=== PATIENT | female | born 1950 | race Caucasian/White ===

== ENCOUNTER 2021-02-11 20:03 | Inpatient (IN) | payer MEDICARE, SELFPAY ==
[2021-02-11] VITALS (9 sets, daily range): BP systolic 127–166; BP diastolic 57–92; PULSE 68–99; RESP 14–21; TEMP 35.8; O2SAT 91–100
--- NOTE | ~2021-02-11 | XR_ITS ---
EXAMINATION: XR chest 2V DATE: 02/11/2021 20:44 INDICATION: Shortness of breath TECHNIQUE: AP and lateral views of the chest are obtained. COMPARISON: 03/12/2010 FINDINGS: The lungs are free of acute opacities. There is no pleural effusion or pneumothorax. Cardio megaly is noted. There is mild thoracic spondylosis. There has been interval insertion of a triple le ad pacemaker/defibrillator which ends with its leads in expected position. IMPRESSION: 1. Cardiomegaly. Reviewed, dictated and finalized at location A. IMPRESSION: 1. Cardiomegaly.
--- NOTE | ~2021-02-11 | US_ITS ---
EXAMINATION:US venous doppler LE BI INDICATION:Deep venous thrombosis. Leg swelling. TECHNIQUE: Multiple grayscale, color flow and Doppler images of the right and left lower extremity de ep venous systems were obtained and reviewed. COMPARISON:Ultrasound dated 04/03/2019 FINDINGS: The common femoral, superficial femoral and popliteal veins demonstrate normal respiratory variation, augmentation and compressibility. Color flow is also seen within the posterior tibial, pe roneal, greater saphenous and profunda veins. IMPRESSION: 1: No lower extremity deep venous thrombosis. Reviewed, dictated and finalized at location A.
--- NOTE | 2021-02-11 20:16 | PC.NURSE ---
pt arrived with ems from [place]. called to home for increased sob. pt is a smoker. no home o2. see triage note for further interventions by ems. on arrival, pt on 6L O2 per nc. awaiting further instructions.
[2021-02-11 20:31] LABS: Basophils Absolute Auto 0.1 K/mm3 (0.0-0.1); Basophils Percent Auto 0.4 % (0.2-1.2); Eosinophils Absolute Auto 0.2 K/mm3 (0-0.3); Eosinophils Percent Auto 1.8 % (0-4.4); Hematocrit 47.7 % (37.0-47.0); Immature Granulocyte Absolute 0.03 K/mm3 (0.00-0.031); Immature Granulocyte Percent A 0.3 % (0-0.5); Lymphocytes Absolute Auto 1.67 K/mm3 (0.9-3.2); Lymphocytes Percent Auto 14.2 % (18.3-44.2); Mean Corpuscular HGB Conc 33.5 g/dl (32-36); Mean Corpuscular Hemoglobin 33.5 pg (26-34); Mean Corpuscular Volume 99.8 fl (80-100); Mean Platelet Volume 9.1 fl (7.4-10.4); Monocytes Absolute Auto 0.9 K/mm3 (0.1-0.6); Monocytes Percent Auto 7.8 % (2.6-8.5); Neutrophils Absolute Auto 8.9 K/mm3 (1.3-6.7); Neutrophils Percent Auto 75.5 % (45.5-73.1); Platelet Count Result 240 k/mm3 (150-375); Red Blood Count 4.78 M/mm3 (4.2-5.4); Red Cell Distribution Width 11.3 % (11.5-14.5); White Blood Count 11.7 K/mm3 (4.5-10.0)
[2021-02-11 20:40] LABS: INR 0.9; Prothrombin Time 11.9 Seconds (11.1-14.7)
[2021-02-11 20:41] LABS: Partial Thromboplastin Time 26.5 SECONDS (22.3-36.8)
[2021-02-11 20:44] LABS: Anion Gap 9 mmol/L (8-16); Blood Urea Nitrogen 7 mg/dL (7-17); Calcium 8.9 mg/dL (8.4-10.2); Carbon Dioxide 27 mmol/L (22-30); Chloride 91 mmol/L (98-107); Estimated CRCL calculation 117 ml/min; Estimated Glomerular Filt Rate > 60; Glucose 158 mg/dL (65-110); Potassium 4.5 mmol/L (3.4-5.0); Sodium 127 mmol/L (137-145)
[2021-02-11 20:59] LABS: NT Pro B Type Natriuretic Pept 108 pg/mL (5-100); Troponin I < 0.012 ng/mL (0.000-0.034)
[2021-02-11] MEDS: ALBUTEROL SULFATE NEB 2.5 MG/0.5 ML INH 15 MG INHALATION (21:27)
[2021-02-11] MEDS: IPRATROPIUM BR 0.02% INH SOLN 0.5 MG/2.5 ML VIAL 1.5 MG INHALATION (21:27)
--- NOTE | 2021-02-11 22:28 | ED.GENADULT ---
HPI - General Adult General Chief complaint: Shortness of Breath/Dyspnea Stated complaint: SOB Time Seen by Provider: 02/11/21 20:04 History of Present Illness HPI narrative: Patient is a 70-year-old female who presents ER with shortness of breath. Worsening throughout the day. Hypoxic for EMS upon arrival. Satting around 86%. Patient diminished and tight. She received IV magnesium sulfate as well as IV steroids and nebulizer treatment prior to arrival. Patient had some mild improvement in her shortness of breath but is still requiring oxygen. Reports chest tightness with shortness of breath. No orthopnea. No new lower extremity swelling. She does have history of CAD and COPD. Patient reports cough for the last couple days. No fevers or chills or sweats. Related Data Home Medications Medication Instructions Recorded Confirmed atorvastatin 20 mg PO DAILY 04/03/19 02/12/21 carvedilol 37.5 mg PO BID 04/03/19 02/12/21 sacubitril-valsartan [Entresto] 1 tablet PO BID 04/03/19 02/12/21 sotalol 80 mg PO BID 04/03/19 02/12/21 furosemide 20 mg PO BID 02/12/21 02/12/21 Allergies Allergy/AdvReac Type Severity Reaction Status Date / Time No Known Allergies Allergy Verified 02/11/21 20:15 Review of Systems Review of Systems: All systems reviewed & are unremarkable except as noted in HPI and below Constitutional: Constitutional: Denies chills, Denies fever(s) and Denies weakness ENT: Denies nasal congestion and Denies sore throat Cardiovascular: Cardiovascular: Denies chest pain and Denies radiating jaw, neck or arm pain Respiratory: Respiratory: Reports cough, Reports dyspnea and Reports wheezing Gastrointestinal: Gastrointestinal: Denies abdominal pain, Denies nausea and Denies vomiting Musculoskeletal: Musculoskeletal: Denies back pain and Denies muscle cramps [facility] Past Medical History Medical History (Updated 02/12/21 @ 06:59 by Romaine Gamble MD) Arthritis CHF (congestive heart failure) COPD (chronic obstructive pulmonary disease) H/O cardiac pacemaker Hyperlipidemia Hypertension Surgical History Surgical History (Updated 04/03/19 @ 14:24 by Evie Foley) No history of previous surgery Social History Social History Smoking packs per day: 0.5 Smoking cigarettes per day: 10.0 Years smoked: 50 Smoking pack-years: 25.00 Smoking status: Current every day smoker Tobacco type: cigarettes Alcohol intake: current Drinks per week: 28 Substance use: never Gender identity (if verbalized by the patient): Female Spiritual care concerns: No Exam Narrative: GENERAL: Ill-appearing, well-nourished, and in no acute distress. HEAD: Normocephalic, atraumatic. ENT: Mucous membranes moist. CHEST: Diminished throughout with poor air movement and faint wheezing. Moderate respiratory distress. HEART: Regular rate and rhythm. Murmur present most prominent left lower sternal border. Normal peripheral pulses. ABDOMEN: Soft, nontender, nondistended. EXTREMITIES: Normal range of motion. No edema. SKIN: Warm, dry, no rash. NEURO: Alert and oriented x3. PSYCH: Normal mood and affect. Course Course Emergency Course: Patient improving with nebulizer treatments. Admit to hospitalist service for further treatment. Vital Signs Vital signs: Vital Signs Temperature 96.5 F L 02/11/21 20:09 Pulse Rate 93 02/11/21 20:09 Respiratory Rate 19 02/11/21 20:09 Blood Pressure 166/82 H 02/11/21 20:09 Pulse Oximetry 100 02/11/21 20:09 Temperature 100.6 F H 02/12/21 06:21 Pulse Rate 83 02/12/21 05:31 Respiratory Rate 20 02/12/21 05:31 Blood Pressure 123/66 02/12/21 05:31 Pulse Oximetry 91 02/12/21 05:31 Medical Decision Making Vital Signs Vital Signs: Vital Signs Temperature 96.5 F L 02/11/21 20:09 Pulse Rate 93 02/11/21 20:09 Respiratory Rate 19 02/11/21 20:09 Blood Pressure 166/82 H 02/11/21 20:09 Pulse Oximetry 100 02/11/21 20:09
--- NOTE | 2021-02-11 23:30 | PM.IMHP ---
H&P: HPI History of Present Illness Date/Time: 02/11/21 23:30 Chief Complaint: Shortness of breath Narrative: This is a 70-year-old female with past medical history significant for dyslipidemia, COPD/emphysema, congestive heart failure, pacemaker insitu, tobacco dependence, patient states that she is down to 6 cigarettes a day from 1 pack of cigarettes a day for over 50 years. She comes in today to the emergency room due to shortness of breath states that she just recently was diagnosed with COPD and she is not on any home and in his medications. She has been having progressively worsening shortness of breath for the last 2 days or so with wheezing, cough productive of scanty white phlegm but no changes in sputum quality or quantity ,no fevers no rigors, no chills, no nausea, no vomiting, no abdominal pain, no diarrhea, no constipation, no chest pain, no PND no orthopnea she has had right lower extremity swelling but no pain. Patient presented via EMS according to EMS records upon arrival she was saturating at 86 % on room air she received various treatments on route to the hospital in emergency room her saturation has remained between 94-96% with supplemental oxygen 3 L by nasal cannula. Preliminary workup has been pretty much unrevealing a chest x-ray show cardiomegaly and pacemaker defibrillator implanted. Review of Systems Review of Systems: Worsening shortness of breath, cough productive of scanty white phlegm, wheezing. Constitutional: Constitutional: Denies chills, Denies fever(s), Denies malaise and Denies night sweats Eyes: Eyes: Denies change in vision ENT: Denies dysphagia, Denies nasal congestion, Denies nasal discharge, Denies nasal obstruction and Denies odynophagia Cardiovascular: Cardiovascular: Denies irregular heart rhythm, Denies claudication, Denies lightheadedness, Denies radiating jaw, neck or arm pain, Denies palpitations, Denies dyspnea on exertion and Denies orthopnea Comments: Right leg swelling Respiratory: Respiratory: Denies change in phlegm color, Reports cough, Denies excessive phlegm production, Denies pain on inspiration, Denies pain with cough, Reports dyspnea, Reports dyspnea on exertion and Reports wheezing Gastrointestinal: Gastrointestinal: Denies abdominal pain, Denies dyspepsia, Denies heartburn, Denies diarrhea, Denies nausea and Denies vomiting Genitourinary: Genitourinary: Reports no additional female genitourinary complaints Musculoskeletal: Musculoskeletal: Reports no additional musculoskeletal complaints Integumentary/Breasts: Skin/Breast: Reports system reviewed and no additional complaints, except as docu Neurologic: Reports system reviewed and no additional complaints, except as documented Psychiatric: Psychiatric: Reports no additional psychiatric complaints Endocrine: Endocrine: Reports no additional endocrine complaints Hematologic/Lymphatic: Hematologic/Lymphatic: Reports no additional hematologic/lymphatic complaints Allergic/Immunologic: Allergic/Immunologic: Reports no additional allergic/immunologic complaints [facility] Past Medical History Medical History (Updated 02/12/21 @ 01:51 by Asim Amezcua MD) Arthritis CHF (congestive heart failure) COPD (chronic obstructive pulmonary disease) H/O cardiac pacemaker Hyperlipidemia Hypertension Surgical History Surgical History (Updated 04/03/19 @ 14:24 by Evie Foley) No history of previous surgery Social History Social History Gender identity (if verbalized by the patient): Female Meds Home Medications and Allergies Home Medications Medication Instructions Recorded Confirmed Type atorvastatin 20 mg PO DAILY 04/03/19 History carvedilol 12.5 mg PO BID 04/03/19 History sacubitril-valsartan [Entresto] tablet 04/03/19 History sotalol 80 mg PO BID 04/03/19 History Allergies Allergy/AdvReac Type Severity Reaction Status Date / Time No Known Allergies Allergy Verified 02/11/21 20:15 Vital S
[2021-02-12] VITALS (19 sets, daily range): BP systolic 123–156; BP diastolic 66–85; PULSE 77–94; RESP 12–20; TEMP 36.2–38.2; O2SAT 91–96; BMI 36.7; BMI 35.7
[2021-02-12] MEDS: methylPREDNISolone SOD SUCC 125 MG VIAL 60 MG IV PUSH ×4 (00:09→17:42)
[2021-02-12] MEDS: ALBUTEROL SULFATE NEB 2.5 MG/0.5 ML INH 5 MG INHALATION ×4 (01:32→22:07)
[2021-02-12] MEDS: IPRATROPIUM BR 0.02% INH SOLN 0.5 MG/2.5 ML VIAL INHALATION ×4 (01:32→22:07)
--- NOTE | 2021-02-12 02:08 | ADMGEN ---
This patient, Stephanie He, was admitted to 3 [facility] Surg Room 319-01. Patient/family oriented to hospital policies and general routines including ID bracelet, bed and alarms, visiting hours, pain management, procedures, bathroom and other care routines, personal items, smoking policy, room service/diet, and visiting hours. Information on how to activate the Rapid Response Team has been discussed. Patient/Family are encouraged to report perceived risks to care and to ask questions if they do not understand what they are told or what they should do.
[2021-02-12] MEDS: ACETAMINOPHEN 325 MG TABLET 650 MG PO (06:21)
--- NOTE | 2021-02-12 07:26 | PM.IMPN ---
Progress Note: A&P Additional Plan START OF DOCTOR MONTY?S PROGRESS NOTE Subjective: The patient indicates that her respiratory status has improved compared to how she felt upon admission. She currently rates her respiratory status as a 5 out 10. Although there is a documented elevated temperature, the patient denies fever, rigors, nausea, vomiting, cough, wheeze, abdominal pain, chest pain, or any other constitutional complaints. Have explained to the patient her current medical condition plan of care and answered all questions Objective: General: -Alert -No acute distress -No dyspnea -No tachypnea -obese Heart: -Regular rate -Regular rhythm -No murmurs -No gallops -No rubs Lungs: -scant left-sided wheeze. Decreased breath sounds on left side -No rhonchi -No rales Abdomen: -Normal bowel sounds in all four quadrants -No rebound -No guarding -No tenderness Extremities: -2/4 pulse in all four extremities -No clubbing -No cyanosis -No edema Additional Details / Additional Findings / Exceptions / Miscellaneous: Pertinent Laboratory Results / Pertinent Radiology Results / Pertinent Diagnostic Results / Pertinent Vital Signs: P temperature 100.6?, patient saturating 91% on 3 L Assessment / Plan: COPD, not O2 dependent home. Albuterol 2.5 mg nebulized q.6 hours plus ipratropium 0.5 mg nebulized q.6 hours +6 mg IV q.6 hours plus doxycycline 100 mg p.o. b.i.d. paragraph hyperlipidemia paragraph CHF paragraph status post pacemaker placement. Patient gets this was placed following myocardial infarction. She denies a history of atrial fibrillation although she does take sotalol at home. Telemetry monitoring Smoker. Patient will be counseled regarding smoking cessation Arthritis Hypertension Hyponatremia. Monitor sodium levels intermittently. IV normal saline 50 mL/hour while closely monitoring her respiratory status as she has a known history of CHF Coronary artery disease, status post [place] Obesity. Patient counseled regarding lifestyle modification GI prophylaxis. Protonix 40 mg p.o. daily DVT prophylaxis. Lovenox 40 mg subcutaneously daily Disposition: Anticipate discharge in 24-48 hours if were able to wean the patient off of supplemental oxygen END OF DOCTOR MONTY?S PROGRESS NOTE Subjective Date/time seen: 02/12/21 07:26 Objective Data Vital Signs Vital Signs: Vital Signs - 24 hr 02/11/21 20:09 02/11/21 20:14 02/11/21 20:36 Temperature 96.5 F L Pulse Rate 93 99 Respiratory Rate 19 Blood Pressure 166/82 H Pulse Oximetry 100 100 02/11/21 20:58 02/11/21 21:28 02/11/21 22:00 Temperature Pulse Rate 76 71 71 Respiratory Rate 16 18 14 Blood Pressure 127/57 L 159/76 H Pulse Oximetry 100 100 02/11/21 22:19 02/11/21 22:49 02/11/21 23:41 Temperature Pulse Rate 77 68 70 Respiratory Rate 18 21 H 18 Blood Pressure 146/92 H 133/62 Pulse Oximetry 91 98 02/12/21 01:18 02/12/21 01:30 02/12/21 01:35 Temperature 97.1 F L 98.0 F Pulse Rate 86 77 82 Respiratory Rate 18 20 20 Blood Pressure 154/82 H 156/85 H Pulse Oximetry 96 94 02/12/21 01:39 02/12/21 01:44 02/12/21 05:31 Temperature 100.7 F H Pulse Rate 82 84 83 Respiratory Rate 20 18 20 Blood Pressure 123/66 Pulse Oximetry 94 91 02/12/21 06:21 Temperature 100.6 F H Pulse Rate Respiratory Rate Blood Pressure Pulse Oximetry Meds/Results Medications: Active Medications Generic Name Dose Route Start Last Admin Trade Name Angelitoq PRN Reason Stop Dose Admin Acetaminophen 650 mg 02/11/21 23:12 02/12/21 06:21 Acetaminophen 325 Mg Tablet PO 650 mg Q4H PRN Administration Mild Pain (1-3) or Fever Hydrocodone Bitart/Acetaminophen 1 tab 02/11/21 23:12 Hydrocodone/Acetaminophen (*Crx) 5-325 Mg Tablet PO Q4H PRN Pain Rated 4-6 Albuterol 5 mg 02/12/21 02:00 02/12/21 01:32 Albuterol Sulfate Neb 2.5 Mg/0.5 Ml Inh INHALA
[2021-02-12] MEDS: SODIUM CHLORIDE 0.9% IV 1,000 ML 50 ML IV CONT (08:49)
[2021-02-12] MEDS: ENOXAPARIN 40 MG/0.4 ML SYRINGE SUB-Q (08:50)
[2021-02-12 09:44] LABS: Add Urine Microscopic? YES; Appearance Urine Cloudy (Clear); Bacteria Urine Trace /hpf; Bilirubin Urine Negative (Negative); Blood Urine Negative (Negative); Color Urine Yellow (Yellow); Glucose Urine UA Negative (Negative); Ketones Urine Trace mg/dL (Negative); Leukocyte Esterase Ur Negative LEU/UL (NEGATIVE); Mucus Urine Rare /lpf; Nitrate Urine Negative (Negative); Protein Urine 1+ mg/dL (Negative); RBC Urine 0-2 /hpf (0-2); Specific Grav Ur 1.011 (1.001-1.035); Squamous Epithelial Cell Urine Many /hpf (Few)
[2021-02-12] MEDS: PANTOPRAZOLE 40 MG TABLET PO (12:18)
[2021-02-12] MEDS: DOXYCYCLINE HYCLATE 100 MG TABLET PO ×2 (12:18→21:56)
[2021-02-13] VITALS (16 sets, daily range): BP systolic 118–153; BP diastolic 62–85; PULSE 72–100; RESP 18; TEMP 36.4–37; O2SAT 90–94
[2021-02-13] MEDS: methylPREDNISolone SOD SUCC 125 MG VIAL 60 MG IV PUSH ×3 (01:14→13:25)
[2021-02-13] MEDS: ALBUTEROL SULFATE NEB 2.5 MG/0.5 ML INH 5 MG INHALATION ×3 (02:59→14:35)
[2021-02-13] MEDS: IPRATROPIUM BR 0.02% INH SOLN 0.5 MG/2.5 ML VIAL INHALATION ×3 (03:00→14:36)
[2021-02-13 06:45] LABS: Basophils Percent Auto 0.1 % (0.2-1.2); Hematocrit 41.2 % (37.0-47.0); Hemoglobin 14.1 g/dL (12.0-15.0); Immature Granulocyte Absolute 0.11 K/mm3 (0.00-0.031); Immature Granulocyte Percent A 0.7 % (0-0.5); Lymphocytes Absolute Auto 0.54 K/mm3 (0.9-3.2); Lymphocytes Percent Auto 3.5 % (18.3-44.2); Mean Corpuscular HGB Conc 34.2 g/dl (32-36); Mean Corpuscular Hemoglobin 33.5 pg (26-34); Mean Corpuscular Volume 97.9 fl (80-100); Mean Platelet Volume 9.2 fl (7.4-10.4); Monocytes Absolute Auto 0.5 K/mm3 (0.1-0.6); Monocytes Percent Auto 3.1 % (2.6-8.5); Neutrophils Absolute Auto 14.1 K/mm3 (1.3-6.7); Neutrophils Percent Auto 92.6 % (45.5-73.1); Platelet Count Result 216 k/mm3 (150-375); Red Blood Count 4.21 M/mm3 (4.2-5.4); Red Cell Distribution Width 11.1 % (11.5-14.5); White Blood Count 15.3 K/mm3 (4.5-10.0)
--- NOTE | 2021-02-13 07:00 | PM.IMPN ---
Progress Note: A&P Additional Plan START OF DOCTOR [facility]ONT[facility]?S PROGRESS NOTE Subjective: The patient indicates that her respiratory status has completely improved compared to my encounter with her on February 12, 2021. She currently rates her respiratory status is 6/10 her baseline. Overnight, she denies fever, rigors, nausea, vomiting, cough, wheeze, abdominal pain, chest pain, or any other concerns or complaints. I have explained to the patient her current medical condition and plan of care and answered all her questions Objective: General: -Alert -No acute distress -No dyspnea -No tachypnea -obese Heart: -Regular rate -Regular rhythm -No murmurs -No gallops -No rubs Lungs: -no wheeze -No rhonchi -No rales -distant breath sounds bilaterally Abdomen: -Normal bowel sounds in all four quadrants -No rebound -No guarding -No tenderness Extremities: -2/4 pulse in all four extremities -No clubbing -No cyanosis -No edema Additional Details / Additional Findings / Exceptions / Miscellaneous: Pertinent Laboratory Results / Pertinent Radiology Results / Pertinent Diagnostic Results / Pertinent Vital Signs: Patient saturating 94% 2 L, otherwise vital signs stable. Morning labs pending Assessment / Plan: COPD, not O2 dependent home. Albuterol 2.5 mg nebulized q.6 hours plus ipratropium 0.5 mg nebulized q.6 hours +6 mg IV q.6 hours plus doxycycline 100 mg p.o. b.i.d. hyperlipidemia CHF status post pacemaker placement. Patient gets this was placed following myocardial infarction. She denies a history of atrial fibrillation although she does take sotalol at home. Telemetry monitoring Smoker. Patient will be counseled regarding smoking cessation Arthritis Hypertension Hyponatremia. Monitor sodium levels intermittently. IV normal saline 50 mL/hour while closely monitoring her respiratory status as she has a known history of CHF Coronary artery disease, status post [place] Obesity. Patient counseled regarding lifestyle modification GI prophylaxis. Protonix 40 mg p.o. daily DVT prophylaxis. Lovenox 40 mg subcutaneously daily Disposition: Patient may potentially be a candidate for discharge on this day of February 13, 2021 depending on her supplemental oxygen needs END OF DOCTOR MONTY?S PROGRESS NOTE Subjective Date/time seen: 02/13/21 07:00 Objective Data Vital Signs Vital Signs: Vital Signs - 24 hr 02/12/21 08:00 02/12/21 09:34 02/12/21 09:44 Temperature Pulse Rate 85 87 85 Respiratory Rate 18 18 18 Blood Pressure Pulse Oximetry 91 91 91 02/12/21 12:00 02/12/21 14:52 02/12/21 14:54 Temperature 98.0 F Pulse Rate 82 83 87 Respiratory Rate 16 12 Blood Pressure 148/75 H Pulse Oximetry 92 02/12/21 15:03 02/12/21 16:00 02/12/21 20:00 Temperature Pulse Rate 83 81 90 Respiratory Rate 18 Blood Pressure Pulse Oximetry 02/12/21 22:00 02/12/21 22:10 02/12/21 22:17 Temperature 97.3 F L Pulse Rate 94 91 89 Respiratory Rate 18 Blood Pressure 153/78 H Pulse Oximetry 94 94 02/13/21 00:00 02/13/21 03:00 02/13/21 03:06 Temperature Pulse Rate 95 86 84 Respiratory Rate Blood Pressure Pulse Oximetry 02/13/21 04:00 Temperature Pulse Rate 92 Respiratory Rate Blood Pressure Pulse Oximetry Intake/Output Intake/Output: Intake & Output 02/10/21 02/11/21 02/12/21 02/13/21 23:59 23:59 23:59 23:59 Intake Total 1920 Balance 1920 Meds/Results Medications: Active Medications Generic Name Dose Route Start Last Admin Trade Name Angelitoq PRN Reason Stop Dose Admin Acetaminophen 650 mg 02/11/21 23:12 02/12/21 06:21 Acetaminophen 325 Mg Tablet PO 650 mg Q4H PRN Administration Mild Pain (1-3) or Fever Hydrocodone Bitart/Acetaminophen 1 tab 02/11/21 23:12 Hydrocodone/Acetaminophen (*Crx) 5-325 Mg Tablet PO Q4H PRN Pain Rated 4-6 Albuterol 5 mg 02/12/21 0
[2021-02-13 07:05] LABS: Anion Gap 5 mmol/L (8-16); Blood Urea Nitrogen 11 mg/dL (7-17); Calcium 9.1 mg/dL (8.4-10.2); Carbon Dioxide 30 mmol/L (22-30); Chloride 95 mmol/L (98-107); Estimated CRCL calculation 117 ml/min; Estimated Glomerular Filt Rate > 60; Glucose 193 mg/dL (65-110); Potassium 4.4 mmol/L (3.4-5.0); Sodium 130 mmol/L (137-145)
[2021-02-13] MEDS: PANTOPRAZOLE 40 MG TABLET PO (08:29)
[2021-02-13] MEDS: ENOXAPARIN 40 MG/0.4 ML SYRINGE SUB-Q (08:29)
[2021-02-13] MEDS: DOXYCYCLINE HYCLATE 100 MG TABLET PO (08:29)
--- NOTE | 2021-02-13 10:08 | PCAUD ---
Informed MD Welch pt concerned about restarting b/p medication. Pt was admitted 02/12/21, to review medication at this time.
--- NOTE | 2021-02-13 10:10 | PCAUD ---
Called daughter and updated on pt status.
[2021-02-13] MEDS: SODIUM CHLORIDE 0.9% IV 1,000 ML 50 ML IV CONT (13:34)
--- NOTE | 2021-02-13 15:37 | HOMEO2EVAL ---
Evaluation was performed at [facility] Home Oxygen Evaluation RC: Home Oxygen (O2) Evaluation Start: 02/13/21 15:10 Freq: ONCE Status: Active Protocol: RPE Activity Type Activity Date Activity User E-Sign Co-Sign Detail Recorded Client Recorded Date Recorded By Document 02/13/21 15:30 KRM [id number] 02/13/21 15:37 KRM Document 02/13/21 15:31 KRM [id number] 02/13/21 15:37 KRM Document 02/13/21 15:32 KRM [id number] 02/13/21 15:37 KRM 02/13/21 02/13/21 02/13/21 15:30 15:31 15:32 Home O2 Evaluation Test Phase Resting Exercise Exercise Oxygen Delivery Room Air Room Air [place]opap Pulse Oximetry (90-100 %) 91 90 90 Pulse Rate (60-100 beats/min) 93 90 90 Activity Tolerance Good Good Ambulation Distance (feet) 100 Home Oxygen Evaluation Comments NO HOME O2 REQUIRED. Treatment Charges O2 Evaluation - Inpatient
--- NOTE | 2021-02-13 15:44 | PM.DS ---
DS: Admitting Diagnosis Discharge Date 3:46 p.m. on February 13, 2021 Admitting Diagnosis COPD exacerbation DS: Summary Hospital Course Hospital Course: See discharge summary below Time Spent with Patient Time attestation: Total time spent providing and/or coordinating discharge services: START OF DOCTOR ARMIJOS DISCHARGE SUMMARY Date of Admission: February 11, 2021 Date of Discharge: 3:44 p.m. on February 13, 2021 Primary Diagnosis: COPD, not O2 dependent, exacerbation Secondary Diagnosis: Hyperlipidemia CHF Status post pacemaker placement. The patient indicates this was placed following myocardial infarction although she denies a history of atrial fibrillation although she takes sotalol at home which is suggestive of this Smoker Arthritis Hypertension Hyponatremia, likely secondary to Lasix use prior to this hospitalization Coronary artery disease, status post [place] Obesity Consultations: None Disposition: The patient will be advised follow-up with her primary care physician 7-10 days post discharge for post hospitalization evaluation The patient will require check a BMP 5 days post discharge for diagnosis hyponatremia Discharge Medications: Lipitor 20 mg p.o. q.h.s. Coreg 37.5 mg p.o. b.i.d. Sotalol 80 mg p.o. b.i.d. Entresto 97/103 m tab p.o. b.i.d. Prednisone 10 mg PO: 4 tabs daily x3 days then 3 tabs daily x3 days then 2 tabs daily x3 days then 1 tab daily x3 days. Quantity sufficient. 0 refills Doxycycline 100 mg p.o. b.i.d.. Quantity 10. 0 refills Proventil HFA: 90 mg per spray: 2 puffs q.4 hours p.r.n. shortness of breath/wheeze Protonix 40 mg p.o. daily. Quantity 15. 0 refills. This is being prescribed for GI prophylaxis while she was on prednisone and is not for dyspepsia/GERD END OF DOCTOR MONTY?S DISCHARGE SUMMARY DS: Data Data Completed and Pending Labs on day of discharge: Labs from last 24 hours 02/13/21 02/13/21 06:30 06:30 WBC 15.3 H RBC 4.21 Hgb 14.1 Hct 41.2 MCV 97.9 MCH 33.5 MCHC 34.2 RDW 11.1 L Plt Count 216 MPV 9.2 Immature Gran % (Auto) 0.7 H Neut % (Auto) 92.6 H Lymph % (Auto) 3.5 L [place] % (Auto) 3.1 Eos % (Auto) 0.0 Baso % (Auto) 0.1 L Lymph # (Auto) 0.54 L [place] # (Auto) 0.5 Eos # (Auto) 0.0 Baso # (Auto) 0.0 Abs Immat Gran (auto) 0.11 H Absolute Neuts (auto) 14.1 H Absolute Nucleated RBC 0.0 Nucleated RBC % 0.0 Sodium 130 L Potassium 4.4 Chloride 95 L Carbon Dioxide 30 Anion Gap 5 L BUN 11 Creatinine 0.40 L Estim Creat Clear Calc 117 Estimated GFR > 60 Glucose 193 H Calcium 9.1 Discharge Plan Discharge Consulting providers: Cheng Jackson Discharging Clinician: Dr. Welch Patient Disposition: Home, Self-Care Activity: as tolerated Diet: heart healthy, low cholesterol and low fat Discharge Instructions: The patient is advised follow-up with primary care physician in 7-10 days post discharge for post hospitalization evaluation The patient required check a BMP 5 days post discharge for diagnosis hyponatremia Patient Instructions: Antibiotic Form Stand Alone Forms: General Discharge Information Follow-up/Referrals: Bree Welch DO [Physician] - Discharge Medications: New pantoprazole 40 mg Tablet,Delayed Release (Dr/Ec) 40 mg PO QAM Qty: 15 RF: 0 doxycycline hyclate 100 mg Tablet 100 mg PO Q12HR Qty: 10 RF: 0 albuterol sulfate [Proventil HFA] 90 mcg/actuation HFA aerosol inhaler 2 puff inhalation Q4H PRN (Reason: shortness of breath or wheezing) Qty: 8.5 RF: 0 prednisone 10 mg tablet 10 mg PO DAILY Qty: 1 RF: 0 Continued atorvastatin 20 mg tablet 20 mg PO DAILY RF: 0 carvedilol 25 mg tablet 37.5 mg PO BID RF: 0 sotalol 80 mg tablet 80 mg PO BID RF: 0 Entresto 97-103 mg tablet 1 tablet PO BID RF: 0 Discontinued furosemide 2
== END 2021-02-13 17:20 | disposition home or self-care (01) | DRG 191 ==
LOC: ANHED 02-12 00:04 → ANH3MEDSUR 02-12 00:29
PROVIDERS: Admitting Provider Internal Medicine; Emergency Provider Emergency Medicine; Visit Provider Internal Medicine
DX: J43.9 Emphysema, unspecified (principal); E87.1 Hypo-osmolality and hyponatremia; F17.210 Nicotine dependence, cigarettes, uncomplicated; I25.10 Atherosclerotic heart disease of native coronary artery without angina pectoris; I11.0 Hypertensive heart disease with heart failure; I50.9 Heart failure, unspecified; E78.5 Hyperlipidemia, unspecified; M19.90 Unspecified osteoarthritis, unspecified site; E66.9 Obesity, unspecified; Z68.35 Body mass index [BMI] 35.0-35.9, adult; I25.2 Old myocardial infarction; Z79.899 Other long term (current) drug therapy; Z95.0 Presence of cardiac pacemaker
CPT/HCPCS: 36415; 71046; 80048; 81001; 83880; 84484; 85025; 85610; 85730; 93970; 94618; 94640; 96372; 96374; 96376; 99285; A9270; G0378; J1650; J2930; J7030

== ENCOUNTER 2022-02-16 21:34 | Inpatient (IN) | payer MEDICARE, SELFPAY ==
--- NOTE | ~2022-02-16 | XR_ITS ---
XR chest 2V 02/16/2022 22:07 Indication: Shortness of breath Procedure: AP and lateral views the chest Comparison: Comparison to multiple prior studies sequentially, with oldest reviewed study dated 06/2020. Findings: Cardiomegaly. Pacemaker leads are stable. No focal air space disease, pulmonary edema, pleu ral effusion or suspected pneumothorax. No acute osseous abnormality. Impression: 1: No acute cardiopulmonary disease. 2: Cardiomegaly. Reviewed, dictated and finalized at location A. Impression: 1: No acute cardiopulmonary disease. 2: Cardiomegaly.
[2022-02-16 21:33] VITALS: BP 146/86; PULSE 93; RESP 24; TEMP 36.1; O2SAT 96
--- NOTE | 2022-02-16 21:39 | ECG_ITS ---
Measurements Intervals [place] Rate: 91 P: 70 GA: 172 QRS: 140 QRSD: 146 T: 60 QT: 388 QTc: 478 Interpretive Statements SINUS RHYTHM WITH ATRIAL SENSING AND ELECTRONIC VENTRICULAR PACEMAKER ABNORMAL RHYTHM ECG NO PREVIOUS ECG AVAILABLE FOR COMPARISON Electronically Signed On 02-17-2022 7:54:25 CDT by Florentin Rabago M.D.
[2022-02-16 22:56] LABS: Basophils Absolute Auto 0.1 K/mm3 (0.0-0.1); Basophils Percent Auto 0.4 % (0.2-1.2); Eosinophils Absolute Auto 0.1 K/mm3 (0-0.3); Eosinophils Percent Auto 0.7 % (0-4.4); Hematocrit 48.1 % (37.0-47.0); Hemoglobin 16.1 g/dL (12.0-15.0); Immature Granulocyte Absolute 0.05 K/mm3 (0.00-0.031); Immature Granulocyte Percent A 0.4 % (0-0.5); Lymphocytes Absolute Auto 0.92 K/mm3 (0.9-3.2); Lymphocytes Percent Auto 6.8 % (18.3-44.2); Mean Corpuscular HGB Conc 33.5 g/dl (32-36); Mean Corpuscular Hemoglobin 33.8 pg (26-34); Mean Corpuscular Volume 100.8 fl (80-100); Mean Platelet Volume 9.1 fl (7.4-10.4); Monocytes Absolute Auto 0.5 K/mm3 (0.1-0.6); Monocytes Percent Auto 3.3 % (2.6-8.5); Neutrophils Percent Auto 88.4 % (45.5-73.1); Platelet Count Result 223 k/mm3 (150-375); Red Blood Count 4.77 M/mm3 (4.2-5.4); Red Cell Distribution Width 11.7 % (11.5-14.5); White Blood Count 13.5 K/mm3 (4.5-10.0)
[2022-02-16 23:13] LABS: Alanine Aminotransferase 20 U/L (6-35); Albumin Level 4.7 g/dL (3.5-5.1); Alkaline Phosphatase 90 U/L (38-126); Anion Gap 11 mmol/L (8-16); Aspartate Amino Transferase 30 U/L (14-36); Bilirubin,Total 0.7 mg/dL (0.2-1.3); Blood Urea Nitrogen 10 mg/dL (7-17); Calcium 9.6 mg/dL (8.4-10.2); Carbon Dioxide 31 mmol/L (22-30); Chloride 92 mmol/L (98-107); Estimated CRCL calculation 87 ml/min; Estimated Glomerular Filt Rate > 60; Glucose 153 mg/dL (65-110); Potassium 4.7 mmol/L (3.4-5.0); Sodium 134 mmol/L (137-145)
[2022-02-16 23:25] VITALS: PULSE 100; RESP 17
[2022-02-16] MEDS: IPRATROPIUM BR 0.02% INH SOLN 0.5 MG/2.5 ML VIAL INHALATION (23:26)
[2022-02-16] MEDS: ALBUTEROL SULFATE NEB 2.5 MG/3 ML INH 5 MG INHALATION (23:26)
[2022-02-16 23:29] VITALS: PULSE 84; RESP 18
[2022-02-16 23:37] VITALS: PULSE 98; RESP 16
--- NOTE | 2022-02-16 23:44 | ED.SOB ---
HPI - SOB/Dyspnea General Chief Complaint: Shortness of Breath/Dyspnea Stated Complaint: SOB Time Seen by Provider: 02/16/22 21:49 Source: patient Mode of arrival: EMS Limitations: no limitations History of Present Illness HPI Narrative: 71-year-old with a history of hypertension, COPD but not on any home oxygen here with complaints of shortness of breath for past few days however since this morning she states that she has been using her inhalers with minimal relief. This evening she states that she could not catch her breath and her neb treatments were not helping. She states that she has occasional cough which is nonproductive. She denies any chest pain however she feels her chest is tight because of her breathing no history of fever or chills. MD elicited complaint: shortness of breath and cough Pertinent past history: COPD Onset (ago): day(s) (2) Timing: constant Severity: moderate Exacerbating factors: nothing Relieving factors: oxygen, bronchodilators and upright position Known history of: COPD Associated symptoms: denies other symptoms Related Data Home oxygen amount: none Home Medications Medication Instructions Recorded Confirmed atorvastatin 20 mg tablet 20 mg PO DAILY 04/03/19 02/12/21 carvedilol 25 mg tablet 37.5 mg PO BID 04/03/19 02/12/21 sacubitril 97 mg-valsartan 103 mg 1 tablet PO BID 04/03/19 02/12/21 tablet (Entresto) sotalol 80 mg tablet 80 mg PO BID 04/03/19 02/12/21 Allergies Allergy/AdvReac Type Severity Reaction Status Date / Time No Known Allergies Allergy Verified 02/11/21 20:15 Review of Systems Review of Systems: All systems reviewed & are unremarkable except as noted in HPI and below Constitutional: Constitutional: Reports no additional constitutional complaints Eyes: Eyes: Reports no additional eye complaints ENT: Reports system reviewed and no additional complaints, except as documented Cardiovascular: Cardiovascular: Reports no additional cardiovascular complaints Respiratory: Respiratory: Reports as per HPI Gastrointestinal: Gastrointestinal: Reports no additional gastrointestinal complaints Musculoskeletal: Musculoskeletal: Reports no additional musculoskeletal complaints [facility] Past Medical History Medical History Arthritis CHF (congestive heart failure) COPD (chronic obstructive pulmonary disease) H/O cardiac pacemaker Hyperlipidemia Hypertension Surgical History Surgical History No history of previous surgery Social History Social History Smoking packs per day: 0.5 Smoking cigarettes per day: 10.0 Years smoked: 50 Smoking pack-years: 25.00 Smoking status: Current every day smoker Tobacco type: cigarettes Alcohol intake: current Drinks per week: 28 Substance use: never Gender identity (if verbalized by the patient): Female Spiritual care concerns: No Exam Narrative: GENERAL: Well-appearing, well-nourished, and in no acute distress. HEAD: Normocephalic, atraumatic. EYES: PERRLA and EOMI. NECK: Supple. CHEST: Decreased air entry , bilateral wheeze on auscultation HEART: Regular rate and rhythm. No murmur heard. Normal peripheral pulses. ABDOMEN: Soft, nontender, nondistended, normal active bowel sounds. EXTREMITIES: Normal range of motion. No edema. SKIN: Warm, dry, no rash. NEURO: No focal deficits. Alert and oriented x3. PSYCH: Normal mood and affect. Course Course Emergency Course: 71-year-old with a history of COPD did receive Solu-Medrol on route to the hospital on auscultation she still has poor air entry will repeat another neb treatment. Do a chest x-ray and lab work. Patient feeling much better after nebulizer treatment informed her about her lab work and chest x-ray. And agreeable for admission. Vital Signs Vital signs: Vital Signs Temperature 36.1
[2022-02-17] VITALS (23 sets, daily range): BP systolic 122–171; BP diastolic 59–102; PULSE 77–96; RESP 14–18; TEMP 36.6–36.8; O2SAT 90–96; BMI 35.4
--- NOTE | 2022-02-17 01:12 | ADMGEN ---
This patient, Stephanie He, was admitted to Medical Room 349-01. Patient/family oriented to hospital policies and general routines including ID bracelet, bed and alarms, visiting hours, pain management, procedures, bathroom and other care routines, personal items, smoking policy, room service/diet, and visiting hours. Information on how to activate the Rapid Response Team has been discussed. Patient/Family are encouraged to report perceived risks to care and to ask questions if they do not understand what they are told or what they should do.
[2022-02-17] MEDS: methylPREDNISolone SOD SUCC 125 MG VIAL 60 MG IV PUSH ×2 (05:22→13:15)
--- NOTE | 2022-02-17 05:29 | PM.IMHP ---
H&P: HPI History of Present Illness Date/Time: 02/17/22 05:29 Chief Complaint: shortness of breath Narrative: 71-year-old female with past medical history significant for COPD, congestive heart failure, tobacco dependence, Pacemaker in place. Patient presents to the emergency room due to worsening shortness of breath at the time of my visit patient is on supplemental oxygen by nasal cannula states that has had a shortness of breath that has progressively getting worse her inhalers are not helping, has not noticed any change in her sputum quality, no fevers, no rigors, no chills. patient is a current everyday smoker she is trying to quit. Review of Systems Review of Systems: Shortness of breath, wheezing Constitutional: Constitutional: Denies chills, Denies fever(s), Denies malaise and Denies night sweats Eyes: Eyes: Denies change in vision ENT: Denies dysphagia, Denies vertigo, Denies dizziness and Denies odynophagia Cardiovascular: Cardiovascular: Denies chest pain, Denies syncope, Denies irregular heart rhythm, Denies lightheadedness and Denies palpitations Respiratory: Respiratory: Denies chest congestion, Denies cough, Denies pain on inspiration, Reports dyspnea, Denies dyspnea on exertion and Reports wheezing Gastrointestinal: Gastrointestinal: Denies abdominal pain, Denies dyspepsia, Denies heartburn, Denies diarrhea, Denies nausea and Denies vomiting Genitourinary: Genitourinary: Denies dysuria Musculoskeletal: Musculoskeletal: Denies myalgias, Denies joint swelling and Denies muscle weakness Integumentary/Breasts: Skin/Breast: Denies rash Neurologic: Denies vertigo, Denies dizziness, Denies focal weakness and Denies Sensory deficit (Neuro) Psychiatric: Psychiatric: Reports no additional psychiatric complaints and Reports as per HPI Endocrine: Endocrine: Denies cold intolerance, Denies flushing, Denies heat intolerance, Denies polyphagia, Denies polydipsia and Denies palpitations Hematologic/Lymphatic: Hematologic/Lymphatic: Reports no additional hematologic/lymphatic complaints and Reports as per HPI Allergic/Immunologic: Allergic/Immunologic: Reports no additional allergic/immunologic complaints and Reports as per HPI PMFSH Past Medical History Medical History (Updated 02/17/22 @ 13:34 by ZORAIDA MccannN-C) Arthritis CHF (congestive heart failure) COPD (chronic obstructive pulmonary disease) H/O cardiac pacemaker Hyperlipidemia Hypertension Surgical History Surgical History No history of previous surgery Social History Social History Smoking packs per day: 0.5 Smoking cigarettes per day: 10.0 Years smoked: 50 Smoking pack-years: 25.00 Smoking status: Current every day smoker Alcohol intake: current Drinks per week: 15 Substance use: never Substance use type: does not use Gender identity (if verbalized by the patient): Female Spiritual care concerns: No Meds Home Medications and Allergies Home Medications Medication Instructions Recorded Confirmed Type atorvastatin 20 mg tablet (Lipitor) 20 mg PO DAILY 04/03/19 02/17/22 History carvedilol 25 mg tablet 37.5 mg PO BID 04/03/19 02/17/22 History sacubitril 97 mg-valsartan 103 mg 1 tablet PO BID 04/03/19 02/17/22 History tablet (Entresto) sotalol 80 mg tablet 80 mg PO BID 04/03/19 02/17/22 History albuterol sulfate 90 mcg/actuation 2 puff inhalation Q4H PRN 02/18/22 Rx aerosol inhaler (Proventil HFA) shortness of breath or wheezing #8.5 grams cefdinir 300 mg capsule 300 mg PO Q12H #14 caps 02/18/22 Rx prednisone 20 mg tablet 40 mg PO DAILY@0800 #6 tabs 02/18/22 Rx Allergies Allergy/AdvReac Type Severity Reaction Status Date / Time No Known Allergies Allergy Verified 02/17/22 00:29 Vital Signs Vital Signs - 24 hr 02/16/22 21:33 02/16/22 23:29 02/17/22 00:29 Temperature 97.
[2022-02-17 05:42] LABS: Basophils Percent Auto 0.2 % (0.2-1.2); Hematocrit 44.8 % (37.0-47.0); Hemoglobin 15.2 g/dL (12.0-15.0); Immature Granulocyte Absolute 0.05 K/mm3 (0.00-0.031); Immature Granulocyte Percent A 0.5 % (0-0.5); Lymphocytes Absolute Auto 0.58 K/mm3 (0.9-3.2); Lymphocytes Percent Auto 6.2 % (18.3-44.2); Mean Corpuscular HGB Conc 33.9 g/dl (32-36); Mean Corpuscular Hemoglobin 33.9 pg (26-34); Mean Corpuscular Volume 99.8 fl (80-100); Monocytes Absolute Auto 0.1 K/mm3 (0.1-0.6); Monocytes Percent Auto 0.8 % (2.6-8.5); Neutrophils Absolute Auto 8.6 K/mm3 (1.3-6.7); Neutrophils Percent Auto 92.3 % (45.5-73.1); Platelet Count Result 190 k/mm3 (150-375); Red Blood Count 4.49 M/mm3 (4.2-5.4); Red Cell Distribution Width 11.6 % (11.5-14.5); White Blood Count 9.3 K/mm3 (4.5-10.0)
[2022-02-17 05:54] LABS: Anion Gap 9 mmol/L (8-16); Blood Urea Nitrogen 8 mg/dL (7-17); Calcium 9.3 mg/dL (8.4-10.2); Carbon Dioxide 31 mmol/L (22-30); Chloride 91 mmol/L (98-107); Estimated CRCL calculation 119 ml/min; Estimated Glomerular Filt Rate > 60; Glucose 196 mg/dL (65-110); Sodium 131 mmol/L (137-145)
[2022-02-17] MEDS: IPRATROPIUM BR 0.02% INH SOLN 0.5 MG/2.5 ML VIAL INHALATION ×3 (08:12→21:39)
[2022-02-17] MEDS: ALBUTEROL SULFATE NEB 2.5 MG/3 ML INH 5 MG INHALATION ×3 (08:13→21:39)
[2022-02-17] MEDS: SOTALOL HCL 80 MG TABLET PO ×2 (08:22→20:46)
[2022-02-17] MEDS: carvediloL 12.5 MG TABLET 37.5 MG PO ×2 (08:23→17:13)
[2022-02-17] MEDS: ATORVASTATIN 20 MG TABLET PO (08:23)
[2022-02-17] MEDS: SACUBITRIL/VALSARTAN 97-103 MG TABLET 1 TAB PO ×2 (08:24→20:46)
--- NOTE | 2022-02-17 10:45 | PM.IMPN ---
Progress Note: A&P Assessment and Plan (1) COPD exacerbation: Code(s): J44.1 - Chronic obstructive pulmonary disease with (acute) exacerbation Status: Acute Assessment and Plan: Chest xray showed no acute cardiopulmonary process Supplemental oxygen required at 3L Seems to be in an acute exacerbation Trend SPO2 Breathing treatments Continue azithromycin and ceftriaxone for now Solumedrol 60mg IV Q6H, titrate to 40mg PO daily Prednisone Wean supplemental oxygen to maintain saturation of >90% Sputum culture (2) Tobacco dependence: Code(s): F17.200 - Nicotine dependence, unspecified, uncomplicated Status: Acute Assessment and Plan: Patch and gum available Education and cessation given for 8 mins (3) Acute respiratory failure with hypoxia: Code(s): J96.01 - Acute respiratory failure with hypoxia Status: Acute Assessment and Plan: Requiring 3-4L of oxygen saturation currently at 90% Wean to maintain saturation >90% Unable to speak complete sentences, tripoding, unable to lay flat Trend SPO2 (4) CHF (congestive heart failure): Code(s): I50.9 - Heart failure, unspecified Status: Acute Assessment and Plan: Appears to have a history of Heart failure BNP 108 Not in acute exacerbations With the entresto, wonder if she has a combined chronic systolic and diastolic heart failure Appear euvolemic at this time Time Spent With Patient Time with patient: Greater than 35 minutes Subjective Date/time seen: 02/17/225 Interval history: 02/17/22 104 Patient was lying in bed still on oxygen. Patient stated that her shortness of breath gets worse with activity however it does seem to be worse just lying there. She was having hard time being able to hold a conversation as she would get very short of breath. She did state that she has a little bit of cough but no production at this time. She also states that she walks a little way but not very far. She denies any increasing wheezes and she does wear home O2. She also states that she ran out of her albuterol inhaler which is helped her whole lot. However patient does not have a primary care provider at this time. She denies chest pain, nausea, vomiting, diarrhea, constipation. 02/17/22? 05:29 ?71-year-old female with past medical history significant for COPD, congestive heart failure, tobacco dependence, ? Pacemaker in place.? Patient presents to the emergency room due to worsening shortness of breath at the time of my visit patient is on? supplemental oxygen by nasal cannula? states that has had a shortness of breath that? has progressively getting worse her inhalers are not helping, has not noticed any change in her sputum quality, no fevers, no rigors, no chills. patient is a current everyday smoker she is trying to quit Review of Systems Review of Systems: All systems reviewed & are unremarkable except as noted in HPI and below Exam Const: General: cooperative, well developed, alert, awake, in distress mild and respiratory, uncomfortable and well nourished Nutritional Appearance: well nourished Orientation/consciousness: patient oriented x3 Limitations: no limitations HENMT: Head: normal to inspection Ears: hearing grossly normal bilaterally Face/Nose/Sinus: Normal external nose present Mouth: Yes Normal oral and palatal mucosa present, Yes lip normal and Yes tongue normal Teeth and gingiva: abnormal tooth and associated gingiva and poor dentition Eyes: General: appearance normal, both eyes and all related structures Neck: Neck: normal visual inspection, full ROM, trachea midline and supple Chest: Chest palpation & inspection: normal inspection of the chest Resp: Effort & Inspection: normal respiratory effort and not able to speak in complete sentences Auscultation: diminished lung sounds bilateral in the lower lung davis Cardio: Jugular v
[2022-02-17] MEDS: ENOXAPARIN 40 MG/0.4 ML SYRINGE SUB-Q (14:20)
[2022-02-18] VITALS (9 sets, daily range): BP systolic 126; BP diastolic 62; PULSE 73–88; RESP 12–18; TEMP 36.6; O2SAT 92
[2022-02-18 06:44] LABS: Basophils Percent Auto 0.1 % (0.2-1.2); Hematocrit 42.4 % (37.0-47.0); Hemoglobin 14.4 g/dL (12.0-15.0); Immature Granulocyte Absolute 0.15 K/mm3 (0.00-0.031); Immature Granulocyte Percent A 0.9 % (0-0.5); Lymphocytes Absolute Auto 0.95 K/mm3 (0.9-3.2); Lymphocytes Percent Auto 5.9 % (18.3-44.2); Mean Corpuscular Volume 97.2 fl (80-100); Mean Platelet Volume 9.2 fl (7.4-10.4); Monocytes Percent Auto 6.4 % (2.6-8.5); Neutrophils Absolute Auto 14.1 K/mm3 (1.3-6.7); Neutrophils Percent Auto 86.7 % (45.5-73.1); Platelet Count Result 224 k/mm3 (150-375); Red Blood Count 4.36 M/mm3 (4.2-5.4); Red Cell Distribution Width 11.4 % (11.5-14.5); White Blood Count 16.2 K/mm3 (4.5-10.0)
[2022-02-18 06:58] LABS: Alanine Aminotransferase 19 U/L (6-35); Albumin Level 4.5 g/dL (3.5-5.1); Alkaline Phosphatase 85 U/L (38-126); Anion Gap 11 mmol/L (8-16); Aspartate Amino Transferase 25 U/L (14-36); Bilirubin,Total 0.6 mg/dL (0.2-1.3); Blood Urea Nitrogen 9 mg/dL (7-17); Calcium 9.4 mg/dL (8.4-10.2); Carbon Dioxide 30 mmol/L (22-30); Chloride 92 mmol/L (98-107); Estimated CRCL calculation 119 ml/min; Estimated Glomerular Filt Rate > 60; Glucose 172 mg/dL (65-110); Magnesium 1.8 mg/dL (1.6-2.3); Sodium 133 mmol/L (137-145)
[2022-02-18 07:01] LABS: NT Pro B Type Natriuretic Pept 290 pg/mL (5-100)
[2022-02-18] MEDS: ALBUTEROL SULFATE NEB 2.5 MG/3 ML INH 5 MG INHALATION ×2 (08:15→13:05)
[2022-02-18] MEDS: IPRATROPIUM BR 0.02% INH SOLN 0.5 MG/2.5 ML VIAL INHALATION ×2 (08:15→13:05)
[2022-02-18] MEDS: carvediloL 12.5 MG TABLET 37.5 MG PO (09:01)
[2022-02-18] MEDS: ATORVASTATIN 20 MG TABLET PO (09:02)
[2022-02-18] MEDS: predniSONE 20 MG TABLET 40 MG PO (09:03)
[2022-02-18] MEDS: SOTALOL HCL 80 MG TABLET PO (09:03)
[2022-02-18] MEDS: SACUBITRIL/VALSARTAN 97-103 MG TABLET 1 TAB PO (09:03)
--- NOTE | 2022-02-18 12:45 | PM.DS ---
DS: Admitting Diagnosis Discharge Date 02/18/22 1245 Admitting Diagnosis COPD exacerbation DS: Discharge Diagnosis Discharge Diagnosis (1) COPD exacerbation: Code(s): J44.1 - Chronic obstructive pulmonary disease with (acute) exacerbation Status: Acute Assessment and Plan: Chest xray showed no acute cardiopulmonary process Supplemental oxygen required at 3L Seems to be in an acute exacerbation Trend SPO2 Breathing treatments Continue azithromycin and ceftriaxone for now Solumedrol 60mg IV Q6H, titrate to 40mg PO daily Prednisone Wean supplemental oxygen to maintain saturation of >90% Sputum culture (2) Tobacco dependence: Code(s): F17.200 - Nicotine dependence, unspecified, uncomplicated Status: Acute Assessment and Plan: Patch and gum available Education and cessation given for 8 mins (3) Acute respiratory failure with hypoxia: Code(s): J96.01 - Acute respiratory failure with hypoxia Status: Acute Assessment and Plan: Requiring 3-4L of oxygen saturation currently at 90% Wean to maintain saturation >90% Unable to speak complete sentences, tripoding, unable to lay flat Trend SPO2 (4) CHF (congestive heart failure): Code(s): I50.9 - Heart failure, unspecified Status: Acute Assessment and Plan: Appears to have a history of Heart failure BNP 108 Not in acute exacerbations With the entresto, wonder if she has a combined chronic systolic and diastolic heart failure Appear euvolemic at this time DS: Summary Hospital Course Hospital Course: Patient is 71-year-old female with past medical history of CHF, COPD, hyperlipidemia, hypertension who presented to the ED with complaints of shortness of breath. Upon arrival it was noted that her SpO2 was 82% on room air and patient was placed on supplemental oxygen giving a breathing treatment. Chest x-ray indicated a little cardiomegaly and no acute cardiac pulmonary process. Patient was started on azithromycin and ceftriaxone which was continued. Sputum culture was ordered and is currently pending. Prednisone was also started and will be continued for total 5 days. Supplemental oxygen has been weaned off and patient has been on room air overnight and into the morning. Tobacco education was also given. Potassium was also noted to be low upon arrival in potassium has been on trend and has been given per supplementation as indicated. BNP was performed in was 108. Blood pressure has been controlled. Currently patient is exhibiting leukocytosis however it seems highly related to the steroid use. Currently patient feels great and she would like to go home. She denies any chest pain, nausea, vomiting, diarrhea, constipation, weakness or fatigue. Patient did state that she still has a little shortness of breath however it is something that she is used to. She is very concerned about getting albuterol inhaler as she stated that she had ran out of it at home. Currently patient is independent the room with a walker. She also denies any kind of a cough. Patient stable for discharge per labs and vital signs. Time spent discussing smoking cessation with patient: more than 10 minutes Status at Discharge Functional status at discharge: uses cane/walker Overall status at discharge: patient is progressing back to baseline Time Spent with Patient Time attestation: Total time spent providing and/or coordinating discharge services: 35 minutes Time spent: Greater than 30 minutes Specific discharge activities: Diagnostic testing, chart review, developing a treatment plan, education, care coordination documentation, physical exam, result review Exam Const: General: cooperative, comfortable, no acute distress, well developed, alert, awake and well nourished Nutritional Appearance: well nourished Orientation/consciousness: patient oriented x3 Limitations: no limitations [facility]
== END 2022-02-18 16:37 | disposition home or self-care (01) | DRG 190 ==
LOC: ANHED 23:52 → ANH3MED 02-17 00:16
PROVIDERS: Admitting Provider Internal Medicine; Emergency Provider Family Medicine; Visit Provider Nurse Practitioner
DX: J44.1 Chronic obstructive pulmonary disease with (acute) exacerbation (principal); J96.01 Acute respiratory failure with hypoxia; I50.42 Chronic combined systolic (congestive) and diastolic (congestive) heart failure; I11.0 Hypertensive heart disease with heart failure; E78.5 Hyperlipidemia, unspecified; F17.210 Nicotine dependence, cigarettes, uncomplicated; M19.90 Unspecified osteoarthritis, unspecified site; Z95.0 Presence of cardiac pacemaker
CPT/HCPCS: 36415; 71046; 80048; 80053; 83735; 83880; 85025; 87040; 87070; 87205; 93005; 94640; 99285; A9270; J0456; J0696; J1650; J2930; J7512

== ENCOUNTER 2022-09-13 19:36 | Inpatient (IN) | payer MEDICARE, SELFPAY ==
[2022-09-13] VITALS (32 sets, daily range): BP systolic 112–162; BP diastolic 78–109; PULSE 66–86; RESP 16–24; TEMP 36.6; O2SAT 99–100
--- NOTE | ~2022-09-13 | XR_ITS ---
EXAMINATION: XR chest 1V portable Exam Date/Time: 09/13/2022 19:50 CDT HISTORY: cough, sob Comparison: None available. RESULT: Lines, tubes, and devices: Left chest pacer/fibrillator with intact leads. Lungs and pleura: Senescent change. Chronic bilateral lower lung scar. No focal consolidation. Cardiomediastinal silhouette: Stable. Other: No acute osseous or upper abdominal finding. IMPRESSION: No acute cardiopulmonary process. Reviewed, dictated and finalized at location K.
--- NOTE | 2022-09-13 19:39 | ECG_ITS ---
Measurements Intervals [place] Rate: 84 P: 74 MN: 222 QRS: 140 QRSD: 105 T: 29 QT: 363 QTc: 429 Interpretive Statements ATRIAL SENSE- ELECTRONIC VENTRICULAR PACEMAKER VENTRICULAR PREMATURE COMPLEX POSSIBLE LEFT ATRIAL ENLARGEMENT BASELINE ARTIFACT- I, III, AVR, AVL, AVF, V1 BORDERLINE ECG COMPARED TO ECG 02/16/2022 21:40:39 NO SIGNIFICANT CHANGES Electronically Signed On 09-14-2022 6:42:38 CDT by Dominic Avila D.O.
--- NOTE | 2022-09-13 19:42 | ED.SOB ---
HPI - SOB/Dyspnea General Chief Complaint: Shortness of Breath/Dyspnea Stated Complaint: sob Time Seen by Provider: 09/13/22 19:39 History of Present Illness HPI Narrative: Patient is a 72-year-old female with a history of CHF, COPD, hyperlipidemia, hypertension presenting with shortness of breath. Patient is coming from a nursing facility. Patient has become increasingly short of breath today. States that she tried to use her inhaler without relief. EMS arrived and found the patient tachypneic and hypoxic so she was placed on CPAP. Patient states that she has never required CPAP before. She denies prior intubations. She denies any chest pain. No recent fevers, cough, abdominal pain, nausea or vomiting. No leg swelling. Related Data Home Medications Medication Instructions Recorded Confirmed atorvastatin 20 mg tablet (Lipitor) 20 mg PO DAILY 04/03/19 09/14/22 carvedilol 25 mg tablet 37.5 mg PO BID 04/03/19 09/14/22 sacubitril 97 mg-valsartan 103 mg 1 tablet PO BID 04/03/19 09/14/22 tablet (Entresto) sotalol 80 mg tablet 80 mg PO BID 04/03/19 09/14/22 furosemide 20 mg tablet 20 mg PO BID PRN Edema 09/14/22 09/14/22 Allergies Allergy/AdvReac Type Severity Reaction Status Date / Time No Known Allergies Allergy Verified 09/13/22 20:04 Review of Systems Review of Systems: All systems reviewed & are unremarkable except as noted in HPI and below PMFSH Past Medical History Medical History Arthritis CHF (congestive heart failure) COPD (chronic obstructive pulmonary disease) H/O cardiac pacemaker Hyperlipidemia Hypertension Surgical History Surgical History No history of previous surgery Family History Family History (Updated 09/14/22 @ 02:12 by Estrellita Gomez RN) Father Heart disease Mother Alzheimer disease Social History Social History Smoking packs per day: 0.5 Smoking cigarettes per day: 10.0 Years smoked: 50 Smoking pack-years: 25.00 Smoking status: Current every day smoker Alcohol intake: current Drinks per week: 15 Substance use: never Substance use type: does not use Lack of Transportation: No Lack of Food: Never True Current Housing: I Have Housing Concerned About Future Housing: No Difficulty Paying Gas/Electric Bills: No Difficulty Paying for Meds: No Currently Unemployed: No Education: Don't Know Difficulty w/ Childcare or Family Care: No Gender identity (if verbalized by the patient): Female Spiritual care concerns: No Exam Narrative: GENERAL: Moderate respiratory distress, on CPAP, alert and responding appropriately HEAD: Normocephalic, atraumatic. EYES: PERRLA and EOMI. ENT: Nares clear, no rhinorrhea or epistaxis. NECK: Supple. CHEST: Very diminished bilaterally with scattered wheezing, on CPAP saturating 100% HEART: Regular rate and rhythm. Normal peripheral pulses. ABDOMEN: Soft, nontender, nondistended EXTREMITIES: Normal range of motion. No edema. SKIN: Warm, dry, no rash. NEURO: No focal deficits. Alert and oriented x3. PSYCH: Normal mood and affect. Course Vital Signs Vital signs: Vital Signs Pulse Rate 86 09/13/22 19:37 Respiratory Rate 21 H 09/13/22 19:37 Blood Pressure 144/82 H 09/13/22 19:37 Pulse Oximetry 100 09/13/22 19:37 Oxygen Delivery CPAP 09/13/22 19:37 Temperature 98.2 F 09/15/22 04:16 Pulse Rate 65 09/15/22 08:43 Respiratory Rate 21 H 09/15/22 04:16 Blood Pressure 129/56 L 09/15/22 04:16 Pulse Oximetry 90 09/15/22 04:16 Oxygen Delivery Nasal Cannula 09/14/22 20:17 Oxygen Flow Rate 2 09/14/22 20:17 Fraction of Inspired Oxygen 30 09/14/22 20:00 MDM - SOB/Dyspnea MDM Narrative Medical decision making narrative: Patient is a 72-year-old female presenting with respiratory distress
[2022-09-13 19:54] LABS: Alveolar/Arterial O2 Gradient 208.3 mmHg; Base Excess ABG 1.8 mEq/l (+/-2.0); Fractional Inspired Oxygen 100 %; HCO3 ABG 30.9 mEq/l (22.0-26.0); Oxygen Content ABG 22.7 %vol (16.0-22.0); Oxygen Saturation ABG 99.8 % (95.0-100.0); Oxyhemoglobin 94.9 % THb (90.0-100.0); PO2 ABG 436.6 mmHg (80.0-100.0); PO2 FiO2 Ratio Arterial Blood 4.37 %; Total Hemoglobin 16.2 g/dL (12.0-18.0)
[2022-09-13 19:56] LABS: Device NON-INVASIVE VENT; Modified Allen's Test Pass; PCO2 ABG 68.1 mmHg (35.0-45.0); Site Drawn RIGHT RADIAL; pH ABG 7.275 (7.350-7.450)
[2022-09-13 19:57] LABS: Basophils Absolute Auto 0.1 K/mm3 (0.0-0.1); Basophils Percent Auto 0.6 % (0.2-1.2); Eosinophils Absolute Auto 0.2 K/mm3 (0-0.3); Eosinophils Percent Auto 1.9 % (0-4.4); Hemoglobin 15.7 g/dL (12.0-15.0); Immature Granulocyte Absolute 0.06 K/mm3 (0.00-0.031); Immature Granulocyte Percent A 0.5 % (0-0.5); Lymphocytes Percent Auto 17.3 % (18.3-44.2); Mean Corpuscular HGB Conc 32.7 g/dl (32-36); Mean Corpuscular Hemoglobin 33.1 pg (26-34); Mean Corpuscular Volume 101.3 fl (80-100); Mean Platelet Volume 9.3 fl (7.4-10.4); Monocytes Absolute Auto 0.8 K/mm3 (0.1-0.6); Monocytes Percent Auto 6.3 % (2.6-8.5); Neutrophils Absolute Auto 8.9 K/mm3 (1.3-6.7); Neutrophils Percent Auto 73.4 % (45.5-73.1); Non-Invasive Expiratory Pressure 6 CMH2O; Non-Invasive Inspiratory Pressure 12 CMH2O; Non-Invasive Vent Rate 16 /MIN; Platelet Count Result 201 k/mm3 (150-375); Red Blood Count 4.74 M/mm3 (4.2-5.4); Red Cell Distribution Width 11.6 % (11.5-14.5); White Blood Count 12.2 K/mm3 (4.5-10.0)
[2022-09-13] MEDS: methylPREDNISolone SOD SUCC 125 MG VIAL IV PUSH (20:01)
[2022-09-13] MEDS: IPRATROPIUM BR 0.02% INH SOLN 0.5 MG/2.5 ML VIAL INHALATION (20:01)
[2022-09-13] MEDS: LEVALBUTEROL NEB 1.25 MG/3 ML 2.5 MG INHALATION (20:01)
[2022-09-13 20:09] LABS: Alanine Aminotransferase 21 U/L (6-35); Albumin Level 4.5 g/dL (3.5-5.1); Alkaline Phosphatase 97 U/L (38-126); Anion Gap 3 mmol/L (8-16); Aspartate Amino Transferase 23 U/L (14-36); Bilirubin,Total 0.7 mg/dL (0.2-1.3); Blood Urea Nitrogen 11 mg/dL (7-17); Calcium 8.8 mg/dL (8.4-10.2); Carbon Dioxide 35 mmol/L (22-30); Chloride 94 mmol/L (98-107); Estimated CRCL calculation 98 ml/min; Estimated Glomerular Filt Rate > 60; Glucose 190 mg/dL (65-110); Magnesium 1.7 mg/dL (1.6-2.3); Potassium 4.3 mmol/L (3.4-5.0); Sodium 132 mmol/L (137-145)
[2022-09-13 20:10] LABS: Lactic Acid Reflex 1.4 mmol/L (0.7-2.0)
[2022-09-13 20:12] LABS: Prothrombin Time 13.7 Seconds (11.1-14.7)
[2022-09-13 20:13] LABS: Partial Thromboplastin Time 25.2 SECONDS (22.3-36.8)
[2022-09-13 20:17] LABS: NT Pro B Type Natriuretic Pept 114 pg/mL (19.9-100)
[2022-09-13 20:21] LABS: Troponin I < 0.012 ng/mL (0.000-0.034)
[2022-09-13 20:46] LABS: Influenza A QL RT-PCR Negative (Negative); Influenza B QL RT-PCR Negative (Negative); SARS-CoV-2 RNA PCR Negative (Negative)
[2022-09-13] MEDS: LEVALBUTEROL NEB 1.25 MG/3 ML INHALATION (22:05)
[2022-09-13 22:16] LABS: Alveolar/Arterial O2 Gradient 108.1 mmHg; Base Excess ABG 2.5 mEq/l (+/-2.0); Fractional Inspired Oxygen 40 %; HCO3 ABG 30.8 mEq/l (22.0-26.0); Oxygen Content ABG 20.8 %vol (16.0-22.0); Oxygen Saturation ABG 97.2 % (95.0-100.0); Oxyhemoglobin 93.7 % THb (90.0-100.0); PO2 ABG 104.8 mmHg (80.0-100.0); PO2 FiO2 Ratio Arterial Blood 2.62 %; Total Hemoglobin 15.7 g/dL (12.0-18.0); pH ABG 7.308 (7.350-7.450)
[2022-09-13 22:17] LABS: PCO2 ABG 62.9 mmHg (35.0-45.0)
[2022-09-13 22:18] LABS: Device NON-INVASIVE VENT; Modified Allen's Test Pass; Non-Invasive Expiratory Pressure 8 CMH2O; Non-Invasive Inspiratory Pressure 14 CMH2O; Non-Invasive Vent Rate 20 /MIN; Site Drawn LEFT RADIAL
--- NOTE | 2022-09-13 22:43 | PM.IMHP ---
H&P: HPI History of Present Illness Date/Time: 09/13/22 22:43 Chief Complaint: Shortness of breath Narrative: This is a 72-year-old female with past medical history significant for congestive heart failure, COPD/emphysema, patient presented to emergency room due to shortness of breath. History taking is limited at the time of my visit patient is on BiPAP machine. Most of the history has been obtained upon reviewing medical records and discussion with emergency room physician. Patient arrived via EMS from senior living upon arrival she was hypoxic and tachypneic. Preliminary workup revealed ABG with a pCO2 in the 60s, a pH of 7.30, a chest x-ray was reported as; EXAMINATION:? XR chest 1V portable Exam Date/Time:? 09/13/2022 19:50 CDT HISTORY: cough, sob ? Comparison:? None available. RESULT: Lines, tubes, and devices:? Left chest pacer/fibrillator with intact leads. Lungs and pleura:? Senescent change. Chronic bilateral lower lung scar. No focal consolidation. Cardiomediastinal silhouette:? Stable. Other:? No acute osseous or upper abdominal finding. ? IMPRESSION: No acute cardiopulmonary process. Review of Systems Review of Systems: ROS unobtainable: Yes unobtainable due to medical condition (Respiratory failure on BiPAP) COUNTS INCLUDE 234 BEDS AT THE [facility] Past Medical History Medical History Arthritis CHF (congestive heart failure) COPD (chronic obstructive pulmonary disease) H/O cardiac pacemaker Hyperlipidemia Hypertension Surgical History Surgical History No history of previous surgery Family History Family History (Updated 09/14/22 @ 02:12 by Estrellita Gomez RN) Father Heart disease Mother Alzheimer disease Social History Social History Smoking packs per day: 0.5 Smoking cigarettes per day: 10.0 Years smoked: 50 Smoking pack-years: 25.00 Smoking status: Current every day smoker Alcohol intake: current Drinks per week: 15 Substance use: never Substance use type: does not use Lack of Transportation: No Lack of Food: Never True Current Housing: I Have Housing Concerned About Future Housing: No Difficulty Paying Gas/Electric Bills: No Difficulty Paying for Meds: No Currently Unemployed: No Education: Don't Know Difficulty w/ Childcare or Family Care: No Gender identity (if verbalized by the patient): Female Spiritual care concerns: No Meds Home Medications and Allergies Home Medications Medication Instructions Recorded Confirmed Type atorvastatin 20 mg tablet (Lipitor) 20 mg PO DAILY 04/03/19 09/14/22 History carvedilol 25 mg tablet 37.5 mg PO BID 04/03/19 09/14/22 History sacubitril 97 mg-valsartan 103 mg 1 tablet PO BID 04/03/19 09/14/22 History tablet (Entresto) sotalol 80 mg tablet 80 mg PO BID 04/03/19 09/14/22 History albuterol sulfate 90 mcg/actuation 2 puff inhalation Q4H PRN 02/18/22 09/14/22 Rx aerosol inhaler (Proventil HFA) shortness of breath or wheezing #8.5 grams furosemide 20 mg tablet 20 mg PO BID PRN Edema 09/14/22 09/14/22 History Allergies Allergy/AdvReac Type Severity Reaction Status Date / Time No Known Allergies Allergy Verified 09/13/22 20:04 Vital Signs Vital Signs - 24 hr 09/13/22 19:37 09/13/22 19:52 09/13/22 19:57 Temperature 97.8 F Pulse Rate 86 77 Respiratory Rate 21 H 17 Blood Pressure 144/82 H 144/82 H Pulse Oximetry 100 100 100 Oxygen Delivery CPAP CPAP 09/13/22 20:31 09/13/22 19:56 09/13/22 20:00 Temperature Pulse Rate 81 78 Respiratory Rate 17 18 Blood Pressure Pulse Oximetry 100 100 100 Oxygen Delivery CPAP 09/13/22 20:02 09/13/22 20:18 09/13/22 20:30 Temperature Pulse Rate 76 75 72 Respiratory Rate 18 21 H 20 Blood Pressure 162/91 H Pulse Oximetry 100 100 100 Oxygen Delivery
[2022-09-14] VITALS (37 sets, daily range): BP systolic 107–154; BP diastolic 49–73; PULSE 63–96; RESP 14–27; TEMP 35.8–36.8; O2SAT 91–100; BMI 36.7
[2022-09-14 00:01] LABS: Troponin I 0.022 ng/mL (0.000-0.034)
[2022-09-14] MEDS: LEVALBUTEROL NEB 1.25 MG/3 ML 0.63 MG INHALATION ×4 (01:45→20:15)
[2022-09-14] MEDS: IPRATROPIUM BR 0.02% INH SOLN 0.5 MG/2.5 ML VIAL INHALATION ×4 (01:46→20:15)
--- NOTE | 2022-09-14 01:54 | ADMGEN ---
This patient, Stephanie He, was admitted to IMU Room 203-01 at 0155. Patient/family oriented to hospital policies and general routines including ID bracelet, bed and alarms, visiting hours, pain management, procedures, bathroom and other care routines, personal items, smoking policy, room service/diet, and visiting hours. Information on how to activate the Rapid Response Team has been discussed. Patient/Family are encouraged to report perceived risks to care and to ask questions if they do not understand what they are told or what they should do.
[2022-09-14] MEDS: methylPREDNISolone SOD SUCC 125 MG VIAL 60 MG IV PUSH ×4 (02:18→20:23)
[2022-09-14 04:54] LABS: Troponin I < 0.012 ng/mL (0.000-0.034)
[2022-09-14] MEDS: DOXYCYCLINE 100 MG/NS 100 ML 100 MG/100 ML BAG IVPB ×2 (06:06→18:18)
[2022-09-14] MEDS: cefTRIAXone 2 GM/NS 100 ML 2 GM/100 ML BAG IVPB ×2 (06:07→17:20)
[2022-09-14 08:29] LABS: Alveolar/Arterial O2 Gradient 93.1 mmHg; Base Excess ABG 1.1 mEq/l (+/-2.0); Carboxyhemoglobin 1.6 % THb (0-2.0); Fractional Inspired Oxygen 30 %; HCO3 ABG 26.4 mEq/l (22.0-26.0); Methemoglobin ABG 0.1 %THb (0-1.5); Oxygen Content ABG 20.2 %vol (16.0-22.0); Oxygen Saturation ABG 93.7 % (95.0-100.0); Oxyhemoglobin 91.8 % THb (90.0-100.0); PCO2 ABG 44.2 mmHg (35.0-45.0); PO2 ABG 68.9 mmHg (80.0-100.0); Reduced Hemoglobin 6.5 %THb (0-5.0); Total Hemoglobin 15.7 g/dL (12.0-18.0); pH ABG 7.394 (7.350-7.450)
[2022-09-14 08:30] LABS: Device NON-INVASIVE VENT; Modified Allen's Test Pass; Site Drawn RIGHT RADIAL
[2022-09-14 08:31] LABS: Non-Invasive Expiratory Pressure 8 CMH2O; Non-Invasive Inspiratory Pressure 14 CMH2O; Non-Invasive Vent Rate 20 /MIN
[2022-09-14] MEDS: ENOXAPARIN 40 MG/0.4 ML SYRINGE SUB-Q (09:26)
[2022-09-14] MEDS: carvediloL 12.5 MG TABLET 37.5 MG PO ×2 (09:27→17:31)
[2022-09-14] MEDS: ATORVASTATIN 20 MG TABLET PO (09:28)
[2022-09-14] MEDS: SACUBITRIL/VALSARTAN 97-103 MG TABLET 1 TAB PO ×2 (09:28→20:23)
[2022-09-14] MEDS: SOTALOL HCL 80 MG TABLET PO ×2 (09:28→20:24)
[2022-09-14] MEDS: guaiFENesin 600 MG/DEXTROMETHORPHAN 30 MG SR TAB 12 HR 1 TAB PO ×2 (10:30→20:24)
--- NOTE | 2022-09-14 11:30 | PM.IMPN ---
Progress Note: A&P Assessment and Plan (1) Acute respiratory failure with hypoxia and hypercapnia: Code(s): J96.01 - Acute respiratory failure with hypoxia; J96.02 - Acute respiratory failure with hypercapnia Status: Acute Assessment and Plan: Admit to IMU Continues BiPAP Scheduled breathing treatments Continue to monitor ABG reviewed Continuous pulse ox Continuous telemetry (2) COPD exacerbation: Code(s): J44.1 - Chronic obstructive pulmonary disease with (acute) exacerbation Status: Acute Assessment and Plan: Scheduled breathing treatment Started on Rocephin and doxycycline To avoid QTC prolongation due to concomitant use of levofloxacin on sotalol (3) CHF (congestive heart failure): Code(s): I50.9 - Heart failure, unspecified Status: Acute Assessment and Plan: Patient appears euvolemic Brain natriuretic peptide 114 (4) Tobacco dependence: Code(s): F17.200 - Nicotine dependence, unspecified, uncomplicated Status: Acute Assessment and Plan: Nicotine patch as needed Subjective Date/time seen: 09/14/22 11:30 Interval history: No new complaints. Breathing better Exam Narrative: Patient is laying in bed BiPAP on Const: General: comfortable, well developed, alert, awake, in distress respiratory and other (On BiPAP), ill appearing, average body habitus and overweight Nutritional Appearance: average body habitus and overweight Orientation/consciousness: patient oriented x3 HENMT: Head: normal to inspection, normocephalic and atraumatic Ears: hearing grossly normal bilaterally Face/Nose/Sinus: normal facial exam Face and sinus: normal facial exam Eyes: General: appearance normal, both eyes and all related structures Pupils: Equal, round and reactive pupils present EOM: EOMs intact bilaterally Neck: Neck: full ROM, no lymphadenopathy and no JVD Thyroid: thyroid normal Lymphatic: no lymphadenopathy noted Resp: Effort & Inspection: normal respiratory effort and able to speak in complete sentences Auscultation: clear to auscultation bilaterally and diminished lung sounds Cardio: Jugular venous distension: no JVD Rate: regular rate Rhythm: regular rhythm Heart sounds: S1 normal heart sound present and S2 normal heart sound present : General: Yes deferred Skin: Rashes: no rashes Wounds: no wounds Neuro: General: patient oriented x3, CN's II-XI intact bilaterally and Unable to assess gait Cranial nerves: Yes CN's II-XII intact bilaterally and Yes Equal, round and reactive pupils present Cognition (Neuro): normal cognition Speech: normal speech Gait exam (Neuro): Unable to assess gait Motor exam (neuro): 5/5 motor strength present throughout Extrem: General: normal to inspection, full ROM, no joint enlargement and no pedal edema Objective Data Vital Signs Vital Signs: Vital Signs - 24 hr 09/13/22 19:37 09/13/22 19:52 09/13/22 19:57 Temperature 97.8 F Pulse Rate 86 77 Respiratory Rate 21 H 17 Blood Pressure 144/82 H 144/82 H Pulse Oximetry 100 100 100 Oxygen Delivery CPAP CPAP Oxygen Flow Rate Fraction of Inspired Oxygen 09/13/22 20:31 09/13/22 19:56 09/13/22 20:00 Temperature Pulse Rate 81 78 Respiratory Rate 17 18 Blood Pressure Pulse Oximetry 100 100 100 Oxygen Delivery CPAP Oxygen Flow Rate Fraction of Inspired Oxygen 09/13/22 20:02 09/13/22 20:18 09/13/22 20:30 Temperature Pulse Rate 76 75 72 Respiratory Rate 18 21 H 20 Blood Pressure 162/91 H Pulse Oximetry 100 100 100 Oxygen Delivery Oxygen Flow Rate Fraction of Inspired Oxygen 09/13/22 20:32 09/13/22 20:45 09/13/22 21:00 Temperature Pulse Rate 70 76 72 Respiratory Rate 18 20 16 Blood Pressure 149/97 H Pulse Oximetry 100 100 99 Oxygen Delivery Oxygen Flow Rate Fraction of Inspired Oxygen 09/13/22 21:02 09/13/22 19:50 09/13/22 20:05 Temperature Pulse Rate 69 72 72
--- NOTE | 2022-09-14 21:50 | PC.NURSE ---
This patient, Stephanie He, was received from [IMU 203] on 09/14/22 at 2222. Patient/family oriented to unit policies and routines. Patient valuables given back to patient. Home meds located in med room drawer.
--- NOTE | 2022-09-14 21:55 | PC.NURSE ---
This patient, Stephanie He, was transferred to [2100 ] on 09/14/22 at 2156. Personal belongings sent with patient. Report given to [[employer] [employer] ]. Appropriate documentation sent with patient.
--- NOTE | 2022-09-14 23:47 | PCRCNOTE ---
Pt refused to wear BIPAP while sleeping. RN notified.
[2022-09-15] MEDS: methylPREDNISolone SOD SUCC 125 MG VIAL 60 MG IV PUSH ×2 (02:33→08:08)
[2022-09-15 04:16] VITALS: BP 129/56; PULSE 82; RESP 21; TEMP 36.8; O2SAT 90
[2022-09-15] MEDS: cefTRIAXone 2 GM/NS 100 ML 2 GM/100 ML BAG IVPB (06:16)
[2022-09-15] MEDS: DOXYCYCLINE 100 MG/NS 100 ML 100 MG/100 ML BAG IVPB (06:16)
[2022-09-15 08:08] VITALS: PULSE 65
[2022-09-15] MEDS: guaiFENesin 600 MG/DEXTROMETHORPHAN 30 MG SR TAB 12 HR 1 TAB PO (08:08)
[2022-09-15] MEDS: ATORVASTATIN 20 MG TABLET PO (08:08)
[2022-09-15] MEDS: ENOXAPARIN 40 MG/0.4 ML SYRINGE SUB-Q (08:08)
[2022-09-15] MEDS: carvediloL 12.5 MG TABLET 37.5 MG PO (08:08)
[2022-09-15 08:43] VITALS: PULSE 65
[2022-09-15] MEDS: SACUBITRIL/VALSARTAN 97-103 MG TABLET 1 TAB PO (08:43)
[2022-09-15] MEDS: SOTALOL HCL 80 MG TABLET PO (08:43)
--- NOTE | 2022-09-15 11:47 | PM.DS ---
DS: Admitting Diagnosis Discharge Date September 15, 2022 Admitting Diagnosis COPD DS: Discharge Diagnosis Discharge Diagnosis (1) Acute respiratory failure with hypoxia and hypercapnia: Code(s): J96.01 - Acute respiratory failure with hypoxia; J96.02 - Acute respiratory failure with hypercapnia Status: Acute Assessment and Plan: Admit to IMU Continues BiPAP Scheduled breathing treatments Continue to monitor ABG reviewed Continuous pulse ox Continuous telemetry (2) COPD exacerbation: Code(s): J44.1 - Chronic obstructive pulmonary disease with (acute) exacerbation Status: Acute Assessment and Plan: Scheduled breathing treatment Started on Rocephin and doxycycline To avoid QTC prolongation due to concomitant use of levofloxacin on sotalol (3) CHF (congestive heart failure): Code(s): I50.9 - Heart failure, unspecified Status: Acute Assessment and Plan: Patient appears euvolemic Brain natriuretic peptide 114 (4) Tobacco dependence: Code(s): F17.200 - Nicotine dependence, unspecified, uncomplicated Status: Acute Assessment and Plan: Nicotine patch as needed DS: Summary Hospital Course Hospital Course: Admitted for COPD exacerbation and respiratory failure. Patient was started on antibiotics steroids and has done well. Have home O2 eval prior to discharge but patient can be discharged on antibiotics and prednisone to complete course. Time Spent with Patient Time attestation: Total time spent providing and/or coordinating discharge services: Exam Narrative: Patient is laying in bed BiPAP on Const: General: comfortable, well developed, alert, awake, in distress respiratory and other (On BiPAP), ill appearing, average body habitus and overweight Nutritional Appearance: average body habitus and overweight Orientation/consciousness: patient oriented x3 HENMT: Head: normal to inspection, normocephalic and atraumatic Ears: hearing grossly normal bilaterally Face/Nose/Sinus: normal facial exam Face and sinus: normal facial exam Eyes: General: appearance normal, both eyes and all related structures Pupils: Equal, round and reactive pupils present EOM: EOMs intact bilaterally Neck: Neck: full ROM, no lymphadenopathy and no JVD Thyroid: thyroid normal Lymphatic: no lymphadenopathy noted Resp: Effort & Inspection: normal respiratory effort and able to speak in complete sentences Auscultation: clear to auscultation bilaterally and diminished lung sounds Cardio: Jugular venous distension: no JVD Rate: regular rate Rhythm: regular rhythm Heart sounds: S1 normal heart sound present and S2 normal heart sound present : General: Yes deferred Skin: Rashes: no rashes Wounds: no wounds Neuro: General: patient oriented x3, CN's II-XI intact bilaterally and Unable to assess gait Cranial nerves: Yes CN's II-XII intact bilaterally and Yes Equal, round and reactive pupils present Cognition (Neuro): normal cognition Speech: normal speech Gait exam (Neuro): Unable to assess gait Motor exam (neuro): 5/5 motor strength present throughout Extrem: General: normal to inspection, full ROM, no joint enlargement and no pedal edema Discharge Plan Discharge Attending physician on discharge: Florentin Penaloza Discharging Clinician: Florentin Penaloza Patient Disposition: Home, Self-Care Activity: no preference Diet: as tolerated Patient Instructions: Antibiotic Form Stand Alone Forms: General Discharge Information Follow-up/Referrals: PHYSICIAN,GUIDE CHANGER [Primary Care Provider] - Discharge Medications: New cefdinir 300 mg capsule 300 mg PO Q12H Qty: 10 0RF prednisone 20 mg tablet 20 mg PO DAILY Qty: 4 0RF Continued albuterol sulfate [Proventil HFA] 90 mcg/actuation HFA aerosol inhaler 2 puff inhalation Q4H PRN (Reason: shortness of breath or wheezing) Qty: 8.5 3RF atorvastatin [Lipitor] 20 mg tablet 20 mg P
--- NOTE | 2022-09-15 14:44 | PC.NURSE ---
[employer] spoke with Dr Penaloza to confirm it was okay to renew Albuterol Sulfate PRN and prescription was sent transmitted to [facility] [place]
== END 2022-09-15 14:45 | disposition home or self-care (01) | DRG 189 ==
LOC: ANHED 20:26 → ANHIMU 09-14 14:09 → ANH3MED 09-15 11:47 → ANHIMU 09-17 11:16
PROVIDERS: Admitting Provider Internal Medicine; Emergency Provider Emergency Medicine; Visit Provider Chiropractor
DX: J96.01 Acute respiratory failure with hypoxia (principal); J44.1 Chronic obstructive pulmonary disease with (acute) exacerbation; J96.02 Acute respiratory failure with hypercapnia; I11.0 Hypertensive heart disease with heart failure; I50.9 Heart failure, unspecified; E78.5 Hyperlipidemia, unspecified; M19.90 Unspecified osteoarthritis, unspecified site; F17.210 Nicotine dependence, cigarettes, uncomplicated; Z20.822 Contact with and (suspected) exposure to COVID-19; Z95.0 Presence of cardiac pacemaker
CPT/HCPCS: 36415; 36600; 71045; 80053; 82375; 82805; 83050; 83605; 83735; 83880; 84484; 85025; 85610; 85730; 87636; 93005; 94002; 94640; 96374; 99285; A9270; J0696; J1650; J2930

== ENCOUNTER 2023-02-15 20:35 | Inpatient (IN) | payer MEDICARE, SELFPAY ==
[2023-02-15] VITALS (9 sets, daily range): BP systolic 105–162; BP diastolic 48–90; PULSE 68–76; RESP 16–21; TEMP 36.6; O2SAT 92–100
--- NOTE | ~2023-02-15 | XR_ITS ---
EXAMINATION: XR chest 1V portable DATE: 02/18/2023 08:53 INDICATION: Shortness of breath. TECHNIQUE: A single frontal view of the chest was obtained. COMPARISON: Chest 2 views 02/15/2023 FINDINGS: There is no pneumonia, pleural effusion, or pneumothorax. Cardiomegaly is noted. There are prominent paracardial fat pads. There is a left chest pacer/defibrillator with leads in right atrium, right ventricle, and coronary sinus. IMPRESSION: 1. Cardiomegaly. Reviewed, dictated and finalized at location A. IMPRESSION: 1. Cardiomegaly.
--- NOTE | ~2023-02-15 | XR_ITS ---
EXAMINATION: XR chest 2V DATE: 02/15/2023 21:19 INDICATION: Shortness of breath. TECHNIQUE: Frontal and lateral views of the chest were obtained. COMPARISON: Chest single view 09/13/22 FINDINGS: There is mild atelectasis in lingula. No pleural effusion or pneumothorax. Cardiomegaly is noted. There is a left chest pacer/defibrillator with leads in right atrium, right ventricle, and cor onary sinus. IMPRESSION: 1. Mild atelectasis in lingula. 2. Cardiomegaly. Reviewed, dictated and finalized at location E.
--- NOTE | 2023-02-15 20:40 | ECG_ITS ---
Measurements Intervals Parker Rate: 75 P: -49 WI: 163 QRS: 126 QRSD: 114 T: 1 QT: 376 QTc: 422 Interpretive Statements ELECTRONIC VENTRICULAR PACEMAKER ATYPICAL ECG COMPARED TO ECG 09/13/2022 19:45:29 NO SIGNIFICANT CHANGES Electronically Signed On 02-16-2023 8:30:45 CDT by Kavon Sanders M.D.
--- NOTE | 2023-02-15 20:59 | ED.GENADULT ---
HPI - General Adult General Chief complaint: Shortness of Breath/Dyspnea Stated complaint: SOB Time Seen by Provider: 02/15/23 20:46 History of Present Illness HPI narrative: 72-year-old female presented the ED for evaluation of worsening shortness of breath. Patient does have a history of COPD and does continue to smoke. Patient is not on oxygen at baseline. Patient states over the course of the last few hours she did have increasing shortness of breath. Patient did call EMS and in route she was treated with albuterol and mag sulfate. Patient was placed on 5 L of oxygen by nasal cannula and did feel improved. Upon arrival to the ED patient still has significant wheezing and is now having significant air. Patient does appear short of breath but denies any associated chest pain nausea vomiting or diarrhea. Patient denies any recent illnesses coughs colds or fevers. Related Data Home Medications Medication Instructions Recorded Confirmed atorvastatin 20 mg tablet (Lipitor) 20 mg PO DAILY 04/03/19 02/16/23 carvedilol 25 mg tablet 37.5 mg PO BID 04/03/19 02/16/23 sacubitril 97 mg-valsartan 103 mg 1 tablet PO BID 04/03/19 02/16/23 tablet (Entresto) sotalol 80 mg tablet 80 mg PO BID 04/03/19 02/16/23 furosemide 20 mg tablet 20 mg PO BID PRN Edema 09/14/22 02/16/23 Allergies Allergy/AdvReac Type Severity Reaction Status Date / Time No Known Allergies Allergy Verified 09/13/22 20:04 Review of Systems Review of Systems: All systems reviewed & are unremarkable except as noted in HPI and below PMFSH Past Medical History Medical History Arthritis CHF (congestive heart failure) COPD (chronic obstructive pulmonary disease) H/O cardiac pacemaker Hyperlipidemia Hypertension Surgical History Surgical History No history of previous surgery Family History Family History (Updated 09/14/22 @ 02:12 by Estrellita Gomez RN) Father Heart disease Mother Alzheimer disease Social History Social History Smoking packs per day: 0.5 Smoking cigarettes per day: 10.0 Years smoked: 50 Smoking pack-years: 25.00 Smoking status: Current every day smoker Alcohol intake: current Drinks per week: 15 Substance use: never Substance use type: does not use Lack of Transportation: No Lack of Food: Never True Current Housing: I Have Housing Concerned About Future Housing: No Difficulty Paying Gas/Electric Bills: No Difficulty Paying for Meds: No Currently Unemployed: No Education: Don't Know Difficulty w/ Childcare or Family Care: No Gender identity (if verbalized by the patient): Female Spiritual care concerns: No Exam Narrative: APPEARANCE: Distress secondary to breathing HEAD: normocephalic, atraumatic. EYES: PERRLA/EOMI, conjunctivae clear. NOSE: Normal no drainage EARS:TMS clear with good light reflex. THROAT: Pharynx clear, no exudate. NECK: Supple. No adenopathy, no masses. RESPIRATORY: Expiratory wheeze with minimal air movement CARDIOVASCULAR: Regular rate and rhythm without murmurs rubs or gallops. ABDOMINAL: Soft, nontender, nondistended, normal bowel sounds MUSCULOSKELETAL: Moves all extremities. Strength/ROM intact, No edema, No calf tenderness. NEURO: Alert. Cranial nerves II through XII intact. Course Course Emergency Course: 72-year-old female presented to ED for evaluation of shortness of breath. Patient was treated with additional albuterol due to a suspected COPD exacerbation. Patient's initial potassium was low at 2.8 this was repleted with both IV and p.o. patient was treated with Solu-Medrol. On reevaluation after the breathing treatments patient does feel improved. Patient's oxygen requirement was decreased. Patient is afebrile but does have a leukocytosis of 10.5 with a stable hemoglobin
[2023-02-15 21:03] LABS: Basophils Percent Auto 0.3 % (0.2-1.2); Eosinophils Absolute Auto 0.1 K/mm3 (0-0.3); Eosinophils Percent Auto 1.2 % (0-4.4); Hematocrit 34.7 % (37.0-47.0); Immature Granulocyte Absolute 0.03 K/mm3 (0.00-0.031); Immature Granulocyte Percent A 0.3 % (0-0.5); Lymphocytes Absolute Auto 1.46 K/mm3 (0.9-3.2); Lymphocytes Percent Auto 13.9 % (18.3-44.2); Mean Corpuscular HGB Conc 31.7 g/dl (32-36); Mean Corpuscular Hemoglobin 33.8 pg (26-34); Mean Corpuscular Volume 106.8 fl (80-100); Mean Platelet Volume 9.2 fl (7.4-10.4); Monocytes Absolute Auto 0.9 K/mm3 (0.1-0.6); Monocytes Percent Auto 8.2 % (2.6-8.5); Neutrophils Percent Auto 76.1 % (45.5-73.1); Platelet Count Result 143 k/mm3 (150-375); Red Blood Count 3.25 M/mm3 (4.2-5.4); Red Cell Distribution Width 11.2 % (11.5-14.5); White Blood Count 10.5 K/mm3 (4.5-10.0)
[2023-02-15] MEDS: methylPREDNISolone SOD SUCC 125 MG VIAL IV PUSH (21:10)
[2023-02-15] MEDS: ALBUTEROL SULFATE NEB 2.5 MG/3 ML INH 5 MG INHALATION ×2 (21:19→21:42)
[2023-02-15 21:29] LABS: Alanine Aminotransferase 13 U/L (6-35); Albumin Level 2.5 g/dL (3.5-5.1); Alkaline Phosphatase 71 U/L (38-126); Anion Gap 3 mmol/L (8-16); Aspartate Amino Transferase 16 U/L (14-36); Bilirubin,Total 0.6 mg/dL (0.2-1.3); Blood Urea Nitrogen 5 mg/dL (7-17); Calcium 5.5 mg/dL (8.4-10.2); Carbon Dioxide 24 mmol/L (22-30); Chloride 95 mmol/L (98-107); Estimated CRCL calculation 144 ml/min; Estimated Glomerular Filt Rate > 60; Glucose 112 mg/dL (65-110); NT Pro B Type Natriuretic Pept 117 pg/mL (19.9-100); Potassium 2.8 mmol/L (3.4-5.0); Sodium 122 mmol/L (137-145)
[2023-02-15 21:36] LABS: Platelet Estimate Adequate (Adequate); Schistocytes None Seen (NORMAL)
[2023-02-15 21:37] LABS: Burr Cells 1+ (NORMAL)
[2023-02-15 21:39] LABS: Influenza A QL RT-PCR Negative (Negative); Influenza B QL RT-PCR Negative (Negative); RSV RNA, RT-PCR Negative (Negative); SARS-CoV-2 RNA PCR Negative (Negative)
[2023-02-15] MEDS: KCL 20 MEQ/SW 100 ML 100 ML 50 MEQ IVPB (21:52)
[2023-02-15] MEDS: POTASSIUM CHLORIDE 20 MEQ PACKET (FOR LIQUID) 40 MEQ PO (21:53)
[2023-02-15] MEDS: CALCIUM GLUC 1,000 MG/NS 50 ML 1,000 MG/50 ML BAG 100 MG IVPB (22:15)
--- NOTE | 2023-02-15 23:31 | PM.IMHP ---
H&P: HPI History of Present Illness Date/Time: 02/15/23 23:31 ON LICENSE OF [facility] Past Medical History Medical History Arthritis CHF (congestive heart failure) COPD (chronic obstructive pulmonary disease) H/O cardiac pacemaker Hyperlipidemia Hypertension Surgical History Surgical History No history of previous surgery Family History Family History (Updated 09/14/22 @ 02:12 by Estrellita Gomez RN) Father Heart disease Mother Alzheimer disease Social History Social History Smoking packs per day: 0.5 Smoking cigarettes per day: 10.0 Years smoked: 50 Smoking pack-years: 25.00 Smoking status: Current every day smoker Alcohol intake: current Drinks per week: 15 Substance use: never Substance use type: does not use Lack of Transportation: No Lack of Food: Never True Current Housing: I Have Housing Concerned About Future Housing: No Difficulty Paying Gas/Electric Bills: No Difficulty Paying for Meds: No Currently Unemployed: No Education: Don't Know Difficulty w/ Childcare or Family Care: No Gender identity (if verbalized by the patient): Female Spiritual care concerns: No Meds Home Medications and Allergies Home Medications Medication Instructions Recorded Confirmed Type atorvastatin 20 mg tablet (Lipitor) 20 mg PO DAILY 04/03/19 09/14/22 History carvedilol 25 mg tablet 37.5 mg PO BID 04/03/19 09/14/22 History sacubitril 97 mg-valsartan 103 mg 1 tablet PO BID 04/03/19 09/14/22 History tablet (Entresto) sotalol 80 mg tablet 80 mg PO BID 04/03/19 09/14/22 History furosemide 20 mg tablet 20 mg PO BID PRN Edema 09/14/22 09/14/22 History albuterol sulfate 90 mcg/actuation 2 puff inhalation Q4H PRN 09/15/22 Rx aerosol inhaler (Proventil HFA) shortness of breath or wheezing #8.5 grams cefdinir 300 mg capsule 300 mg PO Q12H #10 caps 09/15/22 Rx prednisone 20 mg tablet 20 mg PO DAILY #4 tabs 09/15/22 Rx Allergies Allergy/AdvReac Type Severity Reaction Status Date / Time No Known Allergies Allergy Verified 09/13/22 20:04 Vital Signs Vital Signs - 24 hr 02/15/23 20:35 02/15/23 21:21 02/15/23 21:35 Temperature 36.6 C Pulse Rate 76 68 Respiratory Rate 21 H 17 Blood Pressure 162/90 H Pulse Oximetry 92 95 Oxygen Delivery Nasal Cannula Nasal Cannula Oxygen Flow Rate 5 4 02/15/23 21:44 02/15/23 22:00 02/15/23 21:35 Temperature Pulse Rate 69 71 70 Respiratory Rate 20 20 20 Blood Pressure Pulse Oximetry Oxygen Delivery Oxygen Flow Rate 02/15/23 22:45 02/15/23 22:15 02/15/23 21:47 Temperature Pulse Rate 71 74 69 Respiratory Rate 16 16 19 Blood Pressure 105/80 130/48 L 118/48 L Pulse Oximetry 94 100 100 Oxygen Delivery Oxygen Flow Rate 02/15/23 20:45 Temperature Pulse Rate 74 Respiratory Rate 21 H Blood Pressure 140/55 L Pulse Oximetry 95 Oxygen Delivery Oxygen Flow Rate H&P: Results Labs Labs: Short CBC 02/15/23 Range/Units 20:56 WBC 10.5 H (4.5-10.0) K/mm3 Hgb 11.0 L D (12.0-15.0) g/dL Hct 34.7 L (37.0-47.0) % Plt Count 143 L (150-375) k/mm3 BMP 02/15/23 20:56 Sodium 122 L Potassium 2.8 L* Chloride 95 L Carbon Dioxide 24 BUN 5 L D Creatinine 0.30 L Glucose 112 H Calcium 5.5 L Liver Function 02/15/23 Range/Units 20:56 Total Bilirubin 0.6 (0.2-1.3) mg/dL AST 16 (14-36) U/L ALT 13 (6-35) U/L Alkaline Phosphatase 71 (38-126) U/L Albumin 2.5 L (3.5-5.1) g/dL
--- NOTE | 2023-02-15 23:32 | PM.IMHP ---
H&P: HPI History of Present Illness Date/Time: 02/15/23 23:32 Chief Complaint: Patient came to the hospital for evaluation for worsening shortness of breath Narrative: 72 years old female who is a chronic smoker, is complaining of shortness of breath for the last few hours which is now getting worse. She got concerned, came to the ER for evaluation, workup was done which showed hypoxia requiring 5 L of oxygen via nasal cannula. She does not use any oxygen at baseline. After using oxygen via nasal cannula in the ER, her O2 sats improved. She is being place in observation for her medical treatment of COPD exacerbation and close monitoring. Review of Systems Review of Systems: she denies any palpitations, fever rigor chills, nausea vomiting, dizziness, loss of consciousness or any headache All systems reviewed & are unremarkable except as noted in HPI and below PMFSH Past Medical History Medical History Arthritis CHF (congestive heart failure) COPD (chronic obstructive pulmonary disease) H/O cardiac pacemaker Hyperlipidemia Hypertension Surgical History Surgical History No history of previous surgery Family History Family History Father Heart disease Mother Alzheimer disease Social History Social History Smoking packs per day: 0.5 Smoking cigarettes per day: 10.0 Years smoked: 50 Smoking pack-years: 25.00 Smoking status: Current every day smoker Alcohol intake: current Drinks per week: 15 Substance use: never Substance use type: does not use Lack of Transportation: No Lack of Food: Never True Current Housing: I Have Housing Concerned About Future Housing: No Difficulty Paying Gas/Electric Bills: No Difficulty Paying for Meds: No Currently Unemployed: No Education: Don't Know Difficulty w/ Childcare or Family Care: No Gender identity (if verbalized by the patient): Female Spiritual care concerns: No Meds Home Medications and Allergies Home Medications Medication Instructions Recorded Confirmed Type atorvastatin 20 mg tablet (Lipitor) 20 mg PO DAILY 04/03/19 02/16/23 History carvedilol 25 mg tablet 37.5 mg PO BID 04/03/19 02/16/23 History sacubitril 97 mg-valsartan 103 mg 1 tablet PO BID 04/03/19 02/16/23 History tablet (Entresto) sotalol 80 mg tablet 80 mg PO BID 04/03/19 02/16/23 History furosemide 20 mg tablet 20 mg PO BID PRN Edema 09/14/22 02/16/23 History albuterol sulfate 90 mcg/actuation 2 puff inhalation Q4H PRN 09/15/22 02/16/23 Rx aerosol inhaler (Proventil HFA) shortness of breath or wheezing #8.5 grams Allergies Allergy/AdvReac Type Severity Reaction Status Date / Time No Known Allergies Allergy Verified 09/13/22 20:04 Vital Signs Vital Signs - 24 hr 02/15/23 20:35 02/15/23 21:21 02/15/23 21:35 Temperature 36.6 C Pulse Rate 76 68 Respiratory Rate 21 H 17 Blood Pressure 162/90 H Pulse Oximetry 92 95 Oxygen Delivery Nasal Cannula Nasal Cannula Oxygen Flow Rate 5 4 02/15/23 21:44 02/15/23 22:00 02/15/23 21:35 Temperature Pulse Rate 69 71 70 Respiratory Rate 20 20 20 Blood Pressure Pulse Oximetry Oxygen Delivery Oxygen Flow Rate 02/15/23 22:45 02/15/23 22:15 02/15/23 21:47 Temperature Pulse Rate 71 74 69 Respiratory Rate 16 16 19 Blood Pressure 105/80 130/48 L 118/48 L Pulse Oximetry 94 100 100 Oxygen Delivery Oxygen Flow Rate 02/15/23 20:45 Temperature Pulse Rate 74 Respiratory Rate 21 H Blood Pressure 140/55 L Pulse Oximetry 95 Oxygen Delivery Oxygen Flow Rate Exam Narrative: PHYSICAL EXAMINATION: Vital signs: Please see the chart General physical exam: patient lying in bed, feels tired and fatigued Head/eyes: Atraumatic, EOMI, PERRLA ENT: M
[2023-02-16] VITALS (23 sets, daily range): BP systolic 117–150; BP diastolic 61–88; PULSE 64–87; RESP 16–20; TEMP 36.2–36.9; O2SAT 94–99; BMI 37.5
[2023-02-16] MEDS: SODIUM CHLORIDE 0.9% IV 1,000 ML 75 ML IV CONT (02:10)
[2023-02-16] MEDS: ALBUTEROL SULFATE NEB 2.5 MG/3 ML INH INHALATION ×4 (02:45→19:54)
[2023-02-16] MEDS: methylPREDNISolone SOD SUCC 125 MG VIAL 60 MG IV PUSH ×3 (06:35→21:19)
[2023-02-16] MEDS: ATORVASTATIN 20 MG TABLET PO (08:18)
[2023-02-16] MEDS: carvediloL 12.5 MG TABLET 37.5 MG PO ×2 (08:18→21:19)
[2023-02-16] MEDS: SACUBITRIL/VALSARTAN 97-103 MG TABLET 1 TAB PO ×2 (08:19→21:21)
[2023-02-16] MEDS: ENOXAPARIN 40 MG/0.4 ML SYRINGE SUB-Q (08:19)
[2023-02-16] MEDS: NICOTINE (*PBKC) 21 MG PATCH 1 PATCH TRANSDERM (08:19)
[2023-02-16] MEDS: SOTALOL HCL 80 MG TABLET PO ×2 (08:20→21:21)
--- NOTE | 2023-02-16 09:08 | PM.IMPN ---
Progress Note: A&P Assessment and Plan (1) COPD exacerbation: Code(s): J44.1 - Chronic obstructive pulmonary disease with (acute) exacerbation Status: Acute Assessment and Plan: Continue steroids, nebulizer treatment, hold off on antibiotics Wean oxygen as able (2) Acute hyponatremia: Code(s): E87.1 - Hypo-osmolality and hyponatremia Status: Acute Assessment and Plan: Mild, monitor, likely secondary to hypovolemic status (3) Acute hypokalemia: Code(s): E87.6 - Hypokalemia Status: Acute Assessment and Plan: Replete and recheck, likely secondary to nebs (4) Hypocalcemia: Code(s): E83.51 - Hypocalcemia Status: Acute Assessment and Plan: Likely due to dehydration, monitor (5) Nicotine dependence, cigarettes, with other nicotine-induced disorders: Code(s): F17.218 - Nicotine dependence, cigarettes, with other nicotine-induced disorders Status: Acute (6) Tobacco abuse counseling: Code(s): Z71.6 - Tobacco abuse counseling Status: Acute Assessment and Plan: Patient smokes cigarettes on a chronic basis. Strictly advised patient to cut down on or quit smoking. Nicotine patch ordered. ~5 minutes spent on tobacco cessation counseling with the patient. Websites - http://smokefree.gov & http://www.[employer].com Quitlines - 0-504-PBGO-NOW ( ) Smokefree Apps - [employer] Riaz Text Messages - SmokefreeTXT [place] [id number]) Plan DVT prophylaxis with SCDs GI prophylaxis not indicated Code status full code Subjective Date/time seen: 02/16/23 09:08 Interval history: 72-year-old female with history of CHF, COPD, pacemaker is presenting with shortness of breath and hypoxia and is currently being treated for a COPD exacerbation. No overnight events noted. No chest pain or shortness of breath at rest. No nausea, vomiting or diarrhea. No fevers or chills. Patient states she feels much better than when she came in, but still a little dyspnea with exertion. Review of Systems Review of Systems: 12 point review of systems was assessed and was negative except as noted in the HPI Exam Narrative: General: No acute distress, alert and oriented per baseline HEENT: Atraumatic, normocephalic, mucous membranes moist CV: Regular rate and rhythm, S1, S2 Lungs: Scattered wheezes, diminished air entry at bases noted Abdomen: Soft, nontender, nondistended Extremities: Normal to inspection Skin: No rashes noted, no lesions or wounds seen Psych: Euthymic, normal affect Objective Data Vital Signs Vital Signs: Vital Signs - 24 hr 02/15/23 20:35 02/15/23 21:21 02/15/23 21:35 Temperature 97.9 F Pulse Rate 76 68 Respiratory Rate 21 H 17 Blood Pressure 162/90 H Pulse Oximetry 92 95 Oxygen Delivery Nasal Cannula Nasal Cannula Oxygen Flow Rate 5 4 02/15/23 21:44 02/15/23 22:00 02/15/23 21:35 Temperature Pulse Rate 69 71 70 Respiratory Rate 20 20 20 Blood Pressure Pulse Oximetry Oxygen Delivery Oxygen Flow Rate 02/15/23 22:45 02/15/23 22:15 02/15/23 21:47 Temperature Pulse Rate 71 74 69 Respiratory Rate 16 16 19 Blood Pressure 105/80 130/48 L 118/48 L Pulse Oximetry 94 100 100 Oxygen Delivery Oxygen Flow Rate 02/15/23 20:45 02/16/23 00:35 02/16/23 00:07 Temperature 97.7 F Pulse Rate 74 72 Respiratory Rate 21 H 20 Blood Pressure 140/55 L 150/76 H Pulse Oximetry 95 99 99 Oxygen Delivery Nasal Cannula Oxygen Flow Rate 4 02/16/23 02:48 02/16/23 02:49 02/16/23 04:00 Temperature Pulse Rate 68 69 Respiratory Rate 18 Blood Pressure Pulse Oximetry 98 Oxygen Delivery Nasal Cannula Oxygen Flow Rate 4 02/16/23 05:33 02/16/23 08:14 02/16/23 08:18 Temperature 98.4 F Pulse Rate 75 84 84 Respiratory Rate 16 Blood Pressure 135/88 139/82 Pulse Oximetry 94 99 Oxygen Delivery
[2023-02-16] MEDS: IPRATROPIUM BR 0.02% INH SOLN 0.5 MG/2.5 ML VIAL INHALATION ×3 (09:16→19:55)
[2023-02-16 12:33] LABS: Basophils Percent Auto 0.1 % (0.2-1.2); Hematocrit 48.9 % (37.0-47.0); Hemoglobin 16.1 g/dL (12.0-15.0); Immature Granulocyte Absolute 0.03 K/mm3 (0.00-0.031); Immature Granulocyte Percent A 0.4 % (0-0.5); Lymphocytes Absolute Auto 0.42 K/mm3 (0.9-3.2); Lymphocytes Percent Auto 5.8 % (18.3-44.2); Mean Corpuscular HGB Conc 32.9 g/dl (32-36); Mean Corpuscular Hemoglobin 33.4 pg (26-34); Mean Corpuscular Volume 101.5 fl (80-100); Mean Platelet Volume 9.1 fl (7.4-10.4); Monocytes Absolute Auto 0.1 K/mm3 (0.1-0.6); Monocytes Percent Auto 1.2 % (2.6-8.5); Neutrophils Absolute Auto 6.7 K/mm3 (1.3-6.7); Neutrophils Percent Auto 92.5 % (45.5-73.1); Platelet Count Result 161 k/mm3 (150-375); Red Blood Count 4.82 M/mm3 (4.2-5.4); Red Cell Distribution Width 11.2 % (11.5-14.5); White Blood Count 7.2 K/mm3 (4.5-10.0)
[2023-02-16 12:45] LABS: Alanine Aminotransferase 19 U/L (6-35); Albumin Level 4.3 g/dL (3.5-5.1); Alkaline Phosphatase 74 U/L (38-126); Anion Gap 6 mmol/L (8-16); Aspartate Amino Transferase 20 U/L (14-36); Bilirubin,Total 0.8 mg/dL (0.2-1.3); Blood Urea Nitrogen 10 mg/dL (7-17); Calcium 8.9 mg/dL (8.4-10.2); Carbon Dioxide 31 mmol/L (22-30); Chloride 91 mmol/L (98-107); Estimated CRCL calculation 113 ml/min; Estimated Glomerular Filt Rate > 60; Glucose 230 mg/dL (65-110); Potassium 4.4 mmol/L (3.4-5.0); Sodium 128 mmol/L (137-145)
[2023-02-17] VITALS (18 sets, daily range): BP systolic 116–141; BP diastolic 51–82; PULSE 63–86; RESP 16–18; TEMP 36.3–37; O2SAT 94–100
[2023-02-17] MEDS: methylPREDNISolone SOD SUCC 125 MG VIAL 60 MG IV PUSH ×3 (06:07→21:02)
[2023-02-17 07:04] LABS: Basophils Percent Auto 0.1 % (0.2-1.2); Hematocrit 45.8 % (37.0-47.0); Hemoglobin 14.9 g/dL (12.0-15.0); Immature Granulocyte Absolute 0.08 K/mm3 (0.00-0.031); Immature Granulocyte Percent A 0.6 % (0-0.5); Lymphocytes Absolute Auto 0.67 K/mm3 (0.9-3.2); Lymphocytes Percent Auto 4.7 % (18.3-44.2); Mean Corpuscular HGB Conc 32.5 g/dl (32-36); Mean Corpuscular Hemoglobin 33.9 pg (26-34); Mean Corpuscular Volume 104.1 fl (80-100); Mean Platelet Volume 10.2 fl (7.4-10.4); Monocytes Absolute Auto 0.5 K/mm3 (0.1-0.6); Monocytes Percent Auto 3.4 % (2.6-8.5); Neutrophils Absolute Auto 13.1 K/mm3 (1.3-6.7); Neutrophils Percent Auto 91.2 % (45.5-73.1); Platelet Count Result 169 k/mm3 (150-375); Red Cell Distribution Width 11.3 % (11.5-14.5); White Blood Count 14.4 K/mm3 (4.5-10.0)
[2023-02-17 07:11] LABS: Alanine Aminotransferase 20 U/L (6-35); Albumin Level 4.3 g/dL (3.5-5.1); Alkaline Phosphatase 69 U/L (38-126); Anion Gap 5 mmol/L (8-16); Aspartate Amino Transferase 25 U/L (14-36); Bilirubin,Total 0.6 mg/dL (0.2-1.3); Blood Urea Nitrogen 10 mg/dL (7-17); Calcium 9.1 mg/dL (8.4-10.2); Carbon Dioxide 35 mmol/L (22-30); Chloride 89 mmol/L (98-107); Estimated CRCL calculation 113 ml/min; Estimated Glomerular Filt Rate > 60; Glucose 205 mg/dL (65-110); Phosphorus 3.1 mg/dL (2.5-4.5); Potassium 4.7 mmol/L (3.4-5.0); Sodium 129 mmol/L (137-145)
[2023-02-17] MEDS: IPRATROPIUM BR 0.02% INH SOLN 0.5 MG/2.5 ML VIAL INHALATION ×3 (07:52→20:16)
[2023-02-17] MEDS: ALBUTEROL SULFATE NEB 2.5 MG/3 ML INH INHALATION ×3 (07:52→20:16)
[2023-02-17] MEDS: ATORVASTATIN 20 MG TABLET PO (08:22)
[2023-02-17] MEDS: carvediloL 12.5 MG TABLET 37.5 MG PO ×2 (08:22→20:57)
[2023-02-17] MEDS: SACUBITRIL/VALSARTAN 97-103 MG TABLET 1 TAB PO ×2 (08:23→20:58)
[2023-02-17] MEDS: SOTALOL HCL 80 MG TABLET PO ×2 (08:23→20:58)
[2023-02-17] MEDS: ENOXAPARIN 40 MG/0.4 ML SYRINGE SUB-Q (08:24)
--- NOTE | 2023-02-17 08:36 | PM.IMPN ---
Progress Note: A&P Assessment and Plan (1) COPD exacerbation: Code(s): J44.1 - Chronic obstructive pulmonary disease with (acute) exacerbation Status: Acute Assessment and Plan: Continue steroids, nebulizer treatment, hold off on antibiotics Wean oxygen as able 02/17: d/c IV steroids, start prednisone, home O2 eval ordered and pending, anticipate d/c home tomorrow on O2 (2) Acute hyponatremia: Code(s): E87.1 - Hypo-osmolality and hyponatremia Status: Acute Assessment and Plan: Mild, monitor, likely secondary to hypovolemic status (3) Acute hypokalemia: Code(s): E87.6 - Hypokalemia Status: Acute Assessment and Plan: Replete and recheck, likely secondary to nebs (4) Hypocalcemia: Code(s): E83.51 - Hypocalcemia Status: Acute Assessment and Plan: Likely due to dehydration, monitor (5) Nicotine dependence, cigarettes, with other nicotine-induced disorders: Code(s): F17.218 - Nicotine dependence, cigarettes, with other nicotine-induced disorders Status: Acute (6) Tobacco abuse counseling: Code(s): Z71.6 - Tobacco abuse counseling Status: Acute Assessment and Plan: Patient smokes cigarettes on a chronic basis. Strictly advised patient to cut down on or quit smoking. Nicotine patch ordered. ~5 minutes spent on tobacco cessation counseling with the patient. Websites - http://smokefree.gov & http://www.[employer].com Quitlines - 6-338-MHEN-NOW ( ) Smokefree Apps - [employer] Riaz Text Messages - SmokefreeTXT ([place] [address]) Plan DVT prophylaxis with SCDs GI prophylaxis not indicated Code status full code Subjective Date/time seen: 02/17/23 08:36 Interval history: 72-year-old female with history of CHF, COPD, pacemaker is presenting with shortness of breath and hypoxia and is currently being treated for a COPD exacerbation. No overnight events noted. No chest pain or shortness of breath at rest. No nausea, vomiting or diarrhea. No fevers or chills. Much improved, playing cards at bedside. No wheezing, still on O2 and somewhat ATKINS. Review of Systems Review of Systems: 12 point review of systems was assessed and was negative except as noted in the HPI Exam Narrative: General: No acute distress, alert and oriented per baseline HEENT: Atraumatic, normocephalic, mucous membranes moist CV: Regular rate and rhythm, S1, S2 Lungs: Diminished throughout, no wheeze, moderate air entry Abdomen: Soft, nontender, nondistended Extremities: Normal to inspection Skin: No rashes noted, no lesions or wounds seen Psych: Euthymic, normal affect Objective Data Vital Signs Vital Signs: Vital Signs - 24 hr 02/16/23 09:10 02/16/23 09:26 02/16/23 13:10 Temperature Pulse Rate 72 74 76 Respiratory Rate 18 18 18 Blood Pressure Pulse Oximetry Oxygen Delivery Oxygen Flow Rate 02/16/23 13:32 02/16/23 12:00 02/16/23 16:00 Temperature 97.1 F L 97.2 F L Pulse Rate 77 80 81 Respiratory Rate 18 18 18 Blood Pressure 117/67 120/61 Pulse Oximetry 97 97 Oxygen Delivery Oxygen Flow Rate 02/16/23 19:52 02/16/23 19:55 02/16/23 19:58 Temperature 97.5 F L Pulse Rate 77 83 Respiratory Rate 16 18 Blood Pressure 134/63 Pulse Oximetry 94 95 Oxygen Delivery Nasal Cannula Oxygen Flow Rate 2 02/16/23 20:04 02/16/23 21:19 02/16/23 21:21 Temperature Pulse Rate 80 64 64 Respiratory Rate 18 Blood Pressure Pulse Oximetry Oxygen Delivery Oxygen Flow Rate 02/17/23 00:00 02/17/23 04:00 02/17/23 07:52 Temperature 98.6 F 97.9 F Pulse Rate 81 74 81 Respiratory Rate 16 16 18 Blood Pressure 122/62 119/51 L Pulse Oximetry 97 94 Oxygen Delivery Oxygen Flow Rate 02/17/23 08:05 02/17/23 08:22 02/17/23 08:23 Temperature Pulse Rate 82 67 67 Respiratory Rate 18 Blood Pressure Pulse
[2023-02-18] VITALS (12 sets, daily range): BP systolic 107–124; BP diastolic 60–88; PULSE 75–89; RESP 16–20; TEMP 35.6–37.1; O2SAT 87–94
--- NOTE | 2023-02-18 | ECHO_ITS ---
Patient Info Name: Stehpanie He Age: 72 years : 1950 Gender: Female Ht: 62 in Wt: 205 lbs BSA: 2.06 m2 HR: 63 bpm BP: 124 / 60 mmHg Heart Rhythm: Sinus Rhythm Technical Quality: Fair Exam Date: 02/18/2023 10:02 AM Exam Location: [facility] Pulmonary Exam Room: 322 Patient Status: Inpatient Admit Date: 02/16/2023 Staff Ordering Physician: Lacy Philippe DO Rubber Down: Bindu Young RDCS Attending Provider: Gama Petersen MD Referring Physician: Denae WOODS; Exam Type: CA echo doppler color flow Study Info Indications - SOB HYPOXIA COPD Complete two-dimensional, color flow and Doppler transthoracic echocardiogram is performed. Summary 1. Complete two-dimensional, color flow and Doppler transthoracic echocardiogram is performed. 2. Normal left ventricular size and systolic function with grade 1 diastolic noncompliance. 3. No significant valvular dysfunction. 4. Pacemaker leads noted. Left Ventricle Left ventricular chamber dimension is normal. Left ventricular systolic function is normal, estimated at 60-65%. The left ventricular diastolic function is grade I diastolic dysfunction. Right Ventricle Right ventricular chamber dimension is normal. Linear artifact in right ventricle suggestive of catheter(s), pacemaker lead(s), or ICD lead(s). Left Atria Left atrial chamber dimension is normal. Right Atria Right atrial chamber dimension is normal. Linear artifact in the right atrium suggestive of catheter(s), pacemaker lead(s), or ICD lead(s). Aortic Valve The aortic valve is trileaflet. There is mild aortic valve sclerosis. Pulmonic Valve The pulmonic valve is normal. Mitral Valve The mitral valve has normal leaflets. Tricuspid Valve The tricuspid valve leaflets are normal. There is trace tricuspid valve regurgitation. Pericardium/Pleural The pericardium appears normal. Aorta The aortic root size at the sinus of Valsalva is normal. Left Ventricular Outflow Tract Name Value Normal LVOT 2D LVOT Diameter 2.0 cm LVOT Doppler LVOT Peak Gradient 7 mmHg LVOT Mean Gradient 4 mmHg LVOT VTI 24 cm LVOT VTI/AV VTI Ratio 0.8 LVOT Stroke Volume 73 ml LVOT CO 18.8 l/min LVOT CI 9.1 l/min/m2 Pulmonic Valve Name Value Normal RVOT Doppler RVOT Peak Gradient 2 mmHg PV Doppler PV Peak Gradient 7 mmHg Mitral Valve Name Value Normal MV Doppler M
[2023-02-18] MEDS: methylPREDNISolone SOD SUCC 125 MG VIAL 60 MG IV PUSH (05:50)
[2023-02-18 07:15] LABS: Basophils Percent Auto 0.1 % (0.2-1.2); Hematocrit 43.7 % (37.0-47.0); Hemoglobin 14.4 g/dL (12.0-15.0); Immature Granulocyte Absolute 0.14 K/mm3 (0.00-0.031); Lymphocytes Absolute Auto 0.56 K/mm3 (0.9-3.2); Lymphocytes Percent Auto 3.8 % (18.3-44.2); Mean Corpuscular Hemoglobin 33.5 pg (26-34); Mean Corpuscular Volume 101.6 fl (80-100); Mean Platelet Volume 9.2 fl (7.4-10.4); Monocytes Absolute Auto 0.4 K/mm3 (0.1-0.6); Monocytes Percent Auto 2.9 % (2.6-8.5); Neutrophils Absolute Auto 13.5 K/mm3 (1.3-6.7); Neutrophils Percent Auto 92.2 % (45.5-73.1); Platelet Count Result 173 k/mm3 (150-375); White Blood Count 14.7 K/mm3 (4.5-10.0)
[2023-02-18 07:22] LABS: Alanine Aminotransferase 17 U/L (6-35); Albumin Level 3.7 g/dL (3.5-5.1); Alkaline Phosphatase 60 U/L (38-126); Anion Gap 5 mmol/L (8-16); Aspartate Amino Transferase 21 U/L (14-36); Bilirubin,Total 0.5 mg/dL (0.2-1.3); Blood Urea Nitrogen 13 mg/dL (7-17); Calcium 8.8 mg/dL (8.4-10.2); Carbon Dioxide 33 mmol/L (22-30); Chloride 91 mmol/L (98-107); Estimated CRCL calculation 113 ml/min; Estimated Glomerular Filt Rate > 60; Glucose 183 mg/dL (65-110); Potassium 4.7 mmol/L (3.4-5.0); Sodium 129 mmol/L (137-145)
--- NOTE | 2023-02-18 08:31 | PM.DS ---
DS: Admitting Diagnosis Discharge Date 02/18/23 Admitting Diagnosis sob DS: Discharge Diagnosis Discharge Diagnosis (1) COPD exacerbation: Code(s): J44.1 - Chronic obstructive pulmonary disease with (acute) exacerbation Status: Acute Assessment and Plan: Continue steroids, nebulizer treatment, hold off on antibiotics Wean oxygen as able 02/17: d/c IV steroids, start prednisone, home O2 eval ordered and pending, anticipate d/c home tomorrow on O2 (2) Acute hyponatremia: Code(s): E87.1 - Hypo-osmolality and hyponatremia Status: Acute Assessment and Plan: Mild, monitor, likely secondary to hypovolemic status (3) Acute hypokalemia: Code(s): E87.6 - Hypokalemia Status: Acute Assessment and Plan: Replete and recheck, likely secondary to nebs (4) Hypocalcemia: Code(s): E83.51 - Hypocalcemia Status: Acute Assessment and Plan: Likely due to dehydration, monitor (5) Nicotine dependence, cigarettes, with other nicotine-induced disorders: Code(s): F17.218 - Nicotine dependence, cigarettes, with other nicotine-induced disorders Status: Acute (6) Tobacco abuse counseling: Code(s): Z71.6 - Tobacco abuse counseling Status: Acute Assessment and Plan: Patient smokes cigarettes on a chronic basis. Strictly advised patient to cut down on or quit smoking. Nicotine patch ordered. ~5 minutes spent on tobacco cessation counseling with the patient. Websites - http://smokefree.gov & http://www.[employer]aver[employer].com Quitlines - 0-315-AYFM-NOW ( ) Smokefree Apps - [employer] Riaz Text Messages - SmokefreeTXT ([place] the [place] [address]) Plan DVT prophylaxis with SCDs GI prophylaxis not indicated Code status full code DS: Summary Hospital Course Hospital Course: 72-year-old female with history of CHF, COPD, pacemaker is presenting with shortness of breath and hypoxia and is currently being treated for a COPD exacerbation. Patient was started on nebulizer treatments as well as IV steroids. Symptoms improved but she remained on oxygen. Steroids were transitioned to prednisone. Home O2 eval was performed and home oxygen was arranged. Patient was discharged in stable condition with close outpatient follow-up on home oxygen and to complete her course of prednisone. Please see above and med rec for details. Time Spent with Patient Time attestation: Total time spent providing and/or coordinating discharge services: Exam Narrative: General: No acute distress, alert and oriented per baseline HEENT: Atraumatic, normocephalic, mucous membranes moist CV: Regular rate and rhythm, S1, S2 Lungs: Diminished throughout, no wheeze, moderate air entry Abdomen: Soft, nontender, nondistended Extremities: Normal to inspection Skin: No rashes noted, no lesions or wounds seen Psych: Euthymic, normal affect DS: Data Data Completed and Pending Labs on day of discharge: Labs from last 24 hours 02/18/23 06:47 WBC 14.7 H RBC 4.30 Hgb 14.4 Hct 43.7 MCV 101.6 H MCH 33.5 MCHC 33.0 RDW 11.0 L Plt Count 173 MPV 9.2 Immature Gran % (Auto) 1.0 H Neut % (Auto) 92.2 H Lymph % (Auto) 3.8 L [place] % (Auto) 2.9 Eos % (Auto) 0.0 Baso % (Auto) 0.1 L Lymph # (Auto) 0.56 L [place] # (Auto) 0.4 Eos # (Auto) 0.0 Baso # (Auto) 0.0 Abs Immat Gran (auto) 0.14 H Absolute Neuts (auto) 13.5 H Absolute Nucleated RBC 0.0 Nucleated RBC % 0.0 Sodium 129 L Potassium 4.7 Chloride 91 L Carbon Dioxide 33 H Anion Gap 5 L BUN 13 Creatinine 0.40 L Estim Creat Clear Calc 113 Estimated GFR > 60 Glucose 183 H Calcium 8.8 Total Bilirubin 0.5 AST 21 ALT 17 Alkaline Phosphatase 60 Total Protein 6.0 L Albumin 3.7 Discharge Plan Discharge Attending physician on discharge: Lacy Philippe Consulting providers: Luis Woods Discharging Clinician: Thiago Philippe
[2023-02-18] MEDS: ALBUTEROL SULFATE NEB 2.5 MG/3 ML INH INHALATION (08:33)
[2023-02-18] MEDS: IPRATROPIUM BR 0.02% INH SOLN 0.5 MG/2.5 ML VIAL INHALATION (08:33)
[2023-02-18] MEDS: ATORVASTATIN 20 MG TABLET PO (09:10)
[2023-02-18] MEDS: SOTALOL HCL 80 MG TABLET PO (09:10)
[2023-02-18] MEDS: SACUBITRIL/VALSARTAN 97-103 MG TABLET 1 TAB PO (09:10)
[2023-02-18] MEDS: carvediloL 12.5 MG TABLET 37.5 MG PO (09:11)
[2023-02-18] MEDS: ENOXAPARIN 40 MG/0.4 ML SYRINGE SUB-Q (09:11)
--- NOTE | 2023-02-18 10:17 | HOMEO2EVAL ---
Evaluation was performed at [facility] Home Oxygen Evaluation RC: Home Oxygen (O2) Evaluation Start: 02/17/23 08:36 Freq: ONCE Status: Active Protocol: RPE Activity Type Activity Date Activity User E-sign Co-sign Detail Recorded Client Recorded Date Recorded By Document 02/18/23 09:30 PK [email or web address] 02/18/23 10:16 PKH Document 02/18/23 09:35 [email or web address] 02/18/23 10:16 PKH Document 02/18/23 09:40 PK [email or web address] 02/18/23 10:16 PKH Document 02/18/23 10:00 PK [email or web address] 02/18/23 10:16 PKH Document 02/18/23 10:05 PK [email or web address] 02/18/23 10:16 PK 02/18/23 02/18/23 02/18/23 09:30 09:35 09:40 Home O2 Evaluation [Oxygen] -Test Phase Resting Resting Resting -Oxygen Delivery Room Air Nasal Cannula Nasal Cannula -Oxygen Flow Rate (L/min) 1 2 [Pulse Oximetry] -Pulse Oximetry (90-100 %) 87 L 88 L 91 [Pulse Rate] -Pulse Rate (60-100 beats/min) 80 82 79 [Charges] -Treatment Charges O2 Evaluation - Inpatient 02/18/23 02/18/23 10:00 10:05 Home O2 Evaluation [Oxygen] -Test Phase Exercise Resting -Oxygen Delivery Nasal Cannula Nasal Cannula -Oxygen Flow Rate (L/min) 2 2 [Pulse Oximetry] -Pulse Oximetry (90-100 %) 91 92 [Pulse Rate] -Pulse Rate (60-100 beats/min) 89 80 [Charges] -Treatment Charges
--- NOTE | 2023-02-18 10:18 | PCRCNOTE ---
HOME O2 EVAL COMPLETE. PATIENT REQUIRES 2LPM WITH REST AND ACTIVITY. RN NOTIFIED. [facility] CALLED . TANK TAKEN TO ROOM.
--- NOTE | 2023-02-18 11:39 | PC.NURSE ---
Pt is A&O4 female who has participated and contributed in plan of care. Pt denies any pain and has minimal swelling. Pt had home O2 eval done and was found to need 2L at home with activity. Pt tolerated well. Pt IV removed before discharge, pt tolerated well. Pt was wheeled out with belongings and home medications were returned to pt. Pt was set up with home O2. Phone number and company name were on O2 tank. Pt and family were educated on process to set up home O2. Pt verbalizes understanding. Pt was monitored for any changes in status while here.
== END 2023-02-18 11:33 | disposition home or self-care (01) | DRG 191 ==
LOC: ANHED 23:09 → ANH3MEDSUR 23:42
PROVIDERS: Admitting Provider Family Medicine; Emergency Provider Emergency Medicine; Visit Provider Student in an Organized Health Care Education/Training Program
DX: J44.1 Chronic obstructive pulmonary disease with (acute) exacerbation (principal); E87.1 Hypo-osmolality and hyponatremia; I11.0 Hypertensive heart disease with heart failure; I50.9 Heart failure, unspecified; E87.6 Hypokalemia; E83.51 Hypocalcemia; E78.5 Hyperlipidemia, unspecified; M19.90 Unspecified osteoarthritis, unspecified site; F17.210 Nicotine dependence, cigarettes, uncomplicated; Z20.822 Contact with and (suspected) exposure to COVID-19; Z95.0 Presence of cardiac pacemaker
CPT/HCPCS: 36415; 71045; 71046; 80053; 83605; 83735; 83880; 84100; 85025; 85380; 87637; 93005; 93306; 94618; 94640; 96365; 96375; 96376; 99285; A9270; G0378; J0612; J1650; J2930; J3480; J7030

== ENCOUNTER 2024-01-03 21:07 | Inpatient (IN) | payer MEDICARE, SELFPAY ==
--- NOTE | ~2024-01-03 | XR_ITS ---
XR chest 1V portable Ordering provider: Elliot Giraldo MD History: 73 years Female with . dyspnea . Comparison: February 18, 2023 FINDINGS: MEDIASTINUM: The cardiac silhouette is slightly enlarged. Left bipolar pacemaker. LUNGS: No pneumothorax. Left mid and lower lung opacification suggestive of atelectasis versus pneumo alfa. Minimal left pleural effusion. Underlying emphysematous changes.Pleural thickening in the right apical area. OTHER: No free air under the diaphragm. IMPRESSION: Opacification in the left lower lobe suggestive of atelectasis versus pneumonia with minimal effusion . Reviewed, dictated and finalized at location A. IMPRESSION: Opacification in the left lower lobe suggestive of atelectasis versus pneumonia with minimal effusion.
[2024-01-03 21:05] VITALS: BP 175/95; PULSE 104; RESP 19; TEMP 36.7; O2SAT 93
--- NOTE | 2024-01-03 21:13 | ECG_ITS ---
Test Date: 2024-01-03 21:17:30 Measurements Intervals [place] Rate: 88 P: 81 FL: 230 QRS: 145 QRSD: 113 T: 46 QT: 357 QTc: 433 Interpretive Statements ELECTRONIC VENTRICULAR PACEMAKER ABNORMAL RHYTHM ECG No previous ECG available for comparison Electronically Signed On 01-04-2024 10:35:29 CDT by Yuriy Patterson M.D.
[2024-01-03 21:15] VITALS: PULSE 95; RESP 19; O2SAT 98
--- NOTE | 2024-01-03 21:23 | ED.GENADULT ---
HPI - General Adult General Chief complaint: Shortness of Breath/Dyspnea Stated complaint: Short of Breath Time Seen by Provider: 01/03/24 21:09 History of Present Illness HPI narrative: Patient 73-year-old female who presents emergency department with chief complaint of shortness of breath. The patient has prior history of congestive heart failure and COPD not reports that she started getting more more short of breath today. EMS found the patient saturating in the 80s and was given steroids and breathing treatments in route to the emergency department. Patient was also given magnesium the patient denies chest pain reports that she has had no upper respiratory symptoms Related Data Home Medications Medication Instructions Recorded Confirmed atorvastatin 20 mg tablet (Lipitor) 20 mg PO DAILY 04/03/19 02/16/23 carvedilol 25 mg tablet 37.5 mg PO BID 04/03/19 02/16/23 sacubitril 97 mg-valsartan 103 mg 1 tablet PO BID 04/03/19 02/16/23 tablet (Entresto) sotalol 80 mg tablet 80 mg PO BID 04/03/19 02/16/23 furosemide 20 mg tablet 20 mg PO BID PRN Edema 09/14/22 02/16/23 Allergies Allergy/AdvReac Type Severity Reaction Status Date / Time No Known Allergies Allergy Verified 09/13/22 20:04 Review of Systems Review of Systems: A 10 system review of systems was completed on the patient and is negative except for what is stated in the HPI. Nursing and ancillary documentation was reviewed. [facility] Past Medical History Medical History Arthritis CHF (congestive heart failure) COPD (chronic obstructive pulmonary disease) H/O cardiac pacemaker Hyperlipidemia Hypertension Surgical History Surgical History No history of previous surgery Family History Family History Father Heart disease Mother Alzheimer disease Social History Social History Smoking packs per day: 0.5 Smoking cigarettes per day: 10.0 Years smoked: 50 Smoking pack-years: 25.00 Smoking status: Current every day smoker Alcohol intake: current Drinks per week: 15 Substance use: never Substance use type: does not use Lack of Transportation: No Lack of Food: Never True Current Housing: I Have Housing Concerned About Future Housing: No Difficulty Paying Gas/Electric Bills: No Difficulty Paying for Meds: No Currently Unemployed: No Education: Don't Know Difficulty w/ Childcare or Family Care: No Gender identity (if verbalized by the patient): Female Spiritual care concerns: No Exam Narrative: GENERAL: Well-appearing, well-nourished, and in no acute distress. HEAD: Normocephalic, atraumatic. EYES: PERRLA and EOMI. ENT: Nares clear, no rhinorrhea or epistaxis. Mucous membranes moist. NECK: Supple. CHEST: Clear to auscultation. No respiratory distress. HEART: Regular rate and rhythm. No murmur heard. Normal peripheral pulses. ABDOMEN: Soft, nontender, nondistended, normal active bowel sounds. EXTREMITIES: Normal range of motion. No edema. SKIN: Warm, dry, no rash. NEURO: No focal deficits. Alert and oriented x3. PSYCH: Normal mood and affect. Course Vital Signs Vital signs: Vital Signs Temperature 36.7 C 01/03/24 21:05 Pulse Rate 104 H 01/03/24 21:05 Respiratory Rate 19 01/03/24 21:05 Blood Pressure 175/95 H 01/03/24 21:05 Pulse Oximetry 93 01/03/24 21:05 Oxygen Delivery Nasal Cannula 01/03/24 21:05 Oxygen Flow Rate 2 01/03/24 21:05 Temperature 36.7 C 01/03/24 21:05 Pulse Rate 86 01/03/24 21:47 Respiratory Rate 19 01/03/24 21:47 Blood Pressure 175/95 H 01/03/24 21:05 Pulse Oximetry 100 01/03/24 21:48 Oxygen Delivery BiPAP 01/03/24 21:48 Oxygen Flow Rate 2 01/03/24 21:05 Medical Decision M
[2024-01-03] MEDS: IPRATROPIUM 0.5 MG/ALBUTEROL SULFATE 2.5 MG AMPUL.NEB 3 ML INHALATION (21:30)
[2024-01-03 21:39] LABS: Alveolar/Arterial O2 Gradient 72.4 mmHg; Base Excess ABG -1.7 mEq/l (+/-2.0); Device NON-INVASIVE VENT; Fractional Inspired Oxygen 30 %; HCO3 ABG 24.8 mEq/l (22.0-26.0); Modified Allen's Test Pass; Oxygen Content ABG 20.6 %vol (16.0-22.0); Oxygen Saturation ABG 95.6 % (95.0-100.0); Oxyhemoglobin 90.8 % THb (90.0-100.0); PCO2 ABG 48.5 mmHg (35.0-45.0); PO2 ABG 84.5 mmHg (80.0-100.0); PO2 FiO2 Ratio Arterial Blood 2.82 %; Site Drawn RIGHT RADIAL; Total Hemoglobin 16.1 g/dL (12.0-18.0); pH ABG 7.327 (7.350-7.450)
[2024-01-03 21:40] LABS: Non-Invasive Expiratory Pressure 6 CMH2O; Non-Invasive Inspiratory Pressure 12 CMH2O; Non-Invasive Vent Rate 16 /MIN
[2024-01-03 21:47] VITALS: PULSE 86; RESP 19
[2024-01-03 21:48] VITALS: O2SAT 100
[2024-01-03 21:51] LABS: Basophils Absolute Auto 0.1 K/mm3 (0.0-0.1); Basophils Percent Auto 0.4 % (0.2-1.2); Eosinophils Absolute Auto 0.2 K/mm3 (0-0.3); Eosinophils Percent Auto 1.3 % (0-4.4); Hematocrit 46.2 % (37.0-47.0); Hemoglobin 15.6 g/dL (12.0-15.0); Immature Granulocyte Absolute 0.07 K/mm3 (0.00-0.031); Immature Granulocyte Percent A 0.4 % (0-0.5); Lymphocytes Absolute Auto 2.83 K/mm3 (0.9-3.2); Lymphocytes Percent Auto 16.9 % (18.3-44.2); Mean Corpuscular HGB Conc 33.8 g/dl (32-36); Mean Corpuscular Hemoglobin 33.8 pg (26-34); Mean Platelet Volume 9.1 fl (7.4-10.4); Monocytes Absolute Auto 1.2 K/mm3 (0.1-0.6); Neutrophils Absolute Auto 12.4 K/mm3 (1.3-6.7); Platelet Count Result 247 k/mm3 (150-375); Red Blood Count 4.62 M/mm3 (4.2-5.4); Red Cell Distribution Width 11.9 % (11.5-14.5); White Blood Count 16.8 K/mm3 (4.5-10.0)
[2024-01-03 22:02] LABS: Alanine Aminotransferase 16 U/L (6-35); Albumin Level 4.6 g/dL (3.5-5.1); Alkaline Phosphatase 108 U/L (38-126); Anion Gap 10 mmol/L (4-12); Aspartate Amino Transferase 25 U/L (14-36); Bilirubin,Total 0.5 mg/dL (0.2-1.3); Blood Urea Nitrogen 8 mg/dL (7-17); Calcium 8.9 mg/dL (8.4-10.2); Carbon Dioxide 27 mmol/L (22-30); Chloride 92 mmol/L (98-107); Estimated CRCL calculation 98 ml/min; Estimated Glomerular Filt Rate > 60; Glucose 208 mg/dL (65-110); Lipase 134 U/L (23-300); Sodium 129 mmol/L (137-145)
[2024-01-03 22:03] LABS: Lactic Acid Reflex 1.7 mmol/L (0.7-2.0)
[2024-01-03 22:04] LABS: Prothrombin Time 13.3 Seconds (11.1-14.7)
[2024-01-03 22:05] LABS: Partial Thromboplastin Time 24.6 Seconds (22.3-36.8)
[2024-01-03 22:14] LABS: NT Pro B Type Natriuretic Pept 135 pg/mL (19.9-100); Troponin I < 0.012 ng/mL (0.000-0.034)
[2024-01-03 23:04] LABS: Procalcitonin < 0.0 ng/mL
[2024-01-03] MEDS: methylPREDNISolone SOD SUCC 125 MG VIAL 60 MG IV PUSH (23:23)
[2024-01-03 23:43] VITALS: BP 123/60; PULSE 77; RESP 15; O2SAT 99
[2024-01-03 23:44] LABS: Add Urine Microscopic? YES; Appearance Urine Clear (Clear); Bacteria Urine None Seen /hpf; Bilirubin Urine Negative (Negative); Blood Urine Negative (Negative); Color Urine Yellow (Yellow); Glucose Urine UA Trace mg/dL (Negative); Ketones Urine Negative (Negative); Leukocyte Esterase Ur Negative LEU/UL (Negative); Nitrate Urine Negative (Negative); Non Pathogenic Casts 0-2; Protein Urine 2+ mg/dL (Negative); RBC Urine 0-2 /hpf (0-2); Specific Grav Ur 1.012 (1.001-1.035); Squamous Epithelial Cell Urine Few /hpf (Few)
[2024-01-04] VITALS (25 sets, daily range): BP systolic 116–142; BP diastolic 53–81; PULSE 71–90; RESP 16–23; TEMP 36.1–37.2; O2SAT 93–100; BMI 40.9
--- NOTE | 2024-01-04 00:04 | PM.IMHP ---
H&P: HPI History of Present Illness Date/Time: 01/04/24 00:04 Chief Complaint: sob Narrative: this is a 73-year-old female with past medical history significant for tobacco dependence, COPD/emphysema, congestive heart failure, pacemaker in place, hypertension. patient presents to the emergency room due to shortness of breath history taking is limited at the time of my visit as patient is on BiPAP preliminary workup was significant for left lower lobe infiltrate. Patient has been admitted for further evaluation management and treatment. XR chest 1V portable Ordering provider: Elliot Giraldo MD History: 73 years Female with . dyspnea . Comparison: February 18, 2023 FINDINGS: MEDIASTINUM: The cardiac silhouette is slightly enlarged. Left bipolar pacemaker. LUNGS: No pneumothorax. Left mid and lower lung opacification suggestive of atelectasis versus pneumonia. Minimal left pleural effusion. Underlying emphysematous changes.Pleural thickening in the right apical area. OTHER: No free air under the diaphragm. IMPRESSION: Opacification in the left lower lobe suggestive of atelectasis versus pneumonia with minimal effusion. Review of Systems Review of Systems: ROS unobtainable: Yes unobtainable due to medical condition (on BiPAP) [facility] Past Medical History Medical History Arthritis CHF (congestive heart failure) COPD (chronic obstructive pulmonary disease) H/O cardiac pacemaker Hyperlipidemia Hypertension Surgical History Surgical History No history of previous surgery Family History Family History Father Heart disease Mother Alzheimer disease Social History Social History Smoking packs per day: 0.5 Smoking cigarettes per day: 10.0 Years smoked: 52 Smoking pack-years: 26.00 Smoking status: Current every day smoker Tobacco type: cigarettes Alcohol intake: current Drinks per week: 15 Substance use: never Substance use type: does not use Do You Feel Safe in your Home?: Yes Lack of Transportation: No Lack of Food: Never True Current Housing: I Have Housing Concerned About Future Housing: No Difficulty Paying Gas/Electric Bills: No Difficulty Paying for Meds: No Currently Unemployed: No Education: High School Diploma/GED Difficulty w/ Childcare or Family Care: No Gender identity (if verbalized by the patient): Female Spiritual care concerns: No Meds Home Medications and Allergies Home Medications Medication Instructions Recorded Confirmed Type atorvastatin 20 mg tablet (Lipitor) 20 mg PO DAILY 04/03/19 01/04/24 History carvedilol 25 mg tablet 37.5 mg PO BID 04/03/19 01/04/24 History sacubitril 97 mg-valsartan 103 mg 1 tablet PO BID 04/03/19 01/04/24 History tablet (Entresto) sotalol 80 mg tablet 80 mg PO BID 04/03/19 01/04/24 History furosemide 20 mg tablet 20 mg PO BID PRN Edema 09/14/22 01/04/24 History albuterol sulfate 90 mcg/actuation 2 puff inhalation Q4H PRN 09/15/22 01/04/24 Rx aerosol inhaler (Proventil HFA) shortness of breath or wheezing #8.5 grams aspirin 81 mg capsule 81 mg PO DAILY 01/04/24 01/04/24 History diphenhydramine 25 2 tablet PO HS PRN Insomnia 01/04/24 01/04/24 History mg-acetaminophen 500 mg tablet (Tylenol PM Extra Strength) fluticasone fur. 100 mcg-umeclid 1 inh inhalation DAILY 01/04/24 01/04/24 History 62.5 mcg-vilant 25 mcg inhalat.powder (Trelegy Ellipta) Allergies Allergy/AdvReac Type Severity Reaction Status Date / Time No Known Allergies Allergy Verified 09/13/22 20:04 Vital Signs Vital Signs - 24 hr 01/03/24 21:05 01/03/24 21:15 01/03/24 21:48 Temperature 98.0 F Pulse Rate 104 H 95 Respiratory Rate 19 19 Blood
[2024-01-04] MEDS: AZITHROMYCIN 500 MG/NS 250 ML 500 MG/250 ML BAG 250 MG IVPB ×2 (00:11→22:09)
--- NOTE | 2024-01-04 02:00 | ADMGEN ---
This patient, Stephanie He, was admitted to IMU Room 231-01. Patient/family oriented to hospital policies and general routines including ID bracelet, bed and alarms, visiting hours, pain management, procedures, bathroom and other care routines, personal items, smoking policy, room service/diet, and visiting hours. Information on how to activate the Rapid Response Team has been discussed. Patient/Family are encouraged to report perceived risks to care and to ask questions if they do not understand what they are told or what they should do.
[2024-01-04 02:37] LABS: Troponin I 0.047 ng/mL (0.000-0.034)
[2024-01-04 03:14] LABS: Influenza A QL RT-PCR Negative (Negative); Influenza B QL RT-PCR Negative (Negative); RSV RNA, RT-PCR Negative (Negative); SARS-CoV-2 RNA PCR Negative (Negative)
[2024-01-04 05:02] LABS: Troponin I 0.039 ng/mL (0.000-0.034)
[2024-01-04] MEDS: methylPREDNISolone SOD SUCC 125 MG VIAL 60 MG IV PUSH (06:16)
[2024-01-04] MEDS: FLUTICASONE/UMECLIDIN/VILANTER 100-62.5-25 MCG ELLIPTA 1 PUFF INHALATION (08:38)
[2024-01-04] MEDS: IPRATROPIUM 0.5 MG/ALBUTEROL SULFATE 2.5 MG AMPUL.NEB 3 ML INHALATION ×3 (08:38→20:55)
[2024-01-04] MEDS: carvediloL 12.5 MG TABLET 37.5 MG PO ×2 (09:19→21:24)
[2024-01-04] MEDS: SACUBITRIL/VALSARTAN 97-103 MG TABLET 1 TAB PO ×2 (09:20→21:25)
[2024-01-04] MEDS: SOTALOL HCL 80 MG TABLET PO ×2 (09:20→21:25)
[2024-01-04] MEDS: ATORVASTATIN 20 MG TABLET PO (09:20)
--- NOTE | 2024-01-04 10:47 | PM.IMPN ---
Progress Note: A&P Assessment and Plan (1) Pneumonia: Code(s): J18.9 - Pneumonia, unspecified organism Status: Acute (2) COPD exacerbation: Code(s): J44.1 - Chronic obstructive pulmonary disease with (acute) exacerbation Status: Acute (3) Acute respiratory failure with hypoxia: Code(s): J96.01 - Acute respiratory failure with hypoxia Status: Acute (4) Acute hypokalemia: Code(s): E87.6 - Hypokalemia Status: Acute (5) Acute hyponatremia: Code(s): E87.1 - Hypo-osmolality and hyponatremia Status: Acute (6) CHF (congestive heart failure): Code(s): I50.9 - Heart failure, unspecified Status: Acute (7) Tobacco dependence: Code(s): F17.200 - Nicotine dependence, unspecified, uncomplicated Status: Acute Plan This is a 73-year-old female who presents to the ED with complaint of shortness of breath. Patient has a history of congestive heart failure and COPD. She started getting short of breath more today. EMS was called. She was found to have SpO2 in 80s. She was given breathing treatment and steroids and was brought to the ED for evaluation. She was also given magnesium. Patient denied any chest pain. No other respiratory symptoms reported. On ED evaluation see was hypertensive her oxygen saturation was 93% on 2 L via nasal cannula. Lungs noted to be clear to auscultation on arrival to the ED per ED note. Laboratory evaluation revealed WBC of 16.8 hemoglobin of 15.6 mildly hyponatremic at 1:29 a.m. renal function adequate. Blood sugar bone 8. Lactate was 1.7 troponin was negative at less than 0.012. Procalcitonin was less than 0 lipase was 134. Influenza RSV COVID swab was negative. ABG was performed which showed 7.32/48/84/25. Chest x-ray showed opacification of left lower lobe suggestive of atelectasis versus pneumonia with minimal effusion. While in the ED he was placed on BiPAP. Treated as COPD exacerbation and pneumonia with Rocephin and Zithromax. Will titrate off BiPAP. Recheck ABG. COPD exacerbation steroid bronchodilators will switch steroid to oral Elevated troponin initial troponin was negative. Less than 0.012 followed by 0.047-0.039 mild troponin rise likely related to demand ischemia type 2 AL due to hypoxia. UTI with urine WBC 6-10 follow urine culture. Already in ceftriaxone Acute hypoxic respiratory failure Hypokalemia Hyponatremia which is also chronic Congestive heart failure chronic diastolic. Echo 03/04: Normal systolic function with grade 1 diastolic noncompliance. No significant valvular dysfunction. Pacemaker leads noted. Patient is noted to be on sotalol and carvedilol from medical records as well. History of ischemic cardiomyopathy ventricular fibrillation dilated cardiomyopathy status post biventricular ICD placement 2016 EF 30% initially with improvement to 50-55% 07/31 PFO Coronary artery disease moderate right Tobacco dependence Status post pacemaker implantation Hypertension Hyperlipidemia DVT prophylaxis Code status full code Subjective Date/time seen: 01/04/24 10:47 Interval history: Chart reviewed. No overnight events reported. Was on BiPAP overnight. Switch to nasal cannula this a.m.. Review of Systems Review of Systems: All systems reviewed & are unremarkable except as noted in HPI and below Exam Narrative: GENERAL: Well-appearing, well-nourished, and in no acute distress. HEAD: Normocephalic, atraumatic. EYES: PERRLA and EOMI. ENT: Nares clear, no rhinorrhea or epistaxis. Mucous membranes moist. NECK: Supple. CHEST: Clear to auscultation. No respiratory distress. No wheezing HEART: Regular rate and rhythm. No murmur heard. Normal peripheral pulses. ABDOMEN: Soft, nontender, nondistended, normal active bowel sounds. EXTREMITIES: Normal range of motion. No edema. SKIN: Warm, dry, no rash. NEURO: No focal deficits. Alert and oriented x3. PSYCH: Normal mood and affect. Objec
[2024-01-04] MEDS: ASPIRIN 81 MG ENTERIC TABLET PO (12:50)
[2024-01-05] VITALS (19 sets, daily range): BP systolic 111–122; BP diastolic 60–68; PULSE 66–78; RESP 16–20; TEMP 36.2–36.6; O2SAT 95–99
[2024-01-05] MEDS: IPRATROPIUM 0.5 MG/ALBUTEROL SULFATE 2.5 MG AMPUL.NEB 3 ML INHALATION ×4 (03:43→19:56)
[2024-01-05 04:49] LABS: Basophils Percent Auto 0.1 % (0.2-1.2); Hematocrit 42.5 % (37.0-47.0); Hemoglobin 14.2 g/dL (12.0-15.0); Immature Granulocyte Absolute 0.21 K/mm3 (0.00-0.031); Immature Granulocyte Percent A 1.1 % (0-0.5); Lymphocytes Absolute Auto 1.16 K/mm3 (0.9-3.2); Mean Corpuscular HGB Conc 33.4 g/dl (32-36); Mean Corpuscular Hemoglobin 33.7 pg (26-34); Mean Platelet Volume 9.5 fl (7.4-10.4); Monocytes Absolute Auto 1.3 K/mm3 (0.1-0.6); Monocytes Percent Auto 6.5 % (2.6-8.5); Neutrophils Absolute Auto 16.7 K/mm3 (1.3-6.7); Neutrophils Percent Auto 86.3 % (45.5-73.1); Platelet Count Result 199 k/mm3 (150-375); Red Blood Count 4.21 M/mm3 (4.2-5.4); Red Cell Distribution Width 11.9 % (11.5-14.5); White Blood Count 19.3 K/mm3 (4.5-10.0)
[2024-01-05 05:04] LABS: Alanine Aminotransferase 16 U/L (6-35); Alkaline Phosphatase 89 U/L (38-126); Anion Gap 8 mmol/L (4-12); Aspartate Amino Transferase 26 U/L (14-36); Bilirubin,Total 0.5 mg/dL (0.2-1.3); Blood Urea Nitrogen 9 mg/dL (7-17); Carbon Dioxide 28 mmol/L (22-30); Chloride 97 mmol/L (98-107); Estimated CRCL calculation 147 ml/min; Estimated Glomerular Filt Rate > 60; Glucose 177 mg/dL (65-110); Magnesium 2.1 mg/dL (1.6-2.3); Potassium 4.1 mmol/L (3.4-5.0); Sodium 133 mmol/L (137-145)
[2024-01-05] MEDS: FLUTICASONE/UMECLIDIN/VILANTER 100-62.5-25 MCG ELLIPTA 1 PUFF INHALATION (07:40)
[2024-01-05] MEDS: carvediloL 12.5 MG TABLET 37.5 MG PO ×2 (09:21→21:05)
[2024-01-05] MEDS: SOTALOL HCL 80 MG TABLET PO ×2 (09:22→21:07)
[2024-01-05] MEDS: ATORVASTATIN 20 MG TABLET PO (09:22)
[2024-01-05] MEDS: ASPIRIN 81 MG ENTERIC TABLET PO (09:22)
[2024-01-05] MEDS: predniSONE 20 MG TABLET 40 MG PO (09:22)
[2024-01-05] MEDS: SACUBITRIL/VALSARTAN 97-103 MG TABLET 1 TAB PO ×2 (09:22→21:05)
--- NOTE | 2024-01-05 14:36 | PM.IMPN ---
Progress Note: A&P Assessment and Plan (1) Pneumonia: Code(s): J18.9 - Pneumonia, unspecified organism Status: Acute (2) COPD exacerbation: Code(s): J44.1 - Chronic obstructive pulmonary disease with (acute) exacerbation Status: Acute (3) Acute respiratory failure with hypoxia: Code(s): J96.01 - Acute respiratory failure with hypoxia Status: Acute (4) Acute hypokalemia: Code(s): E87.6 - Hypokalemia Status: Acute (5) Acute hyponatremia: Code(s): E87.1 - Hypo-osmolality and hyponatremia Status: Acute (6) CHF (congestive heart failure): Code(s): I50.9 - Heart failure, unspecified Status: Acute (7) Tobacco dependence: Code(s): F17.200 - Nicotine dependence, unspecified, uncomplicated Status: Acute Plan This is a 73-year-old female who presents to the ED with complaint of shortness of breath. Patient has a history of congestive heart failure and COPD. She started getting short of breath more today. EMS was called. She was found to have SpO2 in 80s. She was given breathing treatment and steroids and was brought to the ED for evaluation. She was also given magnesium. Patient denied any chest pain. No other respiratory symptoms reported. On ED evaluation see was hypertensive her oxygen saturation was 93% on 2 L via nasal cannula. Lungs noted to be clear to auscultation on arrival to the ED per ED note. Laboratory evaluation revealed WBC of 16.8 hemoglobin of 15.6 mildly hyponatremic at 1:29 a.m. renal function adequate. Blood sugar bone 8. Lactate was 1.7 troponin was negative at less than 0.012. Procalcitonin was less than 0 lipase was 134. Influenza RSV COVID swab was negative. ABG was performed which showed 7.32/48/84/25. Chest x-ray showed opacification of left lower lobe suggestive of atelectasis versus pneumonia with minimal effusion. While in the ED he was placed on BiPAP. Treated as COPD exacerbation and pneumonia with Rocephin and Zithromax. Will titrate off BiPAP. Recheck ABG. COPD exacerbation steroid bronchodilators will switch steroid to oral. Leukocytosis likely related to steroid. Will continue to monitor Elevated troponin initial troponin was negative. Less than 0.012 followed by 0.047-0.039 mild troponin rise likely related to demand ischemia type 2 MA due to hypoxia. UTI with urine WBC 6-10 follow urine culture. Already in ceftriaxone. Culture no growth Acute hypoxic respiratory failure continue taper down oxygen Hypokalemia replace and monitor Hyponatremia which is also chronic Congestive heart failure chronic diastolic. Echo 03/04: Normal systolic function with grade 1 diastolic noncompliance. No significant valvular dysfunction. Pacemaker leads noted. Patient is noted to be on sotalol and carvedilol from medical records as well. History of ischemic cardiomyopathy ventricular fibrillation dilated cardiomyopathy status post biventricular ICD placement 2016 EF 30% initially with improvement to 50-55% 07/31 PFO Coronary artery disease moderate right Tobacco dependence Status post pacemaker implantation Hypertension Hyperlipidemia DVT prophylaxis Code status full code Subjective Date/time seen: 01/05/24 14:36 Interval history: Feeling better. Has not ambulated oxygen requirement down to 3 L this a.m.. Review of Systems Review of Systems: All systems reviewed & are unremarkable except as noted in HPI and below Exam Narrative: GENERAL: Well-appearing, well-nourished, and in no acute distress. HEAD: Normocephalic, atraumatic. EYES: PERRLA and EOMI. ENT: Nares clear, no rhinorrhea or epistaxis. Mucous membranes moist. NECK: Supple. CHEST: Clear to auscultation. No respiratory distress. No wheezing HEART: Regular rate and rhythm. No murmur heard. Normal peripheral pulses. ABDOMEN: Soft, nontender, nondistended, normal active bowel sounds. EXTREMITIES: Normal range of motion. No edema. SKIN: Warm, dry,
--- NOTE | 2024-01-05 15:25 | PC.NURSE ---
Reviewed and approved documentation of Amanda Conte [facility]
--- NOTE | 2024-01-05 16:03 | PC.NURSE ---
This patient, Stephanie He, was transferred to [facility] via wheelchair without issue on 01/05/24 at 1554. Personal belongings sent with patient. Report given to NAYLA Bill. Appropriate documentation sent with patient.
[2024-01-05] MEDS: AZITHROMYCIN 500 MG/NS 250 ML 500 MG/250 ML BAG 250 MG IVPB (21:06)
[2024-01-05] MEDS: ACETAMINOPHEN 325 MG TABLET 650 MG PO (21:06)
[2024-01-05] MEDS: traZODone HCL 50 MG TABLET PO (22:00)
[2024-01-06] VITALS (17 sets, daily range): BP systolic 104–106; BP diastolic 44–50; PULSE 66–80; RESP 16–20; TEMP 36.3–36.9; O2SAT 87–96
[2024-01-06] MEDS: IPRATROPIUM 0.5 MG/ALBUTEROL SULFATE 2.5 MG AMPUL.NEB 3 ML INHALATION ×3 (02:36→14:43)
[2024-01-06 06:10] LABS: Basophils Percent Auto 0.1 % (0.2-1.2); Eosinophils Percent Auto 0.3 % (0-4.4); Hematocrit 42.3 % (37.0-47.0); Hemoglobin 14.2 g/dL (12.0-15.0); Immature Granulocyte Absolute 0.09 K/mm3 (0.00-0.031); Immature Granulocyte Percent A 0.7 % (0-0.5); Lymphocytes Absolute Auto 2.59 K/mm3 (0.9-3.2); Lymphocytes Percent Auto 19.3 % (18.3-44.2); Mean Corpuscular HGB Conc 33.6 g/dl (32-36); Mean Corpuscular Hemoglobin 33.9 pg (26-34); Mean Platelet Volume 9.1 fl (7.4-10.4); Monocytes Absolute Auto 1.2 K/mm3 (0.1-0.6); Monocytes Percent Auto 9.2 % (2.6-8.5); Neutrophils Absolute Auto 9.5 K/mm3 (1.3-6.7); Neutrophils Percent Auto 70.4 % (45.5-73.1); Platelet Count Result 160 k/mm3 (150-375); Red Blood Count 4.19 M/mm3 (4.2-5.4); Red Cell Distribution Width 11.9 % (11.5-14.5); White Blood Count 13.4 K/mm3 (4.5-10.0)
[2024-01-06 06:24] LABS: Alanine Aminotransferase 16 U/L (6-35); Albumin Level 3.7 g/dL (3.5-5.1); Alkaline Phosphatase 79 U/L (38-126); Anion Gap 4 mmol/L (4-12); Aspartate Amino Transferase 26 U/L (14-36); Bilirubin,Total 0.5 mg/dL (0.2-1.3); Blood Urea Nitrogen 9 mg/dL (7-17); Calcium 8.8 mg/dL (8.4-10.2); Carbon Dioxide 32 mmol/L (22-30); Chloride 98 mmol/L (98-107); Estimated CRCL calculation 115 ml/min; Estimated Glomerular Filt Rate > 60; Glucose 124 mg/dL (65-110); Potassium 3.9 mmol/L (3.4-5.0); Sodium 134 mmol/L (137-145)
[2024-01-06] MEDS: ATORVASTATIN 20 MG TABLET PO (08:03)
[2024-01-06] MEDS: predniSONE 20 MG TABLET 40 MG PO (08:04)
[2024-01-06] MEDS: SACUBITRIL/VALSARTAN 97-103 MG TABLET 1 TAB PO (08:04)
[2024-01-06] MEDS: carvediloL 12.5 MG TABLET 37.5 MG PO (08:04)
[2024-01-06] MEDS: ASPIRIN 81 MG ENTERIC TABLET PO (08:04)
[2024-01-06] MEDS: SOTALOL HCL 80 MG TABLET PO (09:18)
[2024-01-06] MEDS: FLUTICASONE/UMECLIDIN/VILANTER 100-62.5-25 MCG ELLIPTA 1 PUFF INHALATION (09:43)
--- NOTE | 2024-01-06 12:08 | PM.DS ---
DS: Admitting Diagnosis Discharge Date 01/06/2024 Admitting Diagnosis Shortness of breath DS: Discharge Diagnosis Discharge Diagnosis (1) Pneumonia: Code(s): J18.9 - Pneumonia, unspecified organism Status: Acute (2) COPD exacerbation: Code(s): J44.1 - Chronic obstructive pulmonary disease with (acute) exacerbation Status: Acute (3) Acute respiratory failure with hypoxia: Code(s): J96.01 - Acute respiratory failure with hypoxia Status: Acute (4) Acute hypokalemia: Code(s): E87.6 - Hypokalemia Status: Acute (5) Acute hyponatremia: Code(s): E87.1 - Hypo-osmolality and hyponatremia Status: Acute (6) CHF (congestive heart failure): Code(s): I50.9 - Heart failure, unspecified Status: Acute (7) Tobacco dependence: Code(s): F17.200 - Nicotine dependence, unspecified, uncomplicated Status: Acute DS: Summary Hospital Course Hospital Course: This is a 73-year-old female who presents to the ED with complaint of shortness of breath. Patient has a history of congestive heart failure and COPD. She started getting short of breath more today. EMS was called. She was found to have SpO2 in 80s. She was given breathing treatment and steroids and was brought to the ED for evaluation. She was also given magnesium. Patient denied any chest pain. No other respiratory symptoms reported. On ED evaluation see was hypertensive her oxygen saturation was 93% on 2 L via nasal cannula. Lungs noted to be clear to auscultation on arrival to the ED per ED note. Laboratory evaluation revealed WBC of 16.8 hemoglobin of 15.6 mildly hyponatremic at 1:29 a.m. renal function adequate. Blood sugar bone 8. Lactate was 1.7 troponin was negative at less than 0.012. Procalcitonin was less than 0 lipase was 134. Influenza RSV COVID swab was negative. ABG was performed which showed 7.32/48/84/25. Chest x-ray showed opacification of left lower lobe suggestive of atelectasis versus pneumonia with minimal effusion. While in the ED he was placed on BiPAP. Treated as COPD exacerbation and pneumonia with Rocephin and Zithromax. Titrated off BiPAP. COPD exacerbation steroid bronchodilators will switch steroid to oral. Leukocytosis likely related to steroid. Will continue to monitor and discharge on oral prednisone for 3 more days. Will also switch to Ceftin at discharge. Already received 1500 mg of azithromycin during hospitalization. There is interaction with sotalol as well. Elevated troponin initial troponin was negative. Less than 0.012 followed by 0.047-0.039 mild troponin rise likely related to demand ischemia type 2 CT due to hypoxia. UTI with urine WBC 6-10 follow urine culture. Already in ceftriaxone. Culture no growth. Was switched to Ceftin at discharge. Acute hypoxic respiratory failure continue taper down oxygen at home oxygen evaluation performed prior to the discharge. Hypokalemia replace and monitor Hyponatremia which is also chronic Congestive heart failure chronic diastolic. Echo 03/04: Normal systolic function with grade 1 diastolic noncompliance. No significant valvular dysfunction. Pacemaker leads noted. Patient is noted to be on sotalol and carvedilol from medical records as well. History of ischemic cardiomyopathy ventricular fibrillation dilated cardiomyopathy status post biventricular ICD placement 2016 EF 30% initially with improvement to 50-55% 07/31 PFO Coronary artery disease moderate right Tobacco dependence Status post pacemaker implantation Hypertension Hyperlipidemia DVT prophylaxis Code status full code Time Spent with Patient Time attestation: Total time spent providing and/or coordinating discharge services: Exam Narrative: GENERAL: Well-appearing, well-nourished, and in no acute distress. HEAD: Normocephalic, atraumatic. EYES: PERRLA and EOMI. ENT: Nares clear, no rhinorrhea or epistaxis. Mucous membranes moist. NECK: Supple. CH
--- NOTE | 2024-01-06 12:33 | PCPTNOTE ---
pt discharged. PT eval not performed.
--- NOTE | 2024-01-06 16:00 | HOMEO2EVAL ---
Evaluation was performed at [facility] Home Oxygen Evaluation RC: Home Oxygen (O2) Evaluation Start: 01/06/24 08:38 Freq: ONCE Status: Active Protocol: RPE Activity Type Activity Date Activity User E-sign Co-sign Detail Recorded Client Recorded Date Recorded By Document 01/06/24 13:30 NINO [email or web address] 01/06/24 16:00 NINO Document 01/06/24 13:35 NINO [email or web address] 01/06/24 16:00 NINO Document 01/06/24 13:36 NINO [email or web address] 01/06/24 16:00 NINO Document 01/06/24 13:45 NINO [email or web address] 01/06/24 16:00 NINO 01/06/24 01/06/24 01/06/24 13:30 13:35 13:36 Home O2 Evaluation [Oxygen] -Test Phase Resting Exercise Exercise -Oxygen Delivery Room Air Room Air Nasal Cannula -Oxygen Flow Rate (L/min) 2 [Pulse Oximetry] -Pulse Oximetry (90-100 %) 96 87 L 93 [Pulse Rate] -Pulse Rate (60-100 beats/min) 80 [Comments] -Home Oxygen Evaluation Comments PT REQUIRES 2L HOME O2 WITH ACTIVITY/ EXERTION [Charges] -Evaluation Charges O2 Evaluation by Pulmonary 01/06/24 13:45 Home O2 Evaluation [Oxygen] -Test Phase Resting -Oxygen Delivery Room Air -Oxygen Flow Rate (L/min) [Pulse Oximetry] -Pulse Oximetry (90-100 %) 95 [Pulse Rate] -Pulse Rate (60-100 beats/min) [Comments] -Home Oxygen Evaluation Comments [Charges] -Evaluation Charges
--- NOTE | 2024-01-06 16:34 | PCRCNOTE ---
WILL GIVE PT [facility] TRANSPORT TANK FOR DRIVE HOME AT D/C. PT NEEDS POC FOR 2 L WITH ACTIVITY. FYI, THIS PT REFUSED THE HOME O2 SET UP FROM [facility] IN FEB 2023.
== END 2024-01-06 17:13 | disposition home or self-care (01) | DRG 193 ==
LOC: ANHED 23:18 → ANHIMU 01-04 01:10 → ANH2MED 01-05 16:21
PROVIDERS: Admitting Provider Internal Medicine; Emergency Provider Emergency Medicine; Visit Provider Internal Medicine
DX: J18.9 Pneumonia, unspecified organism (principal); I21.A1 Myocardial infarction type 2; J96.01 Acute respiratory failure with hypoxia; E87.1 Hypo-osmolality and hyponatremia; N39.0 Urinary tract infection, site not specified; I50.32 Chronic diastolic (congestive) heart failure; I43 Cardiomyopathy in diseases classified elsewhere; J43.9 Emphysema, unspecified; F17.210 Nicotine dependence, cigarettes, uncomplicated; I11.0 Hypertensive heart disease with heart failure; Z95.0 Presence of cardiac pacemaker; I25.10 Atherosclerotic heart disease of native coronary artery without angina pectoris; Z79.82 Long term (current) use of aspirin
CPT/HCPCS: 36415; 36600; 71045; 80053; 81001; 82805; 83605; 83690; 83735; 83880; 84145; 84484; 85025; 85610; 85730; 87040; 87086; 87637; 93005; 94002; 94618; 94640; 96365; 96367; 96375; 97165; 99285; A9270; G0378; J0456; J0696; J2919; J7512

== ENCOUNTER 2024-06-11 14:36 | Inpatient (IN) | payer MEDICARE, SELFPAY ==
[2024-06-11] VITALS (11 sets, daily range): BP systolic 97–140; BP diastolic 62–83; PULSE 66–79; RESP 16–23; TEMP 36.6; O2SAT 95–98
--- NOTE | ~2024-06-11 | XR_ITS ---
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 RESULT: Lines, tubes, and devices: Left chest pacer/AICD, with intact leads. Lungs and pleura: Persistent right medial basilar segmental airspace disease. Chronic left lateral c ostophrenic angle blunting. Right apical pleural thickening. No pneumothorax. Cardiomediastinal silhouette: Stable. Other: No acute osseous or upper abdominal finding. IMPRESSION: Persistent segmental right medial basilar atelectasis/consolidation. Reviewed, dictated and finalized at location K. PLUGGER MACHINE OPERATOR
--- NOTE | ~2024-06-11 | CT_ITS ---
EXAMINATION: CT lumbar spine wo con DATE: 06/11/2024 17:23 INDICATION: Back pain. TECHNIQUE: Computed tomography (CT) of the lumbar spine was performed without intravenous contrast. A utomated exposure control and iterative reconstruction technique were employed. The dose-length produ ct was 1262.90 mGy-cm. COMPARISON: None. FINDINGS: Alignment is normal. There is a compression fracture of T12 with 1/5 loss of height. Interv ertebral disc heights are normal. The following disc levels are specifically discussed: L1-L2: The disc does not extend beyond the endplate margin. There is mild bilateral facet joint osteo arthritis. There is no neural foraminal stenosis. There is no central canal stenosis. L2-L3: The disc is bulging. There is no facet joint osteoarthritis. There is mild bilateral neural fo raminal stenosis. There is mild central canal stenosis. L3-L4: The disc is bulging. There is mild bilateral facet joint osteoarthritis. There is mild bilater al neural foraminal stenosis. There is mild central canal stenosis. L4-L5: The disc is bulging. There is mild bilateral facet joint osteoarthritis. There is mild bilater al neural foraminal stenosis. There is mild central canal stenosis. L5-S1: The disc does not extend beyond the endplate margin. There is severe bilateral facet joint ost eoarthritis. There is mild bilateral neural foraminal stenosis. There is no central canal stenosis. IMPRESSION: 1. Acute versus subacute T12 compression fracture. 2. Mild lumbar spondylosis. Reviewed, dictated and finalized at location A. ANESE BREAKER
--- NOTE | 2024-06-11 14:42 | ECG_ITS ---
Test Date: 2024-06-11 15:56:51 Measurements Intervals [place] Rate: 66 P: 73 ME: 171 QRS: 154 QRSD: 145 T: 72 QT: 466 QTc: 490 Interpretive Statements ELECTRONIC VENTRICULAR PACEMAKER ABNORMAL RHYTHM ECG Compared to ECG 01/03/2024 21:17:30 No significant changes Electronically Signed On 06-12-2024 14:14:54 PHARMACY SCHEDULER by Yuriy Patterson M.D.
[2024-06-11] MEDS: methylPREDNISolone SOD SUCC 125 MG VIAL IV PUSH (15:09)
--- OUTSIDE RECORDS SUMMARY | 2024-06-11 15:13 | XMS_ITS | Data Portability ---
[facility] Organization [facility] Address [address] [place] [address] Assessment Encounter Date Assessment Date Assessment LastModified by Organization Details LastModified Time 03/26/2023 03/26/2023 Stephanie He is a 72 y.o. female with a PMH of OPD, hypercholesterem ia, CAD, dilated cardiomyopathy, status post biventricular ICD, hypertension that presented today to establish care augabi Not available 03/27/2023 19:57:18 Plan of Treatment Reminders Order Date Submit Date Provider Last Modified By Organization Details Last Modified Time Details Appointments None recorded. Lab CBC w/ auto diff 2022 023 [facility], [address], [address], [place], [address], 3 06:18:15 noninvasiv e colorectal cancer DNA + occult blood screening, QL, stool 2022 023 [facility] [address], [address], [place], [address], 4 09:41:36 Referral None recorded. Procedures None recorded. Surgeries None recorded. Imaging LDCT, chest, for lung cancer screening 2022 023 [email or web address], [address] [facility] [place], [address], 4 16:16:14 DEXA 2022 023 [facility]uling, [address] [place], [address], 3 08:40:34 Medication Orders None recorded. Patient TargetsNo targets recorded. Patient Instructions Encounter Date Encounter Id Patient Instructions Last Modified By Organization Details Last Modified Time 03/26/2023 [id number] Attending Physician Attestation I personally saw and examined the patient with the resident. I have reviewed the documentation and agree with the history, physical findings, work-up, and medical decision making as recorded. Susie Garcia MD [email or web address] Not available 03/26/2023 16:37:22 Reason for Referral None Reported. Results Created Date Observation Date Name Description Value Unit Range Abnormal Flag Note LastModifiedBy Organization Detail LastModifiedTime 03/25/20 24 03/25/2024 COLOG UARD cologuard result Cancel led - Order d not applic able Not Available [facility] (Cologuard Orders Only) [address], [place], [address], 03/25/2024 09:41:36 03/26/20 23 03/26/2023 CBC WITH DIFFE RENTI AL/PL ATELE T WBC 12.0 x10e3 /uL 3.4-10 .8 above high normal Not Available [facility] Department [address] [place], [address], 03/27/2023 06:18:15 03/26/2003/26/2023 CBC WITH DIFFE RENTI AL/PL ATELE T RBC 4.46 x10e6 /uL 3.77-5 .28 Not Available [facility] Department [address] [place], [address], 03/27/2023 06:18:15 03/26/20 23 03/26/2023 CBC WITH DIFFE RENTI AL/PL ATELE T hemoglobin 14.4 g/dL 11.1-1 5.9 Not Available [facility] Department [address] [place], [address], 03/27/2023 06:18:15 03/26/2003/26/2023 CBC WITH DIFFE RENTI AL/PL ATELE T hematocrit 43.9 % 34.0-4 6.6 Not Available [facility] Department [address] [place], [address], 03/27/2023 06:18:15 03/26/2003/26/2023 CBC WITH DIFFE RENTI AL/PL ATELE T MCV 98 fL 79-97 above high normal Not Available [facility] Department [address] [place], [address], 03/27/2023 06:18:15 03/26/2003/26/2023 CBC WITH DIFFE RENTI AL/PL ATELE T MCH 32.3 pg 26.6-3 3.0 Not Available [facility] Department [address] [place], [address], 03/27/2023 06:18:15 03/26/2003/26/2023 CBC WITH DIFFE RENTI AL/PL ATELE T MCHC 32.8 g/dL 31.5-3 5.7 Not Available [facility] Department [address] [place], [address], 03/27/2023 06:18:15 03/26/2003/26/2023 CBC WITH DIFFE RENTI AL/PL ATELE T RDW 11.6 % 11.5-1 4.5 Not Available [facility] Department [address] [place], [address], 03/27/2023 06:18:15 03/26/2003/26/2023 CBC WITH DIFFE RENTI AL/PL ATELE T platelets 238 x10e3 /uL 150-45 0 Not Available [facility] Department [address] [place], [address], 03/27/2023 06:18:15 03/26/2003/26/2023 CBC WITH DIFFE RENTI AL/PL ATELE T neutrophils 73 % notest b. Not Available [facility] Department [address] [place], [address], 03/27/2023 06:18:15 03/26/20 23 03/26/2023 CBC WITH DIFFE RENTI AL/PL ATELE T lymphs 17 % notest b. Not Available [facility] Department [address] [place], [address], 03/27/2023 06:18:15 03/26/20 23 03/26/2023 CBC WITH DIFFE RENTI AL/PL ATELE T monocytes 8 % notest b. Not Available [facility] Department [address] [place], [address], 03/27/2023 06:18:15 03/26/20 23 03/26/2023 CBC WITH DIFFE RENTI AL/PL ATELE T eos 1 % notest b. Not Available [facility] Department [address] [place], [address], 03/27/2023 06:18:15 03/26/20 23 03/26/2023 CBC WITH DIFFE RENTI AL/PL ATELE T basos 0 % notest b. Not Available [facility] Department [address] [place], [address], 03/27/2023 06:18:15 03/26/20 23 03/26/2023 CBC WITH DIFFE RENTI AL/PL ATELE T neutrophils (absolute) 8.8 x10e3 /uL 1.4-7. 0 above high normal Not Available [facility] Department [address] [place], [address], 03/27/2023 06:18:15 03/26/20 23 03/26/2023 CBC WITH DIFFE RENTI AL/PL ATELE T lymphs (absolute) 2.1 x10e3 /uL 0.7-3. 1 Not Available [facility] Department [address] [place], [address], 03/27/2023 06:18:15 03/26/20 23 03/26/2023 CBC WITH DIFFE RENTI AL/PL ATELE T monocytes(ab solute) 0.9 x10e3 /uL 0.1-0. 9 Not Available [facility] Department [address] [place], [address], 03/27/2023 06:18:15 03/26/2003/26/2023 CBC WITH DIFFE RENTI AL/PL ATELE T eos (absolute) 0.1 x10e3 /uL 0.0-0. 4 Not Available [facility] Department [address] [place], [address], 03/27/2023 06:18:15 03/26/2003/26/2023 CBC WITH DIFFE RENTI AL/PL ATELE T baso (absolute) 0.1 x10e3 /uL 0.0-0. 2 Not Available [facility] Department [address] [place], [address], 03/27/2023 06:18:15 03/26/2003/26/2023 CBC WITH DIFFE RENTI AL/PL ATELE T immature granulocytes 0.5 % notest b. Not Available [facility] Department [address] [place], [address], 03/27/2023 06:18:15 03/26/2003/26/2023 CBC WITH DIFFE RENTI AL/PL ATELE T immature grans (abs) 0.1 x10e3 /uL 0.0-0. 1 Not Available [facility] Department [address] [place], [address], 03/27/2023 06:18:15 03/26/2003/26/2023 CBC WITH DIFFE RENTI AL/PL ATELE T NRBC 0 % 0-0 Not Available [facility] Department [address] [place], [address], 03/27/2023 06:18:15 03/26/20 23 03/13/2023 XR, ribs, unila teral , w/ PA chest No observ ation record ed. [facility] [address], [place], [address], 04/02/2023 17:28:31 03/26/20 23 08/08/2020 trans -thor acic echoc ardio gram (TTE) (PROC ) No observ ation record ed. [email or web address] [facility] [address] [facility] [place], [address], 2023 13:39:06 03/26/20 23 03/05/2023 CT, chest , w/ contr ast No observ ation record ed. [facility] [address] [facility] [place], [address], 04/02/2023 17:27:05 Result Notes None recorded. Problems Name Problem SNOMED Code Status Onset Date Resolution Date Notes Provider Name and Address Organization Details Recorded Time Hypertensive disorder 56713727 Active 2022 Padmini Arias MD Attn: Mima acuna,[address] [facility], [place], [address], [facility] 3 19:39:00 Dilated cardiomyopathy 320626068 Active 2022 Padmini Arias MD Attn: Mima acuna,[address] [facility], [place], [address], [facility] 3 19:41:15 Hyperlipidemia 93071262 Active 2022 Padmini Arias MD Attn: Accountin g,[address] [facility], [place], [address], [facility] 3 19:42:50 Peripheral edema 629104828 Active 2022 Padmini Arias MD Attn: Mima g,[address] [facility], [place], [address], [facility] 3 19:47:20 Problem Notes None recorded. Procedures Surgical History None recorded. Imaging Results Imaging Date Name Status LastModified by Organization Details LastModified Time 03/13/2023 XR, ribs, unilateral, w/ PA chest completed [address] [place], [address], 04/02/2023 17:28:31 08/08/2020 trans-thoracic echocardiogram (TTE) (PROC) completed [email or web address] [address] [place], [address], 2023 13:39:06 03/05/2023 CT, chest, w/ contrast completed [address] [place], [address], 04/02/2023 17:27:05 Procedure Notes None recorded. Medical Equipment None Reported. Allergies No known drug allergies Medications Name Sig Start Date Stop Date Status Note LastModified by Organization Details LastModified Time carvedilol 25 mg tablet TAKE 1 AND 1/2 TABLETS BY MOUTH TWICE DAILY WITH MEALS active Not Available Not Available No t Available atorvastati n 20 mg tablet TAKE 1 TABLET BY MOUTH EVERY DAY active Not Available Not Available No t Available sotalol 80 mg tablet TAKE 1 TABLET BY MOUTH TWICE DAILY active Not Available Not Available No t Available meloxicam 15 mg tablet TAKE 1 TABLET BY MOUTH EVERY DAY NEEDED FOR PAIN 03/26 completed Not Available Not Available Not Available prednisone 20 mg tablet TAKE 1 TABLET BY MOUTH EVERY DAY 03/26 completed Not Available Not Available Not Available tramadol 50 mg tablet TAKE 2 TABLET BY MOUTH EVERY 8 HOURS NEEDED FOR PAIN. TAKE NEEDED WHEN PAIN NOT RELIEVED BY MELOXICAM 03/26 completed Not Available Not Available Not Available prednisone 50 mg tablet TAKE 1 TABLET BY MOUTH EVERY DAY FOR 5 DAYS 03/26 completed Not Available Not Available Not Available furosemide 20 mg tablet active Not Available Not Available Not Available albuterol sulfate HFA 90 mcg/actuati on aerosol inhaler INHALE 2 PUFFS EVERY 4 HOURS NEEDED FOR SHORTNESS OF BREATH OR WHEEZING active Not Available Not Available No t Available cefdinir 300 mg capsule TAKE 1 CAPSULE BY MOUTH EVERY 12 HOURS 03/26 completed Not Available Not Available Not Available Entresto 97 mg-103 mg tablet TAKE 1 TABLET BY MOUTH TWICE DAILY active Not Available Not Available No t Available Trelegiulia Ellipta 100 mcg-62.5 mcg-25 mcg powder for inhalation active Not Available Not Available N ot Available Vitals Date Recorded Body height Provider Name an d Address Organization Details Last Updated DateTime 03/26/2023 165.1 cm Lesly Garcia MA [facility] 2022 15:46:15 Date Recorded Body mass index (BMI) Body weight Provider Name and Address Organization Details Last Updated DateTime 03/26/2023 33 kg/m2 72556.64 g Lesly Garcia MA [facility] 03/26/2023 15:46:18 Date Recorded Heart rate Provider Name an d Address Organization Details Last Updated DateTime 03/26/2023 75 /min Lesly Garcia MA [facility] 2022 15:46:36 Date Recorded Body temperature Provider Name a nd Address Organization Details Last Updated DateTime 03/26/2023 98.1 [degF] Lesly Garcia MA [facility] 03/26/2023 15:46:40 Date Recorded Respiratory rate Provider Name a nd Address Organization Details Last Updated DateTime 03/26/2023 16 /min Lesly Garcia [facility] 03/26/2023 15:46:41 Date Recorded Systolic blood pressure Diastolic blood pressure Provider Name and Address Organization Details Last Updated DateTime 03/26/2023 107 mm[Hg] 66 mm[Hg] Lesly Garcia MA [facility] 03/26/2023 15:46:28 Social History Question Answer Notes LastModified by Organizat ion Details LastModified Time Tobacco Smoking Status Current Every Day Smoker [facility] 03/26/2023 15:48:21 What Is Your Level Of Alcohol Consumption? Moderate Information not available 03/26/2023 What Was The Date Of Your Most Recent Tobacco Screening? 03/26/2023 Information not available 03/26/2023 How Much Tobacco Do You Smoke? 0.5 PPD Information not available 03/26/2023 Do You Use Any Illicit Or Recreational Drugs? No Information not available 03/26/2023 Has Tobacco Cessation Counseling Been Provided? Yes Information not available 03/26/2023 On What Date Was Tobacco Cessation Counseling Provided? 03/26/2023 Information not available 03/26/2023 Do You Or Have You Ever Used Any Other Forms Of Tobacco Or Nicotine? No Information not available 03/26/2023 Sex: Female Functional Status None recorded. Mental Status None recorded. Family History Relationship Description Onset Age of this Age Resolved Age Notes LastModified by Organization Details LastModified Time Father Heart disease [email or web address] Not available 03/26 15:47:38 Paternal Grandmother Diabetes mellitus [email or web address] Not available 03/26 15:47:50 Medical History No medical history recorded. Gynecological HistoryNo gynecological history recorded. Obstetrics History GPAL:G 0 P 0 0 0 0 Immunizations Vaccine Type Date Status Note Provider Nam e and Address Organization Details Recorded Time Influenza, high-dose, quadrivalent, PF 3 completed SUSIE GARCIA MD Attn: Accounting,[address] [place], [place], [address] [place] [address], [place] [facility] 04/02/2023 11:51:40 COVID-19, mRNA, LNP-S, PF, 30 mcg/0.3 mL dose 1 completed SUSIE GARCIA MD Attn: [address] [place], [place], [address] [place] [address], [place] [facility] 04/02/2023 11:51:40 COVID-19, mRNA, LNP-S, PF, 30 mcg/0.3 mL dose 1 completed SUSIE GARCIA MD Attn: Accounting[address] [place], [place], [address] [place] [address], [place] [facility] 04/02/2023 11:51:40 Pneumococcal conjugate PCV20, polysaccharide FNP675 conjugate, adjuvant, PF 3 completed SUSIE GARCIA MD Attn: Accounting[address] [place], [place], [address] [place] [address], [place] [facility] 04/02/2023 11:50:43 COVID-19, mRNA, LNP-S, PF, 50 mcg/0.5 mL 3 completed SUSIE GARCIA MD Attn: Accounting,[address], [place], [address], [place] [facility] 04/02/2023 11:50:43 Past Encounters Encounter ID Performer Location Encounter Start Date Encounter Closed Date Diagnosis/Indication Diagnosis SNOMED-CT Code Diagnosis ICD10 Code Diagnosis Note [id number] SUSIE GARCIA MD [place] [facility] [address] [facility] [address] [place] [address] 03/26/2023 14:57:42 04/11/2023 10:31:17 Screening for malignant neoplasm of colon 510813503 Z12.11 - pt with no personal or family hx of colon cancer and no blood in stool or other alarm symptoms such as change in stool caliber- last cologuard 6 years ago- overdue for next screening, declined colonoscop y- cologuard ordered Screening for malignant neoplasm of respiratory tract 089622849 Z12.2 - pt has a 45+ pack year history- recent diagnosis of COPD, does not have any need for supplement al oxygen at this time- endorses night sweats- counseled patient on need to quit, she is currently smoking around half a pack of cigarettes per day- will check cbc today to check for any signs of anemia due to chronic disease or signs of malignancy - has never had a low dose CT, will order one today to check for any signs of malignancy Immunization due 7798637 08 Z28.39 - patient has known airway disease- educated patient on need to be up to date on vaccines that affect respirator y system- pt agreed to pneumonia and covid vaccines which were administer ed, had flu vaccine on 03/08/23 Screening for osteoporosis 367767924 Z13.820 - pt has never had a DEXA screen- no history of falls or breaks- per USPTF guidelines it is a recommende d screening for her- patient agreed and referral was placed today Peripheral edema 2551101 00 R60.9 see A&P of dilated cardiomyop athy Dilated cardiomyopathy 722618380 I42.0 - dilated cardiomyop athy with ventricula r fibrillati on, status post ICD in 03/22 with upgrade to biventricu lar ICD in 03/29. Catheteriz ation in 03/22 showed ejection fraction 30% with moderate right coronary artery disease- sees with cardiologi , who prescribed lasix 20mg- lungs clear on physical exam and denies SOB or chest pressure, has 2+ non-pittin g edema to base of right garcia and very mild swelling in left foot- advised pt to increase lasix to 20mg bid- will follow up in 1mo time Health Concerns Section Related Observation LastModified by Organization Detai ls LastModified Time None Recorded Concern Status LastModified by Organization Details LastModified Time None Recorded Advance Directives Directive None Recorded Payers Encounter Date Sequence Insurance Name Policy Number Policy Perdomo Covered Member ID Perdomo Member ID Guarantor Name 03/26/2023 1 [facility] (MEDICARE REPLACEMENT HMO) Stephanie Ying [id number] 1 Stephanie He Notes Date Note Type Note Provider Name and Address Organization Details Recorded Time 03/26/2023 text/html 72yo F smoker wi th 45+ pack year history with PMH of COPD, CAD, dilated cardiomyopathy, HLD, HTN, chronic foot swelling presents to clinic today to establish care and for hospital visit for COPD exacerbation follow up where she was seen by myself. HPIPt presented to the ED with new o2 reqs requiring 5L NC and BiPAP and CPAP. Prior to presentation she endorsed feeling generally unwell with SOB, fatigue, dizziness. She denied any congestion, runny nose, CP/palpitations or sick contacts.She was never officially been diagnosed with COPD prior to hospital visit and as such has never received treament for the condition.Today she has additional complaint of foot swelling, that is not new for her but she would like looked at. Is on 20mg lasix daily. Screening:ObGyn Hx [id number] Pap last one was normal unsure whenMammogram last one normal unsure whenColonoscopy 6 years ago was normal , would like another mail away sampleHas never had a low dose CT, would like ot start lung cancer screenings ROSFever/chills: endorses increased sweating recently at rest and at nightWeight change: noneVision change: noneHeadache: noneEar, nose throat concerns: noneChest pain: noneSOB/cough: noneBowel/bladder: noneSkin concerns: noneMood: noneAllergies: none MedicationsHome meds as listed in tab Vaccinesis only UTD on flu vaccines, would covid and PCV SHOccupation: 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 SUSIE GARCIA MD Attn: Accounting,[address] [facility], [place], [address], [facility] 04/02/2023 11:52:06 OBGyn Episode No OBEpisode recorded.
--- OUTSIDE RECORDS SUMMARY | 2024-06-11 15:13 | XMS_ITS | CONTINUITY OF CARE DOCUMENT ---
Author Name gibson arreaga Address Unknown Organization [facility] Address [address] [place] [address] Phone [phone] Care Team Providers Care Sample Room Supervisor Name Role Phone gibson arreaga Unavailable Unavailable
--- OUTSIDE RECORDS SUMMARY | 2024-06-11 15:14 | XMS_ITS | Encounter Summary ---
Author Organization [facility] Address [address] [place] [address] Care Team Providers Care Infrastructure Analyst Name Role Phone Temitope Castano MD, Venita Land Primary Care Provider [phone] Elana Hess RN Unavailable [phone] Live Gutierrez MD Unavailable [phone] Encounter Details Date Type Department Care Team (Late st Contact Info) Description 05/02/2014 [facility] Outpatient Visit [facility] Medicine [id number] [place] [address] [address] [place] [address] [place] [address] [facility] [address] [place] [address] Social History Tobacco Use Types Packs/Day Years Used Date Smoking Tobacco: Every Day Cigarettes Smokeless Tobacco: Never Alcohol Use Standard Drinks/Week Comments Yes 0 (1 standard drink = 0.6 oz pur e alcohol) Social Sex and Gender Information Value Date Recorded Sex Assigned at Not on file Gender Identity Not on file Sexual Orientation Not on file documented as of this encounter Functional Status Functional Status Response Date of Assess ment Is person deaf or have serious hearing difficult y? No 04/18/2014 Is person blind or have serious difficulty seein g? No 04/18/2014 Does person have serious dif ficulty walking/climbing stairs? No 04/18/2014 Does person have difficulty dressing/bathing? No 04/18/2014 Does person have difficulty doing errands alone? No 04/18/2014 Cognitive Status Response Date of Assessm ent Does person have difficulty concentrating/remembering/making decisions? No 04/18/2014 documented as of this encounter Plan of Treatment Not on file documented as of this encounter Visit Diagnoses Not on filedocumented in this encounter Care Teams Infrastructure Analyst Relationship Specialty Start Date End Date [place], [place] [address] [facility] [address] [place] [address] PCP - General Internal Medicine 04/05/10 Live Gutierrez MD [address] [facility] [address] [place] [address] PCP - Attributed-MSSP 12/11/18 08/16/19 Elana Hess, NAYLA [address] [facility] [address] [place] [address] Integrity Director 04/16/14 documented as of this encounter
--- OUTSIDE RECORDS SUMMARY | 2024-06-11 15:14 | XMS_ITS | Referral Summary ---
Author Organization [facility] Address [address] [place] [address] Care Team Providers Care Glass Washer And Carrier Name Role Phone Temitope Castano MD, Venita Land Primary Care Provider Elana Hess RN Unavailable [phone] Source Comments [facility],non-owned Affiliates and Associated Physician Practices is amultiple site organization consisting of ambulatory clinics and hospital sitesin [place], [place], [place] and [place]. This disclosure is being madepursuant to the Care Everywhere program and may not contain all information available regarding this patient. Last updated 18.[facility] Allergies No known active allergies Medications * Be aware that medications may not be up to date on this document. Alwaysverify current medications with the patient. Medication Sig Dispensed Refills Start Date End Date Status aspirin 81 MG tablet Take 81 mg by mouth daily. Active carvedilol (COREG) 25 MG tablet Take 25 mg by mouth 2 times daily with breakfast and dinner. Active multivitamin daily (THERAGRAN) tablet Take 1 Tab by mouth daily with food. Active cetirizine (ZYRTEC ALLERGY) 10 MG tablet 1 Tab once daily. Active calcium-vitamin D (CALTRATE PLUS D) 600-200 MG-UNIT tablet Take 1 Tab by mouth 2 times daily. Active sotalol (BETAPACE) 80 MG tablet Take 1 tablet by mouth 2 times daily 3 03/08/2017 Active ENTRESTO 97-103 MG tablet Take 1 tablet by mouth 2 times daily 3 03/11/2017 Active atorvastatin (LIPITOR) 20 MG tablet Take 20 mg by mouth at bedtime 01/14/2016 Active Active Problems Problem Noted Date Diagnosed Date Cardiac defibrillator in place 05/08/2017 Pacemaker 05/08/2017 Hyponatremia 05/08/2017 Chronic bronchitis 02/21/2015 Overview (05/08/2017): Chronic smoker. Hyperlipidemia 08/13/2013 Overview (05/08/2017): Continue Lipitor therapy History of ventricular fibrillation 02/13/2012 Past history of myocardial infarction 10/11/2010 ASHD (arteriosclerotic heart disease) 05/17/2010 Overview (05/08/2017): Treating with beta-aris, statin, aspirin Ventricular fibrillation 04/05/2010 Overview (05/08/2017): Treating with Betapace Tobacco abuse 04/05/2010 Ischemic cardiomyopathy 04/05/2010 Overview (05/08/2017): treating with beta-aris, statin, aspirin and entresto Hypoxic brain injury Overview (05/17/2010): after cardiac arrest - mild residual Vitamin D deficiency Resolved Problems Problem Noted Date Diagnosed Date Resolved Date Bronchitis 10/27/2010 05/08/2017 Cardiomyopathy, idiopathic 04/05/2010 1 06/05/2009 Immunizations Name Administration Dates Next Due INFLUENZA VACCINE, TRIV. (AF LURIA, FLUZONE TRIVALENT; 6MO+) (IIV3) 02/04/2014,02/12/2013,02/14/2011 FLU VACCINE QUAD IIV4 SPLIT 0.25 ML IM 5 INFLUENZA VACCINE 03/20/2010 INFLUENZA VACCINE, HIGH-DOSE , QUADR. (FLUZONE HIGH-DOSE QUADRIVALENT; 65Y+), 0.7 ML (HD-IIV4) 04/09/2017 INFLUENZA VACCINE, QUADR. (F LUZONE; FLULAVAL; FLUARIX; AFLURIA QUADRIVALENT; 6MO+), 0.5 ML (IIV4) 02/21/2015 Influenza Pf Intradermal (ADULT) 02/13/2012 PNEUMOCOCCAL PPSV23 02/13/2012 Pneumococcal Pcv13 Conj 05/08/2017 Social History Tobacco Use Types Packs/Day Years Used Date Smoking Tobacco: Every Day Cigarettes Smokeless Tobacco: Never Tobacco Cessation:Ready to Q uit: No; Counseling Given: Yes Alcohol Use Standard Drinks/Week Comments Yes 0 (1 standard drink = 0.6 oz pur e alcohol) Social Sex and Gender Information Value Date Recorded Sex Assigned at Not on file Gender Identity Not on file Sexual Orientation Not on file Last Filed Vital Signs Vital Sign Reading Time Taken Comments Blood Pressure 120/70 05/08/2017 2:06 PM [facility] Pulse 80 05/08/2017 1:57 PM [facility] Temperature 36.7 ??C (98.1 ??F) 04/18/2014 5:25 AM CS T Respiratory Rate 18 05/08/2017 1:57 PM [facility] Oxygen Saturation 95% 04/18/2014 5:25 AM [facility] Inhaled Oxygen Concentration - - Weight 84 kg (185 lb 3.2 oz) 05/08/2017 1:57 PM [facility] Height 162.6 cm (5' 4 ) 05/08/2017 1:57 PM [facility] Body Mass Index 31.79 05/08/2017 1:57 PM [facility] Functional Status Functional Status Response Date of [...] person have difficulty concentrating/remembering/making decisions? No 04/18/2014 Plan of Treatment Not on file Procedures Procedure Name Priority Date/Time Associated Diagnosis Comments COMPREHENSIVE METABOLIC PANEL Routine 04/06/2015 1:11 PM [facility] Hyponatremia Malaise and fatigue from Last 3 Months or Most Recently Relevant to Health Maintenance Results * (ABNORMAL) COMPREHENSIVE METABOLIC PANEL (04/06/2015 1:11 PM [facility]) Glucose 129(H) 65 - 99 mg/dL [facility] Comment: ? Fasting reference interval BUN 5(L) 7 - 25 mg/dL [facility] Creatinine 0.47(L) 0.50 - 0.99 mg/dL [facility] Comment: For patients >49 years of age, the reference limit for Creatinine is approximately 13% higher for people identified as -Prydeinig. eGFR by MDRD 105 > OR = 60 mL/min/1. 73m2 [facility] eGFR by MDRD 122 > OR = 60 mL/min/1. 73m2 [facility] BUN/Creatinine Ratio 11 6 - 22 (calc) [facility] Sodium 130(L) 135 - 146 mmol/L [facility] Potassium 5.0 3.5 - 5.3 mmol/L [facility] Chloride 93(L) 98 - 110 mmol/L [facility] CO2 28 19 - 30 mmol/L [facility] Calcium 9.6 8.6 - 10.4 mg/dL [facility] Protein Total 6.8 6.1 - 8.1 g/dL [facility] Albumin 4.5 3.6 - 5.1 g/dL [facility] Globulin Total 2.3 1.9 - 3.7 g/dL (calc) [facility] Albumin/Globulin Ratio 2.0 1.0 - 2.5 (calc) [facility] Bilirubin Total 0.7 0.2 - 1.2 mg/dL [facility] Alkaline Phosphatase 68 33 - 130 U/L [facility] AST 20 10 - 35 U/L [facility] ALT 25 6 - 29 U/L [facility] Comment: Test Performed at: [facility] [address] [place], [place] ??[id number] SALENA TRIANA DO,MPH Blood specimen (specimen) BLOOD SPECIMEN / Unknown 04/06/2015 1:11 PM [facility] 04/06/2015 1:11 PM [facility] Venita Linn Jr., MD LAB - CHEMISTRY ORD ERABLES [facility] [address] [place] [address] from Last 3 Months or Most Recently Relevant to Health Maintenance Advance Directives * Full Code (Latest Code Status on File) Date Activated Date Inactivated Comments 04/15/2014 3:17 PM 04/18/2014 11:49 AM Care Teams Glass Washer And Carrier Relationship Specialty Start Date End Date Temitope, [place] [id number] [address] PCP - General Internal Medicine 04/05/10 [place] [id number] [facility] [address] [place] [address] Orthopaedic Technologist 04/16/14
--- OUTSIDE RECORDS SUMMARY | 2024-06-11 15:14 | XMS_ITS | Patient Health Summary ---
Author Organization [facility] Address [address] [place] [address] Care Team Providers Care Presser And Blocker Knitted Goods Name Role Phone Temitope Castano MD, Venita Land Primary Care Provider [phone] Elana Hess RN Unavailable [phone] Note from [facility],non-owned Affiliates and Associated Physician Practices is amultiple site organization consisting of ambulatory clinics and hospital sitesin [place], [place], [place] and [place]. This disclosure is being madepursuant to the Care Everywhere program and may not contain all information available regarding this patient. Last updated 18.[facility] [employer] Allergies No known active allergies Medications * Be aware that medications may not be up to date on this document. Alwaysverify current medications with the patient. * aspirin 81 MG tablet Take 81 mg by mouth daily. * carvedilol (COREG) 25 MG tablet Take 25 mg by mouth 2 times daily with breakfast and dinner. * multivitamin daily (THERAGRAN) tablet Take 1 Tab by mouth daily with food. * cetirizine (ZYRTEC ALLERGY) 10 MG tablet 1 Tab once daily. * calcium-vitamin D (CALTRATE PLUS D) 600-200 MG-UNIT tablet Take 1 Tab by mouth 2 times daily. * sotalol (BETAPACE) 80 MG tablet(Started 03/08/2017) Take 1 tablet by mouth 2 times daily 3 refills left * ENTRESTO 97-103 MG tablet(Started 03/11/2017) Take 1 tablet by mouth 2 times daily 3 refills left * atorvastatin (LIPITOR) 20 MG tablet(Started 01/14/2016) Take 20 mg by mouth at bedtime Active Problems Problem Noted Date Diagnosed Date Cardiac defibrillator in place 05/08/2017 Pacemaker 05/08/2017 Hyponatremia 05/08/2017 Chronic bronchitis 02/21/2015 Hyperlipidemia 08/13/2013 History of ventricular fibrillation 02/13/2012 Past history of myocardial infarction 10/11/2010 ASHD (arteriosclerotic heart disease) 05/17/2010 Ventricular fibrillation 04/05/2010 Tobacco abuse 04/05/2010 Ischemic cardiomyopathy 04/05/2010 Hypoxic brain injury Vitamin D deficiency Resolved Problems Problem Noted Date Diagnosed Date Resolved Date Bronchitis 10/27/2010 05/08/2017 Cardiomyopathy, idiopathic 04/05/2010 1 06/05/2009 Immunizations * INFLUENZA VACCINE, TRIV. (AFLURIA, FLUZONE TRIVALENT; 6MO+) (IIV3)(Given 02/04/2014, 02/12/2013, 02/14/2011) * FLU VACCINE QUAD IIV4 SPLIT 0.25 ML IM(Given 02/10/2015) * INFLUENZA VACCINE(Given 03/20/2010) * INFLUENZA VACCINE, HIGH-DOSE, QUADR. (FLUZONE HIGH-DOSE QUADRIVALENT; 65Y+), 0.7 ML (HD-IIV4)(Given 04/09/2017) * INFLUENZA VACCINE, QUADR. (FLUZONE; FLULAVAL; FLUARIX; AFLURIA QUADRIVALENT; 6MO+), 0.5 ML (IIV4)(Given 02/21/2015) * Influenza Pf Intradermal (ADULT)(Given 02/13/2012) * PNEUMOCOCCAL PPSV23(Given 02/13/2012) * Pneumococcal Pcv13 Conj(Given 05/08/2017) Social History Tobacco Use Types Packs/Day Years [...] Comments Blood Pressure 120/70 05/08/2017 2:06 PM SUGARCANE RESEARCH TECHNICIAN Pulse 80 05/08/2017 1:57 PM SUGARCANE RESEARCH TECHNICIAN Temperature 36.7 ??C (98.1 ??F) 04/18/2014 5:25 AM CS T Respiratory Rate 18 05/08/2017 1:57 PM SUGARCANE RESEARCH TECHNICIAN Oxygen Saturation 95% 04/18/2014 5:25 AM SUGARCANE RESEARCH TECHNICIAN Inhaled Oxygen Concentration - - Weight 84 kg (185 lb 3.2 oz) 05/08/2017 1:57 PM SUGARCANE RESEARCH TECHNICIAN Height 162.6 cm (5' 4 ) 05/08/2017 1:57 PM SUGARCANE RESEARCH TECHNICIAN Body Mass Index 31.79 05/08/2017 1:57 PM SUGARCANE RESEARCH TECHNICIAN Procedures * TSH(Performed 04/06/2015) Performed for Hyponatremia, Malaise and fatigue * CBC W AUTO DIFFERENTIAL(Performed 04/06/2015) Performed for Hyponatremia, Malaise and fatigue * COMPREHENSIVE METABOLIC PANEL(Performed 04/06/2015) Performed for Hyponatremia, Malaise and fatigue * IMAGING/RADIOLOGY/XRAY RESULTS ORDER(Performed 10/18/2014) * VITAMIN D 25-HYDROXY(Performed 09/13/2014) Performed for Vitamin D deficiency * COMPREHENSIVE METABOLIC PANEL(Performed 09/13/2014) Performed for Hyponatremia * LIPID PROFILE(Performed 09/13/2014) Performed for Hyperlipidemia * CBC W/O DIFFERENTIAL(Performed 04/27/2014) Performed for Fatigue * COMPREHENSIVE METABOLIC PANEL(Performed 04/27/2014) Performed for Hyponatremia * BASIC METABOLIC PANEL (CALCIUM TOTAL)(Performed 04/18/2014) * BASIC METABOLIC PANEL (CALCIUM TOTAL)(Performed 04/17/2014) * BASIC METABOLIC PANEL (CALCIUM TOTAL)(Performed 04/16/2014) * BASIC METABOLIC PANEL (CALCIUM TOTAL)(Performed 04/15/2014) Performed for Hyponatremia * BASIC METABOLIC PANEL (CALCIUM TOTAL)(Performed 04/15/2014) Performed for Hyponatremia * URINE MICROSCOPIC ONLY REFLEX TO CULTURE(Performed 04/15/2014) * URINALYSIS REFLEX MICROSCOPIC REFLEX CULTURE(Performed 04/15/2014) * MAGNESIUM BLOOD(Performed 04/15/2014) * COMPREHENSIVE METABOLIC PANEL(Performed 04/15/2014) * CBC W AUTO DIFFERENTIAL(Performed 04/15/2014) * CULTURE URINE(Performed 04/15/2014) * XR CHEST 2VW(Performed 04/14/2014) Performed for Bronchitis, acute * TSH(Performed 04/14/2014) Performed for Fatigue * VITAMIN B12 FOLATE PANEL(Performed 04/14/2014) Performed for Fatigue * COMPREHENSIVE METABOLIC PANEL(Performed 04/14/2014) Performed for Fatigue * CBC W AUTO DIFFERENTIAL(Performed 04/14/2014) Performed for Fatigue * CBC W/O DIFFERENTIAL(Performed 09/01/2013) Performed for ASHD (arteriosclerotic heart disease) * HEMOGLOBIN A1C(Performed 09/01/2013) Performed for Elevated blood sugar * VITAMIN D 25-HYDROXY(Performed 09/01/2013) Performed for Vitamin D deficiency * COMPREHENSIVE METABOLIC PANEL(Performed 09/01/2013) Performed for ASHD (arteriosclerotic heart disease) * TSH(Performed 09/01/2013) Performed for ASHD (arteriosclerotic heart disease) * LIPID PROFILE(Performed 09/01/2013) Performed for Dyslipidemia * CBC W/O DIFFERENTIAL(Performed 09/01/2012) Performed for ASHD (arteriosclerotic heart disease) * COMPREHENSIVE METABOLIC PANEL(Performed 09/01/2012) Performed for ASHD (arteriosclerotic heart disease) * TSH(Performed 09/01/2012) Performed for ASHD (arteriosclerotic heart disease) * VITAMIN D 25-HYDROXY(Performed 09/01/2012) Performed for Vitamin D Deficiency * LIPID PROFILE(Performed 09/01/2012) Performed for Dyslipidemia * CARDIAC ECHOCARDIOGRAM COMPLETE ORDER(Performed 10/30/2011) * HEART ECHO TRANSTHORACIC 2D W CONTRAST ST(Performed 10/30/2011) * CARDIAC STRESS TEST ORDER(Performed 10/30/2011) * CBC W/O DIFFERENTIAL(Performed 08/23/2011) Performed for ASHD (arteriosclerotic heart disease) * VITAMIN D 25-HYDROXY(Performed 08/23/2011) Performed for Vitamin D deficiency * URINALYSIS REFLEX TO MICROSCOPIC NO CULTURE(Performed 08/23/2011) Performed for ASHD (arteriosclerotic heart disease) * COMPREHENSIVE METABOLIC PANEL(Performed 08/23/2011) Performed for ASHD (arteriosclerotic heart disease) * TSH(Performed 08/23/2011) Performed for ASHD (arteriosclerotic heart disease) * LIPID PROFILE(Performed 08/23/2011) Performed for Dyslipidemia * VITAMIN D 25-HYDROXY(Performed 07/19/2010) Performed for Screening for osteoporosis * COMPREHENSIVE METABOLIC PANEL(Performed 07/19/2010) Performed for ASHD (arteriosclerotic heart disease), Ischemic cardiomyopathy, Ventricular fibrillation (HCC) * LIPID PROFILE(Performed 07/19/2010) Performed for Dyslipidemia * CBC W/O DIFFERENTIAL(Performed 04/13/2010) Performed for Ventricular fibrillation (HCC), ASHD (arteriosclerotic heart disease), Ischemic cardiomyopathy * COMPREHENSIVE METABOLIC PANEL(Performed 04/13/2010) Performed for Ventricular fibrillation (HCC), ASHD (arteriosclerotic heart disease), Ischemic cardiomyopathy * TSH(Performed 04/13/2010) Performed for Ventricular fibrillation (HCC), ASHD (arteriosclerotic heart disease), Ischemic cardiomyopathy * LIPID PROFILE(Performed 04/13/2010) Performed for Dyslipidemia Results * (ABNORMAL) CBC W AUTO DIFFERENTIAL (04/06/2015 1:11 PM SUGARCANE RESEARCH TECHNICIAN) Only the most recent of3 resultswithin the time period is included. Pathologist [facility] White Blood Cell Count 8.0 3.8 - 10.8 Thousand/ uL [facility] RBC 4.31 3.80 - 5.10 Million/u L [facility] Hemoglobin 14.5 11.7 - 15.5 g/dL [facility] Hematocrit 44.7 35.0 - 45.0 % [facility] MCV 103.6(H) 80.0 - 100.0 fL [facility] MCH 33.6(H) 27.0 - 33.0 pg [facility] MCHC 32.4 32.0 - 36.0 g/dL [facility] RDW 12.8 11.0 - 15.0 % [facility] Platelet Count 242 140 - 400 Thousand/ uL [facility] MPV 7.8 7.5 - 11.5 fL [facility] Neutrophil Absolute 4792 1500 - 7800 cells/uL [facility] Lymphocytes Absolute 2160 850 - 3900 cells/uL [facility] Absolute Monocytes 656 200 - 950 cells/uL [facility] Eosinophils Absolute 344 15 - 500 cells/uL [facility] Basophils Absolute 48 0 - 200 cells/uL [facility] Granulocytes % 59.9 % [facility] Lymphocytes % 27.0 % [facility] Monocytes % 8.2 % [facility] Eosinophils % 4.3 % [facility] Basophils % 0.6 % [facility] Comment: Test Performed at: [employer] [place] [id number] [place] [address] ??[id number] SALENA TRIANA DO,MPH Blood specimen (specimen) BLOOD SPECIMEN / Unknown 04/06/2015 1:11 PM SUGARCANE RESEARCH TECHNICIAN 04/06/2015 1:11 PM SUGARCANE RESEARCH TECHNICIAN Venita Linn Jr., MD LAB - HEMATOLOGY OR DERABLES [facility] [address] [place] [address] * (ABNORMAL) COMPREHENSIVE METABOLIC PANEL (04/06/2015 1:11 PM SUGARCANE RESEARCH TECHNICIAN) Only the most recent of10 resultswithin the time period is included. Glucose 129(H) 65 - 99 mg/dL [facility] Comment: ? Fasting reference interval BUN 5(L) 7 - 25 mg/dL [facility] Creatinine 0.47(L) 0.50 - 0.99 mg/dL [facility] Comment: For patients >49 years of age, the reference limit for Creatinine is approximately 13% higher for people identified as -Gibraltarian. eGFR by MDRD 105 > OR = [...] 29 U/L [facility] Comment: Test Performed at: [email or web address] [id number] [place] ??[phone] SALENA TRIANA DO,MPH Blood specimen (specimen) BLOOD SPECIMEN / Unknown 04/06/2015 1:11 PM SUGARCANE RESEARCH TECHNICIAN 04/06/2015 1:11 PM SUGARCANE RESEARCH TECHNICIAN Venita Linn Jr., MD LAB - CHEMISTRY ORD ERABLES [facility] [address] [place] [address] * TSH (04/06/2015 1:11 PM SUGARCANE RESEARCH TECHNICIAN) Only the most recent of6 resultswithin the time period is included. TSH 1.04 0.40 - 4.50 mIU/L [facility] Comment: REPORT COMMENT: FASTING:NO Test Performed at: [email or web address] [id number] [place] ??[phone] SALENA TRIANA DO,MPH Blood specimen (specimen) BLOOD SPECIMEN / Unknown 04/06/2015 1:11 PM SUGARCANE RESEARCH TECHNICIAN 04/06/2015 1:11 PM SUGARCANE RESEARCH TECHNICIAN Venita Linn Jr., MD LAB - CHEMISTRY ORD ERABLES [facility] [address] [place] [address] * IMAGING/RADIOLOGY/XRAY RESULTS ORDER (10/18/2014) Anatomical Region Laterality Modality Other Venita Linn Jr., MD IMAGING * VITAMIN D 25-HYDROXY (09/13/2014 8:51 AM CDT) Only the most recent of5 resultswithin the time period is included. Vitamin D, 25 Hydroxy 35 30 - 100 ng/mL [facility] Comment: Vitamin D Status ? 25-OH Vitamin D: Deficiency: ?<20 ng/mL Insufficiency: ? 20 - 29 ng/mL Optimal: ? > or = 30 ng/mL For 25-OH Vitamin D testing on patients on D2-supplementation and patients for whom quantitation of D2 and D3 fractions is required, the QuestAssureD(TM) 25-OH VIT D, (D2,D3), LC/MS/MS is recommended: order code 28430 (patients >2yrs). For more information on this test, go to: http://education.Site Intelligence.Velocify/faq/XLK190 Effective September 13, the test order code 12272, used prior to September 13, for LC/MS/MS, will be transitioned to a carefully-selected immunoassay methodology. ??The new immunoassay has passed CDC standardization certification and provides high quality quantitative results that are tied back to standards from the NIST. ?? For those patients for whom LC/MS/MS testing is appropriate, please utilize test code 31319. When LC/MS/MS is the chosen assay, utilize test code 90472 for patients > or = 3 years of age, patients who are on D2 supplementation, and patients for whom a separate D2 and D3 measurement is required. For patients <3 years of age, test code 42333 should be used. Important Note Regarding Custom Panels With 25-Hydroxyvitamin D: If you currently order vitamin D testing as part of a custom panel, the LC/MS/MS vitamin D test will be maintained in your panel after September 13, 2014. If you would like to replace the test in your panel with the new immunoassay, or have any questions regarding the transition of the 90351 test code, please contact your local [employer] general sales manager. REPORT COMMENT: FASTING:YES Test Performed at: [place] [place] ??[phone] SALENA TRIANA DO,MPH Blood specimen (specimen) BLOOD SPECIMEN / Unknown 09/13/2014 8:51 AM CDT 09/13/2014 8:52 AM CDT Venita Linn Jr., MD LAB - CHEMISTRY ORD ERABLES [facility] [address] [place] [address] * LIPID PROFILE (09/13/2014 8:51 AM CDT) Only the most recent of6 resultswithin the time period is included. Cholesterol 176 125 - 200 mg/dL [facility] Comment: Test Performed at: [place] ??[phone] SALENA TRIANA DO,MPH HDL Cholesterol 77 > OR = 46 mg/dL [facility] Triglycerides 99 <150 mg/dL [facility] LDL Calculated 79 <130 mg/dL (calc) [facility] Comment: Desirable range <100 mg/dL for patients with CHD or diabetes and <70 mg/dL for diabetic patients with known heart disease. CHOL/HDLC RATIO 2.3 < OR = 5.0 (calc) [facility] Non HDL Cholesterol 99 mg/dL (calc) [facility] Comment: Target for non-HDL cholesterol is 30 mg/dL higher than LDL cholesterol target. Blood specimen (specimen) BLOOD SPECIMEN / Unknown 09/13/2014 8:51 AM CDT 09/13/2014 8:52 AM CDT Venita Linn Jr., MD LAB - CHEMISTRY ORD ERABLES Performing Organization Address City/[facility]/ZIP Co de Phone Number [facility] [address] [place] [address] * (ABNORMAL) CBC W/O DIFFERENTIAL (04/27/2014 4:00 PM SUGARCANE RESEARCH TECHNICIAN) Only the most recent of5 resultswithin the time period is included. WBC 11.0(H) 3.4 - 10.8 x10E3/uL [facility] ACCOUNT BILL RBC 4.25 3.77 - 5.28 x10E6/uL [facility] ACCOUNT BILL Hemoglobin 13.8 11.1 - 15.9 g/dL [facility] ACCOUNT BILL Hematocrit 41.5 34.0 - 46.6 % [facility] ACCOUNT BILL MCV 98(H) 79 - 97 fL [facility] ACCOUNT BILL MCH 32.5 26.6 - 33.0 pg [facility] ACCOUNT BILL MCHC 33.3 31.5 - 35.7 g/dL [facility] ACCOUNT BILL RDW 11.9(L) 12.3 - 15.4 % [facility] ACCOUNT BILL Platelet Count 312 150 - 379 x10E3/uL [facility] ACCOUNT BILL nRBC NOT NEEDED [facility] ACCOUNT BILL Comment:Ancillary determined the test is not needed Blood specimen (specimen) BLOOD SPECIMEN / Unknown 04/27/2014 4:00 PM SUGARCANE RESEARCH TECHNICIAN 04/27/2014 6:54 PM SUGARCANE RESEARCH TECHNICIAN Narrative Resulting Agency Comment [facility] [address] ??[facility] [phone] Venita Linn Jr., MD LAB - HEMATOLOGY OR DERABLES [facility] ACCOUNT BILL * (ABNORMAL) BASIC METABOLIC PANEL (CALCIUM TOTAL) (04/18/2014 9:11 AM SUGARCANE RESEARCH TECHNICIAN) Only the most recent of5 resultswithin the time period is included. Glucose 101 74 - 106 mg/dL 04/18/2014 9:28 AM SUGARCANE RESEARCH TECHNICIAN [facility] Sodium 132(L) 136 - 145 mmol/L 04/18/2014 9:28 AM SUGARCANE RESEARCH TECHNICIAN [facility] Potassium 4.1 3.5 - 5.1 mmol/L 04/18/2014 9:28 AM [facility] Chloride 98 98 - 107 mmol/L 04/18/2014 9:28 AM [facility] CO2 27 22 - 31 mmol/L 04/18/2014 9:28 AM [facility] Calcium 8.8 8.5 - 10.1 mg/dL 04/18/2014 9:28 AM [facility] Anion Gap 7 5 - 15 mmol/L 04/18/2014 9:28 AM [facility] BUN 3(L) 7 - 21 mg/dL 04/18/2014 9:28 AM [facility] Creatinine 0.54 0.50 - 1.30 mg/dL 04/18/2014 9:28 AM [facility] eGFR by MDRD >60 >60 mL/min/1.7 3m2 04/18/2014 9:28 AM [facility] eGFR by MDRD >60 >60 mL/min/1.7 3m2 04/18/2014 9:28 AM [facility] Blood BLOOD SPECIMEN / Unknown 04/18/2014 9:11 AM SUGARCANE RESEARCH TECHNICIAN 04/18/2014 9:14 AM SUGARCANE RESEARCH TECHNICIAN Henrietta Lira MD [facility] Organization Address City/State/ZIP Co de Phone Number [facility] [address] [place] [address] * (ABNORMAL) URINALYSIS MICROSCOPIC ONLY W/REFLEX CULTURE (04/15/2014 12:23 PM SUGARCANE RESEARCH TECHNICIAN) RBC UA 2-5 0-2, 2-5 # /hpf 04/15/2014 12:56 PM [facility] WBC UA 20-50(A) 0-2, 2-5 # /hpf 04/15/2014 12:56 PM [facility] Bacteria UA 4+(A) None Seen 04/15/2014 12:56 PM [facility] Epithelial Cell UA 20-50(A) 0-2, 2-5 04/15/2014 12:56 PM [facility] Reflex Status Culture to follow 04/15/2014 12:56 PM [facility] Urine URINE SPECIMEN OBTAINED BY CLEAN CATCH PROCEDURE / Unknown 04/15/2014 12:23 PM SUGARCANE RESEARCH TECHNICIAN 04/15/2014 12:29 PM SUGARCANE RESEARCH TECHNICIAN Priya Oliver MD LAB - URINALYSIS ORDERABLES [facility] [address] [place] [address] * (ABNORMAL) URINALYSIS ROUTINE W/REFLEX TO CULTURE (04/15/2014 12:23 PM SUGARCANE RESEARCH TECHNICIAN) Color UA Yellow Straw, Yellow, Dark Yellow 04/15/2014 12:45 PM SUGARCANE RESEARCH TECHNICIAN [facility] Clarity UA Turbid 04/15/2014 12:45 PM [facility] Specific [place] UA 1.016 1.005 - 1.030 04/15/2014 12:45 PM [facility] pH UA 7.0 5.0 - 8.0 pH 04/15/2014 12:45 PM [facility] Protein UA Trace(A) Negative 04/15/2014 12:45 PM SUGARCANE RESEARCH TECHNICIAN [facility] Blood UA Negative Negative 04/15/2014 12:45 PM SUGARCANE RESEARCH TECHNICIAN [facility] Leukocyte UA 2+(A) Negative 04/15/2014 12:45 PM SUGARCANE RESEARCH TECHNICIAN [facility] Nitrite UA Negative Negative 04/15/2014 12:45 PM SUGARCANE RESEARCH TECHNICIAN [facility] Glucose UA Negative Negative 04/15/2014 12:45 PM SUGARCANE RESEARCH TECHNICIAN [facility] Ketone UA Negative Negative 04/15/2014 12:45 PM SUGARCANE RESEARCH TECHNICIAN [facility] Bilirubin UA Negative Negative 04/15/2014 12:45 PM SUGARCANE RESEARCH TECHNICIAN [facility] Urobilinogen UA 0.2 0.1 - 1.0 EU/dL 04/15/2014 12:45 PM SUGARCANE RESEARCH TECHNICIAN [facility] Urine Microscopy Urine microscopy to follow 04/15/2014 12:45 PM [facility] Reflex Status Culture to follow 04/15/2014 12:45 PM [facility] Urine URINE SPECIMEN OBTAINED BY CLEAN CATCH PROCEDURE / Unknown 04/15/2014 12:23 PM SUGARCANE RESEARCH TECHNICIAN 04/15/2014 12:29 PM SUGARCANE RESEARCH TECHNICIAN Priya Oliver MD LAB - URINALYSIS ORDERABLES [facility] [address] [place] [address] * CULTURE URINE (04/15/2014 12:23 PM SUGARCANE RESEARCH TECHNICIAN) Culture <10,000 CFU/mL normal urogenital branden MARK 04/17/2014 11:34 AM SUGARCANE RESEARCH TECHNICIAN [facility] Urine URINE SPECIMEN OBTAINED BY CLEAN CATCH PROCEDURE / Unknown 04/15/2014 12:23 PM SUGARCANE RESEARCH TECHNICIAN 04/15/2014 12:29 PM SUGARCANE RESEARCH TECHNICIAN Priya Oliver MD LAB - MICROBIOLO GY ORDERABLES Performing Organization Address City/[facility]/ZIP Co de Phone Number [facility] [address] [place] [place] * MAGNESIUM BLOOD (04/15/2014 12:23 PM SUGARCANE RESEARCH TECHNICIAN) Magnesium 1.6 1.6 - 2.6 mg/dL 04/15/2014 12:50 PM SUGARCANE RESEARCH TECHNICIAN [facility] Blood BLOOD SPECIMEN / Unknown 04/15/2014 12:23 PM SUGARCANE RESEARCH TECHNICIAN 04/15/2014 12:29 PM SUGARCANE RESEARCH TECHNICIAN Priya Oliver MD LAB - CHEMISTRY ORDERABLES Performing Organization Address [facility] de Phone Number [facility] [address] [place] [address] * XR CHEST PA AND LATERAL (04/14/2014 12:12 PM SUGARCANE RESEARCH TECHNICIAN) Anatomical Region Laterality Modality Chest Radiographic Funmi ging 04/14/2014 12:3 9 PM SUGARCANE RESEARCH TECHNICIAN Impressions 04/14/2014 12:40 PM SUGARCANE RESEARCH TECHNICIAN No acute disease in the chest. Narrative 04/14/2014 12:40 PM SUGARCANE RESEARCH TECHNICIAN PA AND LATERAL CHEST INDICATION: Shortness of breath FINDINGS: The lungs are clear. The mediastinal contour and heart size are within normal limits. Dual-lead pacemaker is noted. The pulmonary vascularity is normal. The osseous structures are unremarkable. Procedure Note Gogo Cornelius MD - 04/14/2014 PA AND LATERAL CHEST INDICATION: Shortness of breath FINDINGS: The lungs are clear. The mediastinal contour and heart size are within normal limits. Dual-lead pacemaker is noted. The pulmonary vascularity is normal. The osseous structures are unremarkable. IMPRESSION No acute disease in the chest. Gracy Alvarez APRN-[facility] ING ORDERABLES * (ABNORMAL) VITAMIN B12 FOLATE PANEL (04/14/2014 11:37 AM SUGARCANE RESEARCH TECHNICIAN) Vitamin B12 >1999(H) 211 - 946 pg/mL [facility] ACCOUNT BILL Folate 14.1 >3.0 ng/mL [facility] ACCOUNT BILL Comment: A serum folate concentration of less than 3.1 ng/mL is considered to represent clinical deficiency. Blood specimen (specimen) BLOOD SPECIMEN / Unknown 04/14/2014 11:37 AM SUGARCANE RESEARCH TECHNICIAN 04/14/2014 2:44 PM SUGARCANE RESEARCH TECHNICIAN Narrative [facility] ACCOUNT BILL - 04/15/2014 9:22 AM SUGARCANE RESEARCH TECHNICIAN Test(s) Sodium, Serum called to Angie Shaw on 04/15/2014 at 09:05 EST Resulting Agency Comment [facility] [address] ??[facility] [phone] Gracy Alvarez APRN-MELTER LOADER LAB - CHEMISTRY ORDERABLES [facility] ACCOUNT BILL * (ABNORMAL) HEMOGLOBIN A1C (09/01/2013 8:30 AM CDT) Hemoglobin A1c 5.9(H) <5.7 % of total Hgb [facility] Comment: According to ADA guidelines, hemoglobin A1c <7.0% represents optimal control in non- diabetic patients. Different metrics may apply to specific patient populations. Standards of Medical Care in Diabetes-2013. Diabetes Care. 2013;36:s11-s66 For the purpose of screening for the presence of diabetes <5.7% ? Consistent with the absence of diabetes 5.7-6.4% ?Consistent with increased risk for diabetes ?(prediabetes) >or=6.5% ?Consistent with diabetes This assay result is consistent with an increased risk of diabetes. Currently, no consensus exists for use of hemoglobin A1c for diagnosis of diabetes for children. Test Performed at: [email or web address] [place], [place] ??[phone] SALENA TRIANA DO,MPH Whole blood specimen (specimen) BLOOD SPECIMEN / Unknown 09/01/2013 8:30 AM CDT 09/01/2013 8:31 AM CDT Venita Linn Jr., MD LAB - CHEMISTRY ORD ERABLES Performing Organization Address [facility]/ZIP Co de Phone Number [facility] [address] [place] [address] * HEART ECHO TRANSTHORACIC 2D W CONTRAST ST (10/30/2011) Live Gutierrez MD ECHO ORDERABLES * CARDIAC STRESS TEST ORDER (10/30/2011) Live Gutierrez MD CARDIAC SERVICES O RDERABLES * CARDIAC ECHOCARDIOGRAM COMPLETE ORDER (10/30/2011) Live Gutierrez MD ECHO ORDERABLES * URINALYSIS ROUTINE AUTO (08/23/2011 8:03 AM CDT) Color UA YELLOW YELLOW [facility] Appearance CLEAR CLEAR [facility] Specific [place] UA 1.014 1.001 - 1.035 [facility] pH UA 7.5 5.0 - 8.0 [facility] Glucose UA NEGATIVE NEGATIVE [facility] Bilirubin UA NEGATIVE NEGATIVE [facility] Ketone UA NEGATIVE NEGATIVE [facility] Blood UA NEGATIVE NEGATIVE [facility] Protein UA NEGATIVE NEGATIVE [facility] Nitrite UA NEGATIVE NEGATIVE [facility] Leukocyte UA NEGATIVE NEGATIVE [facility] WBC UA NONE SEEN < OR = 5 /HPF [facility] RBC UA NONE SEEN < OR = 3 /HPF [facility] Epithelial Cell UA NONE SEEN < OR = 5 /HPF [facility] Bacteria UA NONE SEEN NONE SEEN /HPF [facility] Hyaline Casts NONE SEEN NONE SEEN /LPF [facility] Comment: Test Performed at: [facility] [address] [place], [place] ??[id number] SALENA TRIANA DO Urine specimen (specimen) URINE / Unknown 08/23/2011 8:03 AM CDT 08/23/2011 8:13 AM CDT Venita Linn Jr., MD LAB - URINALYSIS OR DERABLES [facility] [address] [address] Care Teams Presser And Blocker Knitted Goods Relationship Specialty [place] [address] [facility] [address] [place] [address] PCP - General Internal Medicine 04/05/10 [place] [address] [facility] [address] [place] [address] Alto Singer 04/16/14
--- OUTSIDE RECORDS SUMMARY | 2024-06-11 15:14 | XMS_ITS | Referral Summary ---
Author Organization [facility] Address [address] [place] [address] Care Team Providers Care Certified Massage Therapist Name Role Phone Live Gutierrez MD Unavailable [phone] Padmini Arias MD Primary Care Provider Encounters Date Type Department Care Team Description 06/10/2024 Telephone [facility] Cardiology [address] [facility] [address] [address] Alexandru Robles MD Med Refill 05/11/2024 12:30 PM CAUSTIC LIQUOR MAKER Ancillary Procedure Arrhythmia Center [address] [facility] [address], [place] [address] Biventricular ICD (implantable cardioverter-defibrill ator) in place (Primary Dx); Dilated cardiomyopathy (CMS/HCC) (HCC) 05/01/2024 Telephone [facility] Cardiology [facility] [facility] [address] [address] Alexandru Robles MD from Last 3 Months Allergies No known active allergies Medications diphenhydrAMINE -acetaminophen (TYLENOL PM) 25-500 mg tablet Take 1 tablet by mouth as needed for sleep Active aspirin 81 mg enteric coated tablet Take 1 tablet (81 mg total) by mouth daily Active cholecalciferol (VITAMIN D-3) 1,000 unit Take 1 tablet/capsule (1,000 Units total) by mouth daily Active nicotine (NICODERM CQ) [address] 1 patch on the skin daily 60 patch 3 Active fluticasone-ume clidin-vilanter (Trelegy Ellipta) 100-62.5-25 mcg inhaler Inhale 1 puff daily 30 each 11 3 Active meloxicam (MOBIC) 15 mg tabletIndicatio ns:Sprain of chest wall, initial encounter Take 1 tablet (15 mg total) by mouth daily P.r.n. pain. Take with food. Collaborating physician Zelalem Ponce MD 20 tablet 3 Active traMADoL (ULTRAM) 50 mg tabletIndicatio ns:Sprain of chest wall, initial encounter Take 1 tablet (50 mg total) by mouth every 8 (eight) hours as needed for pain Take as directed p.r.n. pain not relieved by meloxicam alone. Take 500 mg to 650 mg of acetaminophen with each dose. Take with food. Collaborating physician Zelalem Ponce MD 15 tablet 3 Active lidocaine (LIDODERM) 5 %Indications:Sp rain of chest wall, initial encounter Place 1 patch on the skin daily Apply over area of maximal intensity pain as directed. Remove & discard patch within 12 hours or as directed by MD. Collaborating physician Zelalem Ponce MD 30 patch 3 Active furosemide (LASIX) 20 mg tablet Take 1 tablet (20 mg total) by mouth daily as needed (swelling) 90 tablet 3 3 Active Entresto 97-103 mg tablet TAKE 1 TABLET BY MOUTH TWICE DAILY 180 tablet 3 4 Active carvediloL (COREG) 25 mg tablet TAKE 1 AND 1/2 TABLETS BY MOUTH TWICE DAILY WITH MEALS 270 tablet 3 4 Active sotaloL (BETAPACE) 80 mg tablet TAKE 1 TABLET BY MOUTH TWICE DAILY 180 tablet 4 Active atorvastatin (LIPITOR) 20 mg tablet TAKE 1 TABLET BY MOUTH EVERY DAY 90 tablet 4 Active Ventolin HFA 90 mcg/actuation inhalerIndicati ons:Chronic Obstructive Pulmonary Disease Inhale 2 puffs every 4 (four) hours as needed for shortness of breath or wheezing 1 each 4 Active Active Problems Problem Noted Date Diagnosed Date Sprain of chest wall 03/13/2023 Accidental fall 03/13/2023 Decreased functional mobility and endurance 02/11 Positive blood culture 03/07/2023 Urinary retention 03/07/2023 Leukocytosis 03/07/2023 COPD exacerbation 03/05/2023 Hyponatremia 08/07/2020 Biventricular ICD (implantab le cardioverter-defibrillator) in place 06/05/2017 Assessment & Plan (06/05/2017 6:51 PM CAUSTIC LIQUOR MAKER): Device check in office today with 99% biventricular pacing noted. Essential hypertension, benign 03/18/2017 Assessment & Plan (12/11/2022 11:14 AM CDT): Well controlled. Continue same therapy. Continue diet and exercise. Discontinue smoking. Assessment & Plan (10/19/2021 2:52 PM CDT): Systolic pressure is high today, but is well controlled in general. Continue same therapy. Continue diet and exercise. Assessment & Plan (01/12/2020 11:56 AM CDT): Blood pressure is well controlled. Continue same therapy. Continue diet and exercise. Discontinue smoking. Assessment & Plan (07/15/2018 2:47 PM CAUSTIC LIQUOR MAKER): Blood pressure is well controlled. Continue same therapy. Continue diet and exercise. Assessment & Plan (06/05/2017 6:48 PM CAUSTIC LIQUOR MAKER): Blood pressure is elevated today. Will increase carvedilol to 37.5 mg twice daily. She will call in 2 weeks with update and if BP is still elevated will increase dose to 50 mg BID. Assessment & Plan (03/19/2017 11:16 AM CAUSTIC LIQUOR MAKER): Blood pressure is well controlled. Continue same therapy. Patent foramen ovale 03/18/2017 Assessment & Plan (12/11/2022 11:13 AM CDT): Stable, asymptomatic. Continue same therapy. Assessment & Plan (01/12/2020 11:56 AM CDT): Stable, asymptomatic. Continue aspirin. Hypoxic brain injury (CMS/HCC) 12/12/2016 Overview (12/12/2016): Overview: after cardiac arrest - mild residual Vitamin D deficiency 12/12/2016 Chronic bronchitis 02/21/2015 Hypercholesteremia 09/26/2013 Overview (12/12/2016): Hyperlipemia Assessment & Plan (12/11/2022 11:14 AM CDT): Well controlled. Continue statin therapy. Assessment & Plan (10/19/2021 2:52 PM CDT): Lipids are well controlled. Continue statin therapy. Assessment & Plan (01/12/2020 11:56 AM CDT): Lipids are well controlled. Continue statin therapy. Assessment & Plan (07/15/2018 2:48 PM CAUSTIC LIQUOR MAKER): Lipids are well controlled. Continue statin therapy. Assessment & Plan (03/19/2017 11:16 AM CAUSTIC LIQUOR MAKER): Lipids are well controlled. Continue statin therapy. Coronary artery disease invo lving saxman coronary artery of saxman heart without angina pectoris 09/26/2013 Overview (12/12/2016): CRNRY ATHRSCL NATVE VSSL Assessment & Plan (12/11/2022 11:13 AM CDT): Stable, moderate right coronary disease, without angina. Continue same therapy. Continue diet and exercise. Assessment & Plan (10/19/2021 2:51 PM CDT): Stable, moderate coronary disease without angina. Continue same therapy. Continue diet and exercise. Discontinue smoking. Assessment & Plan (01/12/2020 11:55 AM CDT): Stable, moderate right coronary disease without angina. Continue same therapy. Continue diet and exercise. Discontinue smoking. Assessment & Plan (07/15/2018 2:46 PM CAUSTIC LIQUOR MAKER): Stable, moderate coronary disease without angina. Continue same therapy. Continue diet and exercise. Ventricular fibrillation 09/26/2013 Overview (12/12/2016): VENTRICULAR FIBRILLATION Assessment & Plan (12/11/2022 11:13 AM CDT): Stable status post ICD. Continue same therapy. Continue follow-up in the device Clinic. Assessment & Plan (01/12/2020 11:56 AM CDT): Stable, without recent episode. Continue same therapy. Assessment & Plan (07/15/2018 2:47 PM CAUSTIC LIQUOR MAKER): Stable, without recent episode. Continue same therapy. Continue follow-up in the device clinic regarding her defibrillator. Assessment & Plan (03/28/2017 10:58 AM CAUSTIC LIQUOR MAKER): 1. VT/VF. Symptomatic with need for device therapies. The frequency is not particularly high but none the less significant. 2. Cardiomyopathy. Dilated nonischemic. History of cardiac arrest. 3. EF 25-30%. 4. IVCD. Have discussed with patient at this office visit the placement of an LV lead. She had preferred to wait in the past but states that she would like to proceed now. The risk and benefits of the procedure have been discussed with the patient and she is agreeable to proceed. 5. Dual-chamber ICD. Satisfactory function. Plan: Will continue sotalol 80 mg b.i.d.. She will need an EKG in office visit every 6 months as she remains on this medication. She will also continue follow-up in Heart failure Clinic. Will make appropriate arrangements for CLINICAL SAFETY SPECIALIST upgrade. Bronchitis 10/27/2010 Sinusitis 10/27/2010 Dilated cardiomyopathy (CMS/HCC) 04/05/2010 Assessment & Plan (12/11/2022 11:12 AM CDT): Stable, largely resolved. She remains well compensated. I made no change in her excellent medical regimen today. I asked her to follow up with me annually, or sooner if needed. I again advised her to diet and exercise regularly, and to stop smoking completely. Continue follow-up in the device clinic regarding her biventricular ICD. Assessment & Plan (10/19/2021 2:51 PM CDT): Stable, largely resolved. She remains well compensated. I made no change in her excellent medical regimen today. I asked her to follow up with me annually, or sooner if needed. I again advised her to diet and exercise regularly, and to stop smoking completely. Continue follow-up in the device clinic regarding her biventricular ICD as well. Assessment & Plan (01/12/2020 11:55 AM CDT): Stable, well compensated. I made no change in her excellent medical regimen today. I asked her to follow up with me annually, or sooner if needed. I again advised her to diet and exercise regularly, and to stop smoking completely. Continue follow-up in the device clinic regarding her biventricular ICD. Assessment & Plan (07/15/2018 2:45 PM CAUSTIC LIQUOR MAKER): Stable, well compensated. I made no change in her excellent medical regimen today. I asked her follow up with me annually, or sooner if needed. I again advised her to diet and exercise regularly, and most importantly, to stop smoking completely. Assessment & Plan (03/19/2017 11:15 AM CAUSTIC LIQUOR MAKER): Stable, well compensated. I made no change in her excellent medical regimen today. I asked her to follow up with me annually, or sooner if needed. I again strongly advised her to stop smoking completely, and to diet and exercise. She will follow up with electrophysiology and the device clinic as well. Tobacco abuse 04/05/2010 Shortness of breath Resolved Problems Problem Noted Date Diagnosed Date Resolved Date Ventricular tachycardia 12/12/201610/11 Assessment & Plan (06/05/2017 6:49 PM CAUSTIC LIQUOR MAKER): Quiet on sotalol 160 mg BID. Assessment & Plan (12/12/2016 3:26 PM CDT): Impression 1. VT/VF. Symptomatic, with need for device therapies. The frequency is not particularly high but nonetheless significant. 2. Cardiomyopathy. Dilated nonischemic. History of cardiac arrest. 3. EF 25-30% 4. IVCD. QRS duration 160 milliseconds. At the time of generator replacement I favor placing an LV lead. I discussed the option of proceeding earlier, but the patient would prefer to wait. If she has worsening heart failure symptoms, or if the heart failure clinic requests, we can proceed with upgrade to CLINICAL SAFETY SPECIALIST at any time. 5. Dual-chamber ICD. Satisfactory function. Plan 1. Sotalol 80 mg b.i.d. sotalol therapy will require ongoing monitoring 2. Continue follow-up in Heart failure Clinic 3. Follow-up arrhythmia Center to assess efficacy of sotalol and monitor therapy 4. Upgrade to CLINICAL SAFETY SPECIALIST remains an option Chronic systolic congestive heart failure ([facility]) 11/28/2016 12/10/2022 Assessment & Plan (06/05/2017 6:47 PM CAUSTIC LIQUOR MAKER): Ms. Justice presents with compensated NYHA Class IIB heart failure symptoms. She is euvolemic on exam. She will continue Entresto and beta aris. Will obtain BMP to monitor renal and electrolyte parameters. Assessment & Plan (11/30/2016 1:44 PM CDT): Ms. Justice returns today with well compensated NYHA Class Iib heart failure symptoms. She is euvolemic on exam. Of concern is her 3rd ventricular arrhythmic event since April. She will be scheduled for a follow up appointment with Dr. Dueñas to discuss treatment options. In the meantime, she will obtain a BMP and once results are reviewed, will consider increasing Entresto to 97/103 mg BID. She will continue carvedilol 25mg BID. Consider adding spironolactone once Entresto dose is optimized. Cardiac arrest 09/26/2013 10/24/2022 Overview (08/17/2016): CARDIAC ARREST Cardiomyopathy 09/26/2013 10/19/2021 Overview (08/17/2016): PRIM CARDIOMYOPATHY NEC Atherosclerosis of coronary artery 09/26/2013 10/24/2022 Overview (08/17/2016): CAD (coronary artery disease) Assessment & Plan (03/19/2017 11:15 AM CAUSTIC LIQUOR MAKER): Stable, without angina. Continue same therapy. Cardiac defibrillator in place 09/26/2013 10/24/2022 Overview (05/09/2017): Medtronic Amplia MRI Quad CLINICAL SAFETY SPECIALIST-D implanted 04/08/2017 + CS lead for ICM/CHF/VT. Chronic RA/RV lead is from 03/17/10. Matt Ingram EP History of ventricular fibrillation 02/13/2012 10/24/2022 Assessment & Plan (10/19/2021 3:01 PM CDT): Stable status post biventricular ICD. Continue follow-up in the device Clinic. Continue same therapy. Her ICD check today will be reviewed, and further recommendations forthcoming then. Past history of myocardial infarction 10/11/2010 10/24/2022 Immunizations Name Administration Dates Next Due Influenza, Quadrivalent, Hig h Dose, Preservative Free, Intrr 03/08/2023,04/09/2017 Influenza, Quadrivalent, Spl it, Intramuscular 02/10/2015 Influenza, Quadrivalent, Spl it, Preservative Free, Intramuscular 02/21/2015 Influenza, Trivalent, High D ose, Split, Preservative Free, Intramuscular 04/09/2017 Influenza, Trivalent, IM (MDV) 02/04/2014,2012,02/14/2011 Influenza, Trivalent, Preser vative Free, Intramuscular 02/13/2012 Influenza, Unspecified 03/20/2010 Pneumococcal Conjugate PCV 13 05/08/2017 Pneumococcal Polysaccharide PPV23 02/13/2012 Social History Tobacco Use Types Packs/Day Years Used Date Smoking Tobacco: Heavy Smoker Cigarettes 0.5 40 Smokeless Tobacco: Never Tobacco Cessation:Ready to Q uit: Not Asked; Counseling Given: Not Answered Alcohol Use Standard Drinks/Week Comments Yes 10 (1 standard drink = 0.6 oz pu re alcohol) [facility] Utilities Answer Date Recorded In the past 12 months has [employer], [employer], oil, or water [employer] threatened to shut off services in your home? No 03/06/2023 Social Connection and Isolat ion Panel [NHANES] Answer Date Recorded In a typical week, how many times do you talk on the phone with family, friends, or neighbors? More than three times a week 03/06/2023 How often do you get togethe r with friends or relatives? Once a week 03/06/2023 How often do you attend chur ch or protestant services? Never 03/06/2023 Do you belong to any clubs o r organizations such as gnosticism groups, unions, fraternal or athletic groups, or school groups? No 03/06/2023 How often do you attend meet ings of the clubs or organizations you belong to? Never 03/06/2023 Are you , , di vorced, , never , or living with a partner? 03/06/2023 AUDIT-C Answer Date Recorded Q1: How often do you have a drink containing alcohol? 4 or more times a week 08/07/2020 Q2: How many drinks containi ng alcohol do you have on a typical day when you are drinking? 3 or 4 Q3: How often do you have si x or more drinks on one occasion? Monthly 08/07/2020 Overall Financial Resource Strain (CARDIA) Answe r Date Recorded How hard is it for you to pa y for the very basics like food, housing, medical care, and heating? Not very hard 03/06/2023 Hunger Vital Sign Answer Date Recorded Within the past 12 months, y ou worried that your food would run out before you got the money to buy more. Never true 03/06/20 23 Within the past 12 months, t he food you bought just didn't last and you didn't have money to get more. Never true 03/06/2023 PRAPARE - Transportation Answer Date Re corded In the past 12 months, has l ack of transportation kept you from medical appointments or from getting medications? No 02/11 In the past 12 months, has l ack of transportation kept you from meetings, work, or from getting things needed for daily living? No 03/06/2023 Housing Stability Vital Sign Answer Malcolm e Recorded In the last 12 months, was t here a time when you were not able to pay the mortgage or rent on time? No 03/06/2023 In the last 12 months, how many places have you lived? 1 03/06/2023 In the last 12 months, was t here a time when you did not have a steady place to sleep or slept in a custodial (including now)? No 03/06/2023 Personal Safety Answer Date Recorded Have you ever been in or are you currently in a harmful physical or emotional relationship or is someone making you feel afraid or unsafe? Denies 03/13/2023 Comments No Sex and Gender Information Value Date Recorded Sex Assigned at Not on file Legal Sex Female 3:12 PM CAUSTIC LIQUOR MAKER Gender Identity Not on file Sexual Orientation Not on file Last Filed Vital Signs Vital Sign Reading Time Taken Comments Blood Pressure 133/68 03/13/2023 5:05 PM CDT Pulse 71 03/13/2023 5:05 PM CDT Temperature 36.2 ??C (97.1 ??F) 03/13/2023 5:05 PM CD T Respiratory Rate 16 03/13/2023 5:05 PM CDT Oxygen Saturation 98% 03/13/2023 5:05 PM CDT Inhaled Oxygen Concentration - - Weight 90.7 kg (200 lb) 03/13/2023 2:30 PM CDT Height 157.5 cm (5' 2 ) 03/13/2023 2:30 PM CDT Body Mass Index 36.58 03/13/2023 2:30 PM CDT Plan of Treatment Not on file Procedures Procedure Name Priority Date/Time Associated Diagnosis Comments DEVICE CHECK - REMOTE Routine 05/11/2024 7:50 AM CAUSTIC LIQUOR MAKER Dilated cardiomyopathy (CMS/HCC) (HCC) from Last 3 Months Results * DEVICE CHECK - REMOTE (05/11/2024 7:50 AM CAUSTIC LIQUOR MAKER) Anatomical Region Laterality Modality Other Narrative 05/16/2024 2:31 PM CAUSTIC LIQUOR MAKER Table formatting from the original result was not included. BiV ICD CHECK (REMOTE) Patient ID: Apryl Justice is a 74 y.o. female. This patient received a Medtronic BiV ICD. ??They had a routine remote transmission on 05/11/2024 Device implant indications: ??Nonischemic dilated cardiomyopathy ?? Interrogation of the patient's device demonstrates the following: Presenting EGM: ??A sensed Bi V paced @ 60 bpm Original Device Settings Right Atrium Right Ventricle Left Ventricle Sensitivity (mV) 0.45 mV 0.3 mV N/A mV Pacing Outputs 1.5 V @ 0.4 ms 1.5 V @ 0.4 ms 2.0 V @ 1.5 ms Testing Measurements Right Atrium Right Ventricle Left Ventricle Sensitivity (mV) 1.8 mV 18.5 mV Not done mV Impedence (Ohms) 532 ohms 608 ohms 817 ohms Pace Threshold 0.625 V @ 0.4 ms 0.625 V @ 0.4 ms 1.625 V @ 1.5 ms Pacing % 8.4 % 98.1 % 98.1 % HV Lead Impedance N/A 62/87 ohms N/A Battery Status: ??13 months to MICHELLE, charge time 4.4 seconds. Episodes last 90 days/Comments: AF [place] 0 %,longest duration 0. There were no treated ventricular arrhythmias noted on today's remote interrogation. NORMAL DEVICE FUNCTION PROGRAMMED MEDICATIONS: Anti-coagulant(s): ??Aspirin 81 mg daily Anti-arrhythmic(s): ??Sotalol 80 mg twice daily, Coreg 25 mg twice daily PLAN: 1) Medtronic BiV ICD evaluation 2) Medtronic remote transmission scheduled in 3 months. 3) Programming appropriate for device settings Sarath Rodriguez, RN Romaine Jane MD [facility] PRO CEDURES Final Result from Last 3 Months Insurance MICHA PREFERRED MEDICARE MEDICARE [employer] SENIOR SUPPLEMENT MEDICARE [employer] SENIOR SUPPLEMENT ANTHEM PREFERRED Advance Directives For more information, please contact: [phone] * Full Code (Latest Code Status on File) Date Activated Date Inactivated Comments 03/05/2023 9:49 PM 03/08/2023 5:35 PM * Full Code Date Activated Date Inactivated Comments 08/07/2020 8:26 PM 08/10/2020 4:03 PM Healthcare Agents on File Name Relationship Healthcare Agent [facility] Communication Renan Ruiz Health Care Agent Care Teams Certified Massage Therapist Relationship Specialty Start Date End Date Padmini Arias MD [address] [place] [address] PCP - General Family Medicine 03/07/23 Lvie Gutierrez MD [address] [place] [address] Consulting Physician Cardiology 08/10/20
--- OUTSIDE RECORDS SUMMARY | 2024-06-11 15:14 | XMS_ITS | Encounter Summary ---
Author Organization [facility] Address [address] [place] [address] Care Team Providers Care Consumer Credit Counselor Name Role Phone Zak Rehman MD Primary Care Provider + [phone] Temitope Castano MD, Venita Ku Primary Care Provider [phone] Zak Rehman MD Primary Care Provider + [phone] Temitope Castano MD, Venita Ku Primary Care Provider [phone] No, Physician Primary Care Provider [phone] Live Gutierrez MD Unavailable [phone] Padmini Arias MD Primary Care Provider [phone] Encounter Details Date Type Department Care Team (Late st Contact Info) Description 07/20/2016 Orders Only Arrhythmia Center Provider, MD [facility] [place] [address] Social History Tobacco Use Types Packs/Day Years Used Date Smoking Tobacco: Heavy Smoker Comments:Smoking History Pac ks/day: 0.5 Packs Alcohol Use Standard Drinks/Week Comments Yes 0 (1 standard drink = 0.6 oz pur e alcohol) Comments Unknown Sex and Gender Information Value Date Recorded Sex Assigned at Not on file Legal Sex Female 3:12 PM SENIOR OFFICER Gender Identity Not on file Sexual Orientation Not on file documented as of this encounter Plan of Treatment Not on file documented as of this encounter Procedures Procedure Name Priority Date/Time Associated Diagnosis Comments CARDIOLOGY REPORT 07/20/2016 CARDIOLOGY REPORT 07/20/2016 CARDIOLOGY REPORT 07/20/2016 documented in this encounter Results * CARDIOLOGY REPORT (07/20/2016) Anatomical Region Laterality Modality Other Narrative 07/20/2016 Ordered by an unspecified provider. us Historical Provider [facility] PROCE DURES Final Result * CARDIOLOGY REPORT (07/20/2016) Anatomical Region Laterality Modality Other Narrative 07/20/2016 Ordered by an unspecified provider. us Historical Provider CV CARDIAC SERVICES PROCE DURES Final Result * CARDIOLOGY REPORT (07/20/2016) Anatomical Region Laterality Modality Other Narrative 07/20/2016 Ordered by an unspecified provider. Historical Provider [facility] CARDIAC SERVICES PROCE DURES Final Result documented in this encounter Visit Diagnoses Not on filedocumented in this encounter Additional Health Concerns Infection Onset Date Last Indicated Resolved Time COVID: Suspected 08/07/2020 08/07/2020 08/07/2020 5:58 PM CDT COVID: Suspected 03/05/2023 03/05/2023 03/05/2023 9:16 PM CDT documented as of this encounter Care Teams Consumer Credit Counselor Relationship Specialty Start Date End Date Zak Rehman MD [address] [facility] [address] [place] [address] PCP - General 08/10/16 03/18/17 Venita Linn Jr., MD [address] [facility] [address] [place] [address] PCP - General 07/27/16 08/09/16 Zak Rehman MD [address] [facility] [address] [place] [address] PCP - General 10/30/11 07/26/16 Venita Linn Jr., MD [address] [facility] [address] [place] [address] PCP - General Endocrinology Diabetes & Metabolism 03/19/17 08/06/20 No, Physician PCP - General 08/07/20 03/06/23 Padmini Arias MD [address] [place] [address] PCP - General Family Medicine 03/07/23 Live Gutierrez MD [address] [place] [address] Consulting Physician Cardiology 08/10/20 documented as of this encounter
--- OUTSIDE RECORDS SUMMARY | 2024-06-11 15:14 | XMS_ITS | Clinical Summary ---
Author Organization [facility] Address [address] [place] [address] Care Team Providers Care Electric Fork Operator Name Role Phone Temitope Castano MD, Venita Land Primary Care Provider Elana Hess RN Unavailable [phone] Source Comments [facility],non-owned Affiliates and Associated Physician Practices is amultiple site organization consisting of ambulatory clinics and hospital sitesin [place], [place], [place] and [place]. This disclosure is being madepursuant to the Care Everywhere program and may not contain all information available regarding this patient. Last updated 18.[facility] Allergies No known active allergies Medications * [...] PNEUMOCOCCAL PPSV23 02/13/2012 Pneumococcal Pcv13 Conj 05/08/2017 Family History Medical History Relation Name Comments ME Father Alzheimer's Disease Mother Relation Name Status Comments Father (Age 47) ME Mother (Age 81) Alzheimers Social History Tobacco Use Types Packs/Day Years [...] Comments Blood Pressure 120/70 05/08/2017 2:06 PM CHIEF EMBALMER Pulse 80 05/08/2017 1:57 PM CHIEF EMBALMER Temperature 36.7 ??C (98.1 ??F) 04/18/2014 5:25 AM CS T Respiratory Rate 18 05/08/2017 1:57 PM CHIEF EMBALMER Oxygen Saturation 95% 04/18/2014 5:25 AM CHIEF EMBALMER Inhaled Oxygen Concentration - - Weight 84 kg (185 lb 3.2 oz) 05/08/2017 1:57 PM CHIEF EMBALMER Height 162.6 cm (5' 4 ) 05/08/2017 1:57 PM CHIEF EMBALMER Body Mass Index 31.79 05/08/2017 1:57 PM CHIEF EMBALMER Plan of Treatment Health Maintenance Due Date Last Done Comments BONE DENSITY TESTING 1950 COLOGUARD (AGES 45-75) - COLON CA SCREENING [address] COLONOGRAPHY - COLON CA SCREENING 1950 FIT - COLON CA SCREENING 1950 FLEX SIG - COLON CA SCREENING 1950 HEPATITIS C SCREENING 03/30/1970 DTAP/TDAP/TD VACCINES (1 - Tdap) 1971 ZOSTER VACCINE (1 of 2) 2002 Respiratory Syncytial Virus (RSV) Vaccine Pt: or over 60 yrs (1 - Risk 60-74 years 1-dose series) 2012 MAMMOGRAM 02/12/2015 02/12/2013 (Declined) SCREENING FOR DIABETES 04/06/2018 5, 09/13/2014, 04/27/2014, Additional history exists MEDICARE AWV ? 12 MONTHS 05/08/2018 05/08/2017 COLONOSCOPY - COLON CA SCREENING 08/14/2021 08/15/2011 (Declined) Colorectal Cancer Screening 08/14/2021 PNEUMOCOCCAL VACCINE 50+ (3 of 3 - PCV20 or PCV21) 05/08/2022 05/08/2017, 02/13/2012 COVID-19 VACCINE (2023- season) 2024 INFLUENZA VACCINE (#1) 2024 7, 02/21/2015, 02/10/2015, Additional history exists DEPRESSION SCREENING 05/13/2024 HEPATITIS B VACCINE Aged Out No longe r eligible based on patient's age to complete this topic HIB VACCINE Aged Out No longer eligi ble based on patient's age to complete this topic HPV VACCINE Aged Out No longer eligi ble based on patient's age to complete this topic MENINGOCOCCAL (Group B) VACCINE Aged Out No longer eligible based on patient's age to complete this topic MENINGOCOCCAL VACCINE Aged Out No jett arturo eligible based on patient's age to complete this topic Procedures Procedure Name Priority Date/Time Associated Diagnosis Comments COMPREHENSIVE METABOLIC PANEL Routine 04/06/2015 1:11 PM CHIEF EMBALMER Hyponatremia Malaise and fatigue from Last 3 Months or Most Recently Relevant to Health Maintenance Results * (ABNORMAL) COMPREHENSIVE METABOLIC PANEL (04/06/2015 1:11 PM CHIEF EMBALMER) Glucose 129(H) 65 - 99 mg/dL [facility] Comment: ? Fasting reference interval BUN 5(L) 7 - 25 mg/dL [facility] Creatinine 0.47(L) 0.50 - 0.99 mg/dL [facility] Comment: For patients >49 years of age, the reference limit for Creatinine is approximately 13% higher for people identified as -Maldivian. eGFR by MDRD 105 > OR = [...] 29 U/L [facility] Comment: Test Performed at: [facility] [id number] ??[id number] SALENA TRIANA DO,MPH Blood specimen (specimen) BLOOD SPECIMEN / Unknown 04/06/2015 1:11 PM CHIEF EMBALMER 04/06/2015 1:11 PM CHIEF EMBALMER Venita Linn Jr., MD LAB - CHEMISTRY ORD ERABLES [facility] [address] [place] [address] from Last 3 Months or Most Recently Relevant to Health Maintenance Advance Directives * Full Code (Latest Code Status on File) Date Activated Date Inactivated Comments 04/15/2014 3:17 PM 04/18/2014 11:49 AM Care Teams Electric Fork Operator Relationship Specialty [place] [address] [facility] [address] [place] [address] PCP - General Internal Medicine 04/05/10 [place] [address] [facility] [employer] [address] [place] [address] Windshield Repair Technician 12/5/14
--- OUTSIDE RECORDS SUMMARY | 2024-06-11 15:14 | XMS_ITS | Encounter Summary ---
Author Organization [facility] Address [address] [facility] [address] [place] [address] Care Team Providers Care Adding Machine Mechanic Name Role Phone Zak Rehman MD Primary Care Provider [phone] Temitope Castano MD, Venita Ku Primary Care Provider [phone] Zak Rehman MD Primary Care Provider [phone] Temitope Castano MD, Venita Ku Primary Care Provider [phone] No, Physician Primary Care Provider [phone] Live Gutierrez MD Unavailable [phone] Padmini Arias MD Primary Care Provider [phone] Encounter Details Date Type Department Care Team (Late st Contact Info) Description 07/11/2016 Orders Only Arrhythmia Center Provider, MD [facility] [place] [address] Social History Tobacco Use Types Packs/Day Years Used Date Smoking Tobacco: Heavy Smoker Comments:Smoking History Pac ks/day: 0.5 Packs Alcohol Use Standard Drinks/Week Comments Yes 0 (1 standard drink = 0.6 oz pur e alcohol) Comments Unknown Sex and Gender Information Value Date Recorded Sex Assigned at Not on file Legal Sex Female 3:12 PM DIGITAL MARKETER Gender Identity Not on file Sexual Orientation Not on file documented as of this encounter Plan of Treatment Not on file documented as of this encounter Procedures Procedure Name Priority Date/Time Associated Diagnosis Comments CARDIOLOGY REPORT 07/11/2016 documented in this encounter Results * CARDIOLOGY REPORT (07/11/2016) Anatomical Region Laterality Modality Other Narrative 07/11/2016 Ordered by an unspecified provider. us Historical Provider [facility] MARQUISE DUTTON Final Result documented in this encounter Visit Diagnoses Not on filedocumented in this encounter Additional Health Concerns Infection Onset Date Last Indicated Resolved Time COVID: Suspected 08/07/2020 08/07/2020 08/07/2020 5:58 PM CDT COVID: Suspected 03/05/2023 03/05/2023 03/05/2023 9:16 PM CDT documented as of this encounter Care Teams Adding Machine Mechanic Relationship Specialty Start Date End Date Zak Rehman MD [address] [place] [address] PCP - General 08/10/16 03/18/17 Venita Linn Jr., MD [address] [place] [address] PCP - General 07/27/16 08/09/16 Zak Rehman MD [address] [place] [address] PCP - General 10/30/11 07/26/16 Venita Linn Jr., MD [address] [place] [address] [address] [place] [address] PCP - General Endocrinology Diabetes & Metabolism 03/19/17 08/06/20 No, Physician PCP - General 08/07/20 03/06/23 Padmini Arias MD [address] [facility] [address] [place] [address] PCP - General Family Medicine 03/07/23 Live Gutierrez MD [address] [place] [address] Consulting Physician Cardiology 08/10/20 documented as of this encounter
--- OUTSIDE RECORDS SUMMARY | 2024-06-11 15:14 | XMS_ITS | Clinical Summary ---
Author Organization [facility] Address [address] [place] [address] Care Team Providers Care Licensed Therapist Name Role Phone Live Gutierrez MD Unavailable [phone] Padmini Arias MD Primary Care Provider [phone] Allergies No known active allergies Medications diphenhydrAMINE [...] 06/05/2017 Assessment & Plan (06/05/2017 6:51 PM ELEMENTARY SCHOOL TEACHER'S AIDE): Device check in office today with 99% [...] smoking. Assessment & Plan (07/15/2018 2:47 PM ELEMENTARY SCHOOL TEACHER'S AIDE): Blood pressure is well controlled. Continue same therapy. Continue diet and exercise. Assessment & Plan (06/05/2017 6:48 PM ELEMENTARY SCHOOL TEACHER'S AIDE): Blood pressure is elevated today. Will increase carvedilol to 37.5 mg twice daily. She will call in 2 weeks with update and if BP is still elevated will increase dose to 50 mg BID. Assessment & Plan (03/19/2017 11:16 AM ELEMENTARY SCHOOL TEACHER'S AIDE): Blood pressure is well controlled. Continue same therapy. Patent foramen ovale 03/18/2017 Assessment & Plan (12/11/2022 11:13 AM CDT): Stable, asymptomatic. Continue same therapy. Assessment & Plan (01/12/2020 11:56 AM CDT): Stable, asymptomatic. Continue aspirin. Hypoxic brain injury ([facility]/HCC) 12/12/2016 Overview (12/12/2016): Overview: after cardiac arrest [...] therapy. Assessment & Plan (07/15/2018 2:48 PM ELEMENTARY SCHOOL TEACHER'S AIDE): Lipids are well controlled. Continue statin therapy. Assessment & Plan (03/19/2017 11:16 AM ELEMENTARY SCHOOL TEACHER'S AIDE): Lipids are well controlled. Continue statin therapy. Coronary artery disease invo lving [place] coronary artery of [place] heart without angina pectoris 09/26/2013 Overview (12/12/2016): [...] smoking. Assessment & Plan (07/15/2018 2:46 PM ELEMENTARY SCHOOL TEACHER'S AIDE): Stable, moderate coronary disease without angina. Continue same therapy. Continue diet and exercise. Ventricular fibrillation 09/26/2013 Overview (12/12/2016): VENTRICULAR FIBRILLATION Assessment & Plan (12/11/2022 11:13 AM CDT): Stable status post ICD. Continue same therapy. Continue follow-up in the device Clinic. Assessment & Plan (01/12/2020 11:56 AM CDT): Stable, without recent episode. Continue same therapy. Assessment & Plan (07/15/2018 2:47 PM ELEMENTARY SCHOOL TEACHER'S AIDE): Stable, without recent episode. Continue same therapy. Continue follow-up in the device clinic regarding her defibrillator. Assessment & Plan (03/28/2017 10:58 AM ELEMENTARY SCHOOL TEACHER'S AIDE): 1. VT/VF. Symptomatic with need for device [...] failure Clinic. Will make appropriate arrangements for EMERGENCY MEDICINE PHYSICIAN upgrade. Bronchitis 10/27/2010 Sinusitis 10/27/2010 Dilated cardiomyopathy ([facility]/HCC) 04/05/2010 Assessment & Plan (12/11/2022 11:12 AM [...] ICD. Assessment & Plan (07/15/2018 2:45 PM ELEMENTARY SCHOOL TEACHER'S AIDE): Stable, well compensated. I made no change in her excellent medical regimen today. I asked her follow up with me annually, or sooner if needed. I again advised her to diet and exercise regularly, and most importantly, to stop smoking completely. Assessment & Plan (03/19/2017 11:15 AM ELEMENTARY SCHOOL TEACHER'S AIDE): Stable, well compensated. I made no change [...] 12/12/201610/11 Assessment & Plan (06/05/2017 6:49 PM ELEMENTARY SCHOOL TEACHER'S AIDE): Quiet on sotalol 160 mg BID. Assessment [...] requests, we can proceed with upgrade to EMERGENCY MEDICINE PHYSICIAN at any time. 5. Dual-chamber ICD. Satisfactory function. Plan 1. Sotalol 80 mg b.i.d. sotalol therapy will require ongoing monitoring 2. Continue follow-up in Heart failure Clinic 3. Follow-up arrhythmia Center to assess efficacy of sotalol and monitor therapy 4. Upgrade to EMERGENCY MEDICINE PHYSICIAN remains an option Chronic systolic congestive heart failure ([facility]) 11/28/2016 12/10/2022 Assessment & Plan (06/05/2017 6:47 PM ELEMENTARY SCHOOL TEACHER'S AIDE): Ms. Justice presents with compensated NYHA Class [...] disease) Assessment & Plan (03/19/2017 11:15 AM ELEMENTARY SCHOOL TEACHER'S AIDE): Stable, without angina. Continue same therapy. Cardiac defibrillator in place 09/26/2013 10/24/2022 Overview (05/09/2017): Medtronic Amplia MRI Quad EMERGENCY MEDICINE PHYSICIAN-D implanted 04/08/2017 + CS lead for ICM/CHF/VT. Chronic RA/RV lead is from 03/17/10. Matt JeffersonWtkm-Yehejlks-Dbtuelhyg EP History of ventricular fibrillation 02/13/2012 10/24/2022 Assessment & Plan (10/19/2021 3:01 PM CDT): Stable status post biventricular ICD. Continue follow-up in the device Clinic. Continue same therapy. Her ICD check today will be reviewed, and further recommendations forthcoming then. Past history of myocardial infarction 10/11/2010 10/24/2022 Encounters Date Type Department Care Team Description 06/10/2024 Telephone [facility] Cardiology [address] [place] [address] Alexandru Robles MD Med Refill 05/11/2024 12:30 PM ELEMENTARY SCHOOL TEACHER'S AIDE Ancillary Procedure Arrhythmia Center [address] [place] [address] Biventricular ICD (implantable cardioverter-defibrill ator) in place (Primary Dx); Dilated cardiomyopathy (CMS/HCC) (HCC) 05/01/2024 Telephone [facility] Cardiology [address] [place] [address] Alexandru Robles MD from Last 3 Months Immunizations Name Administration Dates Next Due Influenza, Quadrivalent, Hig h Dose, Preservative Free, Intrr 03/08/2023,04/09/2017 Influenza, Quadrivalent, Spl it, Intramuscular 02/10/2015 Influenza, Quadrivalent, Spl it, Preservative Free, Intramuscular 02/21/2015 Influenza, Trivalent, High D ose, Split, Preservative Free, Intramuscular 04/09/2017 Influenza, Trivalent, IM (MDV) 02/04/2014,2012,02/14/2011 Influenza, Trivalent, Preser vative Free, Intramuscular 02/13/2012 Influenza, Unspecified 03/20/2010 Pneumococcal Conjugate PCV 13 05/08/2017 Pneumococcal Polysaccharide PPV23 02/13/2012 Surgical History Surgery Date Site/Laterality Comments OTHER SURGICAL HISTORY removal left first rib pinched nerve OTHER SURGICAL HISTORY right ring finger CARDIAC DEFIBRILLATOR PLACEMENT Implantable Defibrillator HAND SURGERY Hand Surgery OTHER SURGICAL HISTORY Left Rib Removed TUBAL LIGATION Tubal Ligation Medical History Medical History Date Comments Hx Other Medical ankle fracture Hx Other Medical 2009 Hypoxic brain i njury Chronic coronary artery disease Coronary Artery Disease Hx Other Medical Cardiomyopathy Hx Other Medical ankle fx Hx Other Medical 2009 Heart attack Hx Other Medical 1951 Vision problems Hypertension Hypertension Hyperlipidemia Hyperlipidemia; Comments: TWM 12/28/2015 - COPD (chronic obstructive pu lmonary disease) ([facility]) Family History Medical History Relation Name Comments Heart attack Father Myocardial Infa rction; Cause of : Myocardial Infarction/Myocardial Infarction; Alzheimer's disease Mother Alzheime r's Disease; Relation Name Status Comments Father Mother Social History Tobacco Use Types Packs/Day Years Used Date Smoking Tobacco: Heavy Smoker Cigarettes 0.5 40 Smokeless Tobacco: Never Tobacco Cessation:Ready to Q uit: Not Asked; Counseling Given: Not Answered Alcohol Use Standard Drinks/Week Comments Yes 10 (1 standard drink = 0.6 oz pu re alcohol) [facility] Utilities Answer Date Recorded In the past 12 months has [employer], gas, oil, or water [employer] threatened to shut off services in your [...] often do you attend chur ch or baptism services? Never 03/06/2023 Do you belong to any clubs o r organizations such as quaker groups, unions, fraternal or athletic groups, or [...] place to sleep or slept in a detention (including now)? No 03/06/2023 Personal Safety Answer Date Recorded Have you ever been in or are you currently in a harmful physical or emotional relationship or is someone making you feel afraid or unsafe? Denies 03/13/2023 Comments No Sex and Gender Information Value Date Recorded Sex Assigned at Not on file Legal Sex Female 3:12 PM ELEMENTARY SCHOOL TEACHER'S AIDE Gender Identity Not on file Sexual Orientation Not on file Obstetrics History Last Filed Vital Signs Vital Sign Reading [...] 03/13/2023 2:30 PM CDT Plan of Treatment Health Maintenance Due Date Last Done Comments Breast Cancer Screening-Mammogram 1950 Colon Cancer Screening-Colonoscopy 1950 Depression Screening 1950 Hepatitis C Screening 1950 Osteoporosis Screening-Bone Density Scan 1950 DTaP/Tdap/Td Vaccine (1 - Tdap) 1963 Hepatitis B Screening 1970 Zoster Vaccine (1 of 2) 2002 Well Visit 65+ 2017 Pneumococcal vaccine 65+ (3 of 3 - PPSV23 or PCV20) 05/08/2018 05/08/2017, 02/13/2012 Covid-19 Vaccine (3 - 2023-2 5 season) 2024 07/13/2020, 06/15/2020 Influenza Vaccine (#1) 2024 , 04/09/2017, 04/09/2017, Additional history exists Fall Risk Assessment 03/08/2024 03/08/2023 Procedures Procedure Name Priority Date/Time Associated Diagnosis Comments DEVICE CHECK - REMOTE Routine 05/11/2024 7:50 AM ELEMENTARY SCHOOL TEACHER'S AIDE Dilated cardiomyopathy (CMS/HCC) (HCC) from Last 3 Months Results * DEVICE CHECK - REMOTE (05/11/2024 7:50 AM ELEMENTARY SCHOOL TEACHER'S AIDE) Anatomical Region Laterality Modality Other Narrative 05/16/2024 2:31 PM ELEMENTARY SCHOOL TEACHER'S AIDE Table formatting from the original result was [...] 4.4 seconds. Episodes last 90 days/Comments: AF [place] 0 %,longest duration 0. There were no treated ventricular arrhythmias noted on today's remote interrogation. NORMAL DEVICE FUNCTION PROGRAMMED MEDICATIONS: Anti-coagulant(s): ??Aspirin 81 mg daily Anti-arrhythmic(s): ??Sotalol 80 mg twice daily, Coreg 25 mg twice daily PLAN: 1) Medtronic BiV ICD evaluation 2) Medtronic remote transmission scheduled in 3 months. 3) Programming appropriate for device settings Sarath Rodriguez RN Romaine Jane MD [facility] PRO CEDURES Final Result from Last 3 Months Insurance [facility] Member Subscriber Plan / Payer (Ef fective 2024-Present) Name:Apryl Justice Relation to Subscriber:Self Name:Ying Apryl S Payer ID:[id number] (NAIC) Type:[facility] Address: [address] [place] [id number] MEDICARE MEDICARE [place] [address] MEDICARE AETNA SENIOR SUPPLEMENT MICHA PREFERRED Advance Directives For more information, please contact: [phone] * Full Code (Latest Code Status on File) Date Activated Date Inactivated Comments 03/05/2023 9:49 PM 03/08/2023 5:35 PM * Full Code Date Activated Date Inactivated Comments 08/07/2020 8:26 PM 08/10/2020 4:03 PM Healthcare Agents on File Name Relationship Healthcare Agent [facility] Communication Renan Ruiz Health Care Agent Care Teams Licensed Therapist Relationship Specialty Start Date End Date Padmini Arias MD [address] [place] [address] PCP - General Family Medicine 03/07/23 Live Gutierrez MD [address] [place] [address] Consulting Physician Cardiology 08/10/20
--- OUTSIDE RECORDS SUMMARY | 2024-06-11 15:14 | XMS_ITS | Clinical Summary ---
Author Organization [facility] Address [address] [place] [address] Phone Care Team Providers Care Stringer Up Soldering Machine Name Role Phone Unavailable Primary Care Provider Unavailabl e Social History Tobacco Use Types Packs/Day Years Used Date Smoking Tobacco: Never Assessed Comments Unknown Sex and Gender Information Value Date Recorded Sex Assigned at Not on file Legal Sex Female 8:29 AM VP [employer] Gender Identity Not on file Sexual Orientation Not on file Plan of Treatment Health Maintenance Due Date Last Done Comments DEXA Bone Density 1950 Hepatitis C Virus (HCV) Screening 1950 TdaP Immunization 1950 Colonoscopy 1997 Colorectal Cancer Screening 1997 Cologuard 2002 Immunochemical Fecal Occult Blood 2002 Mammogram 2002 Pneumococcal Immunization (5 0+ years) (1 of 1 - PCV) 2002 Zoster Immunization (1 of 2) 2002 Influenza Immunization (#1) 2024 SARS-COV-2 Immunization ( - 2023-25 season) 2024 Respiratory Syncytial Virus (RSV) Immunization (Adult) (1 - 1-dose 75+ series) 2027 Hepatitis B Immunization Aged Out No longer eligible based on patient's age to complete this topic Meningococcal Immunization (ACWY) Aged Out No longer eligible based on patient's age to complete this topic Rotavirus Immunization Aged Out No lo nger eligible based on patient's age to complete this topic
--- OUTSIDE RECORDS SUMMARY | 2024-06-11 15:14 | XMS_ITS | Encounter Summary ---
Author Organization [facility] Address [address] [place] [address] Care Team Providers Care Recruiting Consultant Name Role Phone Live Gutierrez MD Unavailable [phone] Padmini Arias MD Primary Care Provider [phone] Reason for Visit * Reason Onset Date Comments Med Refill 06/10/2024 Encounter Details Date Type Department Care Team (Late st Contact Info) Description 06/10/2024 Telephone [facility] Group Cardiology [address] [place] [address] Alexandru Robles MD [facility] [facility] [address] [place] [address] Med Refill Social History Tobacco Use Types Packs/Day Years Used Date Smoking Tobacco: Heavy Smoker Cigarettes 0.5 40 Smokeless Tobacco: Never Alcohol Use Standard Drinks/Week Comments Yes 10 (1 standard drink = 0.6 oz pu re alcohol) [facility] Utilities Answer Date Recorded In the past 12 months has [employer], gas, oil, or water company threatened to shut off services in your [...] week 03/06/2023 How often do you attend [facility] or orthodox services? Never 03/06/2023 Do you belong to any clubs o r organizations such as mandaen groups, unions, fraternal or athletic groups, or [...] place to sleep or slept in a [place] health care facility (including now)? No 03/06/2023 Personal Safety Answer Date Recorded Have you ever been in or are you currently in a harmful physical or emotional relationship or is someone making you feel afraid or unsafe? Denies 03/13/2023 Comments No Sex and Gender Information Value Date Recorded Sex Assigned at Not on file Legal Sex Female 3:12 PM AUTO PARTS HANDLER Gender Identity Not on file Sexual Orientation Not on file documented as of this encounter Miscellaneous Notes * Telephone Encounter - Nida Cool MSW - 06/11/2024 8:47 AM CST Called patient back and informed her of the information. Patient understood. PARTS HANDLER * Telephone Encounter - Alexandru Robles MD - 06/10/2024 4:42 PM AUTO PARTS HANDLER No that is not something I will refill PARTS HANDLER * Telephone Encounter - Nida Cool MSW - 06/10/2024 4:37 PM CST Was speaking with patient to reschedule yearly appointment, prior Matt patient. Patient asked if you would refill her Trelegy Ellipta inahler? Please advise. PARTS HANDLER documented in this encounter Plan of Treatment Not on file documented as of this encounter Visit Diagnoses Not on filedocumented in this encounter Care Teams Recruiting Consultant Relationship Specialty Start Date End Date Padmini Arias MD [address] [place] [address] PCP - General Family Medicine 03/07/23 Live Gutierrez MD [address] [place] [address] Consulting Physician Cardiology 08/10/20 documented as of this encounter
--- OUTSIDE RECORDS SUMMARY | 2024-06-11 15:14 | XMS_ITS | Encounter Summary ---
Author Organization [facility] Address [address] [address] Care Team Providers Care Nuclear Physics Professor Name Role Phone Zak Rehman MD Primary Care Provider [phone] Temitope Castano MD, Venita Ku Primary Care Provider [phone] Zak Rehman MD Primary Care Provider [phone] Temitope Castano MD, Venita Ku Primary Care Provider [phone] No, Physician Primary Care Provider [phone] Live Gutierrez MD Unavailable [phone] Padmini Arias MD Primary Care Provider [phone] Encounter Details Date Type Department Care Team (Latest Contact Info) Description 07/02/2016 Orders Only [facility] [place] ProviderOvidio MD [address] [place] [id number] Social History Tobacco Use Types Packs/Day Years Used Date Smoking Tobacco: Heavy Smoker Comments:Smoking History Pac ks/day: 0.5 Packs Alcohol Use Standard Drinks/Week Comments Yes 0 (1 standard drink = 0.6 oz pur e alcohol) Comments Unknown Sex and Gender Information Value Date Recorded Sex Assigned at Not on file Legal Sex Female 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 us Historical Provider [facility] MARQUISE DUTTON Final Result documented in this encounter Visit Diagnoses Not on filedocumented in this encounter Additional Health Concerns Infection Onset Date Last Indicated Resolved Time COVID: Suspected 08/07/2020 08/07/2020 08/07/2020 5:58 PM CDT COVID: Suspected 03/05/2023 03/05/2023 03/05/2023 9:16 PM CDT documented as of this encounter Care Teams Nuclear Physics Professor Relationship Specialty Start Date End Date Zak Rehman MD [address] [facility] [address] [place] [address] PCP - General 08/10/16 03/18/17 Venita Linn Jr., MD [address] [facility] [address] [place] [address] PCP - General 07/27/16 08/09/16 Zak Rehman MD [address] [facility] [address] [place] [address] PCP - General 10/30/11 07/26/16 Venita Linn Jr., MD [address] [place] [address] [address] [place] [address] PCP - General Endocrinology Diabetes & Metabolism 03/19/17 08/06/20 No, Physician PCP - General 08/07/20 03/06/23 Padmini Arias MD [address] [facility] [address] [place] [address] PCP - General Family Medicine 03/07/23 Live Gutierrez MD [address] [place] [address] Consulting Physician Cardiology 08/10/20 documented as of this encounter
[2024-06-11 15:19] LABS: Basophils Absolute Auto 0.1 K/mm3 (0.0-0.1); Basophils Percent Auto 0.4 % (0.2-1.2); Eosinophils Absolute Auto 0.3 K/mm3 (0-0.3); Eosinophils Percent Auto 1.9 % (0-4.4); Hematocrit 46.1 % (37.0-47.0); Hemoglobin 15.5 g/dL (12.0-15.0); Immature Granulocyte Absolute 0.09 K/mm3 (0.00-0.031); Immature Granulocyte Percent A 0.6 % (0-0.5); Lymphocytes Absolute Auto 2.14 K/mm3 (0.9-3.2); Lymphocytes Percent Auto 15.4 % (18.3-44.2); Mean Corpuscular HGB Conc 33.6 g/dl (32-36); Mean Corpuscular Hemoglobin 33.6 pg (26-34); Mean Platelet Volume 9.4 fl (7.4-10.4); Monocytes Absolute Auto 1.2 K/mm3 (0.1-0.6); Monocytes Percent Auto 8.7 % (2.6-8.5); Neutrophils Absolute Auto 10.2 K/mm3 (1.3-6.7); Platelet Count Result 248 k/mm3 (150-375); Red Blood Count 4.61 M/mm3 (4.2-5.4); Red Cell Distribution Width 11.9 % (11.5-14.5); White Blood Count 13.9 K/mm3 (4.5-10.0)
[2024-06-11] MEDS: ALBUTEROL SULFATE NEB 2.5 MG/3 ML INH 5 MG INHALATION (15:22)
--- NOTE | 2024-06-11 15:26 | ED_ITS ---
HPI - General Adult General Chief complaint: Shortness of Breath/Dyspnea Stated complaint: sob, back pain Time Seen by Provider: 06/11/24 14:38 History of Present Illness HPI narrative: 74-year-old female presented emergency department for evaluation for low back pain that started approximately 3 days ago and worsening shortness of breath that worsened today. Patient does have history of COPD switched be on home oxygen but prefers not for the oxygen home. Patient does continue to smoke. Patient denies any prior history of requiring BiPAP or intubation. Patient denies any cardiac history. Patient denies any incident of fall or injury Related Data Home Medications ?Medication ?Instructions ?Recorded ?Confirmed ?Last Taken ?Type atorvastatin 20 mg tablet (Lipitor) 20 mg PO DAILY 04/03/19 01/04/24 02/15/23 09:00 History carvedilol 25 mg tablet 37.5 mg PO BID 04/03/19 01/04/24 02/15/23 09:00 History sacubitril 97 mg-valsartan 103 mg 1 tablet PO BID 04/03/19 01/04/24 02/15/23 09:00 History tablet (Entresto) sotalol 80 mg tablet 80 mg PO BID 04/03/19 01/04/24 02/15/23 09:00 History furosemide 20 mg tablet 20 mg PO BID PRN Edema 09/14/22 01/04/24 Unknown History aspirin 81 mg capsule 81 mg PO DAILY 01/04/24 01/04/24 Unknown History diphenhydramine 25 2 tablet PO HS PRN Insomnia 01/04/24 01/04/24 Unknown History mg-acetaminophen 500 mg tablet (Tylenol PM Extra Strength) fluticasone fur. 100 mcg-umeclid 1 inh inhalation DAILY 01/04/24 01/04/24 Unknown History 62.5 mcg-vilant 25 mcg inhalat.powder (Trelegy Ellipta) Allergies Allergy/AdvReac Type Severity Reaction Status Date / Time No Known Allergies Allergy Verified 06/11/24 14:55 Review of Systems 2 Review of Systems: All systems reviewed & are unremarkable except as noted in HPI and below PMFSH Past Medical History Medical History Arthritis CHF (congestive heart failure) COPD (chronic obstructive pulmonary disease) H/O cardiac pacemaker Hyperlipidemia Hypertension Surgical History Surgical History No history of previous surgery Family History Family History Father Heart disease Mother Alzheimer disease Social History Social History Smoking packs per day: 0.5 Smoking cigarettes per day: 10.0 Years smoked: 52 Smoking pack-years: 26.00 Smoking status: Current every day smoker Tobacco type: cigarettes Alcohol intake: current Drinks per week: 15 Substance use: never Substance use type: does not use Do You Feel Safe in your Home?: Yes Lack of Transportation: No Lack of Food: Never True Current Housing: I Have Housing Concerned About Future Housing: No Difficulty Paying Gas/Electric Bills: No Difficulty Paying for Meds: No Currently Unemployed: No Education: High School Diploma/GED Difficulty w/ Childcare or Family Care: No Gender identity (if verbalized by the patient): Female Spiritual care concerns: No Exam 2 Narrative: APPEARANCE: Respiratory distress on arrival HEAD: normocephalic, atraumatic. EYES: PERRLA/EOMI, conjunctivae clear. NOSE: Normal no drainage EARS:TMS clear with good light reflex. THROAT: Pharynx clear, no exudate. NECK: Supple. No adenopathy, no masses. RESPIRATORY: Minimal air movement CARDIOVASCULAR: Regular rate and rhythm without murmurs rubs or gallops. ABDOMINAL: Soft, nontender, nondistended, normal bowel sounds MUSCULOSKELETAL: Thoracic tenderness to NEURO: Alert. Cranial nerves II through XII intact. Grossly intact SKIN: Warm, dry. Normal Color Course Vital Signs Vital signs: Vital Signs Temperature 98 F 06/11/24 14:21 Pulse Rate 79 06/11/24 14:21 Respiratory Rate 23 H 06/11/24 14:21 Blood Pressure 133/65 06/11/24 14:21 Temperature 98 F 06/11/24 14:21 Pulse Rate 66 06/11/24 18:17 Respiratory Rate 21 H 06/11/24 18:17 Blood Pressure 97/83 L 06/11/24 18:00 Pulse Oximetry 96 06/11/24 18:17 Oxygen Delivery BiPAP 06/11/24 18:17 Medical Decision Making [facility] Narrative Medical decision making narrative: 74-year-old female with history of COPD that is not compliant with oxygen home present to the emergency department for evaluation for worsening shortness of breath. Patient was placed on BiPAP her for a after arrival emergency department treated with 5 mg of nebulized albuterol. Patient did feel improved. ABG does show a pCO2 56. Patient does have normal mental status. Patient was afebrile but does have a leukocytosis of 13.9 hemoglobin of 15.5. No significant acute abnormalities on the patient's CMP patient's proBNP was 146. Patient was negative for influenza RSV and for COVID, chest x-ray shows atelectasis versus consolidation. Suspect COPD exacerbation. Patient was treated with IV Solu-Medrol initial to the albuterol. Patient was also started on Rocephin and azithromycin due to the elevated white blood cell count and COPD. This patient was accepted for admission. PT OT was ordered for the T12 compression fracture seen on CT scan. Patient family were updated on the results of the workup and plan for admission. Differential Diagnosis Differential Diagnosis: Thoracic spine fracture, pneumonia, COPD, COVID, RSV, influenza Vital Signs Vital Signs: Vital Signs Temperature 98 F 06/11/24 14:21 Pulse Rate 79 06/11/24 14:21 Respiratory Rate 23 H 06/11/24 14:21 Blood Pressure 133/65 06/11/24 14:21 Temperature 98 F 06/11/24 14:21 Pulse Rate 66 06/11/24 18:17 Respiratory Rate 21 H 06/11/24 18:17 Blood Pressure 97/83 L 06/11/24 18:00 Pulse Oximetry 96 06/11/24 18:17 Oxygen Delivery BiPAP 06/11/24 18:17 Lab Data Lab results reviewed: Yes I reviewed the patient's lab results. 06/11/24 15:13 06/11/24 15:13 Labs: Lab Results 06/11/24 06/11/24 06/11/24 Range/Units 15:13 15:25 15:55 WBC 13.9 H (4.5-10.0) K/mm3 RBC 4.61 (4.2-5.4) M/mm3 Hgb 15.5 H (12.0-15.0) g/dL Hct 46.1 (37.0-47.0) % MCV 100.0 (80-100) fl MCH 33.6 (26-34) pg MCHC 33.6 (32-36) g/dl RDW 11.9 (11.5-14.5) % Plt Count 248 D (150-375) k/mm3 MPV 9.4 (7.4-10.4) fl Immature Gran % (Auto) 0.6 H (0-0.5) % Neut % (Auto) 73.0 (45.5-73.1) % Lymph % (Auto) 15.4 L (18.3-44.2) % [place] % (Auto) 8.7 H (2.6-8.5) % Eos % (Auto) 1.9 (0-4.4) % Baso % (Auto) 0.4 (0.2-1.2) % Lymph # (Auto) 2.14 (0.9-3.2) K/mm3 [place] # (Auto) 1.2 H (0.1-0.6) K/mm3 Eos # (Auto) 0.3 (0-0.3) K/mm3 Baso # (Auto) 0.1 (0.0-0.1) K/mm3 Abs Immat Gran (auto) 0.09 H (0.00-0.031) K/mm3 Absolute Neuts (auto) 10.2 H (1.3-6.7) K/mm3 Absolute Nucleated RBC 0.000 (0.0-0.012) K/mm3 Nucleated RBC % 0.0 (0.0-0.2) % Expiratory Pressure 7 cmH2O Inspiratory Pressure 14 cmH2O Sodium 129 L (137-145) mmol/L Potassium 4.7 (3.4-5.0) mmol/L Chloride 92 L (98-107) mmol/L Carbon Dioxide 29 (22-30) mmol/L Anion Gap 8 (4-12) mmol/L BUN 9 (7-17) mg/dL Creatinine 0.46 L (0.7-1.0) mg/dL Estim Creat Clear Calc 101 ml/min Estimated GFR > 60 (59 - ) Glucose 132 H (65-110) mg/dL Calcium 9.6 (8.4-10.2) mg/dL Total Bilirubin 0.8 (0.2-1.3) mg/dL AST 21 (14-36) U/L ALT 14 (6-35) U/L Alkaline Phosphatase 112 (38-126) U/L NT-Pro-B Natriuret Pep 146 H (19.9-100) pg/mL Total Protein 7.0 (6.3-8.2) g/dL Albumin 4.2 (3.5-5.1) g/dL Influenza A (RT-PCR) Negative (Negative) Influenza B (RT-PCR) Negative (Negative) RSV (RT-PCR) Negative (Negative) SARS-CoV-2 RNA (RT-PCR) Negative (Negative) ABG Data ABG results: 06/11/24 15:55 Puncture Site Right radial ABG pH 7.343 L ABG pCO2 56.6 H ABG pO2 76.8 L ABG PO2/FiO2 Ratio 2.74 ABG HCO3 30.1 H ABG O2 Saturation 94.4 L ABG O2 Content 20.0 ABG Base Excess 2.7 A-a Gradient 56.1 Oxyhemoglobin 89.6 L Total Hemoglobin 15.9 O2 Delivery Device Bipap O2 Liters/Min Not Reportable FiO2 28 Imaging Data Radiologist's impression: Impressions Chest X-Ray 06/11/24 15:11 IMPRESSION: Persistent segmental right medial basilar atelectasis/consolidation. Lumbar Spine CT 06/11/24 17:24 IMPRESSION: 1. Acute versus subacute T12 compression fracture. 2. Mild lumbar spondylosis. Critical Care Time Critical Care Time Critical Care Time: Yes Total Critical Care Time: 35 Discharge Plan Discharge Clinical Impression: T12 compression fracture, COPD exacerbation, Acute respiratory distress Patient Disposition: Still a Patient Condition: Serious Patient Language: Spanish Prescriptions: No Action diphenhydramine-acetaminophen [Tylenol PM Extra Strength] 25-500 mg Tablet 2 tablet PO HS PRN (Reason: Insomnia) Patient Comments: Patient takes every night because she can't sleep without it. Trelegy Ellipta 100-62.5-25 mcg blister with device 1 inh INHALATION DAILY aspirin 81 mg Capsule 81 mg PO DAILY prednisone 20 mg Tablet 40 mg PO DAILY@0800 Qty: 3 0RF cefdinir 300 mg capsule 300 mg PO Q12H Qty: 10 0RF atorvastatin [Lipitor] 20 mg tablet 20 mg PO DAILY carvedilol 25 mg tablet 37.5 mg PO BID sotalol 80 mg tablet 80 mg PO BID Entresto 97-103 mg tablet 1 tablet PO BID furosemide 20 mg tablet 20 mg PO BID PRN (Reason: Edema) Rx Instructions: Take as needed for leg swelling. albuterol sulfate [Proventil HFA] 90 mcg/actuation HFA aerosol inhaler 2 puff inhalation Q4H PRN (Reason: shortness of breath or wheezing) Qty: 8.5 3RF
[2024-06-11 15:33] LABS: Alanine Aminotransferase 14 U/L (6-35); Albumin Level 4.2 g/dL (3.5-5.1); Alkaline Phosphatase 112 U/L (38-126); Anion Gap 8 mmol/L (4-12); Aspartate Amino Transferase 21 U/L (14-36); Bilirubin,Total 0.8 mg/dL (0.2-1.3); Blood Urea Nitrogen 9 mg/dL (7-17); Calcium 9.6 mg/dL (8.4-10.2); Carbon Dioxide 29 mmol/L (22-30); Chloride 92 mmol/L (98-107); Estimated CRCL calculation 101 ml/min; Estimated Glomerular Filt Rate > 60; Glucose 132 mg/dL (65-110); Potassium 4.7 mmol/L (3.4-5.0); Sodium 129 mmol/L (137-145)
--- NOTE | 2024-06-11 15:38 | PC.NURSE ---
Patient tolerating bipap well at this time. patient looks more comfortable and is no longer in tripod position.
[2024-06-11 15:58] LABS: Alveolar/Arterial O2 Gradient 56.1 mmHg; Base Excess ABG 2.7 mEq/l (+/-2.0); Fractional Inspired Oxygen 28 %; HCO3 ABG 30.1 mEq/l (22.0-26.0); Oxygen Saturation ABG 94.4 % (95.0-100.0); Oxyhemoglobin 89.6 % THb (90.0-100.0); PCO2 ABG 56.6 mmHg (35.0-45.0); PO2 ABG 76.8 mmHg (80.0-100.0); PO2 FiO2 Ratio Arterial Blood 2.74 %; Total Hemoglobin 15.9 g/dL (12.0-18.0); pH ABG 7.343 (7.350-7.450)
[2024-06-11 16:00] LABS: Device BIPAP; Modified Allen's Test Pass; Site Drawn RIGHT RADIAL
[2024-06-11 16:01] LABS: Expiratory Pressure 7 cmH2O; Inspiratory Pressure 14 cmH2O
[2024-06-11 16:05] LABS: Influenza A QL RT-PCR Negative (Negative); Influenza B QL RT-PCR Negative (Negative); RSV RNA, RT-PCR Negative (Negative); SARS-CoV-2 RNA PCR Negative (Negative)
[2024-06-11 16:41] LABS: NT Pro B Type Natriuretic Pept 146 pg/mL (19.9-100)
--- NOTE | 2024-06-11 17:27 | PC.NURSE ---
back from cat scan. patient able to lay flat and asked to stay flat due to her back pain. Patient continues to do well with bipap mask.
--- NOTE | 2024-06-11 21:40 | P.HP_ITS ---
H&P: HPI History of Present Illness Date/Time: 06/11/24 21:40 Chief Complaint: Shortness of breath Narrative: This is a 74-year-old female with past medical history significant for tobacco dependence, COPD/emphysema, congestive heart failure, cardiomyopathy, dyslipidemia, atrial fibrillation. Patient presents to the emergency room with complaints of back pain and shortness of breath. Preliminary workup was sig nificant for chest x-ray with consolidation patient also found to have acute compression fracture at the level of T12. At the time of my visit patient was on BiPAP unable to participate in history taking. Most of the history has been obtained upon reviewing medical records. 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 RESULT: Lines, tubes, and devices: Left chest pacer/AICD, with intact leads. Lungs and pleura: Persistent right medial basilar segmental airspace disease. Chronic left lateral costophrenic angle blunting. Right apical pleural thickening. No pneumothorax. Cardiomediastinal silhouette: Stable. Other: No acute osseous or upper abdominal finding. IMPRESSION: Persistent segmental right medial basilar atelectasis/consolidation. EXAMINATION: CT lumbar spine wo con DATE: 06/11/2024 17:23 INDICATION: Back pain. TECHNIQUE: Computed tomography (CT) of the lumbar spine was performed without intravenous contrast. Automated exposure control and iterative reconstruction technique were employed. The dose-length product was 1262.90 mGy-cm. COMPARISON: None. FINDINGS: Alignment is normal. There is a compression fracture of T12 with 1/5 loss of height. Intervertebral disc heights are normal. The following disc levels are specifically discussed: L1-L2: The disc does not extend beyond the endplate margin. There is mild bilateral facet joint osteoarthritis. There is no neural foraminal stenosis. There is no central canal stenosis. L2-L3: The disc is bulging. There is no facet joint osteoarthritis. There is mild bilateral neural foraminal stenosis. There is mild central canal stenosis. L3-L4: The disc is bulging. There is mild bilateral facet joint osteoarthritis. There is mild bilateral neural foraminal stenosis. There is mild central canal stenosis. L4-L5: The disc is bulging. There is mild bilateral facet joint osteoarthritis. There is mild bilateral neural foraminal stenosis. There is mild central canal stenosis. L5-S1: The disc does not extend beyond the endplate margin. There is severe bilateral facet joint osteoarthritis. There is mild bilateral neural foraminal stenosis. There is no central canal stenosis. IMPRESSION: 1. Acute versus subacute T12 compression fracture. 2. Mild lumbar spondylosis. Review of Systems Review of Systems: ROS unobtainable: Yes unobtainable due to medical condition (On BiPAP) PMFSH Past Medical History Medical History Arthritis CHF (congestive heart failure) COPD (chronic obstructive pulmonary disease) H/O cardiac pacemaker Hyperlipidemia Hypertension Surgical History Surgical History No history of previous surgery Family History Family History Father Heart disease Mother Alzheimer disease Social History Social History Smoking packs per day: 0.5 Smoking cigarettes per day: 10.0 Years smoked: 54 Smoking pack-years: 27.00 Smoking status: Heavy tobacco smoker Tobacco type: cigarettes Alcohol intake: current Drinks per week: 28 Substance use: never Substance use type: does not use Do You Feel Safe in your Home?: Yes Lack of Transportation: No Lack of Food: Never True Current Housing: I Have Housing Concerned About Future Housing: No Difficulty Paying Gas/Electric Bills: No Difficulty Paying for Meds: No Currently Unemployed: No Education: High School Diploma/GED Difficulty w/ Childcare or Family Care: No Gender identity (if verbalized by the patient): Female Spiritual care concerns: No Meds Home Medications and Allergies Home Medications ?Medication ?Instructions ?Recorded ?Confirmed ?Type atorvastatin 20 mg tablet (Lipitor) 20 mg PO DAILY 04/03/19 06/12/24 History carvedilol 25 mg tablet 37.5 mg PO BID 04/03/19 06/12/24 History sacubitril 97 mg-valsartan 103 mg 1 tablet PO BID 04/03/19 06/12/24 History tablet (Entresto) sotalol 80 mg tablet 80 mg PO BID 04/03/19 06/12/24 History furosemide 20 mg tablet 20 mg PO BID PRN Edema 09/14/22 06/12/24 History albuterol sulfate 90 mcg/actuation 2 puff inhalation Q4H PRN 09/15/22 06/12/24 Rx aerosol inhaler (Proventil HFA) shortness of breath or wheezing #8.5 grams aspirin 81 mg capsule 81 mg PO DAILY 01/04/24 06/12/24 History diphenhydramine 25 2 tablet PO HS PRN Insomnia 01/04/24 06/12/24 History mg-acetaminophen 500 mg tablet (Tylenol PM Extra Strength) fluticasone fur. 100 mcg-umeclid 1 inh inhalation DAILY 01/04/24 06/12/24 History 62.5 mcg-vilant 25 mcg inhalat.powder (Trelegy Ellipta) Allergies Allergy/AdvReac Type Severity Reaction Status Date / Time No Known Allergies Allergy Verified 06/11/24 14:55 Vital Signs Vital Signs - 24 hr 06/11/24 14:21 06/11/24 15:00 06/11/24 15:00 Temperature 98 F Pulse Rate 79 67 Respiratory Rate 23 H 21 H Blood Pressure 133/65 Pulse Oximetry 98 95 Oxygen Delivery BiPAP BiPAP 06/11/24 15:26 06/11/24 16:14 06/11/24 18:00 Temperature Pulse Rate 67 66 69 Respiratory Rate 19 18 19 Blood Pressure 105/62 97/83 L Pulse Oximetry 95 97 Oxygen Delivery 06/11/24 18:17 06/11/24 20:20 06/11/24 21:04 Temperature Pulse Rate 66 71 67 Respiratory Rate 21 H 22 H 17 Blood Pressure 132/66 Pulse Oximetry 96 96 98 Oxygen Delivery BiPAP BiPAP Exam Narrative: Laying in a stretcher Const: General: comfortable, no acute distress (On BiPAP), well developed, alert, awake, ill appearing acutely and average body habitus Nutritional Appearance: average body habitus Orientation/consciousness: patient oriented x3 Other: On BiPAP HENMT: Head: normal to inspection, normocephalic and atraumatic Ears: hearing grossly normal bilaterally Face/Nose/Sinus: normal facial exam Face and sinus: normal facial exam Eyes: General: appearance normal, both eyes and all related structures Pupils: Equal, round and reactive pupils present EOM: EOMs intact bilaterally Neck: Neck: full ROM, no lymphadenopathy and no JVD Thyroid: thyroid normal Lymphatic: no lymphadenopathy noted Resp: Effort & Inspection: normal respiratory effort and able to speak in complete sentences Auscultation: wheezes and diminished lung sounds Other: On BiPAP Cardio: Jugular venous distension: no JVD Rate: regular rate Rhythm: regular rhythm Heart sounds: S1 normal heart sound present and S2 normal heart sound present GI: Inspection: Pannus present and obesity GI Palp: Yes Soft to palpation and Yes No hepatosplenomegaly present : General: Yes deferred Skin: Rashes: no rashes Wounds: no wounds Neuro: General: patient oriented x3 and CN's II-XI intact bilaterally Cranial nerves: Yes CN's II-XII intact bilaterally and Yes Equal, round and reactive pupils present Cognition (Neuro): normal cognition Speech: normal speech Gait exam (Neuro): Unable to assess gait Motor exam (neuro): 5/5 motor strength present throughout Extrem: General: normal to inspection, full ROM, no joint enlargement and no pedal edema H&P: Results Labs Labs: Short CBC 06/11/24 Range/Units 15:13 WBC 13.9 H (4.5-10.0) K/mm3 Hgb 15.5 H (12.0-15.0) g/dL Hct 46.1 (37.0-47.0) % Plt Count 248 D (150-375) k/mm3 BMP 06/11/24 15:13 Sodium 129 L Potassium 4.7 Chloride 92 L Carbon Dioxide 29 BUN 9 Creatinine 0.46 L Glucose 132 H Calcium 9.6 Liver Function 06/11/24 Range/Units 15:13 Total Bilirubin 0.8 (0.2-1.3) mg/dL AST 21 (14-36) U/L ALT 14 (6-35) U/L Alkaline Phosphatase 112 (38-126) U/L Albumin 4.2 (3.5-5.1) g/dL Assessment and Plan Assessment and plan (1) Acute respiratory failure with hypoxia and hypercapnia: Code(s): J96.01 - Acute respiratory failure with hypoxia; J96.02 - Acute respiratory failure with hypercapnia Status: Acute Assessment and Plan: On BiPAP Admit to IMU (2) COPD exacerbation: Code(s): J44.1 - Chronic obstructive pulmonary disease with (acute) exacerbation Status: Acute Assessment and Plan: Breathing treatments (3) CHF (congestive heart failure): Code(s): I50.9 - Heart failure, unspecified Status: Acute Assessment and Plan: Appears euvolemic (4) Tobacco dependence: Code(s): F17.200 - Nicotine dependence, unspecified, uncomplicated Status: Acute Assessment and Plan: Nicotine patch as needed (5) T12 compression fracture: Code(s): S22.080A - Wedge compression fracture of T11-T12 vertebra, initial encounter for closed fracture Status: Acute Assessment and Plan: Tylenol as needed PT OT when able to participate Hospitalist [facility] Advance Care Plan I have confirmed that the patient's Advanced Care Plan is present, code status is documented, or surrogate decision maker is listed in patient medical record.: Yes Medication Reconciliation I have utilized all available resources to obtain, update and review the patients current medications (includes all prescriptions, OTC, herbals, cannabis, and nutritional supplements).: Yes
[2024-06-11] MEDS: AZITHROMYCIN 500 MG/NS 250 ML 500 MG/250 ML BAG 250 MG IVPB (22:40)
[2024-06-12] VITALS (28 sets, daily range): BP systolic 100–151; BP diastolic 41–77; PULSE 66–96; RESP 16–20; TEMP 36.3–36.9; O2SAT 93–100; BMI 40.7
--- NOTE | 2024-06-12 00:30 | ADMGEN ---
This patient, Stephanie He, was admitted to IMU Room 232-01. Patient/family oriented to hospital policies and general routines including ID bracelet, bed and alarms, visiting hours, pain management, procedures, bathroom and other care routines, personal items, smoking policy, room service/diet, and visiting hours. Information on how to activate the Rapid Response Team has been discussed. Patient/Family are encouraged to report perceived risks to care and to ask questions if they do not understand what they are told or what they should do.
--- NOTE | 2024-06-12 07:14 | P.PNIM_ITS ---
Progress Note: A&P Assessment and Plan (1) Acute respiratory failure with hypoxia and hypercapnia: Code(s): J96.01 - Acute respiratory failure with hypoxia; J96.02 - Acute respiratory failure with hypercapnia Status: Acute Assessment and Plan: On BiPAP Admit to IMU (2) COPD exacerbation: Code(s): J44.1 - Chronic obstructive pulmonary disease with (acute) exacerbation Status: Acute Assessment and Plan: Breathing treatments (3) CHF (congestive heart failure): Code(s): I50.9 - Heart failure, unspecified Status: Acute Assessment and Plan: Appears euvolemic (4) Tobacco dependence: Code(s): F17.200 - Nicotine dependence, unspecified, uncomplicated Status: Acute Assessment and Plan: Nicotine patch as needed (5) T12 compression fracture: Code(s): S22.080A - Wedge compression fracture of T11-T12 vertebra, initial encounter for closed fracture Status: Acute Assessment and Plan: Tylenol as needed Ortho consulted PT OT when able to participate Plan 74-year-old female with past medical history significant for tobacco dependence, COPD/emphysema, congestive heart failure, cardiomyopathy, dyslipidemia, atrial fibrillation. Patient presents to the emergency room with complaints of back pain and shortness of breath. Preliminary workup was significant for chest x- ray with consolidation patient also found to have acute compression fracture at the level of T12. Pt is currently in BiPAP. Pertinent ED labs: WBC 13.9, hemoglobin 15.5, hematocrit 46.1, platelet 248, sodium 129, potassium 4.7, BUN 9, creatinine 0.46 Influenza, RSV, COVID negative Lumbar spines CT: acute /subacute T12 compression fracture Blood culture pending COPD exacerbation 2/2 PNA vs atelectasis Vital signs improved and stable Ceftriaxone and Azithromycin BiPAP monitor cultures MRSA ordered Acute /subacute T12 compression fracture Consult Ortho PT/OT LSO brace after Ortho evaluation CHF Continue carvedilol 37.5 mg p.o. b.i.d. Hold Furosemide 20 mg p.o. b.i.d. Continue Entresto p.o. b.i.d. Continue Sotalol 80 mg p.o. b.i.d. Echocardiogram performed :Left ventricular systolic function is normal, estimated at 60-65%. The left ventricular diastolic function is grade I diastolic dysfunction. Subjective Date/time seen: 06/12/24 07:14 Interval history: 74-year-old female with past medical history significant for tobacco dependence, COPD/emphysema, congestive heart failure, cardiomyopathy, dyslipidemia, atrial fibrillation. Patient presents to the emergency room with complaints of back pain and shortness of breath. Preliminary workup was significant for chest x- ray with consolidation patient also found to have acute compression fracture at the level of T12. Pt is currently in BiPAP. Pertinent ED labs: WBC 13.9, hemoglobin 15.5, hematocrit 46.1, platelet 248, sodium 129, potassium 4.7, BUN 9, creatinine 0.46 Influenza, RSV, COVID negative Lumbar spines CT: acute /subacute T12 compression fracture Blood culture pending Review of Systems Review of Systems: ROS unobtainable: Yes unobtainable due to medical condition (On BiPAP) Exam Narrative: Laying in a stretcher Const: General: comfortable, no acute distress (On BiPAP), well developed, alert, awake, ill appearing acutely and average body habitus Nutritional Appearance: average body habitus Orientation/consciousness: patient oriented x3 Other: On BiPAP HENMT: Head: normal to inspection, normocephalic and atraumatic Ears: hearing grossly normal bilaterally Face/Nose/Sinus: normal facial exam Face and sinus: normal facial exam Eyes: General: appearance normal, both eyes and all related structures Pupils: Equal, round and reactive pupils present EOM: EOMs intact bilaterally Neck: Neck: full ROM, no lymphadenopathy and no JVD Thyroid: thyroid normal Lymphatic: no lymphadenopathy noted Resp: Effort & Inspection: normal respiratory effort and able to speak in complete sentences Auscultation: wheezes and diminished lung sounds Other: On BiPAP Cardio: Jugular venous distension: no JVD Rate: regular rate Rhythm: regular rhythm Heart sounds: S1 normal heart sound present and S2 normal heart sound present GI: Inspection: Pannus present and obesity : General: Yes deferred Skin: Rashes: no rashes Wounds: no wounds Neuro: General: patient oriented x3, CN's II-XI intact bilaterally and Unable to assess gait Cranial nerves: Yes CN's II-XII intact bilaterally and Yes Equal, round and reactive pupils present Cognition (Neuro): normal cognition Speech: normal speech Gait exam (Neuro): Unable to assess gait Motor exam (neuro): 5/5 motor strength present throughout Extrem: General: normal to inspection, full ROM, no joint enlargement and no pedal edema Objective Data Vital Signs Vital Signs: Vital Signs - 24 hr 06/11/24 14:21 06/11/24 15:00 06/11/24 15:00 Temperature 98 F Pulse Rate 79 67 Respiratory Rate 23 H 21 H Blood Pressure 133/65 Pulse Oximetry 98 95 Oxygen Delivery BiPAP BiPAP Oxygen Flow Rate 06/11/24 15:26 06/11/24 16:14 06/11/24 18:00 Temperature Pulse Rate 67 66 69 Respiratory Rate 19 18 19 Blood Pressure 105/62 97/83 L Pulse Oximetry 95 97 Oxygen Delivery Oxygen Flow Rate 06/11/24 18:17 06/11/24 20:20 06/11/24 21:00 Temperature Pulse Rate 66 71 74 Respiratory Rate 21 H 22 H 20 Blood Pressure 132/66 Pulse Oximetry 96 96 98 Oxygen Delivery BiPAP Oxygen Flow Rate 06/11/24 21:04 06/11/24 23:30 06/11/24 23:59 Temperature Pulse Rate 67 66 71 Respiratory Rate 17 20 16 Blood Pressure 140/71 Pulse Oximetry 98 96 97 Oxygen Delivery BiPAP BiPAP Oxygen Flow Rate 06/11/24 23:59 06/12/24 01:42 06/12/24 02:06 Temperature Pulse Rate 71 88 Respiratory Rate 16 Blood Pressure 140/71 Pulse Oximetry 97 97 Oxygen Delivery Nasal Cannula Oxygen Flow Rate 2 06/12/24 03:43 06/12/24 04:00 06/12/24 04:00 Temperature 98.0 F Pulse Rate 96 83 Respiratory Rate 19 Blood Pressure 100/41 L Pulse Oximetry 94 97 Oxygen Delivery Nasal Cannula Oxygen Flow Rate 2 06/12/24 05:32 Temperature Pulse Rate 86 Respiratory Rate Blood Pressure Pulse Oximetry Oxygen Delivery Oxygen Flow Rate Intake/Output Intake/Output: Intake & Output 06/09/24 06/10/24 06/11/24 06/12/24 23:59 23:59 23:59 23:59 Intake Total 300 Balance 300 Meds/Results Medications: Active Medications Generic Name Dose Route Start Last Admin Trade Name Freq PRN Reason Stop Dose Admin Acetaminophen 1,000 mg 06/12/24 02:30 Acetaminophen 500 Mg Tablet PO Q6H PRN Mild Pain (1-3) or Fever Al Hydrox/Mg Hydrox/Simethicone 30 ml 06/12/24 02:30 Mag Hydrox/Al Hydrox/Simeth 30 Ml Udc PO Q6H PRN Indigestion Albuterol/Ipratropium 3 ml 06/12/24 08:00 Ipratropium 0.5 Mg/Albuterol Sulfate 2.5 Mg Ampul.Neb 3 Ml INHALATION Q6HRT [facility] Carvedilol 37.5 mg 06/12/24 09:00 Carvedilol 12.5 Mg Tablet PO Q12HR [facility] Enoxaparin Sodium 40 mg 06/12/24 09:00 Enoxaparin 40 Mg/0.4 Ml Syringe SUB-Q DAILY [facility] Fluticasone/Umeclidinium/Vilanterol 1 puff 06/12/24 08:00 Fluticasone/Umeclidin/Vilanter 100-62.5-25 Mcg Ellipta INHALATION DAILYRT [facility] Ceftriaxone Sodium 1 gm in 50 mls @ 100 mls/hr 06/12/24 20:00 Rocephin 1 Gm/Ns 50 Ml IVPB Q24H [facility] Azithromycin 500 mg in 250 mls @ 250 mls/hr 06/12/24 21:00 Zithromax IVPB Q24H [facility] Ondansetron HCl 4 mg 06/12/24 02:30 Ondansetron Inj 4 Mg/2 Ml Vial IV PUSH Q6H PRN Nausea And Vomiting Polyethylene Glycol 17 gm 06/12/24 02:30 Polyethylene Glycol 3350 17 Gm Powd.Pack PO QAM PRN Constipation Sacubitril/Valsartan 1 tab 06/12/24 09:00 Sacubitril/Valsartan 97-103 Mg Tablet PO Q12HR [facility] Sotalol HCl 80 mg 06/12/24 09:00 Sotalol Hcl 80 Mg Tablet PO Q12HR [facility] Radiology Results: ITS Impressions Chest X-Ray 06/11/24 15:11 IMPRESSION: Persistent segmental right medial basilar atelectasis/consolidation. Lumbar Spine CT 06/11/24 17:24 IMPRESSION: 1. Acute versus subacute T12 compression fracture. 2. Mild lumbar spondylosis. Labs Labs: Laboratory Results - last 24 hr 06/11/24 06/11/24 06/11/24 15:13 15:25 15:55 WBC 13.9 H RBC 4.61 Hgb 15.5 H Hct 46.1 MCV 100.0 MCH 33.6 MCHC 33.6 RDW 11.9 Plt Count 248 D MPV 9.4 Immature Gran % (Auto) 0.6 H Neut % (Auto) 73.0 Lymph % (Auto) 15.4 L Casey % (Auto) 8.7 H Eos % (Auto) 1.9 Baso % (Auto) 0.4 Lymph # (Auto) 2.14 Casey # (Auto) 1.2 H Eos # (Auto) 0.3 Baso # (Auto) 0.1 Abs Immat Gran (auto) 0.09 H Absolute Neuts (auto) 10.2 H Absolute Nucleated RBC 0.000 Nucleated RBC % 0.0 Puncture Site Right radial ABG pH 7.343 L ABG pCO2 56.6 H ABG pO2 76.8 L ABG PO2/FiO2 Ratio 2.74 ABG HCO3 30.1 H ABG O2 Saturation 94.4 L ABG O2 Content 20.0 ABG Base Excess 2.7 A-a Gradient 56.1 Oxyhemoglobin 89.6 L Total Hemoglobin 15.9 O2 Delivery Device Bipap O2 Liters/Min Not Reportable FiO2 28 Expiratory Pressure 7 Inspiratory Pressure 14 Sodium 129 L Potassium 4.7 Chloride 92 L Carbon Dioxide 29 Anion Gap 8 BUN 9 Creatinine 0.46 L Estim Creat Clear Calc 101 Estimated GFR > 60 Glucose 132 H Calcium 9.6 Total Bilirubin 0.8 AST 21 ALT 14 Alkaline Phosphatase 112 NT-Pro-B Natriuret Pep 146 H Total Protein 7.0 Albumin 4.2 Influenza A (RT-PCR) Negative Influenza B (RT-PCR) Negative RSV (RT-PCR) Negative SARS-CoV-2 RNA (RT-PCR) Negative Hospitalist MIPS Advance Care Plan I have confirmed that the patient's Advanced Care Plan is present, code status is documented, or surrogate decision maker is listed in patient medical record.: Yes Medication Reconciliation I have utilized all available resources to obtain, update and review the patients current medications (includes all prescriptions, OTC, herbals, cannabis, and nutritional supplements).: Yes
[2024-06-12] MEDS: IPRATROPIUM 0.5 MG/ALBUTEROL SULFATE 2.5 MG AMPUL.NEB 3 ML INHALATION ×3 (08:48→19:36)
[2024-06-12] MEDS: FLUTICASONE/UMECLIDIN/VILANTER 100-62.5-25 MCG ELLIPTA 1 PUFF INHALATION (08:48)
[2024-06-12] MEDS: carvediloL 12.5 MG TABLET 37.5 MG PO ×2 (09:45→21:32)
[2024-06-12] MEDS: ENOXAPARIN 40 MG/0.4 ML SYRINGE SUB-Q (09:46)
[2024-06-12] MEDS: SACUBITRIL/VALSARTAN 97-103 MG TABLET 1 TAB PO ×2 (09:47→21:33)
[2024-06-12] MEDS: SOTALOL HCL 80 MG TABLET PO ×2 (09:47→21:33)
[2024-06-12 12:20] LABS: MRSA (PCR) NOT DETECTED (NOT DETECTE)
--- NOTE | 2024-06-12 12:51 | PM.IMHP ---
H&P: HPI History of Present Illness Date/Time: 06/12/24 12:51 Chief Complaint: This is a 74-year-old female admitted for medical reasons who also other back pain found on CT scan to have a subacute versus acute compression fracture. The patient denies any fall or trauma within recent months. She does not have known diagnosis of osteoporosis. She denies any numbness tingling weakness in her extremities. She notes low back pain however this pain is actually in her lower back near the lumbosacral junction rather than the thoracolumbar junction. Otherwise she has no significant complaints other than low back pain. Review of Systems Review of Systems: Full review of systems was negative other than what is listed in history present illness pain PMFSH Past Medical History Medical History Arthritis CHF (congestive heart failure) COPD (chronic obstructive pulmonary disease) H/O cardiac pacemaker Hyperlipidemia Hypertension Surgical History Surgical History No history of previous surgery Family History Family History Father Heart disease Mother Alzheimer disease Social History Social History Smoking packs per day: 0.5 Smoking cigarettes per day: 10.0 Years smoked: 54 Smoking pack-years: 27.00 Smoking status: Heavy tobacco smoker Tobacco type: cigarettes Alcohol intake: current Drinks per week: 28 Substance use: never Substance use type: does not use Do You Feel Safe in your Home?: Yes Lack of Transportation: No Lack of Food: Never True Current Housing: I Have Housing Concerned About Future Housing: No Difficulty Paying Gas/Electric Bills: No Difficulty Paying for Meds: No Currently Unemployed: No Education: High School Diploma/GED Difficulty w/ Childcare or Family Care: No Gender identity (if verbalized by the patient): Female Spiritual care concerns: No Meds Home Medications and Allergies Home Medications ?Medication ?Instructions ?Recorded ?Confirmed ?Type atorvastatin 20 mg tablet (Lipitor) 20 mg PO DAILY 04/03/19 06/12/24 History carvedilol 25 mg tablet 37.5 mg PO BID 04/03/19 06/12/24 History sacubitril 97 mg-valsartan 103 mg 1 tablet PO BID 04/03/19 06/12/24 History tablet (Entresto) sotalol 80 mg tablet 80 mg PO BID 04/03/19 06/12/24 History furosemide 20 mg tablet 20 mg PO BID PRN Edema 09/14/22 06/12/24 History albuterol sulfate 90 mcg/actuation 2 puff inhalation Q4H PRN 09/15/22 06/12/24 Rx aerosol inhaler (Proventil HFA) shortness of breath or wheezing #8.5 grams aspirin 81 mg capsule 81 mg PO DAILY 01/04/24 06/12/24 History diphenhydramine 25 2 tablet PO HS PRN Insomnia 01/04/24 06/12/24 History mg-acetaminophen 500 mg tablet (Tylenol PM Extra Strength) fluticasone fur. 100 mcg-umeclid 1 inh inhalation DAILY 01/04/24 06/12/24 History 62.5 mcg-vilant 25 mcg inhalat.powder (Trelegy Ellipta) Allergies Allergy/AdvReac Type Severity Reaction Status Date / Time No Known Allergies Allergy Verified 06/11/24 14:55 Vital Signs Vital Signs - 24 hr 06/11/24 14:21 06/11/24 15:00 06/11/24 15:00 Temperature 98 F Pulse Rate 79 67 Respiratory Rate 23 H 21 H Blood Pressure 133/65 Pulse Oximetry 98 95 Oxygen Delivery BiPAP BiPAP Oxygen Flow Rate 06/11/24 15:26 06/11/24 16:14 06/11/24 18:00 Temperature Pulse Rate 67 66 69 Respiratory Rate 19 18 19 Blood Pressure 105/62 97/83 L Pulse Oximetry 95 97 Oxygen Delivery Oxygen Flow Rate 06/11/24 18:17 06/11/24 20:20 06/11/24 21:00 Temperature Pulse Rate 66 71 74 Respiratory Rate 21 H 22 H 20 Blood Pressure 132/66 Pulse Oximetry 96 96 98 Oxygen Delivery BiPAP Oxygen Flow Rate 06/11/24 21:04 06/11/24 23:30 06/11/24 23:59 Temperature Pulse Rate 67 66 71 Respiratory Rate 17 20 16 Blood Pressure 140/71 Pulse Oximetry 98 96 97 Oxygen Delivery BiPAP BiPAP Oxygen Flow Rate 06/11/24 23:59 06/12/24 01:42 06/12/24 02:06 Temperature Pulse Rate 71 88 Respiratory Rate 16 Blood Pressure 140/71 Pulse Oximetry 97 97 Oxygen Delivery Nasal Cannula Oxygen Flow Rate 2 06/12/24 03:43 06/12/24 04:00 06/12/24 04:00 Temperature 98.0 F Pulse Rate 96 83 Respiratory Rate 19 Blood Pressure 100/41 L Pulse Oximetry 94 97 Oxygen Delivery Nasal Cannula Oxygen Flow Rate 2 06/12/24 05:32 06/12/24 08:27 06/12/24 08:50 Temperature 98.4 F Pulse Rate 86 82 Respiratory Rate 20 Blood Pressure 151/62 H Pulse Oximetry 98 93 Oxygen Delivery Nasal Cannula Oxygen Flow Rate 2 06/12/24 08:50 06/12/24 09:03 06/12/24 09:45 Temperature Pulse Rate 86 84 79 Respiratory Rate 18 18 Blood Pressure Pulse Oximetry Oxygen Delivery Oxygen Flow Rate 06/12/24 09:47 06/12/24 12:30 Temperature 97.3 F L Pulse Rate 79 78 Respiratory Rate 18 Blood Pressure 121/77 Pulse Oximetry 97 Oxygen Delivery Oxygen Flow Rate Exam Narrative: The patient is lying on her side I palpated her back and noted that she had very trace pain in the thoracolumbar junction however most of her pain upon palpation is in the lumbosacral region. She denies any saddle anesthesia. She moves both of her lower extremities well full strength without any focal neurologic deficit. I reviewed her CT scan of lumbar spine which indicates slight compression fracture of T12. To me this looks subacute in nature. She has about 10% loss of height and slight kyphosis at that level. There does not appear to be any retropulsion of bony fragments. H&P: Results Labs Labs: Short CBC 06/11/24 Range/Units 15:13 WBC 13.9 H (4.5-10.0) K/mm3 Hgb 15.5 H (12.0-15.0) g/dL Hct 46.1 (37.0-47.0) % Plt Count 248 D (150-375) k/mm3 BMP 06/11/24 15:13 Sodium 129 L Potassium 4.7 Chloride 92 L Carbon Dioxide 29 BUN 9 Creatinine 0.46 L Glucose 132 H Calcium 9.6 Liver Function 06/11/24 Range/Units 15:13 Total Bilirubin 0.8 (0.2-1.3) mg/dL AST 21 (14-36) U/L ALT 14 (6-35) U/L Alkaline Phosphatase 112 (38-126) U/L Albumin 4.2 (3.5-5.1) g/dL Assessment and Plan Assessment and plan (1) T12 compression fracture: Code(s): S22.080A - Wedge compression fracture of T11-T12 vertebra, initial encounter for closed fracture Status: Acute Assessment and Plan: This 74-year-old female with finding of a subacute compression fracture likely incidentally found on workup of low back pain. I do not think this is necessarily the cause of her low back pain. She may benefit from a TLSO brace to be worn when upright and out of bed. She may benefit from additional physical therapy and conservative management. She does not need any acute neurosurgical intervention. It would also be over to have a full osteoporosis workup by the medical team including vitamin-D levels calcium DEXA scan and appropriate treatment if necessary. She may also benefit from a nutrition consult to optimize bone health. Pain management consult may be reasonable for management of her pain as surgery is not indicated here. She may follow-up with 1 of our nurse practitioners in clinic in 1-2 months with repeat AP lateral thoracic x-rays.
--- NOTE | 2024-06-12 14:20 | PC.NURSE ---
On 06/12/24, the student, [Soniya Peters], provided care and completed [facility] documentation on this patient. I have reviewed the student's documentation and agree with the findings.
[2024-06-12] MEDS: AZITHROMYCIN 500 MG/NS 250 ML 500 MG/250 ML BAG 250 MG IVPB (21:32)
[2024-06-13] VITALS (24 sets, daily range): BP systolic 100–136; BP diastolic 59–81; PULSE 67–82; RESP 16–22; TEMP 36.4–36.9; O2SAT 91–96
[2024-06-13] MEDS: IPRATROPIUM 0.5 MG/ALBUTEROL SULFATE 2.5 MG AMPUL.NEB 3 ML INHALATION ×3 (02:15→12:53)
[2024-06-13 05:02] LABS: Hematocrit 43.6 % (37.0-47.0); Hemoglobin 13.8 g/dL (12.0-15.0); Mean Corpuscular HGB Conc 31.7 g/dl (32-36); Mean Corpuscular Hemoglobin 32.7 pg (26-34); Mean Corpuscular Volume 103.3 fl (80-100); Mean Platelet Volume 9.3 fl (7.4-10.4); Platelet Count Result 168 k/mm3 (150-375); Red Blood Count 4.22 M/mm3 (4.2-5.4); Red Cell Distribution Width 11.9 % (11.5-14.5); White Blood Count 15.1 K/mm3 (4.5-10.0)
[2024-06-13 05:15] LABS: Alanine Aminotransferase 13 U/L (6-35); Albumin Level 3.7 g/dL (3.5-5.1); Alkaline Phosphatase 83 U/L (38-126); Anion Gap 7 mmol/L (4-12); Aspartate Amino Transferase 18 U/L (14-36); Bilirubin,Total 0.6 mg/dL (0.2-1.3); Blood Urea Nitrogen 12 mg/dL (7-17); Calcium 8.8 mg/dL (8.4-10.2); Carbon Dioxide 29 mmol/L (22-30); Chloride 96 mmol/L (98-107); Estimated CRCL calculation 141 ml/min; Estimated Glomerular Filt Rate > 60; Glucose 118 mg/dL (65-110); Potassium 4.6 mmol/L (3.4-5.0); Sodium 132 mmol/L (137-145)
[2024-06-13] MEDS: FLUTICASONE/UMECLIDIN/VILANTER 100-62.5-25 MCG ELLIPTA 1 PUFF INHALATION (07:04)
[2024-06-13] MEDS: SOTALOL HCL 80 MG TABLET PO ×2 (09:45→23:25)
[2024-06-13] MEDS: predniSONE 20 MG TABLET 60 MG PO (09:45)
[2024-06-13] MEDS: FUROSEMIDE 20 MG TABLET PO (09:46)
[2024-06-13] MEDS: ENOXAPARIN 40 MG/0.4 ML SYRINGE SUB-Q (09:46)
[2024-06-13] MEDS: carvediloL 12.5 MG TABLET 37.5 MG PO ×2 (09:46→23:25)
[2024-06-13] MEDS: SACUBITRIL/VALSARTAN 97-103 MG TABLET 1 TAB PO ×2 (09:46→23:25)
--- NOTE | 2024-06-13 09:47 | PCPTNOTE ---
waiting on consult from neurosurgery about complression fx.
--- NOTE | 2024-06-13 14:54 | P.CONPL_ITS ---
Assessment and Plan Assessment and plan (1) Acute respiratory failure with hypoxia and hypercapnia: Code(s): J96.01 - Acute respiratory failure with hypoxia; J96.02 - Acute respiratory failure with hypercapnia Status: Acute Assessment and Plan: Needs low flow O2 to maintain saturation above 88%, now on 2 L/min. Had BiPAP in the room, had mild hypercapnea on admission, may be due tin part to cardiac decompensation. (2) COPD exacerbation: Code(s): J44.1 - Chronic obstructive pulmonary disease with (acute) exacerbation Status: Acute Assessment and Plan: Ceftriaxone and azithromycin are now IV, can switch to po azithromycin, change ceftriaxone to Augmentin tomorrow. Oral prednisone. Pulmonary hygiene, guaifenesin may or may not be helpful, thought to thin secretions. (3) Atelectasis: Code(s): J98.11 - Atelectasis Status: Acute Assessment and Plan: Persistent segmental right medial basilar atelectasis/consolidation on CTA ches tthis admission Add Cornet valve, continue bronchodilators. Increased activity, Incentive spirometer, (4) Tobacco dependence: Code(s): F17.200 - Nicotine dependence, unspecified, uncomplicated Status: Acute Assessment and Plan: Has smoked > 50 years, now 1 ppd. She is a candidate for annual low dose CT screening for lung cancer. Needs support in efforts to remain tobacco-free. Stopping smoking is the most important choice you can make for your health. There is a financial cost, as well as the impact on your health, health of family members and your pets. We recommend picking a quit date, eliminating tobacco from your house, finding alternative activities when you have a craving, and knowing that a craving lasts 5-6 minutes. Nicotine replacement therapy can be helpful, including patches, lozenges, gum and inhalers. 3-908-XGKLQPL is a toll free number with a live person who will talk with you about stopping smoking. Plan plan: 1) She needs to have pulmonary hygiene, add Cornet valve and incentive spirometer; stop albuterol with ipratropium as Liseth has umeclidinium which is also anticholinergic. Substitute albuterol nebulized QID prn. Guaifenesin 600 mg po Q 12 hours. 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 3) She needs to return home using a controller inhaler, was son Liseth which worked well, but expensive. Needs out patient PFTs, evaluation for pulmonary rehab. 4) Needs 6 MW before discharged to determine need for Home O2. Her walking will be limited due to back pain. 5) She says that she has never been tested for sleep apnea. Appears to be high risk for this, may have overlap COPD and ARPITA. 6) She must have a primary care doctor at discharge. She tells me that she wants to move all her care to [place]. It is more important for her to have a doctor and keep appointments, [facility] or [place]. She has CHF, continues to smoke, needs plans to support her in tobacco cessation efforts. I will continue to follow with you. She says that she wants to come to [facility], will be our pulmonary clinic patient. History of Present Illness History of Present Illness Consult date: 06/13/24 Chief complaint: COPD exacerbation,respiratory distress,T12 comp fr Narrative: pt was seen 06/13/2024 at 15:30 Room 232 in [facility]: Stephanie He is a 74-year-old female who presented to the emergency room with back pain, has an acute vs chronic thoracic vertebra fracture T12. She has smoked 40 years, and with her increased back pain, says that she had increased trouble breathing. She was on Trelegy at home, stopped using about 3 weeks ago because she ran out, had no refills; Her primary care was Dr Arias at [facility]. She tells me that the medication is so expensive that she was not planning to use it any longer. Today while talking, she realized that her shortness of breath worsened when she stopped her controller inhaler. She has a rescue inhaler, albuterol, and uses it about once a week. She has not had increased shortness of breath, increased sputum or wheezing. She denies fever, chilss, chest pains. She does not use O2 at home, now is using a nasal cannula 2 L with sat 91-96%. She had a primary care doctor at [facility], Dr Arias, has not seen her in over a year, may not go back to the clinic. She had all her doctors at [facility] because her chronic care nurse was at [facility], all [facility] doctors. She worried when she recived a ltter at the [facility] of 2023 listing all the charges that she had from Medicare in 2023, and thought that there were services listed from the primary care doctor that she, the patient, never received. This made her decide not to go back. I encouraged her to look for answers regarding any questions she has about care provided. Mistakes happen, might not be the physician's fault. Other conditions include acute respiratory failure with hypercapnia and hypoxemia, which she was placed on BiPAP and admitted to the IMU, COPD exacerbation, CHF, tobacco dependence as well as the T12 compression fracture. Tobacco: current smoker, 40+ pack years, quit with each of her 2 pregnancies. Alcohol : 28 beers per week. Social : her 6 years ago, then her son Renan moved in with her to help care for her. He does the shopping and chores. 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 DATA * 06/11/24, CXR ; Comparison: 01/03/2024. RESULT: Lines, tubes, and devices: Left chest pacer/AICD, with intact leads. Lungs and pleura: Persistent right medial basilar segmental airspace disease. Chronic left lateral costophrenic angle blunting. Right apical pleural thickening. No pneumothorax. Cardiomediastinal silhouette: Stable. Other: No acute osseous or upper abdominal finding. IMPRESSION: Persistent segmental right medial basilar atelectasis/consolidation. * Jun 11 ; Sodium 129 potassium 4.7 chloride 92 carbon oxide 29 BUN 9 creatinine 0.46 glucose 132. * Jun 13, 2024; white blood cell count 15.1 hemoglobin 13.8 hematocrit 43.6%, platelets 168 K. * 06/11/24 ABG: pH 7.34, pCO2 56.6, PO2 76 point, HC03 30.1, saturation 94.4%; compared to blood gases September 2022 pCO2 was 62.9, December 2023 pCO2 is 48.5; current pCO2 is between these values * Jun 11 swab (-) influenza A/B, RSV, ELAN Co-V-2, May, MRSA swab is negative. [facility] Past Medical History Medical History Arthritis CHF (congestive heart failure) COPD (chronic obstructive pulmonary disease) H/O cardiac pacemaker Hyperlipidemia Hypertension Surgical History Surgical History No history of previous surgery Family History Family History Father Heart disease Mother Alzheimer disease Social History Social History Smoking packs per day: 0.5 Smoking cigarettes per day: 10.0 Years smoked: 54 Smoking pack-years: 27.00 Smoking status: Heavy tobacco smoker Tobacco type: cigarettes Alcohol intake: current Drinks per week: 28 Substance use: never Substance use type: does not use Do You Feel Safe in your Home?: Yes Lack of Transportation: No Lack of Food: Never True Current Housing: I Have Housing Concerned About Future Housing: No Difficulty Paying Gas/Electric Bills: No Difficulty Paying for Meds: No Currently Unemployed: No Education: High School Diploma/GED Difficulty w/ Childcare or Family Care: No Gender identity (if verbalized by the patient): Female Spiritual care concerns: No Meds Home Medications and Allergies Home Medications ?Medication ?Instructions ?Recorded ?Confirmed ?Type atorvastatin 20 mg tablet (Lipitor) 20 mg PO DAILY 04/03/19 06/12/24 History carvedilol 25 mg tablet 37.5 mg PO BID 04/03/19 06/12/24 History sacubitril 97 mg-valsartan 103 mg 1 tablet PO BID 04/03/19 06/12/24 History tablet (Entresto) sotalol 80 mg tablet 80 mg PO BID 04/03/19 06/12/24 History furosemide 20 mg tablet 20 mg PO BID PRN Edema 09/14/22 06/12/24 History albuterol sulfate 90 mcg/actuation 2 puff inhalation Q4H PRN 09/15/22 06/12/24 Rx aerosol inhaler (Proventil HFA) shortness of breath or wheezing #8.5 grams aspirin 81 mg capsule 81 mg PO DAILY 01/04/24 06/12/24 History diphenhydramine 25 2 tablet PO HS PRN Insomnia 01/04/24 06/12/24 History mg-acetaminophen 500 mg tablet (Tylenol PM Extra Strength) fluticasone fur. 100 mcg-umeclid 1 inh inhalation DAILY 01/04/24 06/12/24 History 62.5 mcg-vilant 25 mcg inhalat.powder (Trelegy Ellipta) Allergies Allergy/AdvReac Type Severity Reaction Status Date / Time No Known Allergies Allergy Verified 06/11/24 14:55 Vital Signs Vital Signs - 24 hr 06/12/24 16:00 06/12/24 16:00 06/12/24 16:04 Temperature 36.4 C Pulse Rate 77 75 72 Respiratory Rate 16 18 Blood Pressure 132/59 L Pulse Oximetry 99 100 Oxygen Delivery Nasal Cannula Oxygen Flow Rate 2 06/12/24 18:00 06/12/24 19:37 06/12/24 19:37 Temperature Pulse Rate 80 73 Respiratory Rate 18 Blood Pressure Pulse Oximetry 96 Oxygen Delivery Nasal Cannula Oxygen Flow Rate 2 06/12/24 19:45 06/12/24 19:59 06/12/24 20:00 Temperature 36.8 C Pulse Rate 75 75 68 Respiratory Rate 18 18 Blood Pressure 103/58 L Pulse Oximetry 99 Oxygen Delivery Oxygen Flow Rate 06/12/24 21:30 06/12/24 21:32 06/12/24 21:33 Temperature Pulse Rate 75 66 66 Respiratory Rate 18 Blood Pressure Pulse Oximetry 99 Oxygen Delivery Nasal Cannula Oxygen Flow Rate 2 06/12/24 22:00 06/13/24 00:00 06/13/24 00:00 Temperature 36.8 C Pulse Rate 67 67 69 Respiratory Rate 18 Blood Pressure 100/81 Pulse Oximetry 94 Oxygen Delivery Oxygen Flow Rate 06/13/24 00:15 06/13/24 02:00 06/13/24 02:15 Temperature Pulse Rate 67 67 70 Respiratory Rate 18 16 Blood Pressure Pulse Oximetry 94 Oxygen Delivery Nasal Cannula Oxygen Flow Rate 2 06/13/24 04:00 06/13/24 04:00 06/13/24 04:04 Temperature 36.9 C Pulse Rate 70 67 70 Respiratory Rate 19 19 Blood Pressure 109/66 Pulse Oximetry 92 92 Oxygen Delivery Nasal Cannula Oxygen Flow Rate 2 06/13/24 06:00 06/13/24 07:00 06/13/24 07:00 Temperature Pulse Rate 71 72 72 Respiratory Rate 18 18 Blood Pressure Pulse Oximetry 94 Oxygen Delivery Nasal Cannula Oxygen Flow Rate 2 06/13/24 07:10 06/13/24 07:50 06/13/24 08:00 Temperature 36.8 C Pulse Rate 73 67 77 Respiratory Rate 18 22 H 22 H Blood Pressure 103/67 Pulse Oximetry 96 96 Oxygen Delivery Nasal Cannula Oxygen Flow Rate 2 06/13/24 08:00 06/13/24 09:45 06/13/24 09:46 Temperature Pulse Rate 73 71 77 Respiratory Rate Blood Pressure Pulse Oximetry Oxygen Delivery Oxygen Flow Rate 06/13/24 10:00 06/13/24 12:00 06/13/24 12:00 Temperature Pulse Rate 72 71 72 Respiratory Rate 20 Blood Pressure Pulse Oximetry 96 Oxygen Delivery Nasal Cannula Oxygen Flow Rate 2 06/13/24 12:31 06/13/24 12:53 06/13/24 13:03 Temperature 36.7 C Pulse Rate 72 76 75 Respiratory Rate 20 18 18 Blood Pressure 110/59 L Pulse Oximetry 91 Oxygen Delivery Oxygen Flow Rate 06/13/24 14:00 Temperature Pulse Rate 77 Respiratory Rate Blood Pressure Pulse Oximetry Oxygen Delivery Oxygen Flow Rate Exam 2 Narrative: GEN: Alert, oriented, not in distress. Large 74 year old female, no acute distress, leaning on he left side toward the window, cautious movement due to back pain, wearing O2 nasal cannula 2 L saturation 91-97% HEENT: pupils are equal, EOMI, symmetrical face; oral membranes moist, Mallampati IV airway NECK: Trachea is midline CHEST: Equal air entry, symmetric excursion, decreased breath sounds and diffuse expiratory wheezing CV: Regular S1S2 no m/g/r ABD : (+) bowel sounds Extremities : no clubbing, cyanosis, or edema PSYCH: she is alert, oriented, moves slowly due to intense back pain with T12 acute v chronic compression fracture Results Laboratory Findings 06/13/24 04:23 06/13/24 04:23 ABG, PT/INR, D-dimer: ABG ABG pH 7.343 (7.350-7.450) L 06/11/24 15:55 ABG pCO2 56.6 mmHg (35.0-45.0) H 06/11/24 15:55 ABG pO2 76.8 mmHg (80.0-100.0) L 06/11/24 15:55 ABG O2 Saturation 94.4 % (95.0-100.0) L 06/11/24 15:55 Abnormal lab findings: Abnormal Labs 06/11/24 06/11/24 06/13/24 15:13 15:55 04:23 WBC 13.9 H 15.1 H Hgb 15.5 H MCV 103.3 H MCHC 31.7 L Immature Gran % (Auto) 0.6 H Lymph % (Auto) 15.4 L Drew % (Auto) 8.7 H Drew # (Auto) 1.2 H Abs Immat Gran (auto) 0.09 H Absolute Neuts (auto) 10.2 H ABG pH 7.343 L ABG pCO2 56.6 H ABG pO2 76.8 L ABG HCO3 30.1 H ABG O2 Saturation 94.4 L Oxyhemoglobin 89.6 L Sodium 129 L 132 L Chloride 92 L 96 L Creatinine 0.46 L 0.32 L Glucose 132 H 118 H NT-Pro-B Natriuret Pep 146 H Total Protein 6.0 L
--- NOTE | 2024-06-13 15:19 | PCPTNOTE ---
checked at 1519, patient still not seen by neurosurgery. Physical therapy will check on patient tomorrow.
--- NOTE | 2024-06-13 15:45 | P.PNIM_ITS ---
Progress Note: A&P Assessment and Plan (1) Acute respiratory failure with hypoxia and hypercapnia: Code(s): J96.01 - Acute respiratory failure with hypoxia; J96.02 - Acute respiratory failure with hypercapnia Status: Acute Assessment and Plan: On BiPAP Admit to IMU (2) COPD exacerbation: Code(s): J44.1 - Chronic obstructive pulmonary disease with (acute) exacerbation Status: Acute Assessment and Plan: Breathing treatments (3) CHF (congestive heart failure): Code(s): I50.9 - Heart failure, unspecified Status: Acute Assessment and Plan: Appears euvolemic (4) Tobacco dependence: Code(s): F17.200 - Nicotine dependence, unspecified, uncomplicated Status: Acute Assessment and Plan: Nicotine patch as needed (5) T12 compression fracture: Code(s): S22.080A - Wedge compression fracture of T11-T12 vertebra, initial encounter for closed fracture Status: Acute Assessment and Plan: Tylenol as needed Ortho consulted PT OT when able to participate Plan 74-year-old female with past medical history significant for tobacco dependence, COPD/emphysema, congestive heart failure, cardiomyopathy, dyslipidemia, atrial fibrillation. Patient presents to the emergency room with complaints of back pain and shortness of breath. Preliminary workup was significant for chest x- ray with consolidation patient also found to have acute compression fracture at the level of T12. Pt is currently in BiPAP. Pertinent ED labs: WBC 13.9, hemoglobin 15.5, hematocrit 46.1, platelet 248, sodium 129, potassium 4.7, BUN 9, creatinine 0.46 Influenza, RSV, COVID negative Lumbar spines CT: acute /subacute T12 compression fracture Blood culture pending Patient is a chronic smoker. Patient reports she never use home oxygen even though she has it in the home. She reports lately she is not taking Trelegy due to insurance issues and also not seen a account support analyst for long time. Pulmonology is consulted and appreciate recommendation. Patient is also followed by Neurosurgery who recommended physical therapy and conservative management. Patient needs outpatient osteoporosis workup including DEXA scan. COPD exacerbation 2/2 PNA vs atelectasis Vital signs improved and stable Ceftriaxone and Azithromycin BiPAP standby NC 2L monitor cultures no growth Prednisone taper MRSA negative Acute /subacute T12 compression fracture Consult Ortho Conservative management Outpatient osteoporosis workup including DEXA scan PT/OT TLSO brace to be worn when upright and out of bed. CHF Continue carvedilol 37.5 mg p.o. b.i.d. Hold Furosemide 20 mg p.o. b.i.d. Continue Entresto p.o. b.i.d. Continue Sotalol 80 mg p.o. b.i.d. Echocardiogram performed :Left ventricular systolic function is normal, estimated at 60-65%. The left ventricular diastolic function is grade I diastolic dysfunction. Subjective Date/time seen: 06/13/24 15:45 Interval history: Patient is a chronic smoker. Patient reports she never use home oxygen even though she has it in the home. She reports lately she is not taking Trelegy due to insurance issues and also not seen a account support analyst for long time. Pulmonology is consulted and appreciate recommendation. Patient is also followed by Neurosurgery who recommended physical therapy and conservative management. Patient needs outpatient osteoporosis workup including DEXA scan. Review of Systems Review of Systems: ROS unobtainable: Yes unobtainable due to medical condition (On BiPAP) Exam Narrative: Laying in a stretcher Const: General: comfortable, no acute distress (On BiPAP), well developed, alert, awake, ill appearing acutely and average body habitus Nutritional Appearance: average body habitus Orientation/consciousness: patient oriented x3 Other: On BiPAP HENMT: Head: normal to inspection, normocephalic and atraumatic Ears: hearing grossly normal bilaterally Face/Nose/Sinus: normal facial exam Face and sinus: normal facial exam Eyes: General: appearance normal, both eyes and all related structures Pupils: Equal, round and reactive pupils present EOM: EOMs intact bilaterally Neck: Neck: full ROM, no lymphadenopathy and no JVD Thyroid: thyroid normal Lymphatic: no lymphadenopathy noted Resp: Effort & Inspection: normal respiratory effort and able to speak in complete sentences Auscultation: wheezes and diminished lung sounds Other: On BiPAP Cardio: Jugular venous distension: no JVD Rate: regular rate Rhythm: regular rhythm Heart sounds: S1 normal heart sound present and S2 normal heart sound present GI: Inspection: Pannus present and obesity : General: Yes deferred Skin: Rashes: no rashes Wounds: no wounds Neuro: General: patient oriented x3, CN's II-XI intact bilaterally and Unable to assess gait Cranial nerves: Yes CN's II-XII intact bilaterally and Yes Equal, round and reactive pupils present Cognition (Neuro): normal cognition Speech: normal speech Gait exam (Neuro): Unable to assess gait Motor exam (neuro): 5/5 motor strength present throughout Extrem: General: normal to inspection, full ROM, no joint enlargement and no pedal edema Objective Data Vital Signs Vital Signs: Vital Signs - 24 hr 06/12/24 16:00 06/12/24 16:00 06/12/24 16:04 Temperature 97.6 F Pulse Rate 77 75 72 Respiratory Rate 16 18 Blood Pressure 132/59 L Pulse Oximetry 99 100 Oxygen Delivery Nasal Cannula Oxygen Flow Rate 2 06/12/24 18:00 06/12/24 19:37 06/12/24 19:37 Temperature Pulse Rate 80 73 Respiratory Rate 18 Blood Pressure Pulse Oximetry 96 Oxygen Delivery Nasal Cannula Oxygen Flow Rate 2 06/12/24 19:45 06/12/24 19:59 06/12/24 20:00 Temperature 98.2 F Pulse Rate 75 75 68 Respiratory Rate 18 18 Blood Pressure 103/58 L Pulse Oximetry 99 Oxygen Delivery Oxygen Flow Rate 06/12/24 21:30 06/12/24 21:32 06/12/24 21:33 Temperature Pulse Rate 75 66 66 Respiratory Rate 18 Blood Pressure Pulse Oximetry 99 Oxygen Delivery Nasal Cannula Oxygen Flow Rate 2 06/12/24 22:00 06/13/24 00:00 06/13/24 00:00 Temperature 98.2 F Pulse Rate 67 67 69 Respiratory Rate 18 Blood Pressure 100/81 Pulse Oximetry 94 Oxygen Delivery Oxygen Flow Rate 06/13/24 00:15 06/13/24 02:00 06/13/24 02:15 Temperature Pulse Rate 67 67 70 Respiratory Rate 18 16 Blood Pressure Pulse Oximetry 94 Oxygen Delivery Nasal Cannula Oxygen Flow Rate 2 06/13/24 04:00 06/13/24 04:00 06/13/24 04:04 Temperature 98.4 F Pulse Rate 70 67 70 Respiratory Rate 19 19 Blood Pressure 109/66 Pulse Oximetry 92 92 Oxygen Delivery Nasal Cannula Oxygen Flow Rate 2 06/13/24 06:00 06/13/24 07:00 06/13/24 07:00 Temperature Pulse Rate 71 72 72 Respiratory Rate 18 18 Blood Pressure Pulse Oximetry 94 Oxygen Delivery Nasal Cannula Oxygen Flow Rate 2 06/13/24 07:10 06/13/24 07:50 06/13/24 08:00 Temperature 98.3 F Pulse Rate 73 67 77 Respiratory Rate 18 22 H 22 H Blood Pressure 103/67 Pulse Oximetry 96 96 Oxygen Delivery Nasal Cannula Oxygen Flow Rate 2 06/13/24 08:00 06/13/24 09:45 06/13/24 09:46 Temperature Pulse Rate 73 71 77 Respiratory Rate Blood Pressure Pulse Oximetry Oxygen Delivery Oxygen Flow Rate 06/13/24 10:00 06/13/24 12:00 06/13/24 12:00 Temperature Pulse Rate 72 71 72 Respiratory Rate 20 Blood Pressure Pulse Oximetry 96 Oxygen Delivery Nasal Cannula Oxygen Flow Rate 2 06/13/24 12:31 06/13/24 12:53 06/13/24 13:03 Temperature 98.1 F Pulse Rate 72 76 75 Respiratory Rate 20 18 18 Blood Pressure 110/59 L Pulse Oximetry 91 Oxygen Delivery Oxygen Flow Rate 06/13/24 14:00 Temperature Pulse Rate 77 Respiratory Rate Blood Pressure Pulse Oximetry Oxygen Delivery Oxygen Flow Rate Intake/Output Intake/Output: Intake & Output 06/10/24 06/11/24 06/12/24 06/13/24 23:59 23:59 23:59 23:59 Intake Total 300 1300 360 Output Total 200 500 Balance 300 1100 -140 Meds/Results Medications: Active Medications Generic Name Dose Route Start Last Admin Trade Name Freq PRN Reason Stop Dose Admin Acetaminophen 1,000 mg 06/12/24 02:30 Acetaminophen 500 Mg Tablet PO Q6H PRN Mild Pain (1-3) or Fever Al Hydrox/Mg Hydrox/Simethicone 30 ml 06/12/24 02:30 Mag Hydrox/Al Hydrox/Simeth 30 Ml Udc PO Q6H PRN Indigestion Albuterol/Ipratropium 3 ml 06/12/24 08:00 06/13/24 12:53 Ipratropium 0.5 Mg/Albuterol Sulfate 2.5 Mg Ampul.Neb 3 Ml INHALATION 3 ml Q6HRT KEIRA Administration Carvedilol 37.5 mg 06/12/24 09:00 06/13/24 09:46 Carvedilol 12.5 Mg Tablet PO 37.5 mg Q12HR KEIRA Administration Enoxaparin Sodium 40 mg 06/12/24 09:00 06/13/24 09:46 Enoxaparin 40 Mg/0.4 Ml Syringe SUB-Q 40 mg DAILY KEIRA Administration Fluticasone/Umeclidinium/Vilanterol 1 puff 06/12/24 08:00 06/13/24 07:04 Fluticasone/Umeclidin/Vilanter 100-62.5-25 Mcg Ellipta INHALATION 1 puff DAILYRT KEIRA Administration Furosemide 20 mg 06/13/24 09:00 06/13/24 09:46 Furosemide 20 Mg Tablet PO 20 mg DAILY KEIRA Administration Ceftriaxone Sodium 1 gm in 50 mls @ 100 mls/hr 06/12/24 20:00 06/12/24 22:02 Rocephin 1 Gm/Ns 50 Ml IVPB Infused Q24H KEIRA Infusion Azithromycin 500 mg in 250 mls @ 250 mls/hr 06/12/24 21:00 06/12/24 22:32 Zithromax IVPB Infused Q24H KEIRA Infusion Ondansetron HCl 4 mg 06/12/24 02:30 Ondansetron Inj 4 Mg/2 Ml Vial IV PUSH Q6H PRN Nausea And Vomiting Polyethylene Glycol 17 gm 06/12/24 02:30 Polyethylene Glycol 3350 17 Gm Powd.Pack PO QAM PRN Constipation Prednisone 60 mg 06/13/24 08:00 06/13/24 09:45 Prednisone 20 Mg Tablet PO 06/15/24 12:00 60 mg DAILY@0800 KEIRA Administration Sacubitril/Valsartan 1 tab 06/12/24 09:00 06/13/24 09:46 Sacubitril/Valsartan 97-103 Mg Tablet PO 1 tab Q12HR KEIRA Administration Sotalol HCl 80 mg 06/12/24 09:00 06/13/24 09:45 Sotalol Hcl 80 Mg Tablet PO 80 mg Q12HR KEIRA Administration Radiology Results: ITS Impressions Chest X-Ray 06/11/24 15:11 IMPRESSION: Persistent segmental right medial basilar atelectasis/consolidation. Lumbar Spine CT 06/11/24 17:24 IMPRESSION: 1. Acute versus subacute T12 compression fracture. 2. Mild lumbar spondylosis. Labs Labs: Laboratory Results - last 24 hr 06/13/24 04:23 WBC 15.1 H RBC 4.22 Hgb 13.8 Hct 43.6 MCV 103.3 H MCH 32.7 MCHC 31.7 L RDW 11.9 Plt Count 168 MPV 9.3 Sodium 132 L Potassium 4.6 Chloride 96 L Carbon Dioxide 29 Anion Gap 7 BUN 12 Creatinine 0.32 L Estim Creat Clear Calc 141 Estimated GFR > 60 Glucose 118 H Calcium 8.8 Total Bilirubin 0.6 AST 18 ALT 13 Alkaline Phosphatase 83 Total Protein 6.0 L Albumin 3.7 Hospitalist [facility] Advance Care Plan I have confirmed that the patient's Advanced Care Plan is present, code status is documented, or surrogate decision maker is listed in patient medical record.: Yes Medication Reconciliation I have utilized all available resources to obtain, update and review the patients current medications (includes all prescriptions, OTC, herbals, cannabis, and nutritional supplements).: Yes
[2024-06-13] MEDS: guaiFENesin 12 HR 600 MG TABCR PO (23:25)
[2024-06-13] MEDS: AZITHROMYCIN 500 MG/NS 250 ML 500 MG/250 ML BAG 250 MG IVPB (23:25)
[2024-06-14] VITALS (17 sets, daily range): BP systolic 110–142; BP diastolic 41–93; PULSE 66–84; RESP 18–20; TEMP 36.3–36.7; O2SAT 92–98
[2024-06-14 05:15] LABS: Hematocrit 42.6 % (37.0-47.0); Hemoglobin 13.8 g/dL (12.0-15.0); Mean Corpuscular HGB Conc 32.4 g/dl (32-36); Mean Corpuscular Hemoglobin 32.8 pg (26-34); Mean Corpuscular Volume 101.2 fl (80-100); Platelet Count Result 173 k/mm3 (150-375); Red Blood Count 4.21 M/mm3 (4.2-5.4); Red Cell Distribution Width 11.7 % (11.5-14.5); White Blood Count 16.2 K/mm3 (4.5-10.0)
[2024-06-14 05:25] LABS: Alanine Aminotransferase 15 U/L (6-35); Albumin Level 3.5 g/dL (3.5-5.1); Alkaline Phosphatase 81 U/L (38-126); Anion Gap 2 mmol/L (4-12); Aspartate Amino Transferase 23 U/L (14-36); Bilirubin,Total 0.6 mg/dL (0.2-1.3); Blood Urea Nitrogen 12 mg/dL (7-17); Calcium 8.8 mg/dL (8.4-10.2); Carbon Dioxide 39 mmol/L (22-30); Chloride 91 mmol/L (98-107); Estimated CRCL calculation 120 ml/min; Estimated Glomerular Filt Rate > 60; Glucose 127 mg/dL (65-110); Potassium 4.9 mmol/L (3.4-5.0); Sodium 132 mmol/L (137-145)
--- NOTE | 2024-06-14 08:01 | PCPTNOTE ---
waiting on ortho consultation, will follow
[2024-06-14] MEDS: FLUTICASONE/UMECLIDIN/VILANTER 100-62.5-25 MCG ELLIPTA 1 PUFF INHALATION (09:15)
[2024-06-14] MEDS: ENOXAPARIN 40 MG/0.4 ML SYRINGE SUB-Q (09:24)
[2024-06-14] MEDS: carvediloL 12.5 MG TABLET 37.5 MG PO ×2 (09:24→22:09)
[2024-06-14] MEDS: SACUBITRIL/VALSARTAN 97-103 MG TABLET 1 TAB PO ×2 (09:25→22:09)
[2024-06-14] MEDS: predniSONE 20 MG TABLET 60 MG PO (09:25)
[2024-06-14] MEDS: guaiFENesin 12 HR 600 MG TABCR PO ×2 (09:25→22:10)
[2024-06-14] MEDS: FUROSEMIDE 20 MG TABLET PO (09:25)
[2024-06-14] MEDS: SOTALOL HCL 80 MG TABLET PO ×2 (09:25→22:10)
--- NOTE | 2024-06-14 09:58 | PCOTNOTE ---
Waiting on ortho consult prior to OT evaluation. Will continue to follow.
--- NOTE | 2024-06-14 12:56 | PCPTNOTE ---
attempted PT eval, pt declined eval stating that she cannot get out of bed right now because she does not feel well but is willing to participate tomorrow, educated the pt on the importance of participate and getting her TLSO on, will follow
--- NOTE | 2024-06-14 15:01 | PCOTNOTE ---
Attempted OT evaluation. Pt. refused stating she wasn't feeling well. Will continue to follow.
--- NOTE | 2024-06-14 16:37 | P.PNIM_ITS ---
Progress Note: A&P Assessment and Plan (1) Acute respiratory failure with hypoxia and hypercapnia: Code(s): J96.01 - Acute respiratory failure with hypoxia; J96.02 - Acute respiratory failure with hypercapnia Status: Acute Assessment and Plan: On BiPAP Admit to IMU (2) COPD exacerbation: Code(s): J44.1 - Chronic obstructive pulmonary disease with (acute) exacerbation Status: Acute Assessment and Plan: Breathing treatments (3) CHF (congestive heart failure): Code(s): I50.9 - Heart failure, unspecified Status: Acute Assessment and Plan: Appears euvolemic (4) Tobacco dependence: Code(s): F17.200 - Nicotine dependence, unspecified, uncomplicated Status: Acute Assessment and Plan: Nicotine patch as needed (5) T12 compression fracture: Code(s): S22.080A - Wedge compression fracture of T11-T12 vertebra, initial encounter for closed fracture Status: Acute Assessment and Plan: Tylenol as needed Ortho consulted PT OT when able to participate Plan 74-year-old female with past medical history significant for tobacco dependence, COPD/emphysema, congestive heart failure, cardiomyopathy, dyslipidemia, atrial fibrillation. Patient presents to the emergency room with complaints of back pain and shortness of breath. Preliminary workup was significant for chest x- ray with consolidation patient also found to have acute compression fracture at the level of T12. Pt is currently in BiPAP. Pertinent ED labs: WBC 13.9, hemoglobin 15.5, hematocrit 46.1, platelet 248, sodium 129, potassium 4.7, BUN 9, creatinine 0.46 Influenza, RSV, COVID negative Lumbar spines CT: acute /subacute T12 compression fracture Blood culture pending Patient is a chronic smoker. Patient reports she never use home oxygen even though she has it in the home. She reports lately she is not taking Trelegy due to insurance issues and also not seen a bankruptcy law specialist for long time. Pulmonology is consulted and appreciate recommendation. Patient is also followed by Neurosurgery who recommended physical therapy and conservative management. Patient needs outpatient osteoporosis workup including DEXA scan. COPD exacerbation 2/2 PNA vs atelectasis Vital signs improved and stable Ceftriaxone and Azithromycin BiPAP standby NC 2L monitor cultures no growth Prednisone taper MRSA negative Acute /subacute T12 compression fracture Consult Ortho Conservative management Outpatient osteoporosis workup including DEXA scan PT/OT TLSO brace to be worn when upright and out of bed. CHF Continue carvedilol 37.5 mg p.o. b.i.d. Hold Furosemide 20 mg p.o. b.i.d. Continue Entresto p.o. b.i.d. Continue Sotalol 80 mg p.o. b.i.d. Echocardiogram performed :Left ventricular systolic function is normal, estimated at 60-65%. The left ventricular diastolic function is grade I diastolic dysfunction. Subjective Date/time seen: 06/14/24 16:37 Interval history: Patient still requiring oxygen. Neurosurgery demonstrated how to use TSLO brace. Will discharge tomorrow with pulmonology recommendations. Review of Systems Review of Systems: ROS unobtainable: Yes unobtainable due to medical condition (On BiPAP) Exam Narrative: Laying in a stretcher Const: General: comfortable, no acute distress (On BiPAP), well developed, alert, awake, ill appearing acutely and average body habitus Nutritional Appearance: average body habitus Orientation/consciousness: patient oriented x3 Other: On BiPAP HENMT: Head: normal to inspection, normocephalic and atraumatic Ears: hearing grossly normal bilaterally Face/Nose/Sinus: normal facial exam Face and sinus: normal facial exam Eyes: General: appearance normal, both eyes and all related structures Pupils: Equal, round and reactive pupils present EOM: EOMs intact bilaterally Neck: Neck: full ROM, no lymphadenopathy and no JVD Thyroid: thyroid normal Lymphatic: no lymphadenopathy noted Resp: Effort & Inspection: normal respiratory effort and able to speak in complete sentences Auscultation: wheezes and diminished lung sounds Other: On BiPAP Cardio: Jugular venous distension: no JVD Rate: regular rate Rhythm: regular rhythm Heart sounds: S1 normal heart sound present and S2 normal heart sound present GI: Inspection: Pannus present and obesity : General: Yes deferred Skin: Rashes: no rashes Wounds: no wounds Neuro: General: patient oriented x3, CN's II-XI intact bilaterally and Unable to assess gait Cranial nerves: Yes CN's II-XII intact bilaterally and Yes Equal, round and reactive pupils present Cognition (Neuro): normal cognition Speech: normal speech Gait exam (Neuro): Unable to assess gait Motor exam (neuro): 5/5 motor strength present throughout Extrem: General: normal to inspection, full ROM, no joint enlargement and no pedal edema Objective Data Vital Signs Vital Signs: Vital Signs - 24 hr 06/13/24 20:00 06/13/24 20:00 06/13/24 22:00 Temperature 97.6 F Pulse Rate 82 82 81 Respiratory Rate 18 Blood Pressure 136/59 L Pulse Oximetry 93 Oxygen Delivery Oxygen Flow Rate Fraction of Inspired Oxygen 06/13/24 23:15 06/13/24 23:25 06/13/24 23:25 Temperature Pulse Rate 82 80 80 Respiratory Rate 18 Blood Pressure Pulse Oximetry 93 Oxygen Delivery Nasal Cannula Oxygen Flow Rate 2 Fraction of Inspired Oxygen 06/14/24 00:00 06/14/24 00:00 06/14/24 00:40 Temperature 97.8 F Pulse Rate 84 73 84 Respiratory Rate 18 18 Blood Pressure 129/60 Pulse Oximetry 92 92 Oxygen Delivery Nasal Cannula Oxygen Flow Rate 2 Fraction of Inspired Oxygen 06/14/24 02:00 06/14/24 04:00 06/14/24 04:00 Temperature 97.8 F Pulse Rate 67 69 73 Respiratory Rate 18 Blood Pressure 142/61 H Pulse Oximetry 97 Oxygen Delivery Oxygen Flow Rate Fraction of Inspired Oxygen 06/14/24 05:05 06/14/24 06:00 06/14/24 08:00 Temperature Pulse Rate 69 73 Respiratory Rate 18 Blood Pressure Pulse Oximetry 97 97 Oxygen Delivery Nasal Cannula Nasal Cannula Oxygen Flow Rate 2 2 Fraction of Inspired Oxygen 06/14/24 08:00 06/14/24 08:09 06/14/24 09:15 Temperature 97.3 F L Pulse Rate 71 66 Respiratory Rate 18 Blood Pressure 131/41 L Pulse Oximetry 94 94 Oxygen Delivery Nasal Cannula Oxygen Flow Rate 2 Fraction of Inspired Oxygen 28 06/14/24 09:15 06/14/24 09:24 06/14/24 09:25 Temperature Pulse Rate 78 79 79 Respiratory Rate 20 Blood Pressure Pulse Oximetry Oxygen Delivery Oxygen Flow Rate Fraction of Inspired Oxygen Intake/Output Intake/Output: Intake & Output 06/11/24 06/12/24 06/13/24 06/14/24 23:59 23:59 23:59 23:59 Intake Total 300 1300 900 840 Output Total 200 1100 1300 Balance 300 1100 -200 -460 Meds/Results Medications: Active Medications Generic Name Dose Route Start Last Admin Trade Name Freq PRN Reason Stop Dose Admin Acetaminophen 1,000 mg 06/12/24 02:30 Acetaminophen 500 Mg Tablet PO Q6H PRN Mild Pain (1-3) or Fever Al Hydrox/Mg Hydrox/Simethicone 30 ml 06/12/24 02:30 Mag Hydrox/Al Hydrox/Simeth 30 Ml Udc PO Q6H PRN Indigestion Albuterol 2.5 mg 06/13/24 16:26 Albuterol Sulfate Neb 2.5 Mg/3 Ml Inh INHALATION Q6HRT PRN Shortness Of Breath Carvedilol 37.5 mg 06/12/24 09:00 06/14/24 09:24 Carvedilol 12.5 Mg Tablet PO 37.5 mg Q12HR KEIRA Administration Enoxaparin Sodium 40 mg 06/12/24 09:00 06/14/24 09:24 Enoxaparin 40 Mg/0.4 Ml Syringe SUB-Q 40 mg DAILY KEIRA Administration Fluticasone/Umeclidinium/Vilanterol 1 puff 06/12/24 08:00 06/14/24 09:15 Fluticasone/Umeclidin/Vilanter 100-62.5-25 Mcg Ellipta INHALATION 1 puff DAILYRT KEIRA Administration Furosemide 20 mg 06/13/24 09:00 06/14/24 09:25 Furosemide 20 Mg Tablet PO 20 mg DAILY KEIRA Administration Guaifenesin 600 mg 06/13/24 21:00 06/14/24 09:25 Guaifenesin 12 Hr 600 Mg Tabcr PO 600 mg Q12HR KEIRA Administration Ceftriaxone Sodium 1 gm in 50 mls @ 100 mls/hr 06/12/24 20:00 06/13/24 23:55 Rocephin 1 Gm/Ns 50 Ml IVPB Infused Q24H KEIRA Infusion Azithromycin 500 mg in 250 mls @ 250 mls/hr 06/12/24 21:00 06/14/24 00:25 Zithromax IVPB Infused Q24H KEIRA Infusion Ondansetron HCl 4 mg 06/12/24 02:30 Ondansetron Inj 4 Mg/2 Ml Vial IV PUSH Q6H PRN Nausea And Vomiting Polyethylene Glycol 17 gm 06/12/24 02:30 Polyethylene Glycol 3350 17 Gm Powd.Pack PO QAM PRN Constipation Prednisone 60 mg 06/13/24 08:00 06/14/24 09:25 Prednisone 20 Mg Tablet PO 06/15/24 12:00 60 mg DAILY@0800 KEIRA Administration Sacubitril/Valsartan 1 tab 06/12/24 09:00 06/14/24 09:25 Sacubitril/Valsartan 97-103 Mg Tablet PO 1 tab Q12HR KEIRA Administration Sotalol HCl 80 mg 06/12/24 09:00 06/14/24 09:25 Sotalol Hcl 80 Mg Tablet PO 80 mg Q12HR KEIRA Administration Radiology Results: ITS Impressions Chest X-Ray 06/11/24 15:11 IMPRESSION: Persistent segmental right medial basilar atelectasis/consolidation. Lumbar Spine CT 06/11/24 17:24 IMPRESSION: 1. Acute versus subacute T12 compression fracture. 2. Mild lumbar spondylosis. Labs Labs: Laboratory Results - last 24 hr 06/14/24 05:08 WBC 16.2 H RBC 4.21 Hgb 13.8 Hct 42.6 MCV 101.2 H MCH 32.8 MCHC 32.4 RDW 11.7 Plt Count 173 MPV 9.0 Sodium 132 L Potassium 4.9 Chloride 91 L Carbon Dioxide 39 H Anion Gap 2 L BUN 12 Creatinine 0.39 L Estim Creat Clear Calc 120 Estimated GFR > 60 Glucose 127 H Calcium 8.8 Total Bilirubin 0.6 AST 23 ALT 15 Alkaline Phosphatase 81 Total Protein 6.0 L Albumin 3.5 Hospitalist [facility] [place] Care Plan I have confirmed that the patient's Advanced Care Plan is present, code status is documented, or surrogate decision maker is listed in patient medical record.: Yes Medication Reconciliation I have utilized all available resources to obtain, update and review the patients current medications (includes all prescriptions, OTC, herbals, cannabis, and nutritional supplements).: Yes
--- NOTE | 2024-06-14 19:59 | PC.NURSE ---
This patient, Stephanie He, was transferred to [facility] on 06/14/24 at 1825. Personal belongings sent with patient. Report given to NAYLA Lu. Appropriate documentation sent with patient.
--- NOTE | 2024-06-14 20:16 | PM.PNPUL ---
Subjective Date/time seen: 06/14/24 20:16 Objective Data Vital Signs Vital Signs: Vital Signs - 24 hr 06/13/24 22:00 06/13/24 23:15 06/13/24 23:25 Temperature Pulse Rate 81 82 80 Respiratory Rate 18 Blood Pressure Pulse Oximetry 93 Oxygen Delivery Nasal Cannula Oxygen Flow Rate 2 Fraction of Inspired Oxygen 06/13/24 23:25 06/14/24 00:00 06/14/24 00:00 Temperature 36.6 C Pulse Rate 80 84 73 Respiratory Rate 18 Blood Pressure 129/60 Pulse Oximetry 92 Oxygen Delivery Oxygen Flow Rate Fraction of Inspired Oxygen 06/14/24 00:40 06/14/24 02:00 06/14/24 04:00 Temperature 36.6 C Pulse Rate 84 67 69 Respiratory Rate 18 18 Blood Pressure 142/61 H Pulse Oximetry 92 97 Oxygen Delivery Nasal Cannula Oxygen Flow Rate 2 Fraction of Inspired Oxygen 06/14/24 04:00 06/14/24 05:05 06/14/24 06:00 Temperature Pulse Rate 73 69 73 Respiratory Rate 18 Blood Pressure Pulse Oximetry 97 Oxygen Delivery Nasal Cannula Oxygen Flow Rate 2 Fraction of Inspired Oxygen 06/14/24 08:00 06/14/24 08:00 06/14/24 08:09 Temperature 36.3 C L Pulse Rate 71 66 Respiratory Rate 18 Blood Pressure 131/41 L Pulse Oximetry 97 94 Oxygen Delivery Nasal Cannula Oxygen Flow Rate 2 Fraction of Inspired Oxygen 06/14/24 09:15 06/14/24 09:15 06/14/24 09:24 Temperature Pulse Rate 78 79 Respiratory Rate 20 Blood Pressure Pulse Oximetry 94 Oxygen Delivery Nasal Cannula Oxygen Flow Rate 2 Fraction of Inspired Oxygen 28 06/14/24 09:25 06/14/24 16:50 06/14/24 19:01 Temperature 36.7 C 36.3 C L Pulse Rate 79 67 73 Respiratory Rate 20 18 Blood Pressure 134/69 110/93 H Pulse Oximetry 96 98 Oxygen Delivery Oxygen Flow Rate Fraction of Inspired Oxygen Intake/Output Intake/Output: Intake & Output 06/11/24 06/12/24 06/13/24 06/14/24 23:59 23:59 23:59 23:59 Intake Total 300 3831 867 3232 Output Total 200 1100 1750 Balance 300 1100 -200 70 Meds/Results Medications: Active Medications Generic Name Dose Route Start Last Admin Trade Name Freq PRN Reason Stop Dose Admin Acetaminophen 1,000 mg 06/12/24 02:30 Acetaminophen 500 Mg Tablet PO Q6H PRN Mild Pain (1-3) or Fever Al Hydrox/Mg Hydrox/Simethicone 30 ml 06/12/24 02:30 Mag Hydrox/Al Hydrox/Simeth 30 Ml Udc PO Q6H PRN Indigestion Albuterol 2.5 mg 06/13/24 16:26 Albuterol Sulfate Neb 2.5 Mg/3 Ml Inh INHALATION Q6HRT PRN Shortness Of Breath Carvedilol 37.5 mg 06/12/24 09:00 06/14/24 09:24 Carvedilol 12.5 Mg Tablet PO 37.5 mg Q12HR KEIRA Administration Enoxaparin Sodium 40 mg 06/12/24 09:00 06/14/24 09:24 Enoxaparin 40 Mg/0.4 Ml Syringe SUB-Q 40 mg DAILY KEIRA Administration Fluticasone/Umeclidinium/Vilanterol 1 puff 06/12/24 08:00 06/14/24 09:15 Fluticasone/Umeclidin/Vilanter 100-62.5-25 Mcg Ellipta INHALATION 1 puff DAILYRT KEIRA Administration Furosemide 20 mg 06/13/24 09:00 06/14/24 09:25 Furosemide 20 Mg Tablet PO 20 mg DAILY KEIRA Administration Guaifenesin 600 mg 06/13/24 21:00 06/14/24 09:25 Guaifenesin 12 Hr 600 Mg Tabcr PO 600 mg Q12HR KEIRA Administration Ceftriaxone Sodium 1 gm in 50 mls @ 100 mls/hr 06/12/24 20:00 06/13/24 23:55 Rocephin 1 Gm/Ns 50 Ml IVPB Infused Q24H KEIRA Infusion Azithromycin 500 mg in 250 mls @ 250 mls/hr 06/12/24 21:00 06/14/24 00:25 Zithromax IVPB Infused Q24H KEIRA Infusion Ondansetron HCl 4 mg 06/12/24 02:30 Ondansetron Inj 4 Mg/2 Ml Vial IV PUSH Q6H PRN Nausea And Vomiting Polyethylene Glycol 17 gm 06/12/24 02:30 Polyethylene Glycol 3350 17 Gm Powd.Pack PO QAM PRN Constipation Prednisone 60 mg 06/13/24 08:00 06/14/24 09:25 Prednisone 20 Mg Tablet PO 06/15/24 12:00 60 mg DAILY@0800 KEIRA Administration Sacubitril/Valsartan 1 tab 06/12/24 09:00 06/14/24 09:25 Sacubitril/Valsartan 97-103 Mg Tablet PO 1 tab Q12HR KEIRA Administration Sotalol HCl 80 mg 06/12/24 09:00 06/14/24 09:25 Sotalol Hcl 80 Mg Tablet PO 80 mg Q12HR KEIRA Administration Radiology Results: ITS Impressions Chest X-Ray 06/11/24 15:11 IMPRESSION: Persistent segmental right medial basilar atelectasis/consolidation. Lumbar Spine CT 06/11/24 17:24 IMPRESSION: 1. Acute versus subacute T12 compression fracture. 2. Mild lumbar spondylosis. Labs Labs: Laboratory Results - last 24 hr 06/14/24 05:08 WBC 16.2 H RBC 4.21 Hgb 13.8 Hct 42.6 MCV 101.2 H MCH 32.8 MCHC 32.4 RDW 11.7 Plt Count 173 MPV 9.0 Sodium 132 L Potassium 4.9 Chloride 91 L Carbon Dioxide 39 H Anion Gap 2 L BUN 12 Creatinine 0.39 L Estim Creat Clear Calc 120 Estimated GFR > 60 Glucose 127 H Calcium 8.8 Total Bilirubin 0.6 AST 23 ALT 15 Alkaline Phosphatase 81 Total Protein 6.0 L Albumin 3.5
[2024-06-14] MEDS: AZITHROMYCIN 500 MG/NS 250 ML 500 MG/250 ML BAG 250 MG IVPB (22:42)
[2024-06-15 07:07] LABS: Hematocrit 43.4 % (37.0-47.0); Hemoglobin 14.1 g/dL (12.0-15.0); Mean Corpuscular HGB Conc 32.5 g/dl (32-36); Mean Corpuscular Hemoglobin 32.6 pg (26-34); Mean Corpuscular Volume 100.5 fl (80-100); Mean Platelet Volume 9.2 fl (7.4-10.4); Platelet Count Result 176 k/mm3 (150-375); Red Blood Count 4.32 M/mm3 (4.2-5.4); Red Cell Distribution Width 11.5 % (11.5-14.5); White Blood Count 14.8 K/mm3 (4.5-10.0)
[2024-06-15 07:19] LABS: Alanine Aminotransferase 15 U/L (6-35); Albumin Level 3.5 g/dL (3.5-5.1); Alkaline Phosphatase 82 U/L (38-126); Anion Gap 4 mmol/L (4-12); Aspartate Amino Transferase 20 U/L (14-36); Bilirubin,Total 0.8 mg/dL (0.2-1.3); Blood Urea Nitrogen 11 mg/dL (7-17); Calcium 8.9 mg/dL (8.4-10.2); Carbon Dioxide 35 mmol/L (22-30); Chloride 92 mmol/L (98-107); Estimated CRCL calculation 146 ml/min; Estimated Glomerular Filt Rate > 60; Glucose 119 mg/dL (65-110); Potassium 4.1 mmol/L (3.4-5.0); Sodium 131 mmol/L (137-145)
[2024-06-15 08:00] VITALS: BP 90/55; PULSE 77; RESP 18; TEMP 36.1; O2SAT 95; O2SAT 99
[2024-06-15] MEDS: ENOXAPARIN 40 MG/0.4 ML SYRINGE SUB-Q (08:29)
[2024-06-15] MEDS: ACETAMINOPHEN 500 MG TABLET 1000 MG PO (08:30)
[2024-06-15 08:31] VITALS: PULSE 72
[2024-06-15] MEDS: guaiFENesin 12 HR 600 MG TABCR PO (08:31)
[2024-06-15] MEDS: carvediloL 12.5 MG TABLET 37.5 MG PO (08:31)
[2024-06-15] MEDS: predniSONE 20 MG TABLET 60 MG PO (08:31)
[2024-06-15 08:32] VITALS: PULSE 72
[2024-06-15] MEDS: SOTALOL HCL 80 MG TABLET PO (08:32)
[2024-06-15] MEDS: SACUBITRIL/VALSARTAN 97-103 MG TABLET 1 TAB PO (08:33)
[2024-06-15] MEDS: FUROSEMIDE 20 MG TABLET PO (08:33)
[2024-06-15] MEDS: FLUTICASONE/UMECLIDIN/VILANTER 100-62.5-25 MCG ELLIPTA 1 PUFF INHALATION (09:12)
[2024-06-15 09:15] VITALS: PULSE 82; RESP 20; O2SAT 95
[2024-06-15 09:52] VITALS: BP 106/62
--- NOTE | 2024-06-15 12:21 | PM.PNPUL ---
Progress Note: A&P Assessment and Plan (1) COPD exacerbation: Code(s): J44.1 - Chronic obstructive pulmonary disease with (acute) exacerbation Status: Acute Assessment and Plan: Ceftriaxone and azithromycin are now IV, can switch to po azithromycin, change ceftriaxone to Augmentin tomorrow. Oral prednisone. Pulmonary hygiene, guaifenesin may or may not be helpful, thought to thin secretions. Needs low flow O2 to maintain saturation above 88%, now on 2 L/min. Had BiPAP in the room, had mild hypercapnea on admission, may be due tin part to cardiac decompensation. Persistent segmental right medial basilar atelectasis/consolidation on CTA ches tthis admission Add Cornet valve, continue bronchodilators. Increased activity, Incentive spirometer 06/13/24: Plan: 1) She needs to have pulmonary hygiene, add Cornet valve and incentive spirometer; stop albuterol with ipratropium as Liseth has umeclidinium which is also anticholinergic. Substitute albuterol nebulized QID prn. Guaifenesin 600 mg po Q 12 hours. 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 3) She needs to return home using a controller inhaler, was son Liseth which worked well, but expensive. Needs out patient PFTs, evaluation for pulmonary rehab. 4) Needs 6 MW before discharged to determine need for Home O2. Her walking will be limited due to back pain. 5) She says that she has never been tested for sleep apnea. Appears to be high risk for this, may have overlap COPD and ARPITA. 6) She must have a primary care doctor at discharge. She tells me that she wants to move all her care to [place]. It is more important for her to have a doctor and keep appointments, [facility] or [place]. She has CHF, continues to smoke, needs plans to support her in tobacco cessation efforts. 06/15/24: Patient tells me she is breathing back at her normal. Her phlegm and cough are normal. Her room air saturation is 93%. White blood cell count 14.8, creatinine 0.31. The patient tells me she will not wear oxygen at rest, with activity or with sleep at home even if she needs this. today is day 5 of steroids. Today is day 5 of azithromycin and ceftriaxone. Plan: from a pulmonary perspective patient is ready to be discharged on these pulmonary medications: Levaquin to 750 mg p.o. q.day x2 days Trelegy 100-62.5-25 At 1 puff q.day albuterol 2 puffs q.4 hours p.r.n. shortness of breath or wheezing room air rest, with activity and with sleep. Patient declined supplemental oxygen at this time. guaifenesin 600 mg p.o. q.12 hours Diuretics per hospitalist team. Currently the patient is on 20 mg p.o. q.day. Follow-up in the Pulmonary Clinic in 6 weeks, I gave her our business card and informed our nursing scheduler. Discussed with Dr. Benavides, will sign off, call with [employer] [email or web address] (2) Tobacco dependence: Code(s): F17.200 - Nicotine dependence, unspecified, uncomplicated Status: Acute Assessment and Plan: Has smoked > 50 years, now 1 ppd. She is a candidate for annual low dose CT screening for lung cancer. Needs support in efforts to remain tobacco-free. Stopping smoking is the most important choice you can make for your health. There is a financial cost, as well as the impact on your health, health of family members and your pets. We recommend picking a quit date, eliminating tobacco from your house, finding alternative activities when you have a craving, and knowing that a craving lasts 5-6 minutes. Nicotine replacement therapy can be helpful, including patches, lozenges, gum and inhalers. 2-024-GNZQCSW is a toll free number with a live person who will talk with you about stopping smoking. 06/15/24: tobacco cessation counseling was provided to the patient. She is currently smoking half pack per day and I told her that it is absolutely necessary that she should quit. She understands this. Subjective Date/time seen: 06/15/24 12:21 Interval history: 06/14/24; 06/13/24, new consult; Stephanie He is a 74-year-old female who presented to the emergency room with back pain, has an acute vs chronic thoracic vertebra fracture T12. She has smoked 40 years, and with her increased back pain, says that she had increased trouble breathing. She was on Trelegy at home, stopped using about 3 weeks ago because she ran out, had no refills; Her primary care was Dr Arias at [facility]. She tells me that the medication is so expensive that she was not planning to use it any longer. Today while talking, she realized that her shortness of breath worsened when she stopped her controller inhaler. She has a rescue inhaler, albuterol, and uses it about once a week. She has not had increased shortness of breath, increased sputum or wheezing. She denies fever, chilss, chest pains. She does not use O2 at home, now is using a nasal cannula 2 L with sat 91-96%. She had a primary care doctor at [facility], Dr Arias, has not seen her in over a year, may not go back to the clinic. 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 She worried when she recived a ltter at the [facility] of 2023 listing all the charges that she had from Medicare in 2023, and thought that there were services listed from the primary care doctor that she, the patient, never received. This made her decide not to go back. I encouraged her to look for answers regarding any questions she has about care provided. Mistakes happen, might not be the physician's fault. Other conditions include acute respiratory failure with hypercapnia and hypoxemia, which she was placed on BiPAP and admitted to the IMU, COPD exacerbation, CHF, tobacco dependence as well as the T12 compression fracture. Tobacco: current smoker, 40+ pack years, quit with each of her 2 pregnancies. Alcohol : 28 beers per week. Social : her 6 years ago, then her son Renan moved in with her to help care for her. He does the shopping and chores. 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 06/15/24: Patient tells me she is breathing back at her normal. Her phlegm and cough are normal. Her room air saturation is 93%. White blood cell count 14.8, creatinine 0.31. The patient tells me she will not wear oxygen at rest, with activity or with sleep at home even if she needs this. DATA * 06/11/24, CXR ; Comparison: 01/03/2024. RESULT: Lines, tubes, and devices: Left chest pacer/AICD, with intact leads. Lungs and pleura: Persistent right medial basilar segmental airspace disease. Chronic left lateral costophrenic angle blunting. Right apical pleural thickening. No pneumothorax. Cardiomediastinal silhouette: Stable. Other: No acute osseous or upper abdominal finding. IMPRESSION: Persistent segmental right medial basilar atelectasis/consolidation. * Jun 11 ; Sodium 129 potassium 4.7 chloride 92 carbon oxide 29 BUN 9 creatinine 0.46 glucose 132. * Jun 13, 2024; white blood cell count 15.1 hemoglobin 13.8 hematocrit 43.6%, platelets 168 K. * 06/11/24 ABG: pH 7.34, pCO2 56.6, PO2 76 point, HC03 30.1, saturation 94.4%; compared to blood gases September 2022 pCO2 was 62.9, December 2023 pCO2 is 48.5; current pCO2 is between these values * Jun 11 swab (-) influenza A/B, RSV, ELAN Co-V-2, May, MRSA swab is negative. Review of Systems Constitutional: Constitutional: Reports no additional constitutional complaints Eyes: Eyes: Reports no additional eye complaints ENT: Reports system reviewed and no additional complaints, except as documented Cardiovascular: Cardiovascular: Reports no additional cardiovascular complaints Respiratory: Respiratory: Reports no additional respiratory complaints Gastrointestinal: Gastrointestinal: Reports no additional gastrointestinal complaints Musculoskeletal: Musculoskeletal: Reports no additional musculoskeletal complaints Neurologic: Reports system reviewed and no additional complaints, except as documented Psychiatric: Psychiatric: Reports no additional psychiatric complaints Endocrine: Endocrine: Reports no additional endocrine complaints Hematologic/Lymphatic: Hematologic/Lymphatic: Reports no additional hematologic/lymphatic complaints Allergic/Immunologic: Allergic/Immunologic: Reports no additional allergic/immunologic complaints Exam Const: General: cooperative, healthy appearing and comfortable Orientation/consciousness: oriented to person, oriented to place and oriented to time HENMT: Head: normal to inspection Ears: hearing grossly normal bilaterally Eyes: General: appearance normal, both eyes and all related structures Neck: Neck: normal visual inspection Chest: Chest palpation & inspection: normal inspection of the chest Resp: Effort & Inspection: normal respiratory effort and able to speak in complete sentences Auscultation: no crackles, no rales, no rhonchi, no wheezes and diminished lung sounds Cardio: Jugular venous distension: no JVD GI: Inspection: normal to inspection GI Palp: No abdominal tenderness Skin: General skin exam: normal color Neuro: General: oriented to person, oriented to place and oriented to time Extrem: General: normal to inspection Psych: Appearance: grossly normal Objective Data Vital Signs Vital Signs: Vital Signs - 24 hr 06/14/24 16:50 06/14/24 19:01 06/14/24 20:00 Temperature 36.7 C 36.3 C L Pulse Rate 67 73 76 Respiratory Rate 20 18 18 Blood Pressure 134/69 110/93 H Pulse Oximetry 96 98 98 Oxygen Delivery Nasal Cannula Oxygen Flow Rate 2 Fraction of Inspired Oxygen 28 06/14/24 21:35 06/14/24 22:09 06/14/24 22:10 Temperature 36.6 C Pulse Rate 76 76 76 Respiratory Rate 18 Blood Pressure 120/78 Pulse Oximetry 98 Oxygen Delivery Oxygen Flow Rate Fraction of Inspired Oxygen 06/15/24 08:00 06/15/24 08:00 06/15/24 08:27 Temperature 36.1 C L Pulse Rate 77 Respiratory Rate 18 Blood Pressure 90/55 L Pulse Oximetry 95 99 Oxygen Delivery Nasal Cannula Room Air Oxygen Flow Rate 2 Fraction of Inspired Oxygen 06/15/24 08:31 06/15/24 08:32 06/15/24 09:15 Temperature Pulse Rate 72 72 Respiratory Rate Blood Pressure Pulse Oximetry 95 Oxygen Delivery Nasal Cannula Oxygen Flow Rate 2 Fraction of Inspired Oxygen 06/15/24 09:15 06/15/24 09:39 06/15/24 09:52 Temperature Pulse Rate 82 Respiratory Rate 20 Blood Pressure 106/62 Pulse Oximetry Oxygen Delivery Nasal Cannula Oxygen Flow Rate 3 Fraction of Inspired Oxygen Intake/Output Intake/Output: Intake & Output 06/12/24 06/13/24 06/14/24 06/15/24 23:59 23:59 23:59 23:59 Intake Total 4941 732 7124 610 Output Total 200 1100 1750 700 Balance 1100 -200 120 -90 Meds/Results Medications: Active Medications Generic Name Dose Route Start Last Admin Trade Name Freq PRN Reason Stop Dose Admin Acetaminophen 1,000 mg 06/12/24 02:30 06/15/24 08:30 Acetaminophen 500 Mg Tablet PO 1,000 mg Q6H PRN Administration Mild Pain (1-3) or Fever Al Hydrox/Mg Hydrox/Simethicone 30 ml 06/12/24 02:30 Mag Hydrox/Al Hydrox/Simeth 30 Ml Udc PO Q6H PRN Indigestion Albuterol 2.5 mg 06/13/24 16:26 Albuterol Sulfate Neb 2.5 Mg/3 Ml Inh INHALATION Q6HRT PRN Shortness Of Breath Carvedilol 37.5 mg 06/12/24 09:00 06/15/24 08:31 Carvedilol 12.5 Mg Tablet PO 37.5 mg Q12HR KEIRA Administration Enoxaparin Sodium 40 mg 06/12/24 09:00 06/15/24 08:29 Enoxaparin 40 Mg/0.4 Ml Syringe SUB-Q 40 mg DAILY KEIRA Administration Fluticasone/Umeclidinium/Vilanterol 1 puff 06/12/24 08:00 06/15/24 09:12 Fluticasone/Umeclidin/Vilanter 100-62.5-25 Mcg Ellipta INHALATION 1 puff DAILYRT KEIRA Administration Furosemide 20 mg 06/13/24 09:00 06/15/24 08:33 Furosemide 20 Mg Tablet PO 20 mg DAILY KEIRA Administration Guaifenesin 600 mg 06/13/24 21:00 06/15/24 08:31 Guaifenesin 12 Hr 600 Mg Tabcr PO 600 mg Q12HR KEIRA Administration Ceftriaxone Sodium 1 gm in 50 mls @ 100 mls/hr 06/12/24 20:00 06/14/24 22:40 Rocephin 1 Gm/Ns 50 Ml IVPB Infused Q24H KEIRA Infusion Azithromycin 500 mg in 250 mls @ 250 mls/hr 06/12/24 21:00 06/15/24 00:00 Zithromax IVPB Infused Q24H KEIRA Infusion Ondansetron HCl 4 mg 06/12/24 02:30 Ondansetron Inj 4 Mg/2 Ml Vial IV PUSH Q6H PRN Nausea And Vomiting Polyethylene Glycol 17 gm 06/12/24 02:30 Polyethylene Glycol 3350 17 Gm Powd.Pack PO QAM PRN Constipation Prednisone 40 mg 06/16/24 08:00 Prednisone 10 Mg Tablet PO 06/28/24 07:59 DAILY@0800 KEIRA Taper Sacubitril/Valsartan 1 tab 06/12/24 09:00 06/15/24 08:33 Sacubitril/Valsartan 97-103 Mg Tablet PO 1 tab Q12HR KEIRA Administration Sotalol HCl 80 mg 06/12/24 09:00 06/15/24 08:32 Sotalol Hcl 80 Mg Tablet PO 80 mg Q12HR KEIRA Administration Radiology Results: ITS Impressions Chest X-Ray 06/11/24 15:11 IMPRESSION: Persistent segmental right medial basilar atelectasis/consolidation. Lumbar Spine CT 06/11/24 17:24 IMPRESSION: 1. Acute versus subacute T12 compression fracture. 2. Mild lumbar spondylosis. Labs Labs: Laboratory Results - last 24 hr 06/15/24 06:46 WBC 14.8 H RBC 4.32 Hgb 14.1 Hct 43.4 MCV 100.5 H MCH 32.6 MCHC 32.5 RDW 11.5 Plt Count 176 MPV 9.2 Sodium 131 L Potassium 4.1 Chloride 92 L Carbon Dioxide 35 H Anion Gap 4 BUN 11 Creatinine 0.31 L Estim Creat Clear Calc 146 Estimated GFR > 60 Glucose 119 H Calcium 8.9 Total Bilirubin 0.8 AST 20 ALT 15 Alkaline Phosphatase 82 Total Protein 6.0 L Albumin 3.5
[2024-06-15 14:44] VITALS: BP 108/60
--- NOTE | 2024-06-15 17:49 | PM.DS ---
DS: Admitting Diagnosis Discharge Date 06/15/2024 Admitting Diagnosis Shortness of breath DS: Discharge Diagnosis Discharge Diagnosis (1) Acute respiratory failure with hypoxia and hypercapnia: Code(s): J96.01 - Acute respiratory failure with hypoxia; J96.02 - Acute respiratory failure with hypercapnia Status: Acute Assessment and Plan: On BiPAP Admit to IMU (2) COPD exacerbation: Code(s): J44.1 - Chronic obstructive pulmonary disease with (acute) exacerbation Status: Acute Assessment and Plan: Breathing treatments (3) CHF (congestive heart failure): Code(s): I50.9 - Heart failure, unspecified Status: Acute Assessment and Plan: Appears euvolemic (4) Tobacco dependence: Code(s): F17.200 - Nicotine dependence, unspecified, uncomplicated Status: Acute Assessment and Plan: Nicotine patch as needed (5) T12 compression fracture: Code(s): S22.080A - Wedge compression fracture of T11-T12 vertebra, initial encounter for closed fracture Status: Acute Assessment and Plan: Tylenol as needed Ortho consulted PT OT when able to participate DS: Summary Hospital Course Hospital Course: 74-year-old female with past medical history significant for tobacco dependence, COPD/emphysema, congestive heart failure, cardiomyopathy, dyslipidemia, atrial fibrillation. Patient presents to the emergency room with complaints of back pain and shortness of breath. Preliminary workup was significant for chest x-ray with consolidation patient also found to have acute compression fracture at the level of T12. Pt is currently in BiPAP. Pertinent ED labs: WBC 13.9, hemoglobin 15.5, hematocrit 46.1, platelet 248, sodium 129, potassium 4.7, BUN 9, creatinine 0.46 Influenza, RSV, COVID negative Lumbar spines CT: acute /subacute T12 compression fracture Blood culture pending Patient is a chronic smoker. Patient reports she never use home oxygen even though she has it in the home. She reports lately she is not taking Trelegy due to insurance issues and also not seen a therapeutic strategy lead for long time. Pulmonology is consulted and appreciate recommendation. Patient is also followed by Neurosurgery who recommended physical therapy and conservative management. Patient needs outpatient osteoporosis workup including DEXA scan. COPD exacerbation 2/2 PNA vs atelectasis Vital signs improved and stable Continue Levaquin to 750 mg p.o. q.day x 5 days Continue Trelegy 100-62.5-25 At 1 puff q.day Continue albuterol 2 puffs q.4 hours p.r.n. shortness of breath or wheezing Continue guaifenesin 600 mg p.o. q.12 hours Acute /subacute T12 compression fracture Consult Ortho Conservative management Outpatient osteoporosis workup including DEXA scan PT/OT TLSO brace to be worn when upright and out of bed. CHF Continue carvedilol 37.5 mg p.o. b.i.d. Cont Furosemide 20 mg p.o. b.i.d. Continue Entresto p.o. b.i.d. Continue Sotalol 80 mg p.o. b.i.d. Echocardiogram performed :Left ventricular systolic function is normal, estimated at 60-65%. The left ventricular diastolic function is grade I diastolic dysfunction Status at Discharge Cognitive/behavioral status at discharge: Stable Time Spent with Patient Time attestation: Total time spent providing and/or coordinating discharge services: 45 minutes Exam Const: General: comfortable, no acute distress (On BiPAP), well developed, alert, awake, ill appearing acutely and average body habitus Nutritional Appearance: average body habitus Orientation/consciousness: patient oriented x3 Other: On BiPAP HENMT: Head: normal to inspection, normocephalic and atraumatic Ears: hearing grossly normal bilaterally Face/Nose/Sinus: normal facial exam Face and sinus: normal facial exam Eyes: General: appearance normal, both eyes and all related structures Pupils: Equal, round and reactive pupils present EOM: EOMs intact bilaterally Neck: Neck: full ROM, no lymphadenopathy and no JVD Thyroid: thyroid normal Lymphatic: no lymphadenopathy noted Resp: Effort & Inspection: normal respiratory effort and able to speak in complete sentences Auscultation: wheezes and diminished lung sounds Other: On BiPAP Cardio: Jugular venous distension: no JVD Rate: regular rate Rhythm: regular rhythm Heart sounds: S1 normal heart sound present and S2 normal heart sound present GI: Inspection: Pannus present and obesity : General: Yes deferred Skin: Rashes: no rashes Wounds: no wounds Neuro: General: patient oriented x3, CN's II-XI intact bilaterally and Unable to assess gait Cranial nerves: Yes CN's II-XII intact bilaterally and Yes Equal, round and reactive pupils present Cognition (Neuro): normal cognition Speech: normal speech Gait exam (Neuro): Unable to assess gait Motor exam (neuro): 5/5 motor strength present throughout Extrem: General: normal to inspection, full ROM, no joint enlargement and no pedal edema DS: Data Data Completed and Pending Labs on day of discharge: Labs from last 24 hours 06/15/24 06:46 WBC 14.8 H RBC 4.32 Hgb 14.1 Hct 43.4 MCV 100.5 H MCH 32.6 MCHC 32.5 RDW 11.5 Plt Count 176 MPV 9.2 Sodium 131 L Potassium 4.1 Chloride 92 L Carbon Dioxide 35 H Anion Gap 4 BUN 11 Creatinine 0.31 L Estim Creat Clear Calc 146 Estimated GFR > 60 Glucose 119 H Calcium 8.9 Total Bilirubin 0.8 AST 20 ALT 15 Alkaline Phosphatase 82 Total Protein 6.0 L Albumin 3.5 Preliminary micro results at discharge 06/11/24 19:16 Blood Culture - Preliminary Blood 06/11/24 19:16 Blood Culture - Preliminary Blood Discharge Plan Discharge Attending physician on discharge: Talha Benavides Consulting providers: Eugenio De Leon; Mercedes Ellison Discharging Clinician: Talha Benavides Patient Disposition: Home, Self-Care Activity: as tolerated and other - see discharge instructions Diet: heart healthy Discharge Instructions: Please follow up with Neurosurgery, Pulmonology ,and PCP within 1-2 weeks upon discharge. Use TLSO brace to be worn when upright and out of bed. Continue Levaquin to 750 mg p.o. q.day x 5 days Continue Trelegy 100-62.5-25 At 1 puff q.day Continue albuterol 2 puffs q.4 hours p.r.n. shortness of breath or wheezing Continue guaifenesin 600 mg p.o. q.12 hours Patient needs outpatient osteoporosis workup including DEXA scan. Patient Instructions: Antibiotic Form, COPD (Chronic Obstructive Pulmonary Disease) (GEN) Patient Language: Mongolian Stand Alone Forms: General Discharge Information Follow-up/Referrals: UNKNOWN,DOCTOR [Primary Care Provider] - Florentin Srinivasan MD [Physician] - Discharge Medications: New guaifenesin [Mucus Relief ER] 600 mg Tablet Extended Release 12hr 600 mg PO Q12HR Qty: 30 0RF alum-mag hydroxide-simeth [Mag-Al Plus] 200-200-20 mg/5 mL Suspension 30 ml PO Q6H PRN (Reason: Indigestion) Qty: 3000 0RF polyethylene glycol 3350 [Miralax] 17 gram Powder In Packet 17 g PO QAM PRN (Reason: Constipation) Qty: 30 0RF levofloxacin 750 mg tablet 750 mg PO DAILY Qty: 7 0RF Continued diphenhydramine-acetaminophen [Tylenol PM Extra Strength] 25-500 mg Tablet 2 tablet PO HS PRN (Reason: Insomnia) Patient Comments: Patient takes every night because she can't sleep without it. Trelegy Ellipta 100-62.5-25 mcg blister with device 1 inh INHALATION DAILY aspirin 81 mg Capsule 81 mg PO DAILY atorvastatin [Lipitor] 20 mg tablet 20 mg PO DAILY carvedilol 25 mg tablet 37.5 mg PO BID sotalol 80 mg tablet 80 mg PO BID sacubitril-valsartan [Entresto] 97-103 mg tablet 1 tablet PO BID furosemide 20 mg tablet 20 mg PO BID PRN (Reason: Edema) Rx Instructions: Take as needed for leg swelling. albuterol sulfate [Proventil HFA] 90 mcg/actuation HFA aerosol inhaler 2 puff inhalation Q4H PRN (Reason: shortness of breath or wheezing) Qty: 8.5 3RF Date of admission: 06/12/24 10:50 Primary Care Provider: UNKNOWN,DOCTOR Admitting Provider: Elliot Carreon Attending physician on admission: Elliot Carreon Condition: Stable
== END 2024-06-15 18:55 | disposition home or self-care (01) | DRG 190 ==
LOC: ANHED 14:41 → ANHIMU 20:10 → ANH3MEDSUR 06-15 17:43 → ANHIMU 06-16 14:15
PROVIDERS: Internal Medicine Critical Care Medicine; Admitting Provider Internal Medicine; Emergency Provider Emergency Medicine; Visit Provider General Practice
DX: J44.1 Chronic obstructive pulmonary disease with (acute) exacerbation (principal); J96.01 Acute respiratory failure with hypoxia; J96.02 Acute respiratory failure with hypercapnia; S22.089A Unspecified fracture of T11-T12 vertebra, initial encounter for closed fracture; I42.9 Cardiomyopathy, unspecified; I48.20 Chronic atrial fibrillation, unspecified; I50.9 Heart failure, unspecified; E78.5 Hyperlipidemia, unspecified; I11.0 Hypertensive heart disease with heart failure; M19.90 Unspecified osteoarthritis, unspecified site; F17.210 Nicotine dependence, cigarettes, uncomplicated; Z20.822 Contact with and (suspected) exposure to COVID-19; Z79.82 Long term (current) use of aspirin; Z95.0 Presence of cardiac pacemaker; Z99.81 Dependence on supplemental oxygen; Z91.199 Patient's noncompliance with other medical treatment and regimen due to unspecified reason
CPT/HCPCS: 36415; 36600; 71045; 72131; 80053; 82104; 82805; 83880; 85018; 85025; 85027; 87040; 87086; 87637; 87641; 93005; 94002; 94640; 94667; 96365; 96368; 96375; 97161; 97165; 99291; A9270; G0378; J0456; J0696; J1650; J2919; J7512

== ENCOUNTER 2024-06-17 21:00 | Inpatient (IN) | payer MEDICARE, SELFPAY ==
[2024-06-17] VITALS (22 sets, daily range): BP systolic 98–133; BP diastolic 53–70; PULSE 64–81; RESP 12–20; TEMP 36.8; O2SAT 95–100
--- NOTE | ~2024-06-17 | CT_ITS ---
EXAMINATION: CTA chest PE protocol DATE: 06/17/2024 23:06 TUBE MAN INDICATION: Shortness of breath TECHNIQUE: Computed tomographic angiography (CTA) of the chest was performed with 100 mL Omnipaque-35 0 intravenous contrast. The dose-length product was 1123.04 mGy-cm. Maximum intensity projection 3D-r econstructions of the aorta and other arteries were constructed by the technologist on a separate wor kstation. COMPARISON: None. Reference is made to a plain film evaluation of the chest performed 45 minutes kyle ier. FINDINGS/OBSERVATIONS: PULMONARY ARTERIES: No filling defect is identified within the main or proximal pulmonary artery. The main pulmonary artery is not enlarged. THORACIC AORTA: No aneurysmal dilatation or dissection is present. The great vessels are intact LUNGS: No pleural effusion is appreciated. The large left-sided pleural effusion suspected on plain f ilm evaluation represents a large pericardial fat pad, combined with overlying soft tissues. MEDIASTINUM: No morphologically suspicious or pathologically enlarged lymph nodes are identified with in the mediastinum or bilateral axilla. BONES OF THE CHEST: No acute fracture. No significant degenerative disease. No lytic or blastic lesions. HEART: The heart is enlarged, without pericardial effusion. Reflux of intravenous contrast identified extending into the hepatic veins suggesting right heart dys function. IMPRESSION: No pulmonary embolus. No thoracic aortic dissection. Findings suggestive of right heart dysfunction, as detailed above. The large left-sided pleural effusion suspected on plain film evaluation corresponds to a large peric ardial fat pad combined with overlying soft tissues. The lungs are clear. Reviewed, dictated and finalized at location A. MAN IMPRESSION: No pulmonary embolus. No thoracic aortic dissection. Findings suggestive of right heart dysfunction, as detailed above. The large left-sided pleural effusion suspected on plain film evaluation corres ponds to a large pericardial fat pad combined with overlying soft tissues. The lungs are clear.
--- NOTE | ~2024-06-17 | XR_ITS ---
Portable chest x-ray Comparison: 06/17/2024 Clinical History: Shortness of breath Findings: Mzfjr-jz-rhmxgodn left pleural effusion present, possibly partially loculated laterally. T here is probable mild interstitial edema. Cardiomediastinal silhouette is stable, with pacemaker dev ice. Bones and soft tissues are unremarkable. Impression: Grvqk-sm-tfqhqsxo left pleural effusion, possibly partially loculated laterally. Mild interstitial pulmonary edema. Pacemaker device. Reviewed, dictated and finalized at location M. TAILOR Impression: Lbxlx-fm-wftqivwe left pleural effusion, possibly partially loculated laterally . Mild interstitial pulmonary edema. Pacemaker device.
--- NOTE | ~2024-06-17 | XR_ITS ---
CHEST RADIOGRAPH CLINICAL HISTORY: dyspnea . COMPARISON: 06/11/2024 TECHNIQUE: Single portable view of the chest. FINDINGS The left upper lung is partially obscured due to AICD generator. Wires project over the right atrium, coronary sinus and right ventricle. Cardiomediastinal silhouette is partially obscured. Large left-sided pleural effusion is noted. The right hemithorax is clear. IMPRESSION: Large left-sided pleural effusion without focal infiltrate. Reviewed, dictated and finalized at location A. R AND BLENDER
--- NOTE | 2024-06-17 21:21 | ECG_ITS ---
Test Date: 2024-06-17 23:12:25 Measurements Intervals [place] Rate: 70 P: 73 GA: 182 QRS: 145 QRSD: 149 T: 60 QT: 458 QTc: 495 Interpretive Statements ATRIAL SENSE- ELECTRONIC VENTRICULAR PACEMAKER BASELINE ARTIFACT- I, AVL, AVF ATYPICAL ECG Compared to ECG 06/11/2024 15:56:51 No significant changes Electronically Signed On 06-18-2024 06:24:30 [employer] by Dominic Avila D.O.
--- NOTE | 2024-06-17 21:27 | ED_ITS ---
HPI - SOB/Dyspnea General Chief Complaint: Shortness of Breath/Dyspnea <Alfredo Ruff PA-C - Last Filed: 06/18/24 02:22> Stated Complaint: SOB X 1 HOUR <Alfredo Ruff PA-C - Last Filed: 06/18/24 02:22> Time Seen by Provider: 06/17/24 21:13 <Alfredo Ruff PA-C - Last Filed: 06/18/24 02:22> Source: patient <BETH Dong Last Filed: 06/18/24 02:22> Mode of arrival: ambulatory <BETH Dong Last Filed: 06/18/24 02:22> Limitations: no limitations <Alfredo Ruff PA-C - Last Filed: 06/18/24 02:22> History of Present Illness HPI Narrative: This is a 74-year-old female with PMH of COPD, CHF HLD, HTN, CAD, s/p cardiac defibrillator pacemaker who presents to the ED via EMS for chief complaint of shortness of breath over the past couple of days but worse tonight. Patient reports that she was just here in the hospital for COPD. She has been taking her antibiotics as prescribed. She is unsure of what her oxygen level is at home, however she arrives on 4 L nasal cannula. She is a poor historian. The when I ask about her oxygen requirement on home, she states ?I do not have any clue. ? States that she thinks she has been taking her inhalers and medications as prescribed. It was reported by EMS that she is on 4 L nasal cannula at home. Patient states that she has had increasing shortness of breath but cough has not increased. Denies fevers, chest pain, swelling, palpitations, abdominal pain, nausea, vomiting. <BETH Dong Last Filed: 06/18/24 02:22> Related Data Home Medications: Home Medications ?Medication ?Instructions ?Recorded ?Confirmed ?Last Taken ?Type atorvastatin 20 mg tablet (Lipitor) 20 mg PO DAILY 04/03/19 06/18/24 06/17/24 History carvedilol 25 mg tablet 37.5 mg PO BID 04/03/19 06/18/24 06/17/24 History sacubitril 97 mg-valsartan 103 mg 1 tablet PO BID 04/03/19 06/18/24 02/15/23 09:00 History tablet (Entresto) sotalol 80 mg tablet 80 mg PO BID 04/03/19 06/18/24 06/17/24 History furosemide 20 mg tablet 20 mg PO BID PRN Edema 09/14/22 06/18/24 06/17/24 History aspirin 81 mg capsule 81 mg PO DAILY 01/04/24 06/18/24 06/17/24 History diphenhydramine 25 2 tablet PO HS PRN Insomnia 01/04/24 06/18/24 Unknown History mg-acetaminophen 500 mg tablet (Tylenol PM Extra Strength) fluticasone fur. 100 mcg-umeclid 1 inh inhalation DAILY 01/04/24 06/18/24 Unknown History 62.5 mcg-vilant 25 mcg inhalat.powder (Trelegy Ellipta) naproxen sodium 220 mg capsule 220 mg PO BID PRN pain 06/18/24 06/18/24 06/17/24 History (Aleve) naproxen sodium 220 mg capsule 220 mg PO Q8-12H PRN pain 06/18/24 06/18/24 Unknown History (Aleve) <Alfredo Ruff PA-C - Last Filed: 06/18/24 02:22> Allergies/Adverse Reactions: Allergies Allergy/AdvReac Type Severity Reaction Status Date / Time No Known Allergies Allergy Verified 06/18/24 08:51 <Alfredo Ruff PA-C - Last Filed: 06/18/24 02:22> Review of Systems 2 Review of Systems: All systems as dictated in HPI <Alfredo Ruff PA-C - Last Filed: 06/18/24 02:22> [facility] Past Medical History Medical History: Medical History H/O cardiac pacemaker COPD (chronic obstructive pulmonary disease) CHF (congestive heart failure) Hyperlipidemia Hypertension Arthritis <Alfredo Ruff PA-C - Last Filed: 06/18/24 02:22> Surgical History Surgical History: Surgical History No history of previous surgery <Alfredo Ruff PA-C - Last Filed: 06/18/24 02:22> Family History Family History: Family History Father Heart disease Mother Alzheimer disease Grandparent Diabetes mellitus <Alfredo Ruff PA-C - Last Filed: 06/18/24 02:22> Social History Social History: Social History Smoking packs per day: 0.5 Smoking cigarettes per day: 10.0 Years smoked: 60 Smoking pack-years: 30.00 Smoking status: Current every day smoker Tobacco type: cigarettes Second hand tobacco smoke exposure: Yes Alcohol intake: never Drinks per week: 14 Substance use: never Substance use type: does not use Do You Feel Safe in your Home?: Yes Lack of Transportation: YES Lack of Food: Often True Current Housing: I Have Housing Concerned About Future Housing: No Difficulty Paying Gas/Electric Bills: No Difficulty Paying for Meds: No Currently Unemployed: No Education: Associate Degree Difficulty w/ Childcare or Family Care: No Gender identity (if verbalized by the patient): Female Spiritual care concerns: No <BETH Dong Last Filed: 06/18/24 02:22> Exam 2 Narrative: GENERAL: Well-appearing, well-nourished, and in no acute distress. HEAD: Normocephalic, atraumatic. EYES: PERRLA and EOMI. ENT: Nares clear, no rhinorrhea or epistaxis. Mucous membranes moist. Oropharynx without tonsillar hypertrophy exudate or other lesions. NECK: Supple. No adenopathy or masses. CHEST: Sitting up in the bed, saturating 98% on 4 L nasal cannula. No overt respiratory distress. Mild adventitious breath sounds heard bilaterally, difficult to auscultate due to body habitus. HEART: Regular rate and rhythm. No murmur heard. Normal peripheral pulses. ABDOMEN: Soft, nontender, nondistended, normal active bowel sounds. MSK: Normal range of motion. No edema. SKIN: Warm, dry, no rash. NEURO: Alert and oriented x4. No focal deficits. PSYCH: Normal mood and affect. <Alfredo Ruff PA-C - Last Filed: 06/18/24 02:22> Course MAIL LIST PROCESSOR/PA Physician Supervision Available for consultation while patient in the ED but I did not personally examine them and was not directly involved in their care. <Elda Zayas MD - Last Filed: 06/19/24 06:01> Reevaluation(s) Reevaluation #1: Patient is feeling improved after the nebulized his but still feels congested in the central chest. On exam she does still have some mild wheezes bilaterally. <Alfredo Ruff PA-C - Last Filed: 06/18/24 02:22> Date: 06/18/24 <Alfredo Ruff PA-C - Last Filed: 06/18/24 02:22> Time: 00:22 <Alfredo Ruff PA-C - Last Filed: 06/18/24 02:22> Vital Signs Vital signs: Vital Signs Temperature 98.3 F 06/17/24 21:09 Pulse Rate 81 06/17/24 21:09 Respiratory Rate 19 06/17/24 21:09 Blood Pressure 102/62 06/17/24 21:09 Pulse Oximetry 97 06/17/24 21:09 Oxygen Delivery Nasal Cannula 06/17/24 21:09 Oxygen Flow Rate 4 06/17/24 21:09 Temperature 97.9 F 06/18/24 22:25 Pulse Rate 72 06/18/24 22:25 Respiratory Rate 16 06/18/24 22:25 Blood Pressure 123/56 L 06/18/24 22:25 Pulse Oximetry 94 06/18/24 22:25 Oxygen Delivery Nasal Cannula 06/18/24 21:43 Oxygen Flow Rate 4 06/18/24 21:43 <Alfredo Ruff PA-C - Last Filed: 06/18/24 02:22> Vital Signs Temperature 98.3 F 06/17/24 21:09 Pulse Rate 81 06/17/24 21:09 Respiratory Rate 19 06/17/24 21:09 Blood Pressure 102/62 06/17/24 21:09 Pulse Oximetry 97 06/17/24 21:09 Oxygen Delivery Nasal Cannula 06/17/24 21:09 Oxygen Flow Rate 4 06/17/24 21:09 Temperature 97.9 F 06/18/24 22:25 Pulse Rate 72 06/18/24 22:25 Respiratory Rate 16 06/18/24 22:25 Blood Pressure 123/56 L 06/18/24 22:25 Pulse Oximetry 94 06/18/24 22:25 Oxygen Delivery Nasal Cannula 06/18/24 21:43 Oxygen Flow Rate 4 06/18/24 21:43 <Elda Zayas MD - Last Filed: 06/19/24 06:01> MDM - SOB/Dyspnea MDM Narrative Medical decision making narrative: This is a 74-year-old female who presents to the ED for chief complaint of shortness of breath. Vitals on arrival show she is saturating at 97% on 4 L nasal cannula. It is reported that this is her baseline O2 requirement, however patient has no idea if this is true. EKG shows paced rhythm. Lab work showing elevated white count of 14.6. ABG remarkable for elevated CO2 of 60.2, however pH is normal and bicarb is slightly high as well. CMP showing mildly hyponatremic with a sodium of 130, hypochloremia of 91. BNP only slightly elevated at 250. Initially chest x-ray was showing possible sign of left-sided pleural effusion. Differential including COPD exacerbation, pulmonary embolus, pneumonia, CHF exacerbation, although COPD exacerbation seems most likely. Patient was started on Solu-Medrol, several DuoNeb treatments. With the chest x-ray findings, did start on 40 mg of Lasix in case due to more volume overload. Chest CTA: IMPRESSION: No pulmonary embolus. No thoracic aortic dissection. Findings suggestive of right heart dysfunction, as detailed above. The large left-sided pleural effusion suspected on plain film evaluation corresponds to a large pericardial fat pad combined with overlying soft tissues. The lungs are clear.. Given that there are no signs of major fluid overload on the CTA chest, it would. More likely that this is a COPD exacerbation. Doubt the patient is very compliant with any of her med/inhalers given that she is a poor historian. She is doing better nebulizer treatments here, however she still feels congested and requested to stay in the hospital. Discussed the case with hospitalist who agrees to admit the patient to medical floor. <Alfredo Ruff PA-C - Last Filed: 06/18/24 02:22> Differential Diagnosis Differential diagnosis: Likely acute exacerbation of chronic obstructive airways disease, congestive heart failure, community acquired pneumonia, asthma with exacerbation and pulmonary embolism <Alfredo Ruff PA-C - Last Filed: 06/18/24 02:22> Lab Data Result diagrams: 06/17/24 21:38 06/17/24 21:38 <Alfredo Ruff PA-C - Last Filed: 06/18/24 02:22> Labs: Lab Results 06/17/24 06/17/24 06/18/24 Range/Units 21:38 21:57 00:21 WBC 14.6 H (4.5-10.0) K/mm3 RBC 4.14 L (4.2-5.4) M/mm3 Hgb 13.6 (12.0-15.0) g/dL Hct 41.9 (37.0-47.0) % MCV 101.2 H (80-100) fl MCH 32.9 (26-34) pg MCHC 32.5 (32-36) g/dl RDW 11.9 (11.5-14.5) % Plt Count 179 (150-375) k/mm3 MPV 9.2 (7.4-10.4) fl Immature Gran % (Auto) 0.7 H (0-0.5) % Neut % (Auto) 80.0 H (45.5-73.1) % Lymph % (Auto) 10.7 L (18.3-44.2) % Carter % (Auto) 6.7 (2.6-8.5) % Eos % (Auto) 1.6 (0-4.4) % Baso % (Auto) 0.3 (0.2-1.2) % Lymph # (Auto) 1.56 (0.9-3.2) K/mm3 Carter # (Auto) 1.0 H (0.1-0.6) K/mm3 Eos # (Auto) 0.2 (0-0.3) K/mm3 Baso # (Auto) 0.1 (0.0-0.1) K/mm3 Abs Immat Gran (auto) 0.10 H (0.00-0.031) K/mm3 Absolute Neuts (auto) 11.7 H (1.3-6.7) K/mm3 Absolute Nucleated RBC 0.000 (0.0-0.012) K/mm3 Nucleated RBC % 0.0 (0.0-0.2) % PT 14.2 (11.1-14.7) Seconds INR 1.1 APTT 22.8 (22.3-36.8) Seconds Sodium 130 L (137-145) mmol/L Potassium 4.3 (3.4-5.0) mmol/L Chloride 91 L (98-107) mmol/L Carbon Dioxide 33 H (22-30) mmol/L Anion Gap 6 (4-12) mmol/L BUN 17 (7-17) mg/dL Creatinine 0.54 L (0.7-1.0) mg/dL Estim Creat Clear Calc 89 ml/min Estimated GFR > 60 (59 - ) Glucose 156 H (65-110) mg/dL Lactic Acid 1.9 (0.7-2.0) mmol/L Calcium 8.9 (8.4-10.2) mg/dL Magnesium 1.9 (1.6-2.3) mg/dL Total Bilirubin 0.8 (0.2-1.3) mg/dL AST 23 (14-36) U/L ALT 22 (6-35) U/L Alkaline Phosphatase 71 (38-126) U/L Troponin I < 0.012 (0.000-0.034) ng/mL NT-Pro-B Natriuret Pep 250 H (19.9-100) pg/mL Total Protein 6.0 L (6.3-8.2) g/dL Albumin 3.6 (3.5-5.1) g/dL Urine Color Yellow (Yellow) Urine Appearance Clear (Clear) Urine pH 6.5 (5.0-9.0) Ur Specific [place] 1.041 H (1.001-1.035) Urine Protein Negative (Negative) mg/dL Urine Glucose (UA) Negative (Negative) mg/dL Urine Ketones Negative (Negative) mg/dL Ur Blood (Man) Negative (Negative) Urine Nitrate Negative (Negative) Urine Bilirubin Negative (Negative) Urine Urobilinogen 2.0 H (<2.0) mg/dL Leukocyte Esterase Rfl Negative (Negative) HUMBERTO/UL Influenza A (RT-PCR) Negative (Negative) Influenza B (RT-PCR) Negative (Negative) RSV (RT-PCR) Negative (Negative) SARS-CoV-2 RNA (RT-PCR) Negative (Negative) <Alfredo Ruff PA-C - Last Filed: 06/18/24 02:22> Lab Results 06/17/24 06/17/24 06/18/24 Range/Units 21:38 21:57 00:21 WBC 14.6 H (4.5-10.0) K/mm3 RBC 4.14 L (4.2-5.4) M/mm3 Hgb 13.6 (12.0-15.0) g/dL Hct 41.9 (37.0-47.0) % MCV 101.2 H (80-100) fl MCH 32.9 (26-34) pg MCHC 32.5 (32-36) g/dl RDW 11.9 (11.5-14.5) % Plt Count 179 (150-375) k/mm3 MPV 9.2 (7.4-10.4) fl Immature Gran % (Auto) 0.7 H (0-0.5) % Neut % (Auto) 80.0 H (45.5-73.1) % Lymph % (Auto) 10.7 L (18.3-44.2) % Carter % (Auto) 6.7 (2.6-8.5) % Eos % (Auto) 1.6 (0-4.4) % Baso % (Auto) 0.3 (0.2-1.2) % Lymph # (Auto) 1.56 (0.9-3.2) K/mm3 Carter # (Auto) 1.0 H (0.1-0.6) K/mm3 Eos # (Auto) 0.2 (0-0.3) K/mm3 Baso # (Auto) 0.1 (0.0-0.1) K/mm3 Abs Immat Gran (auto) 0.10 H (0.00-0.031) K/mm3 Absolute Neuts (auto) 11.7 H (1.3-6.7) K/mm3 Absolute Nucleated RBC 0.000 (0.0-0.012) K/mm3 Nucleated RBC % 0.0 (0.0-0.2) % PT 14.2 (11.1-14.7) Seconds INR 1.1 APTT 22.8 (22.3-36.8) Seconds Sodium 130 L (137-145) mmol/L Potassium 4.3 (3.4-5.0) mmol/L Chloride 91 L (98-107) mmol/L Carbon Dioxide 33 H (22-30) mmol/L Anion Gap 6 (4-12) mmol/L BUN 17 (7-17) mg/dL Creatinine 0.54 L (0.7-1.0) mg/dL Estim Creat Clear Calc 89 ml/min Estimated GFR > 60 (59 - ) Glucose 156 H (65-110) mg/dL Lactic Acid 1.9 (0.7-2.0) mmol/L Calcium 8.9 (8.4-10.2) mg/dL Magnesium 1.9 (1.6-2.3) mg/dL Total Bilirubin 0.8 (0.2-1.3) mg/dL AST 23 (14-36) U/L ALT 22 (6-35) U/L Alkaline Phosphatase 71 (38-126) U/L Troponin I < 0.012 (0.000-0.034) ng/mL NT-Pro-B Natriuret Pep 250 H (19.9-100) pg/mL Total Protein 6.0 L (6.3-8.2) g/dL Albumin 3.6 (3.5-5.1) g/dL Urine Color Yellow (Yellow) Urine Appearance Clear (Clear) Urine pH 6.5 (5.0-9.0) Ur Specific [place] 1.041 H (1.001-1.035) Urine Protein Negative (Negative) mg/dL Urine Glucose (UA) Negative (Negative) mg/dL Urine Ketones Negative (Negative) mg/dL Ur Blood (Man) Negative (Negative) Urine Nitrate Negative (Negative) Urine Bilirubin Negative (Negative) Urine Urobilinogen 2.0 H (<2.0) mg/dL Leukocyte Esterase Rfl Negative (Negative) HUMBERTO/UL Influenza A (RT-PCR) Negative (Negative) Influenza B (RT-PCR) Negative (Negative) RSV (RT-PCR) Negative (Negative) SARS-CoV-2 RNA (RT-PCR) Negative (Negative) <Elda Zayas MD - Last Filed: 06/19/24 06:01> ABG Data ABG results: 06/17/24 21:50 Puncture Site Right radial ABG pH 7.359 ABG pCO2 60.2 H* ABG pO2 85.1 ABG PO2/FiO2 Ratio 2.13 ABG HCO3 33.2 H ABG O2 Saturation 95.8 ABG O2 Content 18.7 ABG Base Excess 5.7 A-a Gradient 130.9 Oxyhemoglobin 90.7 Total Hemoglobin 14.6 O2 Delivery Device Nasal cannula O2 Liters/Min 5.0 FiO2 40 <Alfredo Ruff PA-C - Last Filed: 06/18/24 02:22> 06/17/24 21:50 Puncture Site Right radial ABG pH 7.359 ABG pCO2 60.2 H* ABG pO2 85.1 ABG PO2/FiO2 Ratio 2.13 ABG HCO3 33.2 H ABG O2 Saturation 95.8 ABG O2 Content 18.7 ABG Base Excess 5.7 A-a Gradient 130.9 Oxyhemoglobin 90.7 Total Hemoglobin 14.6 O2 Delivery Device Nasal cannula O2 Liters/Min 5.0 FiO2 40 <Elda Zayas MD - Last Filed: 06/19/24 06:01> Discharge Plan Discharge Clinical Impression: COPD exacerbation <Alfredo Ruff PA-C - Last Filed: 06/18/24 02:22> Patient Disposition: Still a Patient <Alfredo Ruff PA-C - Last Filed: 06/18/24 02:22> Condition: Stable <Alfredo Ruff PA-C - Last Filed: 06/18/24 02:22>
[2024-06-17 21:47] LABS: Basophils Absolute Auto 0.1 K/mm3 (0.0-0.1); Basophils Percent Auto 0.3 % (0.2-1.2); Eosinophils Absolute Auto 0.2 K/mm3 (0-0.3); Eosinophils Percent Auto 1.6 % (0-4.4); Hematocrit 41.9 % (37.0-47.0); Hemoglobin 13.6 g/dL (12.0-15.0); Immature Granulocyte Percent A 0.7 % (0-0.5); Lymphocytes Absolute Auto 1.56 K/mm3 (0.9-3.2); Lymphocytes Percent Auto 10.7 % (18.3-44.2); Mean Corpuscular HGB Conc 32.5 g/dl (32-36); Mean Corpuscular Hemoglobin 32.9 pg (26-34); Mean Corpuscular Volume 101.2 fl (80-100); Mean Platelet Volume 9.2 fl (7.4-10.4); Monocytes Percent Auto 6.7 % (2.6-8.5); Neutrophils Absolute Auto 11.7 K/mm3 (1.3-6.7); Platelet Count Result 179 k/mm3 (150-375); Red Blood Count 4.14 M/mm3 (4.2-5.4); Red Cell Distribution Width 11.9 % (11.5-14.5); White Blood Count 14.6 K/mm3 (4.5-10.0)
[2024-06-17 22:00] LABS: INR 1.1; Prothrombin Time 14.2 Seconds (11.1-14.7)
[2024-06-17 22:01] LABS: Partial Thromboplastin Time 22.8 Seconds (22.3-36.8)
[2024-06-17 22:02] LABS: Alanine Aminotransferase 22 U/L (6-35); Albumin Level 3.6 g/dL (3.5-5.1); Alkaline Phosphatase 71 U/L (38-126); Anion Gap 6 mmol/L (4-12); Aspartate Amino Transferase 23 U/L (14-36); Bilirubin,Total 0.8 mg/dL (0.2-1.3); Blood Urea Nitrogen 17 mg/dL (7-17); Calcium 8.9 mg/dL (8.4-10.2); Carbon Dioxide 33 mmol/L (22-30); Chloride 91 mmol/L (98-107); Estimated CRCL calculation 89 ml/min; Estimated Glomerular Filt Rate > 60; Glucose 156 mg/dL (65-110); Magnesium 1.9 mg/dL (1.6-2.3); Potassium 4.3 mmol/L (3.4-5.0); Sodium 130 mmol/L (137-145)
[2024-06-17 22:03] LABS: Lactic Acid Reflex 1.9 mmol/L (0.7-2.0)
[2024-06-17 22:04] LABS: Alveolar/Arterial O2 Gradient 130.9 mmHg; Base Excess ABG 5.7 mEq/l (+/-2.0); Fractional Inspired Oxygen 40 %; HCO3 ABG 33.2 mEq/l (22.0-26.0); Oxygen Content ABG 18.7 %vol (16.0-22.0); Oxygen Saturation ABG 95.8 % (95.0-100.0); Oxyhemoglobin 90.7 % THb (90.0-100.0); PO2 ABG 85.1 mmHg (80.0-100.0); PO2 FiO2 Ratio Arterial Blood 2.13 %; Total Hemoglobin 14.6 g/dL (12.0-18.0); pH ABG 7.359 (7.350-7.450)
[2024-06-17 22:06] LABS: Device NASAL CANNULA; Modified Allen's Test Pass; PCO2 ABG 60.2 mmHg (35.0-45.0); Site Drawn RIGHT RADIAL
[2024-06-17] MEDS: methylPREDNISolone SOD SUCC 125 MG VIAL IV PUSH (22:08)
[2024-06-17 22:13] LABS: NT Pro B Type Natriuretic Pept 250 pg/mL (19.9-100); Troponin I < 0.012 ng/mL (0.000-0.034)
[2024-06-17] MEDS: IPRATROPIUM 0.5 MG/ALBUTEROL SULFATE 2.5 MG AMPUL.NEB 3 ML INHALATION ×3 (22:13)
[2024-06-17 22:38] LABS: Influenza A QL RT-PCR Negative (Negative); Influenza B QL RT-PCR Negative (Negative); RSV RNA, RT-PCR Negative (Negative); SARS-CoV-2 RNA PCR Negative (Negative)
--- OUTSIDE RECORDS SUMMARY | 2024-06-17 22:39 | XMS_ITS | CONTINUITY OF CARE DOCUMENT ---
Author Name gibson arreaga Address Unknown Organization [facility] Address [address] [place] [address] Phone [phone] Care Team Providers Care Furniture Lumber Production Worker Name Role Phone gibson arreaga Unavailable Unavailable
--- OUTSIDE RECORDS SUMMARY | 2024-06-17 22:39 | XMS_ITS | Encounter Summary ---
Author Organization [facility] Medical [facility] Address [address] [place] [address] Care Team Providers Care Retort Press Operator Name Role Phone Zak Rehman MD Primary Care Provider + [phone] Temitope Castano MD, Venita Ku Primary Care Provider [phone] Zak Rehman MD Primary Care Provider + [phone] Temitope Castano MD, Venita Ku Primary Care Provider [phone] No, Physician Primary Care Provider [phone] Live Gutierrez MD Unavailable + [phone] Padmini Arias MD Primary Care Provider [phone] Encounter Details Date Type Department Care Team (Late st Contact Info) Description 07/20/2016 Orders Only Arrhythmia Center Provider, MD [facility] [place] [address] Social History Tobacco Use Types Packs/Day Years Used Date Smoking Tobacco: Heavy Smoker Comments:Smoking History Pac ks/day: 0.5 Packs Alcohol Use Standard Drinks/Week Comments Yes 0 (1 standard drink = 0.6 oz pur e alcohol) Comments Unknown Sex and Gender Information Value Date Recorded Sex Assigned at Not on file Legal Sex Female 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 EXPERT Gender Identity Not on file Sexual Orientation [...] documented as of this encounter Care Teams Retort Press Operator Relationship Specialty Start Date End Date Zak Rehman MD [address] [facility] [address] [place] [address] PCP - General 08/10/16 03/18/17 Venita Linn Jr., MD [address] [facility] [address] [place] [address] PCP - General 07/27/16 08/09/16 Zak Rehman MD [address] [facility] [address] [place] [address] PCP - General 10/30/11 07/26/16 Venita Linn Jr., MD [address] [facility] [address] [place] [address] PCP - General Endocrinology Diabetes & Metabolism 03/19/17 08/06/20 No, Physician PCP - General 08/07/20 03/06/23 Padmini Arias MD [address] [place] [address] PCP - General Family Medicine 03/07/23 Live Gutierrez MD [address] [place] [address] Consulting Physician Cardiology 08/10/20 documented as of this encounter
--- OUTSIDE RECORDS SUMMARY | 2024-06-17 22:39 | XMS_ITS | Encounter Summary ---
Author Organization [facility] Medical [facility] Address [address] [address] [place] [address] Care Team Providers Care Assistant Foreman Name Role Phone Zak Rehman MD Primary Care Provider + [phone] Temitope Castano MD, Venita Ku Primary Care Provider [phone] Zak Rehman MD Primary Care Provider + [phone] Temitope Castano MD, Venita Ku Primary Care Provider [phone] No, Physician Primary Care Provider [phone] Live Gutierrez MD Unavailable + [phone] Padmini Arias MD Primary Care Provider [phone] Encounter Details Date Type Department Care Team (Late st Contact Info) Description 07/11/2016 Orders Only Arrhythmia Center Provider, MD [facility] [place] [address] Social History Tobacco Use Types Packs/Day Years Used Date Smoking Tobacco: Heavy Smoker Comments:Smoking History Pac ks/day: 0.5 Packs Alcohol Use Standard Drinks/Week Comments Yes 0 (1 standard drink = 0.6 oz pur e alcohol) Comments Unknown Sex and Gender Information Value Date Recorded Sex Assigned at Not on file Legal Sex Female 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 DRIVER Gender Identity Not on file Sexual Orientation [...] documented as of this encounter Care Teams Assistant Foreman Relationship Specialty Start Date End Date Zak Rehman MD [address] [facility] [address] [address] [place] [address] PCP - General 08/10/16 03/18/17 Venita Linn Jr., MD [address] [facility] [address] [address] [place] [address] PCP - General 07/27/16 08/09/16 Zak Rehman MD [address] [facility] [address] [place] [address] PCP - General 10/30/11 07/26/16 Venita Linn Jr., MD [address] [place] [address] [address] [place] [address] PCP - General Endocrinology Diabetes & Metabolism 03/19/17 08/06/20 No, Physician PCP - General 08/07/20 03/06/23 Padmini Arias MD [address] [facility] [address] [place] [address] PCP - General Family Medicine 03/07/23 Live Gutierrez MD [address] [place] [address] Consulting Physician Cardiology 08/10/20 documented as of this encounter
--- OUTSIDE RECORDS SUMMARY | 2024-06-17 22:39 | XMS_ITS | Data Portability ---
Author Organization [facility] Address [address] [place] [address] Assessment Encounter Date Assessment Date Assessment LastModified [...] Organization Details Last Modified Time Details Appointments ANY 30 2024 02:30P M Julia Haas MD Not available Not available Not available Lab CBC w/ auto diff 2022 023 [facility], [address] [place] [address], [address], [place], [address], 03/27/2023 06:18:15 noninvasi ve colorecta l cancer DNA + occult blood screening , QL, stool 2022 023 [facility] (Cologuard Orders Only), [address], [address], [place], [address], 03/25/2024 09:41:36 Referral None recorded. Procedures None recorded. Surgeries None recorded. Imaging LDCT, chest, for lung cancer screening 2022 023 [email or web address], [address] [place], [address], 06/24/2023 16:16:14 DEXA 2022 023 [facility], [address] [place], [address], 03/28/2023 08:40:34 Medication Orders None recorded. Patient TargetsNo targets recorded. Patient Instructions Encounter Date Encounter Id Patient Instructions Last Modified By Organization Details Last Modified Time 03/26/2023 [id number] Attending Physician Attestation I personally saw and [...] Order d not applic able Not Available [facility] (Cologuard Orders Only) [address], [place], [address], 03/25/2024 09:41:36 03/26/20 23 03/26/2023 CBC WITH DIFFE RENTI AL/PL ATELE T WBC 12.0 x10e3 /uL 3.4-10 .8 above high normal Not Available [facility] Department [address] [place], [address], 03/27/2023 06:18:15 03/26/2003/26/2023 CBC WITH DIFFE RENTI AL/PL ATELE T RBC 4.46 x10e6 /uL 3.77-5 .28 Not Available [facility] Department [address] [place], [address], 03/27/2023 06:18:15 03/26/20 23 03/26/2023 CBC WITH DIFFE RENTI AL/PL ATELE T hemoglobin 14.4 g/dL 11.1-1 5.9 Not Available [facility] Department [address] [place], [address], 03/27/2023 06:18:15 03/26/2003/26/2023 CBC WITH DIFFE RENTI AL/PL ATELE T hematocrit 43.9 % 34.0-4 6.6 Not Available [facility] Department [address] [place], [address], 03/27/2023 06:18:15 03/26/2003/26/2023 CBC WITH DIFFE RENTI AL/PL ATELE T MCV 98 fL 79-97 above high normal Not Available [facility] Department [address] [place], [address], 03/27/2023 06:18:15 03/26/2003/26/2023 CBC WITH DIFFE RENTI AL/PL ATELE T MCH 32.3 pg 26.6-3 3.0 Not Available [facility] Department [address] [place], [address], 03/27/2023 06:18:15 03/26/2003/26/2023 CBC WITH DIFFE RENTI AL/PL ATELE T MCHC 32.8 g/dL 31.5-3 5.7 Not Available [facility] Department [address] [place], [address], 03/27/2023 06:18:15 03/26/2003/26/2023 CBC WITH DIFFE RENTI AL/PL ATELE T RDW 11.6 % 11.5-1 4.5 Not Available [facility] Department [address] [place], [address], 03/27/2023 06:18:15 03/26/2003/26/2023 CBC WITH DIFFE RENTI AL/PL ATELE T platelets 238 x10e3 /uL 150-45 0 Not Available [facility] Department [address] [place], [address], 03/27/2023 06:18:15 03/26/20 23 03/26/2023 CBC WITH DIFFE RENTI AL/PL ATELE T neutrophils 73 % notest b. Not Available [facility] Department [address] [place], [address], 03/27/2023 06:18:15 03/26/20 23 03/26/2023 CBC WITH DIFFE RENTI AL/PL ATELE T lymphs 17 % notest b. Not Available [facility] Department [address] [place], [address], 03/27/2023 06:18:15 03/26/2003/26/2023 CBC WITH DIFFE RENTI AL/PL ATELE T monocytes 8 % notest b. Not Available [facility] Department [address] [place], [address], 03/27/2023 06:18:15 03/26/20 23 03/26/2023 CBC WITH DIFFE RENTI AL/PL ATELE T eos 1 % notest b. Not Available [facility] Department [address] [place], [address], 03/27/2023 06:18:15 03/26/20 23 03/26/2023 CBC WITH DIFFE RENTI AL/PL ATELE T basos 0 % notest b. Not Available [facility] Department [address] [place], [address], 03/27/2023 06:18:15 03/26/20 23 03/26/2023 CBC WITH DIFFE RENTI AL/PL ATELE T neutrophils (absolute) 8.8 x10e3 /uL 1.4-7. 0 above high normal Not Available [facility] Department [address] [place], [address], 03/27/2023 06:18:15 03/26/20 23 03/26/2023 CBC WITH DIFFE RENTI AL/PL ATELE T lymphs (absolute) 2.1 x10e3 /uL 0.7-3. 1 Not Available [facility] Department [address] [place], [address], 03/27/2023 06:18:15 03/26/2003/26/2023 CBC WITH DIFFE RENTI AL/PL ATELE T monocytes(ab solute) 0.9 x10e3 /uL 0.1-0. 9 Not Available [facility] Department [address] [place], [address], 03/27/2023 06:18:15 03/26/2003/26/2023 CBC WITH DIFFE RENTI AL/PL ATELE T eos (absolute) 0.1 x10e3 /uL 0.0-0. 4 Not Available [facility] Department [address] [place], [address], 03/27/2023 06:18:15 03/26/2003/26/2023 CBC WITH DIFFE RENTI AL/PL ATELE T baso (absolute) 0.1 x10e3 /uL 0.0-0. 2 Not Available [facility] Department [address] [place], [address], 03/27/2023 06:18:15 03/26/2003/26/2023 CBC WITH DIFFE RENTI AL/PL ATELE T immature granulocytes 0.5 % notest b. Not Available [facility] Department [address] [place], [address], 03/27/2023 06:18:15 03/26/2003/26/2023 CBC WITH DIFFE RENTI AL/PL ATELE T immature grans (abs) 0.1 x10e3 /uL 0.0-0. 1 Not Available [facility] Department [address] [place], [address], 03/27/2023 06:18:15 03/26/20 23 03/26/2023 CBC WITH DIFFE RENTI AL/PL ATELE T NRBC 0 % 0-0 Not Available [facility] Department [address] [place], [address], 03/27/2023 06:18:15 03/26/2003/13/2023 XR, ribs, unila teral , w/ PA chest No observ ation record ed. [address] [place], [address], 04/02/2023 17:28:31 03/26/20 23 08/08/2020 trans -thor acic echoc ardio gram (TTE) (PROC ) No observ ation record ed. [email or web address] [address] [place], [address], 2023 13:39:06 03/26/20 23 03/05/2023 CT, chest , w/ contr ast No observ ation record ed. [address] [place], [address], 04/02/2023 17:27:05 Result Notes None recorded. Problems Name Problem SNOMED Code Status Onset Date Resolution Date Notes Provider Name and Address Organization Details Recorded Time Hypertensive disorder 42949780 Active 2022 Padmini Arias MD Attn: Mima acuna,[address] [place], [address], [facility] 3 19:39:00 Dilated cardiomyopathy 130457346 Active 2022 Padmini Arias MD Attn: Mima acuna,[address] [facility], [place], [address], [facility] 3 19:41:15 Hyperlipidemia 99422167 Active 2022 Padmini Arias MD Attn: Mima acuna,[address] [facility], [place], [address], [facility] 3 19:42:50 Peripheral edema 353947305 Active 2022 Padmini Arias MD Attn: Mima acuna,[address] [facility], [place], [address], [facility] 19:47:20 Problem Notes None recorded. Procedures Surgical History None recorded. Imaging Results Imaging Date Name Status LastModified by Organization Details LastModified Time 03/13/2023 XR, ribs, unilateral, w/ PA chest completed [facility] [address] [place], [address], 04/02/2023 17:28:31 08/08/2020 trans-thoracic echocardiogram (TTE) (PROC) completed [email or web address] [address] [place], [address], 2023 13:39:06 03/05/2023 CT, chest, w/ contrast completed [address] [place], [address], 04/02/2023 17:27:05 Procedure Notes None recorded. Medical [...] ot Available Vitals Date Recorded Body height Body mass index (BMI) Body weight Heart rate Body temperature Respiratory rate Systolic blood pressure Diastolic blood pressure Provider Name and Address Organization Details Last Updated DateTime 165.1 cm 33 kg/m2 02049.6 4 g 75 /min 98.1 [degF] 16 /min 107 mm[Hg] 66 mm[Hg] Lesly Garcia MA [facility] 15:46:28 Social History Question Answer Notes LastModified by Organizat ion Details LastModified Time Tobacco Smoking Status Current Every Day Smoker Lesly Garcia MA null, [facility] 03/26/2023 15:48:21 What Is Your Level Of [...] Paternal Grandmother Diabetes mellitus [email or web address] Not available 11/14 /2023 15:47:50 Medical History No medical history recorded. Gynecological HistoryNo gynecological history recorded. Obstetrics History GPAL:G 0 P 0 0 0 0 Immunizations Vaccine Type Date Status Note Provider Nam e and Address Organization Details Recorded Time Influenza, high-dose, quadrivalent, PF 3 completed SUSIE GARCIA MD Attn: Accounting,[address] [place], [place], [address] [place] [address], [place] [facility] 04/02/2023 11:51:40 COVID-19, mRNA, LNP-S, PF, 30 mcg/0.3 mL dose 1 completed SUSIE GARCIA MD Attn: Accounting[address] [place], [address] [place] [address], [place] [facility] 04/02/2023 11:51:40 COVID-19, mRNA, LNP-S, PF, 30 mcg/0.3 mL dose 1 completed SUSIE GARCIA MD Attn: Accounting,[address] [place], [address] [place] [address], [place] [facility] 04/02/2023 11:51:40 Pneumococcal conjugate PCV20, polysaccharide [id number] conjugate, adjuvant, PF 3 completed SUSIE GARCIA MD Attn: Accounting,[address] [place], [address] [place] [address], [place] [facility] 04/02/2023 11:50:43 COVID-19, mRNA, LNP-S, PF, 50 mcg/0.5 mL 3 completed SUSIE GARCIA MD Attn: Accounting,[address] [place], [address] [place] [address], [place] [facility] 04/02/2023 11:50:43 Past Encounters Encounter ID Performer Location Encounter Start Date Encounter Closed Date Diagnosis/Indication Diagnosis SNOMED-CT Code Diagnosis ICD10 Code Diagnosis Note [id number] MD Abdias PACKER 14 IM [address] [facility] [address] [place] [address] 03/26/2023 14:57:42 04/11/2023 10:31:17 Screening for malignant neoplasm of colon 121980320 Z12.11 - pt with no personal or family hx of colon cancer and no blood in stool or other alarm symptoms such as change in stool caliber- last cologuard 6 years ago- overdue for next screening, declined colonoscop y- cologuard ordered Screening for malignant neoplasm of respiratory tract 007995946 Z12.2 - pt has a 45+ pack [...] for any signs of malignancy Immunization due 1655586 08 Z28.39 - patient has known airway disease- educated patient on need to be up to date on vaccines that affect respirator y system- pt agreed to pneumonia and covid vaccines which were administer ed, had flu vaccine on 03/08/23 Screening for osteoporosis 798748065 Z13.820 - pt has never had a DEXA screen- no history of falls or breaks- per USPTF guidelines it is a recommende d screening for her- patient agreed and referral was placed today Peripheral edema 5208180 00 R60.9 see A&P of dilated cardiomyop athy Dilated cardiomyopathy 418484407 I42.0 - dilated cardiomyop athy with ventricula r fibrillati on, status post ICD in 03/22 with upgrade to biventricu lar ICD in 03/29. Catheteriz ation in 03/22 showed ejection fraction 30% with moderate right coronary artery disease- sees with cardiologi st, who prescribed lasix 20mg- lungs clear on physical exam and denies SOB or chest pressure, has 2+ non-pittin g edema to base of right garcia and very mild swelling in left foot- advised pt to increase lasix to 20mg bid- will follow up in 1mo time Health Concerns Section Related Observation LastModified by Organization Luzmaria ls LastModified Time None Recorded Concern Status LastModified by Organization Details LastModified Time None Recorded Advance Directives Directive None Recorded Payers Encounter Date Sequence Insurance Name Policy Number Policy Perdomo Covered Member ID Perdomo Member ID Guarantor Name 03/26/2023 1 [facility] (MEDICARE REPLACEMENT HMO) Stephanie He [id number] 1 Stephanie He Notes Date Note Type [...] Is on 20mg lasix daily. Screening:ObGyn Hx [id number] Pap last one was normal unsure whenMammogram [...] patient. SUSIE GARCIA MD Attn: Accounting,[address] [facility], [place], [address], [facility] 04/02/2023 11:52:06 OBGyn Episode No OBEpisode recorded.
--- OUTSIDE RECORDS SUMMARY | 2024-06-17 22:39 | XMS_ITS | Encounter Summary ---
Author Organization [facility] Address [address] [address] Care Team Providers Care Auxiliary Equipment Operator Name Role Phone Zak Rehman MD Primary Care Provider [phone] Temitope Castano MD, Venita Ku Primary Care Provider [phone] Zak Rehman MD Primary Care Provider + [phone] Temitope Castano MD, Venita Ku Primary Care Provider [phone] No, Physician Primary Care Provider [phone] Live Gutierrez MD Unavailable [phone] Padmini Arias MD Primary Care Provider [phone] Encounter Details Date Type Department Care Team (Latest Contact Info) Description 07/02/2016 Orders Only [facility] [place] ProviderOvidio MD [address] [place] [address] Social History Tobacco Use Types Packs/Day Years Used Date Smoking Tobacco: Heavy Smoker Comments:Smoking History Pac ks/day: 0.5 Packs Alcohol Use Standard Drinks/Week Comments Yes 0 (1 standard drink = 0.6 oz pur e alcohol) Comments Unknown Sex and Gender Information Value Date Recorded Sex Assigned at Not on file Legal 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 Gender Identity Not on file Sexual Orientation [...] documented as of this encounter Care Teams Auxiliary Equipment Operator Relationship Specialty Start Date End Date Zak Rehman MD [address] [place] [address] PCP - General 08/10/16 03/18/17 Venita Linn Jr., MD [address] [place] [address] PCP - General 07/27/16 08/09/16 Zak Rehman MD [address] [place] [address] PCP - General 10/30/11 07/26/16 Venita Linn Jr., MD [address] [place] [address] [address] [place] [address] PCP - General Endocrinology Diabetes & Metabolism 03/19/17 08/06/20 No, Physician PCP - General 08/07/20 03/06/23 Padmini Arias MD [address] [facility] [address] [place] [address] PCP - General Family Medicine 03/07/23 Live Gutierrez MD [address] [place] [address] Consulting Physician Cardiology 08/10/20 documented as of this encounter
--- OUTSIDE RECORDS SUMMARY | 2024-06-17 22:39 | XMS_ITS | Clinical Summary ---
Author Organization [facility] [employer] Address [address] [facility] [place] [address] Care Team Providers Care Wad Impregnator Name Role Phone Temitope Castano MD, Venita Land Primary Care Provider [phone] Elana Hess RN Unavailable [phone] Source Comments [facility] [employer],non-owned Affiliates and Associated Physician Practices is amultiple site organization consisting of ambulatory clinics and hospital sitesin [place], [place], [place] and [place]. This disclosure is being madepursuant to the Care Everywhere program and may not contain all information available regarding this patient. Last updated 18.[facility] [employer] Allergies No known active allergies Medications * [...] Family History Medical History Relation Name Comments [place] Father Alzheimer's Disease Mother Relation Name Status Comments Father (Age 47) [place] Mother (Age 81) Alzheimers Social History Tobacco [...] Comments Blood Pressure 120/70 05/08/2017 2:06 PM MANAGER CRISIS Pulse 80 05/08/2017 1:57 PM MANAGER CRISIS Temperature 36.7 C (98.1 F) 04/18/2014 5:25 AM MANAGER CRISIS Respiratory Rate 18 05/08/2017 1:57 PM MANAGER CRISIS Oxygen Saturation 95% 04/18/2014 5:25 AM MANAGER CRISIS Inhaled Oxygen Concentration - - Weight 84 kg (185 lb 3.2 oz) 05/08/2017 1:57 PM MANAGER CRISIS Height 162.6 cm (5' 4 ) 05/08/2017 1:57 PM MANAGER CRISIS Body Mass Index 31.79 05/08/2017 1:57 PM MANAGER CRISIS Plan of Treatment Health Maintenance Due Date [...] 09/13/2014, 04/27/2014, Additional history exists MEDICARE AWV 12 MONTHS 05/08/2018 05/08/2017 COLONOSCOPY - COLON [...] COMPREHENSIVE METABOLIC PANEL Routine 04/06/2015 1:11 PM MANAGER CRISIS Hyponatremia Malaise and fatigue from Last 3 Months or Most Recently Relevant to Health Maintenance Results * (ABNORMAL) COMPREHENSIVE METABOLIC PANEL (04/06/2015 1:11 PM MANAGER CRISIS) Glucose 129(H) 65 - 99 mg/dL [facility] Comment: Fasting reference interval BUN 5(L) 7 - 25 mg/dL [facility] Creatinine 0.47(L) 0.50 - 0.99 mg/dL [facility] Comment: For patients >49 years of age, the reference limit for Creatinine is approximately 13% higher for people identified as -[place]. eGFR by MDRD 105 > OR = [...] 29 U/L [facility] Comment: Test Performed at: [facility] [place] [id number] [place] [address] [place] [address] SALENA TRIANA DO,MPH Blood specimen (specimen) BLOOD SPECIMEN / Unknown 04/06/2015 1:11 PM MANAGER CRISIS 04/06/2015 1:11 PM MANAGER CRISIS Venita Linn Jr., MD LAB - CHEMISTRY ORD ERABLES [facility] [address] [place] [address] from Last 3 Months or Most Recently Relevant to Health Maintenance Advance Directives * Full Code (Latest Code Status on File) Date Activated Date Inactivated Comments 04/15/2014 3:17 PM 04/18/2014 11:49 AM Care Teams Wad Impregnator Relationship Specialty [place] [address] [facility] [address] [place] [address] PCP - General Internal Medicine 04/05/10 [place] [address] [facility] [address] [place] [address] Auto Damage Adjuster 04/16/14
--- OUTSIDE RECORDS SUMMARY | 2024-06-17 22:40 | XMS_ITS | Clinical Summary ---
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
--- OUTSIDE RECORDS SUMMARY | 2024-06-17 22:40 | XMS_ITS | Encounter Summary ---
Author Organization [facility] Address [address] [place] [address] Care Team Providers Care Roving Frame Tender Name Role Phone Temitope Castano MD, Venita Land Primary Care Provider [phone] Elana Hess RN Unavailable [phone] Live Gutierrez MD Unavailable [phone] Encounter Details Date Type Department Care Team (Late st Contact Info) Description 05/02/2014 [facility] Outpatient Visit [facility] - Family Medicine [id number] [place] [address] [address] [place] [address] [place] [address] [facility] [address] [place] [address] Social History Tobacco Use Types [...] on filedocumented in this encounter Care Teams Roving Frame Tender Relationship Specialty Start Date End Date Page, [place] [address] [facility] [address] [place] [address] PCP - General Internal Medicine 04/05/10 Live Gutierrez MD [address] [facility] [address] [place] [address] PCP - Attributed-MSSP 12/11/18 08/16/19 Elana Hess, NAYLA [address] [facility] [address] [place] [address] Radiology Special Procedure Tech 04/16/14 documented as of this encounter
--- OUTSIDE RECORDS SUMMARY | 2024-06-17 22:40 | XMS_ITS | Referral Summary ---
Author Organization [facility] Address [address] [place] [address] Care Team Providers Care Slot Shift Manager Name Role Phone Live Gutierrez MD Unavailable [phone] Padmini Arias MD Primary Care Provider [phone] Encounters Date Type Department Care Team Description 06/10/2024 Telephone [facility] Cardiology [address] [facility] [address] [address] Alexandru Robles MD Med Refill 05/11/2024 12:30 PM INSPECTOR TYPE Ancillary Procedure Arrhythmia Center [address] [facility] [address], [place] [address] Biventricular ICD (implantable cardioverter-defibrill ator) in place (Primary Dx); Dilated cardiomyopathy (CMS/HCC) (HCC) 05/01/2024 Telephone [facility] Cardiology [facility] [facility] [address] [address] Alexandru Robles MD from Last [...] 06/05/2017 Assessment & Plan (06/05/2017 6:51 PM INSPECTOR TYPE): Device check in office today with 99% [...] smoking. Assessment & Plan (07/15/2018 2:47 PM INSPECTOR TYPE): Blood pressure is well controlled. Continue same therapy. Continue diet and exercise. Assessment & Plan (06/05/2017 6:48 PM INSPECTOR TYPE): Blood pressure is elevated today. Will increase carvedilol to 37.5 mg twice daily. She will call in 2 weeks with update and if BP is still elevated will increase dose to 50 mg BID. Assessment & Plan (03/19/2017 11:16 AM INSPECTOR TYPE): Blood pressure is well controlled. Continue same [...] therapy. Assessment & Plan (07/15/2018 2:48 PM INSPECTOR TYPE): Lipids are well controlled. Continue statin therapy. Assessment & Plan (03/19/2017 11:16 AM INSPECTOR TYPE): Lipids are well controlled. Continue statin therapy. Coronary artery disease invo lving [place] coronary artery of [place] heart without angina pectoris 09/26/2013 Overview (12/12/2016): [...] smoking. Assessment & Plan (07/15/2018 2:46 PM INSPECTOR TYPE): Stable, moderate coronary disease without angina. Continue same therapy. Continue diet and exercise. Ventricular fibrillation 09/26/2013 Overview (12/12/2016): VENTRICULAR FIBRILLATION Assessment & Plan (12/11/2022 11:13 AM CDT): Stable status post ICD. Continue same therapy. Continue follow-up in the device Clinic. Assessment & Plan (01/12/2020 11:56 AM CDT): Stable, without recent episode. Continue same therapy. Assessment & Plan (07/15/2018 2:47 PM INSPECTOR TYPE): Stable, without recent episode. Continue same therapy. Continue follow-up in the device clinic regarding her defibrillator. Assessment & Plan (03/28/2017 10:58 AM INSPECTOR TYPE): 1. VT/VF. Symptomatic with need for device [...] failure Clinic. Will make appropriate arrangements for JUNIOR HIGH MATH TEACHER upgrade. Bronchitis 10/27/2010 Sinusitis 10/27/2010 Dilated cardiomyopathy [...] ICD. Assessment & Plan (07/15/2018 2:45 PM INSPECTOR TYPE): Stable, well compensated. I made no change in her excellent medical regimen today. I asked her follow up with me annually, or sooner if needed. I again advised her to diet and exercise regularly, and most importantly, to stop smoking completely. Assessment & Plan (03/19/2017 11:15 AM INSPECTOR TYPE): Stable, well compensated. I made no change [...] 12/12/201610/11 Assessment & Plan (06/05/2017 6:49 PM INSPECTOR TYPE): Quiet on sotalol 160 mg BID. Assessment [...] requests, we can proceed with upgrade to JUNIOR HIGH MATH TEACHER at any time. 5. Dual-chamber ICD. Satisfactory function. Plan 1. Sotalol 80 mg b.i.d. sotalol therapy will require ongoing monitoring 2. Continue follow-up in Heart failure Clinic 3. Follow-up arrhythmia Center to assess efficacy of sotalol and monitor therapy 4. Upgrade to JUNIOR HIGH MATH TEACHER remains an option Chronic systolic congestive heart failure ([facility]) 11/28/2016 12/10/2022 Assessment & Plan (06/05/2017 6:47 PM INSPECTOR TYPE): Ms. Justice presents with compensated NYHA Class [...] disease) Assessment & Plan (03/19/2017 11:15 AM INSPECTOR TYPE): Stable, without angina. Continue same therapy. Cardiac defibrillator in place 09/26/2013 10/24/2022 Overview (05/09/2017): Medtronic Amplia MRI Quad JUNIOR HIGH MATH TEACHER-D implanted 04/08/2017 + CS lead for ICM/CHF/VT. [...] drink = 0.6 oz pu re alcohol) [facility] Utilities Answer Date Recorded In the past 12 months has [employer], [employer], oil, or water [employer] threatened to shut off services in your [...] often do you attend chur ch or mandaeism services? Never 03/06/2023 Do you belong to any clubs o r organizations such as zoroastrianism groups, unions, fraternal or athletic groups, or [...] place to sleep or slept in a long-term (including now)? No 03/06/2023 Personal Safety Answer Date Recorded Have you ever been in or are you currently in a harmful physical or emotional relationship or is someone making you feel afraid or unsafe? Denies 03/13/2023 Comments No Sex and Gender Information Value Date Recorded Sex Assigned at Not on file Legal Sex Female 3:12 PM INSPECTOR TYPE Gender Identity Not on file Sexual Orientation Not on file Last Filed Vital Signs Vital Sign Reading Time Taken Comments Blood Pressure 133/68 03/13/2023 5:05 PM CDT Pulse 71 03/13/2023 5:05 PM CDT Temperature 36.2 C (97.1 F) 03/13/2023 5:05 PM CDT Respiratory Rate 16 03/13/2023 5:05 PM CDT [...] CHECK - REMOTE Routine 05/11/2024 7:50 AM INSPECTOR TYPE Dilated cardiomyopathy (CMS/HCC) (HCC) from Last 3 Months Results * DEVICE CHECK - REMOTE (05/11/2024 7:50 AM INSPECTOR TYPE) Anatomical Region Laterality Modality Other Narrative 05/16/2024 2:31 PM INSPECTOR TYPE Table formatting from the original result was not included. BiV ICD CHECK (REMOTE) Patient ID: Apryl Justice is a 74 y.o. female. This patient received a Medtronic BiV ICD. They had a routine remote transmission on 05/11/2024 Device implant indications: Nonischemic dilated cardiomyopathy Interrogation of the patient's device demonstrates the following: Presenting EGM: A sensed Bi V paced @ 60 bpm [...] Impedance N/A 62/87 ohms N/A Battery Status: 13 months to MICHELLE, charge time 4.4 seconds. Episodes last 90 days/Comments: AF [place] 0 %,longest duration 0. There were no treated ventricular arrhythmias noted on today's remote interrogation. NORMAL DEVICE FUNCTION PROGRAMMED MEDICATIONS: Anti-coagulant(s): Aspirin 81 mg daily Anti-arrhythmic(s): Sotalol 80 mg twice daily, Coreg 25 mg twice daily PLAN: 1) Medtronic BiV ICD evaluation 2) Medtronic remote transmission scheduled in 3 months. 3) Programming appropriate for device settings Sarath Rodriguez, RN Romaine Jane MD CV CARDIAC SERVICES PRO CEDURES Final Result from Last 3 Months Insurance MICHA PREFERRED MEDICARE MEDICARE AET SENIOR [facility] MEDICARE AETNA SENIOR SUPPLEMENT ANTHEM PREFERRED Advance Directives For more information, please contact: [phone] * Full Code (Latest Code Status on File) Date Activated Date Inactivated Comments 03/05/2023 9:49 PM 03/08/2023 5:35 PM * Full Code Date Activated Date Inactivated Comments 08/07/2020 8:26 PM 08/10/2020 4:03 PM Healthcare Agents on File Name Relationship Healthcare Agent Relationshi p Communication Renan Ruiz Health Care Agent Care Teams Slot Shift Manager Relationship Specialty Start Date End Date Padmini Arias MD [address] [place] [address] PCP - General Family Medicine 03/07/23 Live Gutierrez MD [address] [place] [address] Consulting Physician Cardiology 08/10/20
--- OUTSIDE RECORDS SUMMARY | 2024-06-17 22:40 | XMS_ITS | Patient Health Summary ---
Author Organization [facility] Address [address] [place] [address] Care Team Providers Care Mushroom Cultivator Name Role Phone Temitope Castano MD, Venita Land Primary Care Provider [phone] Elana Hess RN Unavailable [phone] Note from [facility],non-owned Affiliates and Associated Physician Practices is amultiple site organization consisting of ambulatory clinics and hospital sitesin [place], [place], [place] and [place]. This disclosure is being madepursuant to the Care Everywhere program and may not contain all information available regarding this patient. Last updated 18.[facility] Hang[employer] Allergies No known active allergies Medications * [...] Comments Blood Pressure 120/70 05/08/2017 2:06 PM WEBFOCUS DEVELOPER Pulse 80 05/08/2017 1:57 PM WEBFOCUS DEVELOPER Temperature 36.7 C (98.1 F) 04/18/2014 5:25 AM WEBFOCUS DEVELOPER Respiratory Rate 18 05/08/2017 1:57 PM WEBFOCUS DEVELOPER Oxygen Saturation 95% 04/18/2014 5:25 AM WEBFOCUS DEVELOPER Inhaled Oxygen Concentration - - Weight 84 kg (185 lb 3.2 oz) 05/08/2017 1:57 PM WEBFOCUS DEVELOPER Height 162.6 cm (5' 4 ) 05/08/2017 1:57 PM WEBFOCUS DEVELOPER Body Mass Index 31.79 05/08/2017 1:57 PM WEBFOCUS DEVELOPER Procedures * TSH(Performed 04/06/2015) Performed for Hyponatremia, [...] CBC W AUTO DIFFERENTIAL (04/06/2015 1:11 PM WEBFOCUS DEVELOPER) Only the most recent of3 resultswithin the time period is included. Pathologist [facility] White Blood Cell Count 8.0 3.8 - [...] 0.6 % [facility] Comment: Test Performed at: [facility] [address] [place] [address] SALENA TRIANA DO,MPH Blood specimen (specimen) BLOOD SPECIMEN / Unknown 04/06/2015 1:11 PM WEBFOCUS DEVELOPER 04/06/2015 1:11 PM WEBFOCUS DEVELOPER Venita Linn Jr., MD LAB - HEMATOLOGY OR DERABLES [facility] [address] [place] [address] * (ABNORMAL) COMPREHENSIVE METABOLIC PANEL (04/06/2015 1:11 PM WEBFOCUS DEVELOPER) Only the most recent of10 resultswithin the time period is included. Pathologist [facility] Glucose 129(H) 65 - 99 mg/dL [facility] Comment: Fasting reference interval BUN 5(L) 7 - 25 mg/dL [facility] Creatinine 0.47(L) 0.50 - 0.99 mg/dL [facility] Comment: For patients >49 years of age, the reference limit for Creatinine is approximately 13% higher for people identified as -[place]. eGFR by MDRD 105 > OR = [...] 29 U/L [facility] Comment: Test Performed at: [facility] [address] SALENA TRIANA DO,MPH Blood specimen (specimen) BLOOD SPECIMEN / Unknown 04/06/2015 1:11 PM WEBFOCUS DEVELOPER 04/06/2015 1:11 PM WEBFOCUS DEVELOPER Venita Linn Jr., MD LAB - CHEMISTRY ORD ERABLES [facility] [address] [place] [address] * TSH (04/06/2015 1:11 PM WEBFOCUS DEVELOPER) Only the most recent of6 resultswithin the time period is included. TSH 1.04 0.40 - 4.50 mIU/L [facility] Comment: REPORT COMMENT: FASTING:NO Test Performed at: [facility] [place] [address] SALENA TRIANA DO,MPH Blood specimen (specimen) BLOOD SPECIMEN / Unknown 04/06/2015 1:11 PM WEBFOCUS DEVELOPER 04/06/2015 1:11 PM WEBFOCUS DEVELOPER Venita Linn Jr., MD LAB - CHEMISTRY ORD ERABLES [facility] [address] [place] [address] * IMAGING/RADIOLOGY/XRAY RESULTS ORDER (10/18/2014) Anatomical Region Laterality Modality Other Venita Linn Jr., MD IMAGING * VITAMIN D 25-HYDROXY (09/13/2014 8:51 AM CDT) Only the most recent of5 resultswithin the time period is included. Vitamin D, 25 Hydroxy 35 30 - 100 ng/mL [facility] Comment: Vitamin D Status 25-OH Vitamin D: Deficiency: <20 ng/mL Insufficiency: 20 - 29 ng/mL Optimal: > or = 30 ng/mL For 25-OH Vitamin D testing on patients on D2-supplementation and patients for whom quantitation of D2 and D3 fractions is required, the QuestAssureD(TM) 25-OH VIT D, (D2,D3), LC/MS/MS is recommended: order code 21077 (patients >2yrs). For more information on this test, go to: http://education.[facility] [employer].com/faq/OLB866 Effective September 13, the test order code 89531, used prior to September 13, for LC/MS/MS, will be transitioned to a carefully-selected immunoassay methodology. The new immunoassay has passed CDC standardization certification and provides high quality quantitative results that are tied back to standards from the NIST. For those patients for whom LC/MS/MS testing is appropriate, please utilize test code 17509. When LC/MS/MS is the chosen assay, utilize test code 81594 for patients > or = 3 years of age, patients who are on D2 supplementation, and patients for whom a separate D2 and D3 measurement is required. For patients <3 years of age, test code 29263 should be used. Important Note Regarding Custom Panels With 25-Hydroxyvitamin D: If you currently order vitamin D testing as part of a custom panel, the LC/MS/MS vitamin D test will be maintained in your panel after September 13, 2014. If you would like to replace the test in your panel with the new immunoassay, or have any questions regarding the transition of the 50778 test code, please contact your local [employer] sales development representative. REPORT COMMENT: FASTING:YES Test Performed at: [facility] [address] [place] [address] SALENA TRIANA DO,MPH Blood specimen (specimen) BLOOD SPECIMEN / Unknown 09/13/2014 8:51 AM CDT 09/13/2014 8:52 AM CDT Venita Linn Jr., MD LAB - CHEMISTRY ORD ERABLES Performing Organization Address [facility] de Phone Number [facility] [address] [place] [address] * LIPID PROFILE (09/13/2014 8:51 AM CDT) Only the most recent of6 resultswithin the time period is included. [facility] Signature Cholesterol 176 125 - 200 mg/dL [facility] Comment: Test Performed at: [facility] [address] [facility] [address] SALENA TRIANA DO,MPH HDL Cholesterol 77 > [...] - CHEMISTRY ORD ERABLES Performing Organization Address City/[facility] Co de Phone Number [facility] [address] [place] [address] * (ABNORMAL) CBC W/O DIFFERENTIAL (04/27/2014 4:00 PM WEBFOCUS DEVELOPER) Only the most recent of5 resultswithin the [...] BLOOD SPECIMEN / Unknown 04/27/2014 4:00 PM WEBFOCUS DEVELOPER 04/27/2014 6:54 PM WEBFOCUS DEVELOPER Narrative Resulting Agency Comment [facility] [address] [phone] Venita Linn Jr., MD LAB - HEMATOLOGY OR DERABLES [facility] ACCOUNT BILL * (ABNORMAL) BASIC METABOLIC PANEL (CALCIUM TOTAL) (04/18/2014 9:11 AM WEBFOCUS DEVELOPER) Only the most recent of5 resultswithin the time period is included. Glucose 101 74 - 106 mg/dL 04/18/2014 9:28 AM [facility] [[email or web address] Sodium 132(L) 136 - 145 mmol/L 04/18/2014 9:28 AM [facility] [[email or web address] Potassium 4.1 3.5 - 5.1 mmol/L 04/18/2014 9:28 AM [facility] Chloride 98 98 - 107 mmol/L 04/18/2014 9:28 AM [facility] [[email or web address] CO2 27 22 - 31 mmol/L 04/18/2014 9:28 AM [facility] Calcium 8.8 8.5 - 10.1 mg/dL 04/18/2014 9:28 AM [facility] Anion Gap 7 5 - 15 mmol/L 04/18/2014 9:28 AM [facility] BUN 3(L) 7 - 21 mg/dL 04/18/2014 9:28 AM [facility] Creatinine 0.54 0.50 - 1.30 mg/dL 04/18/2014 9:28 AM [facility] eGFR by MDRD >60 >60 mL/min/1.7 3m2 04/18/2014 9:28 AM [facility] eGFR by MDRD >60 >60 mL/min/1.7 3m2 04/18/2014 9:28 AM [facility] Blood BLOOD SPECIMEN / Unknown 04/18/2014 9:11 AM WEBFOCUS DEVELOPER 04/18/2014 9:14 AM WEBFOCUS DEVELOPER Henrietta Lira MD LAB - CHEMISTRY ORDE GLADIS Performing Organization Address [facility] Co de Phone Number [facility] [id number] [place] [address] * (ABNORMAL) URINALYSIS MICROSCOPIC ONLY W/REFLEX CULTURE (04/15/2014 12:23 PM WEBFOCUS DEVELOPER) RBC UA 2-5 0-2, 2-5 # /hpf 04/15/2014 12:56 PM [facility] WBC UA 20-50(A) 0-2, 2-5 # /hpf 04/15/2014 12:56 PM [facility] Bacteria UA 4+(A) None Seen 04/15/2014 12:56 PM [facility] Epithelial Cell UA 20-50(A) 0-2, 2-5 04/15/2014 12:56 PM [facility] Reflex Status Culture to follow 04/15/2014 12:56 PM [facility] Urine URINE SPECIMEN OBTAINED BY CLEAN CATCH PROCEDURE / Unknown 04/15/2014 12:23 PM WEBFOCUS DEVELOPER 04/15/2014 12:29 PM WEBFOCUS DEVELOPER Priya Oliver MD LAB - URINALYSIS ORDERABLES Performing Organization Address [facility] Co de Phone Number [facility] [address] [place] [address] * (ABNORMAL) URINALYSIS ROUTINE W/REFLEX TO CULTURE (04/15/2014 12:23 PM WEBFOCUS DEVELOPER) Color UA Yellow Straw, Yellow, Dark Yellow 04/15/2014 12:45 PM WEBFOCUS DEVELOPER [facility] Clarity UA Turbid 04/15/2014 12:45 PM [facility] Specific [place] UA 1.016 1.005 - 1.030 04/15/2014 12:45 PM [facility] pH UA 7.0 5.0 - 8.0 pH 04/15/2014 12:45 PM [facility] Protein UA Trace(A) Negative 04/15/2014 12:45 PM [facility] Blood UA Negative Negative 04/15/2014 12:45 PM [facility] Leukocyte UA 2+(A) Negative 04/15/2014 12:45 PM [facility] Nitrite UA Negative Negative 04/15/2014 12:45 PM [facility] Glucose UA Negative Negative 04/15/2014 12:45 PM [facility] Ketone UA Negative Negative 04/15/2014 12:45 PM [facility] Bilirubin UA Negative Negative 04/15/2014 12:45 PM [facility] Urobilinogen UA 0.2 0.1 - 1.0 EU/dL 04/15/2014 12:45 PM [facility] Urine Microscopy Urine microscopy to follow 04/15/2014 12:45 PM [facility] Reflex Status Culture to follow 04/15/2014 12:45 PM [facility] Urine URINE SPECIMEN OBTAINED BY CLEAN CATCH PROCEDURE / Unknown 04/15/2014 12:23 PM WEBFOCUS DEVELOPER 04/15/2014 12:29 PM [facility] [[email or web address]] Priya Oliver MD LAB - URINALYSIS ORDERABLES [facility] [address] [place] [address] * CULTURE URINE (04/15/2014 12:23 PM WEBFOCUS DEVELOPER) Culture <10,000 CFU/mL normal urogenital branden MARK 04/17/2014 11:34 AM [facility]CRO[facility]OLOG[facility] Urine URINE SPECIMEN OBTAINED BY CLEAN CATCH PROCEDURE / Unknown 04/15/2014 12:23 PM WEBFOCUS DEVELOPER 04/15/2014 12:29 PM WEBFOCUS DEVELOPER Priya Oliver MD LAB - MICROBIOLO GY ORDERABLES [facility] MICROBIOLOG[facility] [address] * MAGNESIUM BLOOD (04/15/2014 12:23 PM WEBFOCUS DEVELOPER) Magnesium 1.6 1.6 - 2.6 mg/dL 04/15/2014 12:50 PM WEBFOCUS DEVELOPER [facility] Blood BLOOD SPECIMEN / Unknown 04/15/2014 12:23 PM WEBFOCUS DEVELOPER 04/15/2014 12:29 PM WEBFOCUS DEVELOPER Priya Oliver MD LAB - CHEMISTRY ORDERABLES Performing Organization Address City/[facility] Co de Phone Number [facility] [address] [place] [address] * XR CHEST PA AND LATERAL (04/14/2014 12:12 PM WEBFOCUS DEVELOPER) Anatomical Region Laterality Modality Chest Radiographic Funmi ging 04/14/2014 12:3 9 PM WEBFOCUS DEVELOPER Impressions 04/14/2014 12:40 PM WEBFOCUS DEVELOPER No acute disease in the chest. Narrative 04/14/2014 12:40 PM WEBFOCUS DEVELOPER PA AND LATERAL CHEST INDICATION: Shortness of [...] acute disease in the chest. Gracy Alvarez DOOR LINER HELPER-STILL WORKER HELPER DIAGNOSTIC IMAG ING ORDERABLES * (ABNORMAL) VITAMIN B12 FOLATE PANEL (04/14/2014 11:37 AM WEBFOCUS DEVELOPER) Vitamin B12 >1999(H) 211 - 946 pg/mL [facility] ACCOUNT BILL Folate 14.1 >3.0 ng/mL [facility] ACCOUNT BILL Comment: A serum folate concentration of less than 3.1 ng/mL is considered to represent clinical deficiency. Blood specimen (specimen) BLOOD SPECIMEN / Unknown 04/14/2014 11:37 AM WEBFOCUS DEVELOPER 04/14/2014 2:44 PM WEBFOCUS DEVELOPER Narrative [facility] ACCOUNT BILL - 04/15/2014 9:22 AM WEBFOCUS DEVELOPER Test(s) Sodium, Serum called to Angie Shaw on 04/15/2014 at 09:05 EST Resulting Agency Comment [facility] [address] [phone] Gracy MCCLELLAN LAB - CHEMISTRY ORDERABLES [facility] ACCOUNT BILL [...] screening for the presence of diabetes <5.7% Consistent with the absence of diabetes 5.7-6.4% Consistent with increased risk for diabetes (prediabetes) >or=6.5% Consistent with diabetes This assay result is consistent with an increased risk of diabetes. Currently, no consensus exists for use of hemoglobin A1c for diagnosis of diabetes for children. Test Performed at: [facility] [address] [place] [address] SALENA TRIANA DO,MPH Whole blood specimen (specimen) BLOOD SPECIMEN / Unknown 09/01/2013 8:30 AM CDT 09/01/2013 8:31 AM CDT Venita Linn Jr., MD LAB - CHEMISTRY ORD ERABLES [facility] [address] [place] [address] * HEART ECHO TRANSTHORACIC [address]D [address] (10/30/2011) Live Gutierrez MD ECHO ORDERABLES * CARDIAC STRESS TEST ORDER (10/30/2011) Live Gutierrez MD CARDIAC SERVICES O RDERABLES * CARDIAC ECHOCARDIOGRAM COMPLETE ORDER (10/30/2011) Live Gutierrez MD ECHO ORDERABLES * URINALYSIS ROUTINE AUTO (08/23/2011 8:03 AM CDT) Color UA YELLOW YELLOW [facility] Appearance CLEAR CLEAR [facility] Specific [place] UA 1.014 1.001 - 1.035 [facility] pH [...] SEEN /LPF [facility] Comment: Test Performed at: [facility] [address] [place] [address] SALENA TRIANA DO Urine specimen (specimen) URINE / Unknown 08/23/2011 8:03 AM CDT 08/23/2011 8:13 AM CDT Venita Linn Jr., MD LAB - URINALYSIS OR DERABLES [facility] [address] [place] [address] Care Teams Mushroom Cultivator Relationship Specialty [place] [address] [address] PCP - General Internal Medicine 04/05/10 [place] [address] [facility] [address] [place] [address] Restaurant Supervisor 04/16/14
--- OUTSIDE RECORDS SUMMARY | 2024-06-17 22:40 | XMS_ITS | Referral Summary ---
Author Organization [facility] Address [address] [place] [address] Care Team Providers Care Trust And Estates Attorney Name Role Phone Temitope Castano MD, Venita Land Primary Care Provider Elana Hess RN Unavailable [phone] Source Comments [facility],non-owned Affiliates and Associated Physician Practices is amultiple site organization consisting of ambulatory clinics and hospital sitesin [place], [place], [place] and [place]. This disclosure is being madepursuant to the Care Everywhere program and may not contain all information available regarding this patient. Last updated 18.[facility] Allergies No known active allergies Medications * [...] Comments Blood Pressure 120/70 05/08/2017 2:06 PM CULTURAL HISTORIAN Pulse 80 05/08/2017 1:57 PM CULTURAL HISTORIAN Temperature 36.7 C (98.1 F) 04/18/2014 5:25 AM CULTURAL HISTORIAN Respiratory Rate 18 05/08/2017 1:57 PM CULTURAL HISTORIAN Oxygen Saturation 95% 04/18/2014 5:25 AM CULTURAL HISTORIAN Inhaled Oxygen Concentration - - Weight 84 kg (185 lb 3.2 oz) 05/08/2017 1:57 PM CULTURAL HISTORIAN Height 162.6 cm (5' 4 ) 05/08/2017 1:57 PM CULTURAL HISTORIAN Body Mass Index 31.79 05/08/2017 1:57 PM CULTURAL HISTORIAN Functional Status Functional Status Response Date of [...] COMPREHENSIVE METABOLIC PANEL Routine 04/06/2015 1:11 PM CULTURAL HISTORIAN Hyponatremia Malaise and fatigue from Last 3 Months or Most Recently Relevant to Health Maintenance Results * (ABNORMAL) COMPREHENSIVE METABOLIC PANEL (04/06/2015 1:11 PM CULTURAL HISTORIAN) Glucose 129(H) 65 - 99 mg/dL [facility] Comment: Fasting reference interval BUN 5(L) 7 - 25 mg/dL [facility] Creatinine 0.47(L) 0.50 - 0.99 mg/dL [facility] Comment: For patients >49 years of age, the reference limit for Creatinine is approximately 13% higher for people identified as -Thai. eGFR by MDRD 105 > OR = [...] 29 U/L [facility] Comment: Test Performed at: [facility] [address] [place] [address] SALENA TRIANA DO,MPH Blood specimen (specimen) BLOOD SPECIMEN / Unknown 04/06/2015 1:11 PM CULTURAL HISTORIAN 04/06/2015 1:11 PM CULTURAL HISTORIAN Venita Linn Jr., MD LAB - CHEMISTRY ORD ERABLES Performing Organization Address City/State/[facility] Co de Phone Number [facility] [phone] [place] [address] from Last 3 Months or Most Recently Relevant to Health Maintenance Advance Directives * Full Code (Latest Code Status on File) Date Activated Date Inactivated Comments 04/15/2014 3:17 PM 04/18/2014 11:49 AM Care Teams Trust And Estates Attorney Relationship Specialty Start Date End Date Page, [place] [id number] [address] PCP - General Internal Medicine 04/05/10 [place] [id number] [address] Marine Equipment Preservation Inspector 04/16/14
--- OUTSIDE RECORDS SUMMARY | 2024-06-17 22:40 | XMS_ITS | Clinical Summary ---
Author Organization [facility] Address [address] [place] [address] Care Team Providers Care Defensive Line Coach Name Role Phone Live Gutierrez MD Unavailable [phone] Padmini Arias MD Primary Care Provider Allergies No known active allergies Medications diphenhydrAMINE [...] 06/05/2017 Assessment & Plan (06/05/2017 6:51 PM WINDER TENDER): Device check in office today with 99% [...] smoking. Assessment & Plan (07/15/2018 2:47 PM WINDER TENDER): Blood pressure is well controlled. Continue same therapy. Continue diet and exercise. Assessment & Plan (06/05/2017 6:48 PM WINDER TENDER): Blood pressure is elevated today. Will increase carvedilol to 37.5 mg twice daily. She will call in 2 weeks with update and if BP is still elevated will increase dose to 50 mg BID. Assessment & Plan (03/19/2017 11:16 AM WINDER TENDER): Blood pressure is well controlled. Continue same therapy. Patent foramen ovale 03/18/2017 Assessment & Plan (12/11/2022 11:13 AM CDT): Stable, asymptomatic. Continue same therapy. Assessment & Plan (01/12/2020 11:56 AM CDT): Stable, asymptomatic. Continue aspirin. Hypoxic brain injury ([facility]/HCC) 12/12/2016 Overview (12/12/2016): Overview: after cardiac [...] therapy. Assessment & Plan (07/15/2018 2:48 PM WINDER TENDER): Lipids are well controlled. Continue statin therapy. Assessment & Plan (03/19/2017 11:16 AM WINDER TENDER): Lipids are well controlled. Continue statin therapy. Coronary artery disease invo lving gambell coronary artery of gambell heart without angina pectoris 09/26/2013 Overview (12/12/2016): [...] smoking. Assessment & Plan (07/15/2018 2:46 PM WINDER TENDER): Stable, moderate coronary disease without angina. Continue same therapy. Continue diet and exercise. Ventricular fibrillation 09/26/2013 Overview (12/12/2016): VENTRICULAR FIBRILLATION Assessment & Plan (12/11/2022 11:13 AM CDT): Stable status post ICD. Continue same therapy. Continue follow-up in the device Clinic. Assessment & Plan (01/12/2020 11:56 AM CDT): Stable, without recent episode. Continue same therapy. Assessment & Plan (07/15/2018 2:47 PM WINDER TENDER): Stable, without recent episode. Continue same therapy. Continue follow-up in the device clinic regarding her defibrillator. Assessment & Plan (03/28/2017 10:58 AM WINDER TENDER): 1. VT/VF. Symptomatic with need for device [...] failure Clinic. Will make appropriate arrangements for PHYSICAL THERAPY AIDE upgrade. Bronchitis 10/27/2010 Sinusitis 10/27/2010 Dilated cardiomyopathy ([facility]/HCC) 04/05/2010 Assessment & Plan (12/11/2022 11:12 [...] ICD. Assessment & Plan (07/15/2018 2:45 PM WINDER TENDER): Stable, well compensated. I made no change in her excellent medical regimen today. I asked her follow up with me annually, or sooner if needed. I again advised her to diet and exercise regularly, and most importantly, to stop smoking completely. Assessment & Plan (03/19/2017 11:15 AM WINDER TENDER): Stable, well compensated. I made no change [...] 12/12/201610/11 Assessment & Plan (06/05/2017 6:49 PM WINDER TENDER): Quiet on sotalol 160 mg BID. Assessment [...] requests, we can proceed with upgrade to PHYSICAL THERAPY AIDE at any time. 5. Dual-chamber ICD. Satisfactory function. Plan 1. Sotalol 80 mg b.i.d. sotalol therapy will require ongoing monitoring 2. Continue follow-up in Heart failure Clinic 3. Follow-up arrhythmia Center to assess efficacy of sotalol and monitor therapy 4. Upgrade to PHYSICAL THERAPY AIDE remains an option Chronic systolic congestive heart failure ([facility]) 11/28/2016 12/10/2022 Assessment & Plan (06/05/2017 6:47 PM WINDER TENDER): Ms. Justice presents with compensated NYHA Class [...] disease) Assessment & Plan (03/19/2017 11:15 AM WINDER TENDER): Stable, without angina. Continue same therapy. Cardiac defibrillator in place 09/26/2013 10/24/2022 Overview (05/09/2017): Medtronic Amplia MRI Quad PHYSICAL THERAPY AIDE-D implanted 04/08/2017 + CS lead for ICM/CHF/VT. Chronic RA/RV lead is from 03/17/10. Matt JeffersonRplw-Rxxmimce-Ohcxautgd EP History of ventricular fibrillation 02/13/2012 10/24/2022 Assessment & Plan (10/19/2021 3:01 PM CDT): Stable status post biventricular ICD. Continue follow-up in the device Clinic. Continue same therapy. Her ICD check today will be reviewed, and further recommendations forthcoming then. Past history of myocardial infarction 10/11/2010 10/24/2022 Encounters Date Type Department Care Team Description 06/10/2024 Telephone [facility] Cardiology [address] [place] [address] Alexandru Robles MD Med Refill 05/11/2024 12:30 PM WINDER TENDER Ancillary Procedure Arrhythmia Center [address] [place] [address] Biventricular ICD (implantable cardioverter-defibrill ator) in place (Primary Dx); Dilated cardiomyopathy (CMS/HCC) (HCC) 05/01/2024 Telephone [facility] Cardiology [address] [place] [address] Alexandru Robles MD from Last [...] - COPD (chronic obstructive pu lmonary disease) ([facility]) Family History Medical History Relation Name Comments [...] drink = 0.6 oz pu re alcohol) [facility] Utilities Answer Date Recorded In the past 12 months has [employer], gas, oil, or water [employer] threatened to shut off services in your [...] often do you attend chur ch or sabianist services? Never 03/06/2023 Do you belong to any clubs o r organizations such as adventism groups, unions, fraternal or athletic groups, or [...] place to sleep or slept in a longterm (including now)? No 03/06/2023 Personal Safety Answer Date Recorded Have you ever been in or are you currently in a harmful physical or emotional relationship or is someone making you feel afraid or unsafe? Denies 03/13/2023 Comments No Sex and Gender Information Value Date Recorded Sex Assigned at Not on file Legal Sex Female 3:12 PM WINDER TENDER Gender Identity Not on file Sexual Orientation [...] CHECK - REMOTE Routine 05/11/2024 7:50 AM WINDER TENDER Dilated cardiomyopathy (CMS/HCC) (HCC) from Last 3 Months Results * DEVICE CHECK - REMOTE (05/11/2024 7:50 AM WINDER TENDER) Anatomical Region Laterality Modality Other Narrative 05/16/2024 2:31 PM WINDER TENDER Table formatting from the original result was [...] 4.4 seconds. Episodes last 90 days/Comments: AF Lawrence 0 %,longest duration 0. There were no treated ventricular arrhythmias noted on today's remote interrogation. NORMAL DEVICE FUNCTION PROGRAMMED MEDICATIONS: Anti-coagulant(s): Aspirin 81 mg daily Anti-arrhythmic(s): Sotalol 80 mg twice daily, Coreg 25 mg twice daily PLAN: 1) Medtronic BiV ICD evaluation 2) Medtronic remote transmission scheduled in 3 months. 3) Programming appropriate for device settings Sarath Rodriguez RN us Romaine Jane MD [facility] PRO CEDURES Final Result from Last 3 Months Insurance [facility] Member Subscriber Plan / Payer (Ef fective 2024-Present) Name:Apryl Justice Relation to Subscriber:Self Name:Apryl Justice Payer ID:[id number] (NAIC) Type:[facility] Address: [address] [place] [id number] MEDICARE MEDICARE T SENIOR SUPPLEMENT MEDICARE [employer] SENIOR SUPPLEMENT ANTHTYRONE PREFERRED Advance Directives For more information, please contact: [phone] * Full Code (Latest Code Status on File) Date Activated Date Inactivated Comments 03/05/2023 9:49 PM 03/08/2023 5:35 PM * Full Code Date Activated Date Inactivated Comments 08/07/2020 8:26 PM 08/10/2020 4:03 PM Healthcare Agents on File Name Relationship Healthcare Agent [facility] Communication Renan Ruiz Health Care Agent Care Teams Defensive Line Coach Relationship Specialty Start Date End Date Padmini Arias MD [address] [place] [address] PCP - General Family Medicine 03/07/23 Live Gutierrez MD [address] [place] [address] Consulting Physician Cardiology 08/10/20
[2024-06-18] VITALS (46 sets, daily range): BP systolic 100–140; BP diastolic 56–110; PULSE 60–81; RESP 11–18; TEMP 36.6–36.8; O2SAT 91–100; BMI 41.8
[2024-06-18] MEDS: HYDROmorphone HCL INJ (*CRX) 1 MG/ML SYR 0.5 MG IV PUSH (00:16)
[2024-06-18] MEDS: FUROSEMIDE INJ 40 MG/4 ML VIAL IV PUSH (00:18)
[2024-06-18 00:27] LABS: Add Urine Microscopic? YES; Appearance Urine Clear (Clear); Bilirubin Urine Negative (Negative); Blood Urine Negative (Negative); Color Urine Yellow (Yellow); Glucose Urine UA Negative (Negative); Ketones Urine Negative (Negative); Leukocyte Esterase Ur Negative LEU/UL (Negative); Nitrate Urine Negative (Negative); Protein Urine Negative (Negative); Specific Grav Ur 1.041 (1.001-1.035); pH Urine 6.5 (5.0-9.0)
[2024-06-18] MEDS: IPRATROPIUM 0.5 MG/ALBUTEROL SULFATE 2.5 MG AMPUL.NEB 3 ML INHALATION ×4 (02:23→21:39)
[2024-06-18] MEDS: SODIUM CHLORIDE 0.9% IV 1,000 ML 250 ML IV CONT (02:30)
[2024-06-18] MEDS: methylPREDNISolone SOD SUCC 125 MG VIAL 40 MG IV PUSH ×3 (06:11→17:23)
--- NOTE | 2024-06-18 08:45 | PC.NURSE ---
This patient, Stephanie He, was admitted to [facility] Surg Room 321-02. Patient/family oriented to hospital policies and general routines including ID bracelet, bed and alarms, visiting hours, pain management, procedures, bathroom and other care routines, personal items, smoking policy, room service/diet, and visiting hours. Information on how to activate the Rapid Response Team has been discussed. Patient/Family are encouraged to report perceived risks to care and to ask questions if they do not understand what they are told or what they should do.
[2024-06-18] MEDS: ASPIRIN 81 MG ENTERIC TABLET PO (09:57)
[2024-06-18] MEDS: ATORVASTATIN 20 MG TABLET PO (09:57)
[2024-06-18] MEDS: guaiFENesin 12 HR 600 MG TABCR PO ×2 (09:57→20:42)
[2024-06-18] MEDS: carvediloL 12.5 MG TABLET 37.5 MG PO ×2 (10:04→20:42)
--- NOTE | 2024-06-18 12:00 | PM.IMHP ---
H&P: HPI History of Present Illness Date/Time: 06/18/24 12:00 Chief Complaint: Shortness of breath Narrative: This is a 74-year-old female With medical history of COPD, CHF, hyperlipidemia, hypertension, arthritis cardiac arrhythmia status post pacemaker placement who presented to the ED with a chief complaint of shortness of breath. According to patient she was discharged from the hospital and came back a few days later. She reported increased shortness of breath since returning home, she was using her oxygen and inhalers, but could not recall what her inhalers are. Vitals on arrival show she is saturating at 97% on 4 L nasal cannula, which is her baseline O2 requirement, however patient has no idea if this is true. EKG shows paced rhythm. ED lab work showing elevated white count of 14.6. ABG remarkable for elevated CO2 of 60.2, however pH is normal and bicarb is slightly high as well. CMP showing mildly hyponatremic with a sodium of 130, hypochloremia of 91. BNP only slightly elevated at 250. Initially chest x-ray was showing possible sign of left-sided pleural effusion. Differential including COPD exacerbation, pulmonary embolus, pneumonia, CHF exacerbation, although COPD exacerbation seems most likely. Patient CTA Chest noted No pulmonary embolus. No thoracic aortic dissection. Findings suggestive of right heart dysfunction, The large left-sided pleural effusion suspected on plain film evaluation corresponds to a large pericardial fat pad combined with overlying soft tissues. The lungs are clear. Patient was started on Solu-Medrol, several DuoNeb treatments. With the chest x-ray/CT findings, was on 40 mg of Lasix in case due to more volume overload. patient reported no fever, chills, N/V/D, headache or chest pain. Denied any viral concerns. Review of Systems Review of Systems: All systems reviewed & are unremarkable except as noted in HPI and below Constitutional: Constitutional: Reports as per HPI Eyes: Eyes: Reports as per HPI ENT: Reports system reviewed and no additional complaints, except as documented Cardiovascular: Cardiovascular: Reports as per HPI, Reports dyspnea, Reports dyspnea on exertion and Reports orthopnea Respiratory: Respiratory: Reports dyspnea and Reports dyspnea on exertion Gastrointestinal: Gastrointestinal: Reports as per HPI and Reports no additional gastrointestinal complaints Genitourinary: Genitourinary: Reports no additional female genitourinary complaints Musculoskeletal: Musculoskeletal: Reports no additional musculoskeletal complaints and Reports back pain (reported old fracture to back.) Integumentary/Breasts: Skin/Breast: Reports system reviewed and no additional complaints, except as docu Neurologic: Reports as per HPI and Reports Normal hearing present (hard of hearing.) Psychiatric: Psychiatric: Reports no additional psychiatric complaints Endocrine: Endocrine: Reports no additional endocrine complaints [facility] Past Medical History Medical History H/O cardiac pacemaker COPD (chronic obstructive pulmonary disease) CHF (congestive heart failure) Hyperlipidemia Hypertension Arthritis Surgical History Surgical History No history of previous surgery Family History Family History Father Heart disease Mother Alzheimer disease Grandparent Diabetes mellitus Social History Social History Smoking packs per day: 0.5 Smoking cigarettes per day: 10.0 Years smoked: 60 Smoking pack-years: 30.00 Smoking status: Current every day smoker Tobacco type: cigarettes Second hand tobacco smoke exposure: Yes Alcohol intake: never Drinks per week: 14 Substance use: never Substance use type: does not use Do You Feel Safe in your Home?: Yes Lack of Transportation: YES Lack of Food: Often True Current Housing: I Have Housing Concerned About Future Housing: No Difficulty Paying Gas/Electric Bills: No Difficulty Paying for Meds: No Currently Unemployed: No Education: Associate Degree Difficulty w/ Childcare or Family Care: No Gender identity (if verbalized by the patient): Female Spiritual care concerns: No Meds Home Medications and Allergies Home Medications ?Medication ?Instructions ?Recorded ?Confirmed ?Type atorvastatin 20 mg tablet (Lipitor) 20 mg PO DAILY 04/03/19 06/18/24 History carvedilol 25 mg tablet 37.5 mg PO BID 04/03/19 06/18/24 History sacubitril 97 mg-valsartan 103 mg 1 tablet PO BID 04/03/19 06/18/24 History tablet (Entresto) sotalol 80 mg tablet 80 mg PO BID 04/03/19 06/18/24 History furosemide 20 mg tablet 20 mg PO BID PRN Edema 09/14/22 06/18/24 History albuterol sulfate 90 mcg/actuation 2 puff inhalation Q4H PRN 09/15/22 06/18/24 Rx aerosol inhaler (Proventil HFA) shortness of breath or wheezing #8.5 grams aspirin 81 mg capsule 81 mg PO DAILY 01/04/24 06/18/24 History diphenhydramine 25 2 tablet PO HS PRN Insomnia 01/04/24 06/18/24 History mg-acetaminophen 500 mg tablet (Tylenol PM Extra Strength) fluticasone fur. 100 mcg-umeclid 1 inh inhalation DAILY 01/04/24 06/18/24 History 62.5 mcg-vilant 25 mcg inhalat.powder (Trelegy Ellipta) aluminum-mag hydroxide-simethicone 30 ml PO Q6H PRN Indigestion 06/15/24 06/18/24 Rx 200 mg-200 mg-20 mg/5 mL oral susp #3,000 mL (Mag-Al Plus) guaifenesin 600 mg tablet, 600 mg PO Q12HR #30 tabs 06/15/24 06/18/24 Rx extended release 12 hr (Mucus Relief ER) levofloxacin 750 mg tablet 750 mg PO DAILY #7 tabs 06/15/24 06/18/24 Rx polyethylene glycol 3350 17 gram 17 g PO QAM PRN Constipation #30 ea 06/15/24 06/18/24 Rx oral powder packet (Miralax) naproxen sodium 220 mg capsule 220 mg PO BID PRN pain 06/18/24 06/18/24 History (Aleve) naproxen sodium 220 mg capsule 220 mg PO Q8-12H PRN pain 06/18/24 06/18/24 History (Aleve) Allergies Allergy/AdvReac Type Severity Reaction Status Date / Time No Known Allergies Allergy Verified 06/18/24 08:51 Vital Signs Vital Signs - 24 hr 06/17/24 21:09 06/17/24 21:10 06/17/24 21:15 Temperature 98.3 F Pulse Rate 81 73 72 Respiratory Rate 19 17 18 Blood Pressure 102/62 Pulse Oximetry 97 97 97 Oxygen Delivery Nasal Cannula Oxygen Flow Rate 4 06/17/24 21:17 06/17/24 21:19 06/17/24 21:19 Temperature Pulse Rate 71 72 Respiratory Rate 17 20 Blood Pressure 98/61 L 102/62 Pulse Oximetry 97 97 97 Oxygen Delivery Nasal Cannula Oxygen Flow Rate 4 06/17/24 21:20 06/17/24 21:30 06/17/24 21:32 Temperature Pulse Rate 72 68 68 Respiratory Rate 15 16 Blood Pressure 99/53 L Pulse Oximetry 99 98 Oxygen Delivery Oxygen Flow Rate 06/17/24 21:45 06/17/24 22:10 06/17/24 22:13 Temperature Pulse Rate 68 66 65 Respiratory Rate 15 14 14 Blood Pressure Pulse Oximetry 100 Oxygen Delivery Oxygen Flow Rate 06/17/24 22:15 06/17/24 22:19 06/17/24 22:20 Temperature Pulse Rate 65 68 Respiratory Rate 12 15 Blood Pressure 120/70 120/70 Pulse Oximetry 100 Oxygen Delivery Oxygen Flow Rate 06/17/24 22:30 06/17/24 22:32 06/17/24 22:35 Temperature Pulse Rate 66 64 68 Respiratory Rate 14 13 15 Blood Pressure 133/67 Pulse Oximetry 100 100 Oxygen Delivery Oxygen Flow Rate 06/17/24 22:45 06/17/24 23:21 06/17/24 23:30 Temperature Pulse Rate 68 66 76 Respiratory Rate 16 12 18 Blood Pressure Pulse Oximetry 95 97 95 Oxygen Delivery Oxygen Flow Rate 06/17/24 23:32 06/17/24 23:45 06/18/24 00:06 Temperature Pulse Rate 76 70 66 Respiratory Rate 17 20 14 Blood Pressure 127/61 Pulse Oximetry 97 96 100 Oxygen Delivery Oxygen Flow Rate 06/18/24 00:29 06/18/24 00:30 06/18/24 00:31 Temperature Pulse Rate 64 67 63 Respiratory Rate 12 12 12 Blood Pressure 106/62 Pulse Oximetry 96 96 97 Oxygen Delivery Oxygen Flow Rate 06/18/24 00:32 06/18/24 00:45 06/18/24 01:00 Temperature Pulse Rate 70 74 65 Respiratory Rate 12 16 13 Blood Pressure Pulse Oximetry 96 98 99 Oxygen Delivery Oxygen Flow Rate 06/18/24 01:01 06/18/24 01:20 06/18/24 01:42 Temperature Pulse Rate 65 60 60 Respiratory Rate 13 14 12 Blood Pressure 109/71 Pulse Oximetry 98 97 96 Oxygen Delivery Oxygen Flow Rate 06/18/24 01:45 06/18/24 02:06 06/18/24 02:20 Temperature Pulse Rate 60 61 61 Respiratory Rate 13 11 L 12 Blood Pressure Pulse Oximetry 96 92 93 Oxygen Delivery Oxygen Flow Rate 06/18/24 02:25 06/18/24 02:32 06/18/24 02:45 Temperature Pulse Rate 64 64 60 Respiratory Rate 14 11 L 12 Blood Pressure Pulse Oximetry 99 96 Oxygen Delivery Oxygen Flow Rate 06/18/24 02:56 06/18/24 03:00 06/18/24 03:17 Temperature Pulse Rate 62 60 Respiratory Rate 11 L 12 Blood Pressure Pulse Oximetry 95 95 95 Oxygen Delivery Nasal Cannula Oxygen Flow Rate 4 06/18/24 03:30 06/18/24 03:47 06/18/24 04:03 Temperature Pulse Rate 72 81 63 Respiratory Rate 12 14 13 Blood Pressure 118/63 Pulse Oximetry 95 92 93 Oxygen Delivery Oxygen Flow Rate 06/18/24 04:15 06/18/24 04:55 06/18/24 05:00 Temperature Pulse Rate 68 67 62 Respiratory Rate 14 15 13 Blood Pressure Pulse Oximetry 91 97 93 Oxygen Delivery Oxygen Flow Rate 06/18/24 05:01 06/18/24 05:02 06/18/24 05:15 Temperature Pulse Rate 66 67 73 Respiratory Rate 13 13 14 Blood Pressure 122/110 H Pulse Oximetry 94 93 97 Oxygen Delivery Oxygen Flow Rate 06/18/24 06:05 06/18/24 06:16 06/18/24 06:30 Temperature Pulse Rate 73 71 71 Respiratory Rate 11 L 12 11 L Blood Pressure Pulse Oximetry 100 100 Oxygen Delivery Oxygen Flow Rate 06/18/24 06:46 06/18/24 07:35 06/18/24 08:00 Temperature Pulse Rate 70 70 Respiratory Rate 11 L 12 16 Blood Pressure 137/80 140/94 H Pulse Oximetry 98 97 94 Oxygen Delivery Nasal Cannula Oxygen Flow Rate 4 06/18/24 08:53 06/18/24 09:02 06/18/24 09:06 Temperature Pulse Rate 70 70 Respiratory Rate 16 16 Blood Pressure Pulse Oximetry 94 Oxygen Delivery Nasal Cannula Oxygen Flow Rate 4 06/18/24 10:04 Temperature Pulse Rate 70 Respiratory Rate Blood Pressure Pulse Oximetry Oxygen Delivery Oxygen Flow Rate Exam Const: General: cooperative, comfortable, no acute distress, alert and awake Nutritional Appearance: overweight Orientation/consciousness: oriented to person, oriented to place and oriented to time Limitations: no limitations HENMT: Head: normal to inspection Eyes: General: appearance normal, both eyes and all related structures Neck: Neck: normal visual inspection, full ROM and no lymphadenopathy Chest: Chest palpation & inspection: normal inspection of the chest Resp: Effort & Inspection: normal respiratory effort Auscultation: rhonchi left upper and right upper and diminished lung sounds (lower lobes) bilateral and localized Cardio: Jugular venous distension: no JVD Palpation: normal PMI Rate: regular rate Rhythm: other (paced ) Heart sounds: S1 normal heart sound present and S2 normal heart sound present Peripheral pulses: Peripheral pulses 2+ throughout Back/Spine/Pelvis: Back: no CVA tenderness Thoracic/Lumbar Spine: lumbar spinal tenderness Skin: General skin exam: normal color and no rashes or lesions noted Neuro: General: oriented to person, oriented to place and oriented to time Extrem: General: normal to inspection, full ROM and capillary refill normal Psych: Appearance: grossly normal and well kempt Mental Status: mental status grossly normal Speech and movement: Normal speech and movement present H&P: Results Labs Labs: Short CBC 06/17/24 Range/Units 21:38 WBC 14.6 H (4.5-10.0) K/mm3 Hgb 13.6 (12.0-15.0) g/dL Hct 41.9 (37.0-47.0) % Plt Count 179 (150-375) k/mm3 BMP 06/17/24 21:38 Sodium 130 L Potassium 4.3 Chloride 91 L Carbon Dioxide 33 H BUN 17 Creatinine 0.54 L Glucose 156 H Calcium 8.9 Cardiac Enzymes 06/17/24 Range/Units 21:38 Troponin I < 0.012 (0.000-0.034) ng/mL Liver Function 06/17/24 Range/Units 21:38 Total Bilirubin 0.8 (0.2-1.3) mg/dL AST 23 (14-36) U/L ALT 22 (6-35) U/L Alkaline Phosphatase 71 (38-126) U/L Albumin 3.6 (3.5-5.1) g/dL Urine 06/18/24 Range/Units 00:21 Urine Color Yellow (Yellow) Urine Appearance Clear (Clear) Urine pH 6.5 (5.0-9.0) Ur Specific [place] 1.041 H (1.001-1.035) Urine Protein Negative (Negative) mg/dL Urine Glucose (UA) Negative (Negative) mg/dL Assessment and Plan Assessment and plan (1) Acute respiratory distress: Code(s): R06.03 - Acute respiratory distress Status: Acute (2) Acute respiratory failure with hypoxia: Code(s): J96.01 - Acute respiratory failure with hypoxia Status: Acute (3) COPD exacerbation: Code(s): J44.1 - Chronic obstructive pulmonary disease with (acute) exacerbation Status: Acute (4) COPD exacerbation: Code(s): J44.1 - Chronic obstructive pulmonary disease with (acute) exacerbation Status: Acute (5) Nicotine dependence, cigarettes, with other nicotine-induced disorders: Code(s): F17.218 - Nicotine dependence, cigarettes, with other nicotine-induced disorders Status: Acute (6) Tobacco abuse counseling: Code(s): Z71.6 - Tobacco abuse counseling Status: Acute (7) CHF (congestive heart failure): Code(s): I50.9 - Heart failure, unspecified Status: Acute (8) T12 compression fracture: Code(s): S22.080A - Wedge compression fracture of T11-T12 vertebra, initial encounter for closed fracture Status: Acute (9) Acute hyponatremia: Code(s): E87.1 - Hypo-osmolality and hyponatremia Status: Acute Plan #1 -COPD exacerbation, Acute resp failure in Smoker - Continue with Sollu Medrol with taper - oxygen per nasal canula - 4 l per home o2 settings. - Neb treatments per orders. Vital signs improved and stable - will continue with Levoquin po for 3 days per out patient order. - patient was on BiPAP last admission - will monitor condition closely - educated on smoking cesssation. #2 CHF - BNP 250 - Given lasix 40 mg IV in ER. and will continue - Continue carvedilol 37.5 mg p.o. b.i.d. - Hold Furosemide 20 mg p.o. b.i.d. - Continue Entresto p.o. b.i.d. - Echocardiogram performed 02/18/2023 :Left ventricular systolic function is normal, estimated at 60-65%. The left ventricular diastolic function is grade I diastolic dysfunction #3Acute /subacute T12 compression fracture - Conservative management - Patient will need to continue outpatient osteoporosis workup with PCP including DEXA scan when discharged. - PT/OT order placed. - TLSO brace to be worn when upright and out of bed. #4 Hyponatremia - slow hydration - CMP daily Quality VTE Prophylaxis VTE prophylaxis: mechanical ordered Pharmacological Therapy Was IV thrombolytic therapy given?: No Hospitalist MIPS Advance Care Plan I have confirmed that the patient's Advanced Care Plan is present, code status is documented, or surrogate decision maker is listed in patient medical record.: Yes Medication Reconciliation I have utilized all available resources to obtain, update and review the patients current medications (includes all prescriptions, OTC, herbals, cannabis, and nutritional supplements).: Yes
[2024-06-19] VITALS (14 sets, daily range): BP systolic 126–147; BP diastolic 55–74; PULSE 76–90; RESP 16–18; TEMP 36.2–36.9; O2SAT 91–98
[2024-06-19] MEDS: methylPREDNISolone SOD SUCC 125 MG VIAL 40 MG IV PUSH ×4 (01:36→17:10)
--- NOTE | 2024-06-19 05:38 | PCRCNOTE ---
Window of time for administration has passed. See next scheduled administration.
[2024-06-19] MEDS: IPRATROPIUM 0.5 MG/ALBUTEROL SULFATE 2.5 MG AMPUL.NEB 3 ML INHALATION ×3 (07:15→21:31)
[2024-06-19 07:48] LABS: Basophils Percent Auto 0.1 % (0.2-1.2); Hematocrit 41.8 % (37.0-47.0); Hemoglobin 13.5 g/dL (12.0-15.0); Immature Granulocyte Percent A 0.7 % (0-0.5); Lymphocytes Absolute Auto 0.51 K/mm3 (0.9-3.2); Lymphocytes Percent Auto 3.7 % (18.3-44.2); Mean Corpuscular HGB Conc 32.3 g/dl (32-36); Mean Corpuscular Hemoglobin 32.7 pg (26-34); Mean Corpuscular Volume 101.2 fl (80-100); Mean Platelet Volume 9.3 fl (7.4-10.4); Monocytes Absolute Auto 0.4 K/mm3 (0.1-0.6); Monocytes Percent Auto 2.9 % (2.6-8.5); Neutrophils Absolute Auto 12.9 K/mm3 (1.3-6.7); Neutrophils Percent Auto 92.6 % (45.5-73.1); Platelet Count Result 182 k/mm3 (150-375); Red Blood Count 4.13 M/mm3 (4.2-5.4); Red Cell Distribution Width 11.4 % (11.5-14.5); White Blood Count 13.9 K/mm3 (4.5-10.0)
[2024-06-19 07:56] LABS: Alanine Aminotransferase 24 U/L (6-35); Albumin Level 3.7 g/dL (3.5-5.1); Alkaline Phosphatase 79 U/L (38-126); Anion Gap 3 mmol/L (4-12); Aspartate Amino Transferase 21 U/L (14-36); Bilirubin,Total 0.7 mg/dL (0.2-1.3); Blood Urea Nitrogen 12 mg/dL (7-17); Calcium 9.1 mg/dL (8.4-10.2); Carbon Dioxide 34 mmol/L (22-30); Chloride 94 mmol/L (98-107); Estimated CRCL calculation 145 ml/min; Estimated Glomerular Filt Rate > 60; Glucose 217 mg/dL (65-110); Potassium 4.2 mmol/L (3.4-5.0); Sodium 131 mmol/L (137-145)
[2024-06-19] MEDS: guaiFENesin 12 HR 600 MG TABCR PO ×2 (08:23→21:02)
[2024-06-19] MEDS: levoFLOXacin 750 MG TABLET PO (08:24)
[2024-06-19] MEDS: ATORVASTATIN 20 MG TABLET PO (08:24)
[2024-06-19] MEDS: carvediloL 12.5 MG TABLET 37.5 MG PO ×2 (08:24→21:02)
[2024-06-19] MEDS: ASPIRIN 81 MG ENTERIC TABLET PO (08:24)
--- NOTE | 2024-06-19 15:14 | P.PNIM_ITS ---
Progress Note: A&P Assessment and Plan (1) Acute respiratory distress: Code(s): R06.03 - Acute respiratory distress Status: Acute Assessment and Plan: 06/19/24: * Continue IV Solumedrol for now as expected etiology of respiratory distress is the COPD. * Continue home oxygen at 4L * 2 additional days of Levaquin remain per outpt order * Recommend smoking cessation * Continue duonebs * Continue to trend labs and VS. * If further decompensation in respiratory status as she did require BiPap last admission, consider Pulmonology consult. (2) Acute respiratory failure with hypoxia: Code(s): J96.01 - Acute respiratory failure with hypoxia Status: Acute Assessment and Plan: 06/19/24: * See #1 (3) COPD exacerbation: Code(s): J44.1 - Chronic obstructive pulmonary disease with (acute) exacerbation Status: Acute Assessment and Plan: 06/19/24: * See #1 (4) Nicotine dependence, cigarettes, with other nicotine-induced disorders: Code(s): F17.218 - Nicotine dependence, cigarettes, with other nicotine-induced disorders Status: Chronic Assessment and Plan: 06/19/24: * Nicotine patch ordered. (5) Tobacco abuse counseling: Code(s): Z71.6 - Tobacco abuse counseling Status: Acute Assessment and Plan: 06/19/24: * See #4 * Pt counseled for 10 minutes on importance of Nicotine cessation (6) CHF (congestive heart failure): Code(s): I50.9 - Heart failure, unspecified Status: Chronic Assessment and Plan: 06/19/24: * Pt does NOT appear to be decompensated. * Minimal bump in BNP * No effusion noted on CT Scan, but rather a large pericardial fat pad combined with overlying soft tissues. Lungs were otherwise clear. * Continue Carvedilol and all treatments in #1. * If any further s/s of acute heart failure exacerbation, consider cardiology consult. * Last ECHO 02/2023 showing EF at 60-65% and Grade 1 diastolic dysfunction. (7) T12 compression fracture: Code(s): S22.080A - Wedge compression fracture of T11-T12 vertebra, initial encounter for closed fracture Status: Acute Assessment and Plan: 06/19/24: * Pt reports no acute injury. * Injury is according to her, spontaneous. * Pt has TLSO brace that she is to wear when she is upright and out of bed. * Neurological status intact without any red flag symptoms. (8) Acute hyponatremia: Code(s): E87.1 - Hypo-osmolality and hyponatremia Status: Acute Assessment and Plan: 06/19/24: * Very minimal hyponatremia at 131. * If continues to trend downward, consider ordering osmolalities and urine sodium. * Trend labs Time Spent With Patient Time with patient: 15 - 25 minutes Subjective Date/time seen: 06/19/24 1145 Interval history: Pt examined this AM with no acute complaints and states she is starting to feel better overall with her breathing. No CP, increased swelling or any other acute complaints. Review of Systems Review of Systems: All systems reviewed & are unremarkable except as noted in HPI and below Exam Const: General: cooperative, comfortable, no acute distress, alert, awake and overweight Nutritional Appearance: overweight Orientation/consciousness: oriented to person, oriented to place and oriented to time HENMT: Head: normal to inspection Eyes: General: appearance normal, both eyes and all related structures Neck: Neck: normal visual inspection, full ROM and no lymphadenopathy Resp: Effort & Inspection: normal respiratory effort Auscultation: rales (Fine rales noted in LLL.) Cardio: Jugular venous distension: no JVD Rate: regular rate Rhythm: other (paced ) Heart sounds: S1 normal heart sound present and S2 normal heart sound present Peripheral pulses: Peripheral pulses 2+ throughout Other: No peripheral edema noted. GI: Inspection: non-distended GI Palp: Yes Soft to palpation and No Tenderness to palpation present (GI) Auscultation: normal bowel sounds Back/Spine/Pelvis: Back: no CVA tenderness Thoracic/Lumbar Spine: lumbar spinal tenderness Skin: General skin exam: normal color and no rashes or lesions noted Neuro: General: oriented to person, oriented to place and oriented to time Extrem: General: normal to inspection, full ROM and capillary refill normal Psych: Appearance: grossly normal and well kempt Mental Status: mental status grossly normal Speech and movement: Normal speech and movement present Objective Data Vital Signs Vital Signs: Vital Signs - 24 hr 06/18/24 20:32 06/18/24 20:35 06/18/24 20:42 Temperature 98.3 F Pulse Rate 77 77 Respiratory Rate 18 Blood Pressure 131/69 Pulse Oximetry 95 95 Oxygen Delivery Nasal Cannula Oxygen Flow Rate 4 06/18/24 21:40 06/18/24 21:43 06/18/24 22:25 Temperature 97.9 F Pulse Rate 80 80 72 Respiratory Rate 16 16 Blood Pressure 123/56 L Pulse Oximetry 95 94 Oxygen Delivery Nasal Cannula Oxygen Flow Rate 4 06/19/24 06:00 06/19/24 07:15 06/19/24 07:15 Temperature 98.4 F Pulse Rate 87 81 81 Respiratory Rate 16 18 18 Blood Pressure 134/74 Pulse Oximetry 94 91 Oxygen Delivery Nasal Cannula Oxygen Flow Rate 4 06/19/24 07:25 06/19/24 08:20 06/19/24 08:20 Temperature Pulse Rate 82 90 Respiratory Rate 18 Blood Pressure 147/73 H Pulse Oximetry 92 92 Oxygen Delivery Nasal Cannula Oxygen Flow Rate 4 06/19/24 08:24 06/19/24 13:08 06/19/24 13:18 Temperature Pulse Rate 90 84 81 Respiratory Rate 18 18 Blood Pressure Pulse Oximetry Oxygen Delivery Oxygen Flow Rate 06/19/24 14:00 06/19/24 14:16 Temperature 97.5 F L Pulse Rate 76 Respiratory Rate 16 Blood Pressure 126/55 L Pulse Oximetry 95 Oxygen Delivery Nasal Cannula Oxygen Flow Rate 4 Intake/Output Intake/Output: Intake & Output 06/16/24 06/17/24 06/18/24 06/19/24 23:59 23:59 23:59 23:59 Intake Total 2338 1080 Output Total 2100 1000 Balance 238 80 Meds/Results Medications: Active Medications Generic Name Dose Route Start Last Admin Trade Name Freq PRN Reason Stop Dose Admin Acetaminophen 1,000 mg 06/18/24 09:44 Acetaminophen 500 Mg Tablet PO HS PRN Insomnia Al Hydrox/Mg Hydrox/Simethicone 30 ml 06/18/24 09:22 Mag Hydrox/Al Hydrox/Simeth 30 Ml Udc PO Q6H PRN Indigestion Albuterol 2 puff 06/18/24 09:22 Albuterol Sulfate (*Sp) Aerosol 1 Puff INHALATION Q4H PRN shortness of breath or wheezing Albuterol/Ipratropium 3 ml 06/18/24 02:00 06/19/24 13:08 Ipratropium 0.5 Mg/Albuterol Sulfate 2.5 Mg Ampul.Neb 3 Ml INHALATION 3 ml Q6HRT KEIRA Administration Aspirin 81 mg 06/18/24 09:40 06/19/24 08:24 Aspirin 81 Mg Enteric Tablet PO 81 mg DAILY KEIRA Administration Atorvastatin Calcium 20 mg 06/18/24 09:40 06/19/24 08:24 Atorvastatin 20 Mg Tablet PO 20 mg DAILY KEIRA Administration Carvedilol 37.5 mg 06/18/24 09:40 06/19/24 08:24 Carvedilol 12.5 Mg Tablet PO 37.5 mg Q12HR KEIRA Administration Diphenhydramine HCl 50 mg 06/18/24 09:22 Diphenhydramine Hcl Cap 25 Mg Capsule PO HS PRN Insomnia Guaifenesin 600 mg 06/18/24 09:40 06/19/24 08:23 Guaifenesin 12 Hr 600 Mg Tabcr PO 600 mg Q12HR KEIRA Administration Levofloxacin 750 mg 06/19/24 09:00 06/19/24 08:24 Levofloxacin 750 Mg Tablet PO 750 mg DAILY KEIRA Administration Methylprednisolone Sodium Succinate 40 mg 06/18/24 06:00 06/19/24 11:43 Methylprednisolone Sod Succ 125 Mg Vial IV PUSH 40 mg Q6HR KEIRA Administration Radiology Results: ITS Impressions Chest X-Ray 06/17/24 22:11 IMPRESSION: Large left-sided pleural effusion without focal infiltrate. Chest CTA 06/17/24 23:04 IMPRESSION: No pulmonary embolus. No thoracic aortic dissection. Findings suggestive of right heart dysfunction, as detailed above. The large left-sided pleural effusion suspected on plain film evaluation corresponds to a large pericardial fat pad combined with overlying soft tissues. The lungs are clear. Labs Labs: Laboratory Results - last 24 hr 06/19/24 07:09 WBC 13.9 H RBC 4.13 L Hgb 13.5 Hct 41.8 MCV 101.2 H MCH 32.7 MCHC 32.3 RDW 11.4 L Plt Count 182 MPV 9.3 Immature Gran % (Auto) 0.7 H Neut % (Auto) 92.6 H Lymph % (Auto) 3.7 L [place] % (Auto) 2.9 Eos % (Auto) 0.0 Baso % (Auto) 0.1 L Lymph # (Auto) 0.51 L [place] # (Auto) 0.4 Eos # (Auto) 0.0 Baso # (Auto) 0.0 Abs Immat Gran (auto) 0.10 H Absolute Neuts (auto) 12.9 H Absolute Nucleated RBC 0.000 Nucleated RBC % 0.0 Sodium 131 L Potassium 4.2 Chloride 94 L Carbon Dioxide 34 H Anion Gap 3 L BUN 12 D Creatinine 0.31 L Estim Creat Clear Calc 145 Estimated GFR > 60 Glucose 217 H Calcium 9.1 Total Bilirubin 0.7 AST 21 ALT 24 Alkaline Phosphatase 79 Total Protein 6.0 L Albumin 3.7 Quality VTE Prophylaxis VTE prophylaxis: pharmacologic ordered
--- NOTE | 2024-06-19 17:51 | PC.NURSE ---
Patient states she no longer smokes,refused Nicotine patch.
[2024-06-20] VITALS (15 sets, daily range): BP systolic 126–131; BP diastolic 66–68; PULSE 65–88; RESP 16–20; TEMP 35.9–36.7; O2SAT 95–99
[2024-06-20] MEDS: methylPREDNISolone SOD SUCC 125 MG VIAL 40 MG IV PUSH ×5 (00:11→23:23)
[2024-06-20] MEDS: IPRATROPIUM 0.5 MG/ALBUTEROL SULFATE 2.5 MG AMPUL.NEB 3 ML INHALATION ×4 (03:21→20:56)
[2024-06-20 06:51] LABS: Basophils Percent Auto 0.1 % (0.2-1.2); Eosinophils Percent Auto 0.1 % (0-4.4); Hemoglobin 13.8 g/dL (12.0-15.0); Immature Granulocyte Absolute 0.19 K/mm3 (0.00-0.031); Immature Granulocyte Percent A 1.3 % (0-0.5); Lymphocytes Absolute Auto 0.41 K/mm3 (0.9-3.2); Lymphocytes Percent Auto 2.9 % (18.3-44.2); Mean Corpuscular HGB Conc 32.1 g/dl (32-36); Mean Corpuscular Volume 102.9 fl (80-100); Mean Platelet Volume 9.6 fl (7.4-10.4); Monocytes Absolute Auto 0.4 K/mm3 (0.1-0.6); Monocytes Percent Auto 2.9 % (2.6-8.5); Neutrophils Absolute Auto 13.3 K/mm3 (1.3-6.7); Neutrophils Percent Auto 92.7 % (45.5-73.1); Nucleated Red Blood Cells Perc 0.3 % (0.0-0.2); Platelet Count Result 205 k/mm3 (150-375); Red Blood Count 4.18 M/mm3 (4.2-5.4); Red Cell Distribution Width 11.5 % (11.5-14.5); White Blood Count 14.4 K/mm3 (4.5-10.0)
[2024-06-20 07:03] LABS: Alanine Aminotransferase 23 U/L (6-35); Albumin Level 3.8 g/dL (3.5-5.1); Alkaline Phosphatase 76 U/L (38-126); Anion Gap 2 mmol/L (4-12); Aspartate Amino Transferase 17 U/L (14-36); Bilirubin,Total 0.6 mg/dL (0.2-1.3); Blood Urea Nitrogen 16 mg/dL (7-17); Carbon Dioxide 36 mmol/L (22-30); Chloride 94 mmol/L (98-107); Estimated CRCL calculation 114 ml/min; Estimated Glomerular Filt Rate > 60; Glucose 204 mg/dL (65-110); Potassium 4.3 mmol/L (3.4-5.0); Sodium 132 mmol/L (137-145)
[2024-06-20] MEDS: carvediloL 12.5 MG TABLET 37.5 MG PO ×2 (09:51→20:37)
[2024-06-20] MEDS: guaiFENesin 12 HR 600 MG TABCR PO ×2 (09:53→20:36)
[2024-06-20] MEDS: ASPIRIN 81 MG ENTERIC TABLET PO (09:53)
[2024-06-20] MEDS: levoFLOXacin 750 MG TABLET PO (09:53)
[2024-06-20] MEDS: ATORVASTATIN 20 MG TABLET PO (09:53)
[2024-06-20] MEDS: NICOTINE (*PBKC) 21 MG PATCH 1 PATCH TRANSDERM (10:12)
[2024-06-20] MEDS: ENOXAPARIN 40 MG/0.4 ML SYRINGE SUB-Q (10:13)
--- NOTE | 2024-06-20 13:39 | P.PNIM_ITS ---
Progress Note: A&P Assessment and Plan (1) Acute respiratory distress: Code(s): R06.03 - Acute respiratory distress Status: Acute Assessment and Plan: 06/19/24: * Continue IV Solumedrol for now as expected etiology of respiratory distress is the COPD. * Continue home oxygen at 4L * 2 additional days of Levaquin remain per outpt order * Recommend smoking cessation * Continue duonebs * Continue to trend labs and VS. * If further decompensation in respiratory status as she did require BiPap last admission, consider Pulmonology 06/20 : Plan continue current care with IV steroids, BT and oxygen (2) Acute respiratory failure with hypoxia: Code(s): J96.01 - Acute respiratory failure with hypoxia Status: Acute Assessment and Plan: 06/20/24: * See #1 (3) COPD exacerbation: Code(s): J44.1 - Chronic obstructive pulmonary disease with (acute) exacerbation Status: Acute Assessment and Plan: 06/20/24: * See #1 (4) Nicotine dependence, cigarettes, with other nicotine-induced disorders: Code(s): F17.218 - Nicotine dependence, cigarettes, with other nicotine-induced disorders Status: Chronic Assessment and Plan: 06/20/24: * Nicotine patch ordered. (5) Tobacco abuse counseling: Code(s): Z71.6 - Tobacco abuse counseling Status: Acute Assessment and Plan: 06/20/24: * See #4 * Pt counseled for 10 minutes on importance of Nicotine cessation (6) CHF (congestive heart failure): Code(s): I50.9 - Heart failure, unspecified Status: Chronic Assessment and Plan: 06/20/24: * Pt does NOT appear to be decompensated. * Minimal bump in BNP * No effusion noted on CT Scan, but rather a large pericardial fat pad combined with overlying soft tissues. Lungs were otherwise clear. * Continue Carvedilol and all treatments in #1. * If any further s/s of acute heart failure exacerbation, consider cardiology consult. * Last ECHO 02/2023 showing EF at 60-65% and Grade 1 diastolic dysfunction. (7) T12 compression fracture: Code(s): S22.080A - Wedge compression fracture of T11-T12 vertebra, initial encounter for closed fracture Status: Acute Assessment and Plan: 06/20/24: * Pt reports no acute injury. * Injury is according to her, spontaneous. * Pt has TLSO brace that she is to wear when she is upright and out of bed. * Neurological status intact without any red flag symptoms. (8) Acute hyponatremia: Code(s): E87.1 - Hypo-osmolality and hyponatremia Status: Acute Assessment and Plan: 06/20/24: * Very minimal hyponatremia at 132. * Trend labs Subjective Date/time seen: 06/20/24 13:39 Interval history: 74-year-old female With medical history of COPD, CHF, hyperlipidemia, hypertension, arthritis cardiac arrhythmia status post pacemaker placement who presented to the ED with a chief complaint of shortness of breath. According to patient she was discharged from the hospital and came back a few days later. She reported increased shortness of breath since returning home, she was using her oxygen and inhalers, but could not recall what her inhalers are. Vitals on arrival show she is saturating at 97% on 4 L nasal cannula, which is her baseline O2 requirement, however patient has no idea if this is true. Pt admitted for copd exacerbation pt still smokes pt lost her pcp will need all her medications refilled on DC. PCP from [place]. Review of Systems Review of Systems: Ongoing sob and wheeze Exam Const: General: cooperative, comfortable, no acute distress, alert, awake and overweight Nutritional Appearance: overweight Chest: Chest palpation & inspection: normal inspection of the chest Resp: Effort & Inspection: normal respiratory effort Auscultation: diminished lung sounds (lower lobes) bilateral and localized Cardio: Jugular venous distension: no JVD Palpation: normal PMI Rate: regular rate Rhythm: other (paced ) Heart sounds: S1 normal heart sound present and S2 normal heart sound present Peripheral pulses: Peripheral pulses 2+ throughout Other: No peripheral edema noted. GI: Inspection: non-distended Auscultation: normal bowel sounds Skin: General skin exam: normal color and no rashes or lesions noted Objective Data Vital Signs Vital Signs: Vital Signs - 24 hr 06/19/24 14:00 06/19/24 14:16 06/19/24 20:48 Temperature 36.4 C L 36.2 C L Pulse Rate 76 88 Respiratory Rate 16 18 Blood Pressure 126/55 L 137/71 Pulse Oximetry 95 98 Oxygen Delivery Nasal Cannula Oxygen Flow Rate 4 06/19/24 20:54 06/19/24 21:02 06/19/24 21:34 Temperature Pulse Rate 88 84 Respiratory Rate 18 Blood Pressure Pulse Oximetry 94 Oxygen Delivery Nasal Cannula Oxygen Flow Rate 4 06/19/24 21:35 06/19/24 21:43 06/20/24 03:25 Temperature Pulse Rate 84 84 83 Respiratory Rate 18 18 18 Blood Pressure Pulse Oximetry 94 Oxygen Delivery Nasal Cannula Oxygen Flow Rate 4 06/20/24 03:26 06/20/24 03:35 06/20/24 05:22 Temperature 36.0 C L Pulse Rate 85 77 Respiratory Rate 18 16 Blood Pressure Pulse Oximetry 96 99 Oxygen Delivery Nasal Cannula Oxygen Flow Rate 4 06/20/24 09:26 06/20/24 09:26 06/20/24 09:51 Temperature Pulse Rate 71 71 Respiratory Rate 20 Blood Pressure Pulse Oximetry 95 Oxygen Delivery Nasal Cannula Oxygen Flow Rate 3 Intake/Output Intake/Output: Intake & Output 06/17/24 06/18/24 06/19/24 06/20/24 23:59 23:59 23:59 23:59 Intake Total 2338 2420 490 Output Total 2100 1200 1300 Balance 238 1220 -810 Meds/Results Medications: Active Medications Generic Name Dose Route Start Last Admin Trade Name Freq PRN Reason Stop Dose Admin Acetaminophen 1,000 mg 06/18/24 09:44 Acetaminophen 500 Mg Tablet PO HS PRN Insomnia Al Hydrox/Mg Hydrox/Simethicone 30 ml 06/18/24 09:22 Mag Hydrox/Al Hydrox/Simeth 30 Ml Udc PO Q6H PRN Indigestion Albuterol 2 puff 06/18/24 09:22 Albuterol Sulfate (*Sp) Aerosol 1 Puff INHALATION Q4H PRN shortness of breath or wheezing Albuterol/Ipratropium 3 ml 06/18/24 02:00 06/20/24 09:24 Ipratropium 0.5 Mg/Albuterol Sulfate 2.5 Mg Ampul.Neb 3 Ml INHALATION 3 ml Q6HRT KEIRA Administration Aspirin 81 mg 06/18/24 09:40 06/20/24 09:53 Aspirin 81 Mg Enteric Tablet PO 81 mg DAILY KEIRA Administration Atorvastatin Calcium 20 mg 06/18/24 09:40 06/20/24 09:53 Atorvastatin 20 Mg Tablet PO 20 mg DAILY KEIRA Administration Carvedilol 37.5 mg 06/18/24 09:40 06/20/24 09:51 Carvedilol 12.5 Mg Tablet PO 37.5 mg Q12HR KEIRA Administration Diphenhydramine HCl 50 mg 06/18/24 09:22 Diphenhydramine Hcl Cap 25 Mg Capsule PO HS PRN Insomnia Enoxaparin Sodium 40 mg 06/20/24 09:00 06/20/24 10:13 Enoxaparin 40 Mg/0.4 Ml Syringe SUB-Q 40 mg DAILY KEIRA Administration Guaifenesin 600 mg 06/18/24 09:40 06/20/24 09:53 Guaifenesin 12 Hr 600 Mg Tabcr PO 600 mg Q12HR KEIRA Administration Levofloxacin 750 mg 06/19/24 09:00 06/20/24 09:53 Levofloxacin 750 Mg Tablet PO 750 mg DAILY KEIRA Administration Methylprednisolone Sodium Succinate 40 mg 06/18/24 06:00 06/20/24 13:02 Methylprednisolone Sod Succ 125 Mg Vial IV PUSH 40 mg Q6HR KEIRA Administration Nicotine 1 patch 06/19/24 15:25 06/20/24 10:12 Nicotine (*Pbkc) 21 Mg Patch TRANSDERM 1 patch DAILY KEIRA Administration Radiology Results: ITS Impressions Chest X-Ray 06/17/24 22:11 IMPRESSION: Large left-sided pleural effusion without focal infiltrate. Chest CTA 06/17/24 23:04 IMPRESSION: No pulmonary embolus. No thoracic aortic dissection. Findings suggestive of right heart dysfunction, as detailed above. The large left-sided pleural effusion suspected on plain film evaluation corresponds to a large pericardial fat pad combined with overlying soft tissues. The lungs are clear. Labs Labs: Laboratory Results - last 24 hr 06/20/24 06:27 WBC 14.4 H RBC 4.18 L Hgb 13.8 Hct 43.0 MCV 102.9 H MCH 33.0 MCHC 32.1 RDW 11.5 Plt Count 205 MPV 9.6 Immature Gran % (Auto) 1.3 H Neut % (Auto) 92.7 H Lymph % (Auto) 2.9 L [place] % (Auto) 2.9 Eos % (Auto) 0.1 Baso % (Auto) 0.1 L Lymph # (Auto) 0.41 L [place] # (Auto) 0.4 Eos # (Auto) 0.0 Baso # (Auto) 0.0 Abs Immat Gran (auto) 0.19 H Absolute Neuts (auto) 13.3 H Absolute Nucleated RBC 0.040 H Nucleated RBC % 0.3 H Sodium 132 L Potassium 4.3 Chloride 94 L Carbon Dioxide 36 H Anion Gap 2 L BUN 16 Creatinine 0.41 L Estim Creat Clear Calc 114 Estimated GFR > 60 Glucose 204 H Calcium 9.0 Total Bilirubin 0.6 AST 17 ALT 23 Alkaline Phosphatase 76 Total Protein 6.0 L Albumin 3.8
[2024-06-21] VITALS (14 sets, daily range): BP systolic 119–141; BP diastolic 51–80; PULSE 65–81; RESP 16–20; TEMP 35.8–36.8; O2SAT 94–100
[2024-06-21] MEDS: IPRATROPIUM 0.5 MG/ALBUTEROL SULFATE 2.5 MG AMPUL.NEB 3 ML INHALATION ×4 (01:42→20:26)
[2024-06-21] MEDS: methylPREDNISolone SOD SUCC 125 MG VIAL 40 MG IV PUSH ×2 (05:26→11:45)
[2024-06-21 06:41] LABS: Alanine Aminotransferase 22 U/L (6-35); Albumin Level 3.6 g/dL (3.5-5.1); Alkaline Phosphatase 57 U/L (38-126); Anion Gap 4 mmol/L (4-12); Aspartate Amino Transferase 20 U/L (14-36); Bilirubin,Total 0.9 mg/dL (0.2-1.3); Blood Urea Nitrogen 18 mg/dL (7-17); Calcium 8.8 mg/dL (8.4-10.2); Carbon Dioxide 35 mmol/L (22-30); Chloride 91 mmol/L (98-107); Estimated CRCL calculation 128 ml/min; Estimated Glomerular Filt Rate > 60; Glucose 216 mg/dL (65-110); Potassium 4.9 mmol/L (3.4-5.0); Sodium 130 mmol/L (137-145)
[2024-06-21] MEDS: carvediloL 12.5 MG TABLET 37.5 MG PO ×2 (09:33→21:34)
[2024-06-21] MEDS: levoFLOXacin 750 MG TABLET PO (09:35)
[2024-06-21] MEDS: ENOXAPARIN 40 MG/0.4 ML SYRINGE SUB-Q (09:35)
[2024-06-21] MEDS: ASPIRIN 81 MG ENTERIC TABLET PO (09:35)
[2024-06-21] MEDS: guaiFENesin 12 HR 600 MG TABCR PO ×2 (09:35→21:34)
[2024-06-21] MEDS: ATORVASTATIN 20 MG TABLET PO (09:35)
--- NOTE | 2024-06-21 12:41 | PM.IMPN ---
Progress Note: A&P Assessment and Plan (1) Acute respiratory distress: Code(s): R06.03 - Acute respiratory distress Status: Acute (2) Acute respiratory failure with hypoxia: Code(s): J96.01 - Acute respiratory failure with hypoxia Status: Acute (3) COPD exacerbation: Code(s): J44.1 - Chronic obstructive pulmonary disease with (acute) exacerbation Status: Acute (4) Nicotine dependence, cigarettes, with other nicotine-induced disorders: Code(s): F17.218 - Nicotine dependence, cigarettes, with other nicotine-induced disorders Status: Chronic (5) Tobacco abuse counseling: Code(s): Z71.6 - Tobacco abuse counseling Status: Acute (6) CHF (congestive heart failure): Code(s): I50.9 - Heart failure, unspecified Status: Chronic (7) T12 compression fracture: Code(s): S22.080A - Wedge compression fracture of T11-T12 vertebra, initial encounter for closed fracture Status: Acute (8) Acute hyponatremia: Code(s): E87.1 - Hypo-osmolality and hyponatremia Status: Acute Plan This is a 74-year-old female With medical history of COPD, CHF, hyperlipidemia, hypertension, arthritis cardiac arrhythmia status post pacemaker placement who presented to the ED with a chief complaint of shortness of breath. According to patient she was discharged from the hospital and came back a few days later. She reported increased shortness of breath since returning home, she was using her oxygen and inhalers, but could not recall what her inhalers are. Vitals on arrival show she is saturating at 97% on 4 L nasal cannula, which is her baseline O2 requirement, however patient has no idea if this is true. Pt admitted for copd exacerbation pt still smokes pt lost her pcp will need all her medications refilled on DC. PCP from [place]. Tobacco dependence COPD exacerbation patient currently on IV Solu-Medrol. On Levaquin as well. Will switch to oral steroid. Chronic respiratory failure on home oxygen at 4 L. Abnormal chest x-ray with large left pleural effusion which was clarified to be a prominent pericardial fat pad congestive heart failure chronic diastolic echo 02/2023 LVEF 60-65% grade 1 diastolic dysfunction Atrial fibrillation Cardiomyopathy new line dyslipidemia Recent compression fracture at T12 TLSO brace when upright. Neurosurgery follow-up Hyponatremia mild monitor DVT prophylaxis Lovenox Code status full code Subjective Date/time seen: 06/21/24 12:41 Interval history: no overnight evnets, feels okay. sob with exertion. back pain present from the fracture. no leg swelling. Review of Systems Review of Systems: All systems reviewed & are unremarkable except as noted in HPI and below Exam Narrative: GENERAL: Well-appearing, well-nourished, and in no acute distress. HEAD: Normocephalic, atraumatic. EYES: PERRLA and EOMI. ENT: Nares clear, no rhinorrhea or epistaxis. NECK: Supple. No adenopathy or masses. CHEST: No overt respiratory distress. Diminished breath sounds bilaterally no wheezes HEART: Regular rate and rhythm. No murmur heard. Normal peripheral pulses. ABDOMEN: Soft, nontender, nondistended, normal active bowel sounds. MSK: Normal range of motion. No edema. SKIN: Warm, dry, no rash. NEURO: Alert and oriented x4. No focal deficits. PSYCH: Normal mood and affect. Objective Data Vital Signs Vital Signs: Vital Signs - 24 hr 06/20/24 13:15 06/20/24 14:00 06/20/24 14:48 Temperature 96.7 F L Pulse Rate 85 83 Respiratory Rate 18 20 Blood Pressure 126/68 Pulse Oximetry 96 Oxygen Delivery Nasal Cannula Oxygen Flow Rate 3 06/20/24 15:00 06/20/24 20:28 06/20/24 20:37 Temperature Pulse Rate 88 76 Respiratory Rate 20 Blood Pressure Pulse Oximetry 95 Oxygen Delivery Nasal Cannula Oxygen Flow Rate 2 06/20/24 20:58 06/20/24 21:03 06/20/24 21:04 Temperature Pulse Rate 74 65 Respiratory Rate 20 20 Blood Pressure Pulse Oximetry 95 Oxygen Delivery Nasal Cannula Oxygen Flow Rate 2 06/20/24 21:36 06/21/24 01:42 06/21/24 01:48 Temperature 98.1 F Pulse Rate 76 65 65 Respiratory Rate 18 19 Blood Pressure 131/66 Pulse Oximetry 99 Oxygen Delivery Oxygen Flow Rate 06/21/24 06:00 06/21/24 07:50 06/21/24 07:50 Temperature 98.3 F Pulse Rate 81 67 Respiratory Rate 16 20 Blood Pressure 119/52 L Pulse Oximetry 94 96 Oxygen Delivery Nasal Cannula Oxygen Flow Rate 2 06/21/24 08:00 06/21/24 09:30 06/21/24 09:33 Temperature Pulse Rate 67 67 Respiratory Rate 18 Blood Pressure Pulse Oximetry 94 Oxygen Delivery Nasal Cannula Oxygen Flow Rate 2 Intake/Output Intake/Output: Intake & Output 06/18/24 06/19/24 06/20/24 06/21/24 23:59 23:59 23:59 23:59 Intake Total 2338 2420 1370 440 Output Total 2100 1200 2100 1600 Balance 238 0755 -076 -1161 Meds/Results Medications: Active Medications Generic Name Dose Route Start Last Admin Trade Name Freq PRN Reason Stop Dose Admin Acetaminophen 1,000 mg 06/18/24 09:44 Acetaminophen 500 Mg Tablet PO HS PRN Insomnia Al Hydrox/Mg Hydrox/Simethicone 30 ml 06/18/24 09:22 Mag Hydrox/Al Hydrox/Simeth 30 Ml Udc PO Q6H PRN Indigestion Albuterol 2 puff 06/18/24 09:22 Albuterol Sulfate (*Sp) Aerosol 1 Puff INHALATION Q4H PRN shortness of breath or wheezing Albuterol/Ipratropium 3 ml 06/18/24 02:00 06/21/24 07:46 Ipratropium 0.5 Mg/Albuterol Sulfate 2.5 Mg Ampul.Neb 3 Ml INHALATION 3 ml Q6HRT KEIRA Administration Aspirin 81 mg 06/18/24 09:40 06/21/24 09:35 Aspirin 81 Mg Enteric Tablet PO 81 mg DAILY KEIRA Administration Atorvastatin Calcium 20 mg 06/18/24 09:40 06/21/24 09:35 Atorvastatin 20 Mg Tablet PO 20 mg DAILY KEIRA Administration Carvedilol 37.5 mg 06/18/24 09:40 06/21/24 09:33 Carvedilol 12.5 Mg Tablet PO 37.5 mg Q12HR KEIRA Administration Diphenhydramine HCl 50 mg 06/18/24 09:22 Diphenhydramine Hcl Cap 25 Mg Capsule PO HS PRN Insomnia Enoxaparin Sodium 40 mg 06/20/24 09:00 06/21/24 09:35 Enoxaparin 40 Mg/0.4 Ml Syringe SUB-Q 40 mg DAILY KEIRA Administration Guaifenesin 600 mg 06/18/24 09:40 06/21/24 09:35 Guaifenesin 12 Hr 600 Mg Tabcr PO 600 mg Q12HR KEIRA Administration Levofloxacin 750 mg 06/19/24 09:00 06/21/24 09:35 Levofloxacin 750 Mg Tablet PO 750 mg DAILY KEIRA Administration Methylprednisolone Sodium Succinate 40 mg 06/18/24 06:00 06/21/24 11:45 Methylprednisolone Sod Succ 125 Mg Vial IV PUSH 40 mg Q6HR KEIRA Administration Nicotine 1 patch 06/19/24 15:25 06/21/24 09:35 Nicotine (*Pbkc) 21 Mg Patch TRANSDERM Not Given DAILY KEIRA Radiology Results: ITS Impressions Chest X-Ray 06/17/24 22:11 IMPRESSION: Large left-sided pleural effusion without focal infiltrate. Chest CTA 06/17/24 23:04 IMPRESSION: No pulmonary embolus. No thoracic aortic dissection. Findings suggestive of right heart dysfunction, as detailed above. The large left-sided pleural effusion suspected on plain film evaluation corresponds to a large pericardial fat pad combined with overlying soft tissues. The lungs are clear. Labs Labs: Laboratory Results - last 24 hr 06/21/24 06:10 Sodium 130 L Potassium 4.9 Chloride 91 L Carbon Dioxide 35 H Anion Gap 4 BUN 18 H Creatinine 0.36 L Estim Creat Clear Calc 128 Estimated GFR > 60 Glucose 216 H Calcium 8.8 Total Bilirubin 0.9 AST 20 ALT 22 Alkaline Phosphatase 57 Total Protein 6.0 L Albumin 3.6
[2024-06-21 22:42] LABS: Glucose Point of Care 302 mg/dl (65-105)
[2024-06-22] VITALS (14 sets, daily range): BP systolic 111–161; BP diastolic 59–91; PULSE 66–100; RESP 12–20; TEMP 35.9–36.1; O2SAT 87–93
[2024-06-22] MEDS: IPRATROPIUM 0.5 MG/ALBUTEROL SULFATE 2.5 MG AMPUL.NEB 3 ML INHALATION ×3 (02:49→14:26)
[2024-06-22 06:56] LABS: Basophils Percent Auto 0.2 % (0.2-1.2); Hematocrit 41.1 % (37.0-47.0); Hemoglobin 13.5 g/dL (12.0-15.0); Immature Granulocyte Absolute 0.18 K/mm3 (0.00-0.031); Immature Granulocyte Percent A 1.4 % (0-0.5); Lymphocytes Absolute Auto 0.71 K/mm3 (0.9-3.2); Lymphocytes Percent Auto 5.7 % (18.3-44.2); Mean Corpuscular HGB Conc 32.8 g/dl (32-36); Mean Corpuscular Hemoglobin 32.8 pg (26-34); Mean Corpuscular Volume 99.8 fl (80-100); Mean Platelet Volume 9.4 fl (7.4-10.4); Monocytes Absolute Auto 1.1 K/mm3 (0.1-0.6); Monocytes Percent Auto 8.8 % (2.6-8.5); Neutrophils Absolute Auto 10.5 K/mm3 (1.3-6.7); Neutrophils Percent Auto 83.9 % (45.5-73.1); Platelet Count Result 184 k/mm3 (150-375); Red Blood Count 4.12 M/mm3 (4.2-5.4); Red Cell Distribution Width 11.1 % (11.5-14.5); White Blood Count 12.5 K/mm3 (4.5-10.0)
[2024-06-22 07:09] LABS: Alanine Aminotransferase 22 U/L (6-35); Albumin Level 3.3 g/dL (3.5-5.1); Alkaline Phosphatase 67 U/L (38-126); Anion Gap 3 mmol/L (4-12); Aspartate Amino Transferase 17 U/L (14-36); Bilirubin,Total 0.7 mg/dL (0.2-1.3); Blood Urea Nitrogen 15 mg/dL (7-17); Calcium 8.6 mg/dL (8.4-10.2); Carbon Dioxide 34 mmol/L (22-30); Chloride 92 mmol/L (98-107); Estimated CRCL calculation 112 ml/min; Estimated Glomerular Filt Rate > 60; Glucose 195 mg/dL (65-110); Magnesium 2.2 mg/dL (1.6-2.3); Potassium 4.5 mmol/L (3.4-5.0); Sodium 129 mmol/L (137-145)
--- NOTE | 2024-06-22 09:46 | P.CDI_ITS ---
CDI Query Clarification Request Patient with a BMI of 41.9 please provide a diagnosis to accompany this finding: * Overweight * Obesity * Morbid Obesity * Other/Unknown <Lesly Mcnamara RN - Last Filed: 06/22/24 09:47> Provider Comments Morbid obesity <Nito Hatch MD - Last Filed: 06/22/24 14:06>
--- NOTE | 2024-06-22 09:46 | WPDCDIQUERY2 ---
CDI Query Clarification Request Patient with a BMI of 41.9 please provide a diagnosis to accompany this finding: Overweight Obesity Morbid Obesity Other/Unknown <Lesly Mcnamara RN - Last Filed: 06/22/24 09:47> Provider Comments Morbid obesity <Nito Hatch MD - Last Filed: 06/22/24 14:06>
[2024-06-22] MEDS: guaiFENesin 12 HR 600 MG TABCR PO (10:25)
[2024-06-22] MEDS: levoFLOXacin 750 MG TABLET PO (10:25)
[2024-06-22] MEDS: ATORVASTATIN 20 MG TABLET PO (10:25)
[2024-06-22] MEDS: predniSONE 20 MG TABLET 40 MG PO (10:25)
[2024-06-22] MEDS: ASPIRIN 81 MG ENTERIC TABLET PO (10:26)
[2024-06-22] MEDS: ACETAMINOPHEN 500 MG TABLET 1000 MG PO (10:26)
[2024-06-22] MEDS: carvediloL 12.5 MG TABLET 37.5 MG PO (10:26)
[2024-06-22] MEDS: ENOXAPARIN 40 MG/0.4 ML SYRINGE SUB-Q (10:30)
[2024-06-22] MEDS: NICOTINE (*PBKC) 21 MG PATCH 1 PATCH TRANSDERM (10:30)
--- NOTE | 2024-06-22 13:34 | PM.DS ---
DS: Admitting Diagnosis Discharge Date 06/22/2024 Admitting Diagnosis Shortness of breath DS: Discharge Diagnosis Discharge Diagnosis (1) Acute respiratory distress: Code(s): R06.03 - Acute respiratory distress Status: Acute (2) Acute respiratory failure with hypoxia: Code(s): J96.01 - Acute respiratory failure with hypoxia Status: Acute (3) COPD exacerbation: Code(s): J44.1 - Chronic obstructive pulmonary disease with (acute) exacerbation Status: Acute (4) Nicotine dependence, cigarettes, with other nicotine-induced disorders: Code(s): F17.218 - Nicotine dependence, cigarettes, with other nicotine-induced disorders Status: Chronic (5) Tobacco abuse counseling: Code(s): Z71.6 - Tobacco abuse counseling Status: Acute (6) CHF (congestive heart failure): Code(s): I50.9 - Heart failure, unspecified Status: Chronic (7) T12 compression fracture: Code(s): S22.080A - Wedge compression fracture of T11-T12 vertebra, initial encounter for closed fracture Status: Acute (8) Acute hyponatremia: Code(s): E87.1 - Hypo-osmolality and hyponatremia Status: Acute DS: Summary Hospital Course Hospital Course: This is a 74-year-old female With medical history of COPD, CHF, hyperlipidemia, hypertension, arthritis cardiac arrhythmia status post pacemaker placement who presented to the ED with a chief complaint of shortness of breath. According to patient she was discharged from the hospital and came back a few days later. She reported increased shortness of breath since returning home, she was using her oxygen and inhalers, but could not recall what her inhalers are. Vitals on arrival show she is saturating at 97% on 4 L nasal cannula, which is her baseline O2 requirement, however patient has no idea if this is true. Pt admitted for copd exacerbation pt still smokes pt lost her pcp will need all her medications refilled on DC. PCP from [place]. Tobacco dependence COPD exacerbation patient currently on IV Solu-Medrol. On Levaquin as well. Will switch to oral steroid. Will do steroid taper at discharge finished antibiotic course during the hospital stay Chronic respiratory failure on home oxygen at 4 L. Home oxygen evaluation Abnormal chest x-ray with large left pleural effusion which was clarified to be a prominent pericardial fat pad congestive heart failure chronic diastolic echo 02/2023 LVEF 60-65% grade 1 diastolic dysfunction History of ischemic cardiomyopathy ventricular fibrillation dilated cardiomyopathy status post biventricular ICD placement 2017 EF 30% initially with improvement to 50-55% 07/31. Coronary artery disease moderate right Status post pacemaker implantation Tobacco dependent Atrial fibrillation dyslipidemia Recent compression fracture at T12 TLSO brace when upright. Neurosurgery follow-up as previously planned Hyponatremia mild monitor DVT prophylaxis Lovenox Code status full code Time Spent with Patient Time attestation: Total time spent providing and/or coordinating discharge services: 35 minutes Exam Narrative: GENERAL: Well-appearing, well-nourished, and in no acute distress. HEAD: Normocephalic, atraumatic. EYES: PERRLA and EOMI. ENT: Nares clear, no rhinorrhea or epistaxis. NECK: Supple. No adenopathy or masses. CHEST: No overt respiratory distress. Diminished breath sounds bilaterally no wheezes HEART: Regular rate and rhythm. No murmur heard. Normal peripheral pulses. ABDOMEN: Soft, nontender, nondistended, normal active bowel sounds. MSK: Normal range of motion. No edema. SKIN: Warm, dry, no rash. NEURO: Alert and oriented x4. No focal deficits. PSYCH: Normal mood and affect. DS: Data Data Completed and Pending Labs on day of discharge: Labs from last 24 hours 06/22/24 06/21/24 06:35 21:20 WBC 12.5 H RBC 4.12 L Hgb 13.5 Hct 41.1 MCV 99.8 MCH 32.8 MCHC 32.8 RDW 11.1 L Plt Count 184 MPV 9.4 Immature Gran % (Auto) 1.4 H Neut % (Auto) 83.9 H Lymph % (Auto) 5.7 L [place] % (Auto) 8.8 H Eos % (Auto) 0.0 Baso % (Auto) 0.2 Lymph # (Auto) 0.71 L [place] # (Auto) 1.1 H Eos # (Auto) 0.0 Baso # (Auto) 0.0 Abs Immat Gran (auto) 0.18 H Absolute Neuts (auto) 10.5 H Absolute Nucleated RBC 0.000 Nucleated RBC % 0.0 Sodium 129 L Potassium 4.5 Chloride 92 L Carbon Dioxide 34 H Anion Gap 3 L BUN 15 Creatinine 0.42 L Estim Creat Clear Calc 112 Estimated GFR > 60 Glucose 195 H POC Capillary Glucose 302 H Calcium 8.6 Magnesium 2.2 Total Bilirubin 0.7 AST 17 ALT 22 Alkaline Phosphatase 67 Total Protein 6.0 L Albumin 3.3 L Preliminary micro results at discharge 06/17/24 21:57 Blood Culture - Preliminary Blood 06/17/24 22:48 Blood Culture - Preliminary Blood Imaging Radiologist's impression: ITS Impressions Chest X-Ray 06/17/24 22:11 IMPRESSION: Large left-sided pleural effusion without focal infiltrate. Chest CTA 06/17/24 23:04 IMPRESSION: No pulmonary embolus. No thoracic aortic dissection. Findings suggestive of right heart dysfunction, as detailed above. The large left-sided pleural effusion suspected on plain film evaluation corresponds to a large pericardial fat pad combined with overlying soft tissues. The lungs are clear. Chest X-Ray 06/22/24 07:20 Impression: [id number] left pleural effusion, possibly partially loculated laterally. Mild interstitial pulmonary edema. Pacemaker device. Discharge Plan Discharge Attending physician on discharge: Nito Hatch Discharging Clinician: Nito Hatch Anticipated Discharge Date/Time: 06/22/24 13:36 Patient Disposition: Home, Self-Care Activity: as tolerated Diet: heart healthy Discharge Instructions: TLSO brace when ambulating oxygen 1l at rest and 2 with activity. Patient Instructions: Antibiotic Form Patient Language: Vietnamese Stand Alone Forms: General Discharge Information Follow-up/Referrals: UNKNOWN,DOCTOR [Primary Care Provider] - 1 Week Discharge Medications: New ipratropium-albuterol 0.5 mg-3 mg(2.5 mg base)/3 mL Solution For Nebulization 3 ml inhalation Q6HRT PRN (Reason: shortness of breath) Qty: 300 0RF prednisone 20 mg Tablet 40 mg PO DAILY@0800 Qty: 8 0RF nicotine [Nicoderm CQ] 21 mg/24 hr Patch 24 Hour 1 patch transdermal DAILY Qty: 28 0RF Continued diphenhydramine-acetaminophen [Tylenol PM Extra Strength] 25-500 mg Tablet 2 tablet PO HS PRN (Reason: Insomnia) Patient Comments: Patient takes every night because she can't sleep without it. aspirin 81 mg Capsule 81 mg PO DAILY guaifenesin [Mucus Relief ER] 600 mg Tablet Extended Release 12hr 600 mg PO Q12HR Qty: 30 0RF alum-mag hydroxide-simeth [Mag-Al Plus] 200-200-20 mg/5 mL Suspension 30 ml PO Q6H PRN (Reason: Indigestion) Qty: 3000 0RF polyethylene glycol 3350 [Miralax] 17 gram Powder In Packet 17 g PO QAM PRN (Reason: Constipation) Qty: 30 0RF atorvastatin [Lipitor] 20 mg tablet 20 mg PO DAILY carvedilol 25 mg tablet 37.5 mg PO BID furosemide 20 mg tablet 20 mg PO BID PRN (Reason: Edema) Rx Instructions: Take as needed for leg swelling. albuterol sulfate [Proventil HFA] 90 mcg/actuation HFA aerosol inhaler 2 puff inhalation Q4H PRN (Reason: shortness of breath or wheezing) Qty: 8.5 3RF naproxen sodium [Aleve] 220 mg capsule 220 mg PO Q8-12H PRN (Reason: pain) Trelegy Ellipta 100-62.5-25 mcg blister with device 1 inh INHALATION DAILY Qty: 1 0RF Discontinued levofloxacin 750 mg tablet 750 mg PO DAILY Qty: 7 0RF sotalol 80 mg tablet 80 mg PO BID sacubitril-valsartan [Entresto] 97-103 mg tablet 1 tablet PO BID naproxen sodium [Aleve] 220 mg capsule 220 mg PO BID PRN (Reason: pain) Date of admission: 06/19/24 15:35 Primary Care Provider: UNKNOWN,DOCTOR Admitting Provider: Herlinda Arndt Attending physician on admission: Ema Mendoza Condition: Stable Hospitalist MIPS Heart Failure (Exclusion) Patient has history of Heart Transplant or Left Ventricular Assistive Device?: No IF YES, STOP HERE Heart Failure (Qualifier) Patient has current or prior documentation of LVEF less than or equal to 40%, or mod/servere depressed LVSF?: No IF NO, STOP HERE
--- NOTE | 2024-06-22 15:11 | P.PNIM_ITS ---
Progress Note: A&P Assessment and Plan (1) Acute respiratory distress: Code(s): R06.03 - Acute respiratory distress Status: Acute (2) Acute respiratory failure with hypoxia: Code(s): J96.01 - Acute respiratory failure with hypoxia Status: Acute (3) COPD exacerbation: Code(s): J44.1 - Chronic obstructive pulmonary disease with (acute) exacerbation Status: Acute (4) Nicotine dependence, cigarettes, with other nicotine-induced disorders: Code(s): F17.218 - Nicotine dependence, cigarettes, with other nicotine-induced disorders Status: Chronic (5) Tobacco abuse counseling: Code(s): Z71.6 - Tobacco abuse counseling Status: Acute (6) CHF (congestive heart failure): Code(s): I50.9 - Heart failure, unspecified Status: Chronic (7) T12 compression fracture: Code(s): S22.080A - Wedge compression fracture of T11-T12 vertebra, initial encounter for closed fracture Status: Acute (8) Acute hyponatremia: Code(s): E87.1 - Hypo-osmolality and hyponatremia Status: Acute Plan This is a 74-year-old female With medical history of COPD, CHF, hyperlipidemia, hypertension, arthritis cardiac arrhythmia status post pacemaker placement who presented to the ED with a chief complaint of shortness of breath. According to patient she was discharged from the hospital and came back a few days later. She reported increased shortness of breath since returning home, she was using her oxygen and inhalers, but could not recall what her inhalers are. Vitals on arrival show she is saturating at 97% on 4 L nasal cannula, which is her baseline O2 requirement, however patient has no idea if this is true. Pt admitted for copd exacerbation pt still smokes pt lost her pcp will need all her medications refilled on DC. PCP from [place]. Tobacco dependence COPD exacerbation patient currently on IV Solu-Medrol. On Levaquin as well. Will switch to oral steroid. Will do steroid taper at discharge finished antibiotic course during the hospital stay Chronic respiratory failure on home oxygen at 4 L. Home oxygen evaluation Abnormal chest x-ray with large left pleural effusion which was clarified to be a prominent pericardial fat pad congestive heart failure chronic diastolic echo 02/2023 LVEF 60-65% grade 1 diastolic dysfunction History of ischemic cardiomyopathy ventricular fibrillation dilated cardiomyopathy status post biventricular ICD placement 2016 EF 30% initially with improvement to 50-55% 07/31. Coronary artery disease moderate right Status post pacemaker implantation Tobacco dependent Atrial fibrillation dyslipidemia Recent compression fracture at T12 TLSO brace when upright. Neurosurgery follow-up as previously planned Hyponatremia mild monitor DVT prophylaxis Lovenox Code status full code Subjective Date/time seen: 06/22/24 15:11 Interval history: Feels well no new complaints breathing has improved wants to go home Review of Systems Review of Systems: All systems reviewed & are unremarkable except as noted in HPI and below Exam Narrative: GENERAL: Well-appearing, well-nourished, and in no acute distress. HEAD: Normocephalic, atraumatic. EYES: PERRLA and EOMI. ENT: Nares clear, no rhinorrhea or epistaxis. NECK: Supple. No adenopathy or masses. CHEST: No overt respiratory distress. Diminished breath sounds bilaterally no wheezes HEART: Regular rate and rhythm. No murmur heard. Normal peripheral pulses. ABDOMEN: Soft, nontender, nondistended, normal active bowel sounds. MSK: Normal range of motion. No edema. SKIN: Warm, dry, no rash. NEURO: Alert and oriented x4. No focal deficits. PSYCH: Normal mood and affect. Objective Data Vital Signs Vital Signs: Vital Signs - 24 hr 06/21/24 20:00 06/21/24 20:26 06/21/24 20:26 Temperature Pulse Rate 79 Respiratory Rate 20 Blood Pressure Pulse Oximetry 98 95 Oxygen Delivery Nasal Cannula Nasal Cannula Oxygen Flow Rate 2 2 Fraction of Inspired Oxygen 28 06/21/24 20:35 06/21/24 21:34 06/21/24 22:00 Temperature 98.1 F Pulse Rate 78 68 73 Respiratory Rate 20 18 Blood Pressure 126/51 L Pulse Oximetry 98 Oxygen Delivery Oxygen Flow Rate Fraction of Inspired Oxygen 06/22/24 02:50 06/22/24 02:59 06/22/24 06:00 Temperature 97.0 F L Pulse Rate 68 72 66 Respiratory Rate 18 18 12 Blood Pressure 161/91 H Pulse Oximetry 93 Oxygen Delivery Oxygen Flow Rate Fraction of Inspired Oxygen 06/22/24 10:26 06/22/24 10:30 06/22/24 13:30 Temperature Pulse Rate 66 92 Respiratory Rate Blood Pressure Pulse Oximetry 93 87 L Oxygen Delivery Nasal Cannula Room Air Oxygen Flow Rate 2 Fraction of Inspired Oxygen 06/22/24 13:35 06/22/24 13:40 06/22/24 13:45 Temperature Pulse Rate 93 100 90 Respiratory Rate Blood Pressure Pulse Oximetry 91 92 90 Oxygen Delivery Nasal Cannula Nasal Cannula Nasal Cannula Oxygen Flow Rate 1 2 1 Fraction of Inspired Oxygen 06/22/24 14:00 06/22/24 14:27 06/22/24 14:35 Temperature 96.6 F L Pulse Rate 74 70 70 Respiratory Rate 18 20 20 Blood Pressure 111/59 L Pulse Oximetry 93 Oxygen Delivery Oxygen Flow Rate Fraction of Inspired Oxygen Intake/Output Intake/Output: Intake & Output 06/19/24 06/20/24 06/21/24 06/22/24 23:59 23:59 23:59 23:59 Intake Total 2420 1370 680 480 Output Total 1200 2100 2050 1100 Balance 1220 -730 -1370 -620 Meds/Results Medications: Active Medications Generic Name Dose Route Start Last Admin Trade Name Freq PRN Reason Stop Dose Admin Acetaminophen 1,000 mg 06/18/24 09:44 06/22/24 10:26 Acetaminophen 500 Mg Tablet PO 1,000 mg HS PRN Administration Insomnia Al Hydrox/Mg Hydrox/Simethicone 30 ml 06/18/24 09:22 Mag Hydrox/Al Hydrox/Simeth 30 Ml Udc PO Q6H PRN Indigestion Albuterol 2 puff 06/18/24 09:22 Albuterol Sulfate (*Sp) Aerosol 1 Puff INHALATION Q4H PRN shortness of breath or wheezing Albuterol/Ipratropium 3 ml 06/18/24 02:00 06/22/24 14:26 Ipratropium 0.5 Mg/Albuterol Sulfate 2.5 Mg Ampul.Neb 3 Ml INHALATION 3 ml Q6HRT KEIRA Administration Aspirin 81 mg 06/18/24 09:40 06/22/24 10:26 Aspirin 81 Mg Enteric Tablet PO 81 mg DAILY KEIRA Administration Atorvastatin Calcium 20 mg 06/18/24 09:40 06/22/24 10:25 Atorvastatin 20 Mg Tablet PO 20 mg DAILY KEIRA Administration Carvedilol 37.5 mg 06/18/24 09:40 06/22/24 10:26 Carvedilol 12.5 Mg Tablet PO 37.5 mg Q12HR KEIRA Administration Diphenhydramine HCl 50 mg 06/18/24 09:22 Diphenhydramine Hcl Cap 25 Mg Capsule PO HS PRN Insomnia Enoxaparin Sodium 40 mg 06/20/24 09:00 06/22/24 10:30 Enoxaparin 40 Mg/0.4 Ml Syringe SUB-Q 40 mg DAILY KEIRA Administration Guaifenesin 600 mg 06/18/24 09:40 06/22/24 10:25 Guaifenesin 12 Hr 600 Mg Tabcr PO 600 mg Q12HR KEIRA Administration Levofloxacin 750 mg 06/19/24 09:00 06/22/24 10:25 Levofloxacin 750 Mg Tablet PO 750 mg DAILY KEIRA Administration Nicotine 1 patch 06/19/24 15:25 06/22/24 10:30 Nicotine (*Pbkc) 21 Mg Patch TRANSDERM 1 patch DAILY KEIRA Administration Prednisone 40 mg 06/22/24 08:00 06/22/24 10:25 Prednisone 20 Mg Tablet PO 06/27/24 07:59 40 mg DAILY@0800 KEIRA Administration Radiology Results: ITS Impressions Chest CTA 06/17/24 23:04 IMPRESSION: No pulmonary embolus. No thoracic aortic dissection. Findings suggestive of right heart dysfunction, as detailed above. The large left-sided pleural effusion suspected on plain film evaluation corresponds to a large pericardial fat pad combined with overlying soft tissues. The lungs are clear. Chest X-Ray 06/22/24 07:20 Impression: [id number] left pleural effusion, possibly partially loculated laterally. Mild interstitial pulmonary edema. Pacemaker device. Labs Labs: Laboratory Results - last 24 hr 06/21/24 06/22/24 21:20 06:35 WBC 12.5 H RBC 4.12 L Hgb 13.5 Hct 41.1 MCV 99.8 MCH 32.8 MCHC 32.8 RDW 11.1 L Plt Count 184 MPV 9.4 Immature Gran % (Auto) 1.4 H Neut % (Auto) 83.9 H Lymph % (Auto) 5.7 L [place] % (Auto) 8.8 H Eos % (Auto) 0.0 Baso % (Auto) 0.2 Lymph # (Auto) 0.71 L [place] # (Auto) 1.1 H Eos # (Auto) 0.0 Baso # (Auto) 0.0 Abs Immat Gran (auto) 0.18 H Absolute Neuts (auto) 10.5 H Absolute Nucleated RBC 0.000 Nucleated RBC % 0.0 Sodium 129 L Potassium 4.5 Chloride 92 L Carbon Dioxide 34 H Anion Gap 3 L BUN 15 Creatinine 0.42 L Estim Creat Clear Calc 112 Estimated GFR > 60 Glucose 195 H POC Capillary Glucose 302 H Calcium 8.6 Magnesium 2.2 Total Bilirubin 0.7 AST 17 ALT 22 Alkaline Phosphatase 67 Total Protein 6.0 L Albumin 3.3 L
--- NOTE | 2024-06-22 15:40 | PCPTNOTE ---
The patient treatment was not able to be completed at this time due to patient on the phone with daughter. Will plan to continue treatment per plan of care.
--- NOTE | 2024-06-22 19:54 | PC.NURSE ---
Educated patient that its best for patient to be taken home by ambulance due to no access to oxygen. Patient stated she would rather be taken home by family. Educated was provided and patient understood educated given.
== END 2024-06-22 19:25 | disposition home or self-care (01) | DRG 190 ==
LOC: ANHED 06-18 01:34 → ANH3MEDSUR 06-18 02:04
PROVIDERS: Nurse Practitioner Adult Health; Nurse Practitioner Family; Admitting Provider Internal Medicine; Emergency Provider Physician Assistant; Visit Provider Internal Medicine
DX: J44.1 Chronic obstructive pulmonary disease with (acute) exacerbation (principal); J96.21 Acute and chronic respiratory failure with hypoxia; S22.080A Wedge compression fracture of T11-T12 vertebra, initial encounter for closed fracture; E87.1 Hypo-osmolality and hyponatremia; Z68.41 Body mass index [BMI] 40.0-44.9, adult; I50.32 Chronic diastolic (congestive) heart failure; I11.0 Hypertensive heart disease with heart failure; E78.5 Hyperlipidemia, unspecified; I25.10 Atherosclerotic heart disease of native coronary artery without angina pectoris; I25.5 Ischemic cardiomyopathy; I48.91 Unspecified atrial fibrillation; M19.90 Unspecified osteoarthritis, unspecified site; F17.218 Nicotine dependence, cigarettes, with other nicotine-induced disorders; Z95.0 Presence of cardiac pacemaker; Z79.82 Long term (current) use of aspirin; Z99.81 Dependence on supplemental oxygen; E66.01 Morbid (severe) obesity due to excess calories
CPT/HCPCS: 36415; 36600; 71045; 71275; 80053; 81001; 82805; 82948; 83605; 83735; 83880; 84484; 85018; 85025; 85610; 85730; 87040; 87637; 93005; 94618; 94640; 96361; 96374; 96375; 96376; 97161; 97165; 97530; 99285; A9270; G0378; J1171; J1650; J1940; J2919; J7030; J7512; Q9967